=== PATIENT | male | born 1970 | race Caucasian/White ===

== ENCOUNTER → 2022-11-27 | Outpatient (CLI) | payer OTHER, SELFPAY ==
[2022-11-27 15:24] LABS: Absolute Lymphocyte Count 1.58 X10^3/uL (0.83-4.51); Basophil# 0.06 X10^3/uL; Basophil% 0.9 % (0-1); Eosinophil# 0.15 X10^3/uL; Eosinophils% 2.3 % (0-5); Hematocrit 43.3 % (40-54); Hemoglobin 14.4 g/dL (13.0-16.5); Lymphocyte # 1.58 X10^3/ul (0.83-4.51); Lymphocyte % 24.7 % (19-41); Mean Corp Hgb Conc 33.3 g/dL (32-36); Mean Corpuscular Hgb 29.6 pg (27.0-32.0); Mean Corpuscular Volume 89.1 fL (80-94); Mean Platelet Vol. 11.3 fl (6.2-12.0); Monocyte# 0.56 X10^3/uL; Monocyte% 8.8 % (0-10); NRBC Flagged by Analyzer 0 % (0-5); Neutrophil % 62.5 % (47-70); Platelet Count 204 K/mm3 (150-450); RBC Distribution Width CV 13.4 % (11.6-14.6); RBC Distribution Width SD 43.8 fl (35.1-43.9); Red Blood Count 4.86 M/mm3 (4.6-6.2); White Blood Count 6.4 K/mm3 (4.4-11.0)
[2022-11-27 15:54] LABS: ALB/GLOB Ratio 0.9 RATIO (0.9-2.4); AST(SGOT) 28 U/L (15-37); Alanine Aminotransfer ALT/SGPT 53 U/L (16-61); Albumin, Serum 3.5 g/dL (3.2-5.0); Alkaline Phosphatase 53 U/L (45-117); Anion Gap 6 (5-15); BUN 20 mg/dL (7-18); BUN/Creat Ratio 22.8 RATIO (10-20); Calcium,Total 9.2 mg/dL (8.5-10.1); Chloride 104 mmol/L (98-107); Cholesterol 157 mg/dL (200); Creatinine, Serum 0.88 mg/dL (0.70-1.30); EST Glomerular Filtration Rate 97 mL/min (>60); Est Glom Filt Rate - Afr Amer 117 mL/min (>60); Globulin 3.8 g/dL (2.2-4.2); Glucose 185 mg/dL (74-106); High Density Lipoprotein 34 mg/dL; Potassium 4.2 mmol/L (3.5-5.1); Protein, Total 7.3 g/dL (6.4-8.2); Sodium Level 136 mmol/L (136-145); Triglycerides 219 mg/dL; Very Low Density Lipoprotein 44 mg/dL (5-40)
== END | disposition home or self-care (01) ==
LOC: BIMLAB 11:58
PROVIDERS: PCP Internal Medicine; Referring Provider Internal Medicine; Visit Provider Internal Medicine
DX: I10 Essential (primary) hypertension (principal); R73.03 Prediabetes; G47.33 Obstructive sleep apnea (adult) (pediatric)
CPT/HCPCS: 36415; 80053; 80061; 85025

== ENCOUNTER → 2022-12-01 | Outpatient (CLI) | payer OTHER, SELFPAY ==
--- NOTE | 2022-12-01 12:56 | ECHOCS_ITS ---
Reason For Study: CHF Procedure This was a 2D Doppler, Color Flow transthoracic echocardiogram. Technically difficult study due to patient body habitus. Contrast injection was performed. Exam performed in department. Left Ventricle Normal LV size. Mild concentric left ventricular hypertrophy. The left ventricular ejection fraction is 65 %. Stage 2 diastolic dysfunction. Right Ventricle The right ventricle is not well visualized. Atria The left atrium is severely enlarged. The right atrium is not well visualized. Mitral Valve Mitral valve not well visualized. Mild (1+) mitral valve insufficiency. Tricuspid Valve The tricuspid valve is not well visualized. Aortic Valve The aortic valve is not well visualized in the short axis view. Mean aortic valve gradient 8 mmHg. Pulmonic Valve The pulmonic valve is not well visualized. Great Vessels The aortic root is not well visualized. Pericardium/Pleural No pericardial effusion. Medication 20 gauge I.V. with prn adaptor inserted into right arm. Diluted definity 3ml given slow IV push to enhance endocardial definition. MMode/2D Measurements & Calculations LVIDd: 5.8 cm IVSd: 1.2 cm Ao root diam: 3.4 cm LVIDs: 3.5 cm LVPWd: 1.2 cm LA dimension: 4.6 cm FS: 39.4 % LAV(MOD-bp): 102.4 ml LVAd ap4: 43.2 cm2 SV(MOD-sp4): 91.9 ml LAV(MOD-bp) Indexed: 41.3 ml/m2 LVLd ap4: 9.0 cm LAV(MOD-sp2): 81.0 ml EDV(MOD-sp4): 166.1 ml LAV(MOD-sp4): 108.4 ml EDV(sp4-el): 175.3 ml LVAs ap4: 26.6 cm2 LVLs ap4: 7.7 cm ESV(MOD-sp4): 74.2 ml ESV(sp4-el): 78.3 ml EF(MOD-sp4): 55.3 % EF(sp4-el): 55.3 % SV(sp4-el): 97.0 ml LA A4 area: 31.0 cm2 TAPSE: 2.0 cm Time Measurements MV dec time: 0.16 sec Doppler Measurements & Calculations MV E max zac: 135.1 cm/sec Lat Peak E' Zac: 7.9 cm/sec Med Peak E' Zac: 7.9 cm/sec MV A max zac: 87.3 cm/sec E/E' lat: 17.2 E/E' med: 17.2 MV E/A: 1.5 MV V2 max: 146.9 cm/sec MV P1/2t max zac: 146.9 cm/sec Ao V2 max: 185.9 cm/sec MV max P.6 mmHg MV P1/2t: 53.7 msec Ao max P.8 mmHg MV V2 mean: 66.5 cm/sec Ao V2 mean: 135.2 cm/sec MV mean P.3 mmHg MV dec slope: 801.3 cm/sec2 Ao mean P.3 mmHg MV V2 VTI: 34.5 cm MVA(P1/2t): 4.1 cm2 Ao V2 VTI: 45.5 cm AV (velocity ratio): 0.61 AI max zac: 423.9 cm/sec LV V1 max: 115.0 cm/sec PA V2 max: 94.1 cm/sec AI max P.9 mmHg LV V1 max P.3 mmHg PA V2 mean: 66.3 cm/sec LV V1 mean P.3 mmHg AI dec slope: 373.3 cm/sec2 LV V1 mean: 84.8 cm/sec AI P1/2t: 332.6 msec LV V1 VTI: 27.9 cm ECHO/Echo Complete W/ Contrast Interpretation Summary Technically difficult study due to patient body habitus. Contrast injection was performed. Mild concentric left ventricular hypertrophy. The left ventricular ejection fraction is 65 %. Stage 2 diastolic dysfunction. Mild (1+) mitral valve insufficiency. Mean aortic valve gradient 8 mmHg. Ordering Physician: Ana Gonzalez Referring Physician: Ana Gonzalez Performed By: Claudy Vasquez and Student
== END | disposition home or self-care (01) ==
LOC: CVS 12:54
PROVIDERS: PCP Internal Medicine; Referring Provider Internal Medicine; Visit Provider Internal Medicine
DX: I50.9 Heart failure, unspecified (principal); I51.7 Cardiomegaly
CPT/HCPCS: 93306; Q9957; A4216; C8929

== ENCOUNTER 2023-05-15 13:45 | Emergency (ER) | payer OTHER, SELFPAY ==
[2023-05-15 13:45] VITALS: BP 155/89; PULSE 106; RESP 18; TEMP 36.1; O2SAT 95; BMI 51.7
--- NOTE | 2023-05-15 14:18 | CT_ITS ---
INDICATION: Kidney Stone EXAMINATION: CT ABDOMEN AND PELVIS WITHOUT CONTRAST - CT Abdomen And Pelvis W/O Contrast Injection TECHNIQUE: Helically acquired images were obtained of the abdomen and pelvis without oral or IV contrast. A radiation dose optimization technique was used for this scan. IV Contrast dosage and agent: None. Oral contrast: None. RADIATION DOSAGE (If Supplied By Facility): CTDIvol = ( 22.71 ) mGy, DLP = ( 1113.08 ) mGycm COMPARISON: No relevant prior comparison study available FINDINGS: LOWER CHEST: Lung bases are clear. No cardiomegaly or pericardial effusion. Calcifications of the aortic root or bladder. LIVER: Homogeneous. No focal mass. GALLBLADDER AND BILIARY TREE: No calcified gallstones. No gallbladder distension or wall edema. No intra- or extrahepatic biliary ductal dilation. PANCREAS: No focal cystic or solid mass. SPLEEN: Normal size without focal cystic or solid mass. ADRENAL GLANDS: No nodules. KIDNEYS AND URETERS: Tiny 1 to 2 mm nonobstructing stone in the lower pole of the right kidney. No hydronephrosis. PERITONEUM: No ascites or free air. No other fluid collection. BOWEL: No evidence of acute appendicitis. Sigmoid diverticulosis without evidence of acute diverticulitis. No focal inflammatory change. LYMPH NODES: No enlarged mesenteric or retroperitoneal lymph nodes. VESSELS: Aorta is non-dilated. URINARY BLADDER: Unremarkable. REPRODUCTIVE ORGANS: No pelvic masses. ABDOMINAL WALL: No discrete abdominal or pelvic wall hernia. BONES: No lytic or blastic abnormality. Degenerative changes of the spine. CT/Abdomen/Pelvis without Cont IMPRESSION: 1. Small nonobstructing stone in the right kidney without evidence of hydronephrosis. 2. No focal acute inflammatory process. Electronically Signed: Juanito Watson MD at 15:06 EST ,
--- NOTE | 2023-05-15 14:20 | EX.ED.DYSGE1 ---
HPI History of Present Illness Chief Complaint: Flank Pain Informant: patient Narrative Narrative: 53-year-old male presenting to the emergency room with a chief complaint of hematuria. Patient states that he developed a right flank pain/ache. He states that this kept him up periodically during the night. Today began to have hematuria. He notes that when he does urinate it small amounts and does not feel like he empties his bladder. He has seen his few small clots. He is not on a blood thinner. No known direct trauma. Non-smoker. No known renal cyst or renal issues. No known kidney stones. [facility] Medical History Acute maxillary sinusitis, unspecified Bone fracture Cardiac murmur Heart failure High cholesterol History of back problems Hypertension Ocular migraine JOANNE (obstructive sleep apnea) Pre-diabetes Home Medications aspirin 81 mg tablet,delayed release (Adult Aspirin Regimen) 81 mg PO DAILY 11/04/22 [History Last Taken Unknown] carvedilol 25 mg tablet 25 mg PO BID 11/04/22 [History Last Taken Unknown] melatonin 3 mg capsule 3 mg PO HS PRN sleep #30 caps 11/04/22 [Rx Last Taken Unknown] catmlwis-hzk-algyf 150 mcg-vit K1 30 mcg-lycop 300 mcg-lutein tablet (Centrum Minis Men 50 Plus) tab PO 11/04/22 [History Last Taken Unknown] lisinopril 20 mg tablet 20 mg PO DAILY #90 tabs 01/30/23 [Rx Last Taken Unknown] triamterene 37.5 mg-hydrochlorothiazide 25 mg capsule 1 cap PO DAILY #90 caps 01/30/23 [Rx Last Taken Unknown] atorvastatin 20 mg tablet 20 mg PO DAILY #30 tabs 03/31/23 [Rx Last Taken Unknown] Allergy/AdvReac Type Severity Reaction Status Date / Time No Known Allergies Allergy Verified 05/15/23 13:48 Family History Mother Alcoholism Arthritis Myocardial infarction CVA (cerebral vascular accident) COPD (chronic obstructive pulmonary disease) Father Alcoholism COPD (chronic obstructive pulmonary disease) Prostate cancer Grandmother Arthritis Breast cancer Colon cancer Skin cancer Surgical History History of foot surgery History of hernia repair History of tonsillectomy Social History household members: spouse current occupational status: unemployed Smoking Status: Never smoker Electronic Cigarette Use: not used alcohol intake: current alcohol intake frequency: holidays/special occasions only Alcohol type: beer and wine substance use type: does not use what type of physical activity do you participate in: none do you feel safe at home: Yes ROS ROS ED Constitutional Constitutional ED: Denies chills or weight loss Eyes Eyes: Denies change in vision or diplopia ENT ENT ED: Denies ear pain, rhinorrhea or sore throat Cardiovascular Cardiovascular: Denies chest pain, orthopnea, palpitations or racing heartbeat Respiratory/Chest Respiratory/Chest: Denies cough, dyspnea or orthopnea Gastrointestinal Gastrointestinal: Denies abdominal pain, diarrhea, nausea or vomiting Genitourinary Genitourinary ED: Reports hematuria and urinary frequency; Denies dysuria Musculoskeletal Musculoskeletal: Reports back pain; Denies arthralgias or myalgias Integumentary Denies abscess or rash Neurologic Neurologic: Denies headache(s) or weakness Psychiatric Psychiatric: Denies anxiety, depression, suicidal ideation or suicidal thoughts Endocrine Endocrinology: Denies polydipsia, polyphagia or polyuria Allergic/Immunologic Allergic/Immunologic ED: Denies mouth swelling, tongue swelling or urticaria EXAM Physical Exam Const Vital Signs: 05/15/23 13:45 Temperature 97.0 F L Temperature Source Temporal Pulse Rate 106 H Respiratory Rate 18 Blood Pressure 155/89 H Blood Pressure Mean 111 Pulse Ox 95 Oxygen Delivery Method Room Air Positive well nourished, well developed and obese General Appearance ED: well developed Nutritional Appearance: obese HEENT Reports normocephalic, head/scalp atraumatic and moist mucous membranes Eyes PERRL and EOMs intact bilaterally Neck no lymphadenopathy, supple and no JVD Resp normal respiratory effort and clear to auscultation bilaterally Cardio regular rate, regular rhythm and no murmurs GI normal to inspection, nondistended, normoactive bowel sounds and non-tender Palpation: soft Back/Spine no CVA tenderness and normal ROM Extremity normal to inspection General Extremety ED: Negative for edema General Extremity: Negative for edema Neuro oriented x3 and CN's II-XII intact bilaterally Sensorium / Orientation: alert Motor Exam: strength 5/5 throughout Psych mental status grossly normal Mood & Affect: Negative for depressed or tearful Skin no rashes or lesions noted and no wounds MDM MDM MDM Narrative Medical decision making narrative: Urinalysis demonstrated 50-100 red blood cells. No obvious infection. White count 10.4 hemoglobin 14.4. Creatinine 0.94 glucose 211. Patient received IV fluids and Toradol. He states that he is urinated several times and now feels like he is emptying his bladder. Before that he states he was able to pass a large amount of clots. CT demonstrates a 2 mm right renal stone. I question whether or not there is a 1 or 2 mm stone in the bladder on the left side. I do not see any obvious hydronephrosis or hydroureter. Patient does not require any catheter at this time. He was encouraged to continue drinking fluids and should he not be able to urinate he would need to come back for at minimum Gonzales catheter if not for CBI. This could be all due to a passed stone given the pain in the flank. He is not on a blood thinner. I am not seeing hypotension or acute blood loss anemia. I am not seeing any obvious source for the bleeding. He understands that should it persist he will need to follow-up with urology. History & Record Review Discussion w/independent historian: Patient and Family Lab Data Attestation: I reviewed the patient's lab results. Labs: Laboratory Results - last 24 hr 05/15/23 05/15/23 14:23 14:25 WBC 10.4 RBC 4.79 Hgb 14.4 Hct 41.3 MCV 86.2 MCH 30.1 MCHC 34.9 RDW Std Deviation 41.2 RDW Coeff of Adry 13.2 Plt Count 213 MPV 10.4 Immature Gran % (Auto) 0.400 Neut % (Auto) 76.8 H Lymph % (Auto) 13.7 L Harney % (Auto) 7.9 Eos % (Auto) 0.7 Baso % (Auto) 0.5 Absolute Neuts (auto) 8.0 H Absolute Lymphs (auto) 1.42 Nucleated RBC % 0 Sodium 132 L Potassium 3.8 Chloride 101 Carbon Dioxide 24.0 Anion Gap 7 BUN 16 Creatinine 0.94 Estim Creat Clear Calc 84.97 Est GFR (MDRD) Af Amer 108 Est GFR (MDRD) Non-Af 89 BUN/Creatinine Ratio 17.0 Glucose 211 H Calcium 9.8 Urine Color Red Urine Clarity Turbid Urine pH 6.5 Ur Specific [place] 1.015 Urine Protein 500 H Urine Glucose (UA) Normal Urine Ketones 5 H Urine Occult Blood 250 H Urine Nitrite Negative Urine Bilirubin Negative Urine Urobilinogen Normal Ur Leukocyte Esterase Negative Urine RBC 50-100 SEEN Urine WBC 0 SEEN Ur Squamous Epith Cells 0 SEEN Urine Bacteria 0 SEEN Urine Mucus 0 SEEN Radiography Diagnostic Testing: Clinical Impression(s) from Imaging Studies Abdomen/Pelvis CT 05/15/23 14:18 IMPRESSION: 1. Small nonobstructing stone in the right kidney without evidence of hydronephrosis. 2. No focal acute inflammatory process. Electronically Signed: Juanito Watson MD at 15:06 EST , Discharge Plan Triage Chief Complaint: Flank Pain ED Provider: Joseph Roper Dx/Rx/DC Orders Clinical Impression: Acute flank pain, Hematuria, Kidney stone on right side Instructions: ED Hematuria, ED Kidney Stone with Pain Prescriptions: No Action carvedilol 25 mg tablet 25 mg PO BID Rx Instructions: must administer with a meal/food Centrum Minis Men 50 Plus [phone] mcg tablet PO aspirin [Adult Aspirin Regimen] 81 mg tablet,delayed release (DR/EC) 81 mg PO DAILY melatonin 3 mg capsule 3 mg PO HS PRN (Reason: sleep) Qty: 30 1RF lisinopril 20 mg tablet 20 mg PO DAILY Qty: 90 0RF triamterene-hydrochlorothiazid 37.5-25 mg capsule 1 cap PO DAILY Qty: 90 0RF atorvastatin 20 mg tablet 20 mg PO DAILY Qty: 30 1RF Primary Care Provider: Ana Gonzalez Referrals: Ana Gonzalez MD [Primary Care Provider] - Bishop Goode MD [Med Staff - Active Staff] - As soon as possible Disposition Disposition: Home, Self Care Discharge Date/Time: 05/15/23 16:27
[2023-05-15 14:31] LABS: Bacteria 0 SEEN /hpf (None Seen); Mucous, Urine 0 SEEN /hpf (<or=2+); Squamous Epithelial Cells - UA 0 SEEN /hpf (0-5); White Blood Cells 0 SEEN /hpf (0-5)
[2023-05-15 14:35] LABS: Absolute Lymphocyte Count 1.42 X10^3/uL (0.83-4.51); Basophil# 0.05 X10^3/uL; Basophil% 0.5 % (0-1); Eosinophil# 0.07 X10^3/uL; Eosinophils% 0.7 % (0-5); Hematocrit 41.3 % (40-54); Hemoglobin 14.4 g/dL (13.0-16.5); Lymphocyte # 1.42 X10^3/ul (0.83-4.51); Lymphocyte % 13.7 % (19-41); Mean Corp Hgb Conc 34.9 g/dL (32-36); Mean Corpuscular Hgb 30.1 pg (27.0-32.0); Mean Corpuscular Volume 86.2 fL (80-94); Mean Platelet Vol. 10.4 fl (6.2-12.0); Monocyte# 0.82 X10^3/uL; Monocyte% 7.9 % (0-10); NRBC Flagged by Analyzer 0 % (0-5); Neutrophil # 7.96 X10^3/uL (2.7-7.7); Neutrophil % 76.8 % (47-70); Platelet Count 213 K/mm3 (150-450); RBC Distribution Width CV 13.2 % (11.6-14.6); RBC Distribution Width SD 41.2 fl (35.1-43.9); Red Blood Count 4.79 M/mm3 (4.6-6.2); White Blood Count 10.4 K/mm3 (4.4-11.0)
[2023-05-15] MEDS: 0.9% Normal Saline (1000mL) 1,000 ML 999 ML IV (14:38)
[2023-05-15 14:41] LABS: Color, Urine Red (Yellow); Glucose, Dipstick Normal (Normal); Ketone-Dipstick 5 mg/dl (Negative); Leukocyte Esterase-Dipstick Negative /ul (Negative); Nitrite-Dipstick Negative (Negative); Occult Blood-Urine 250 /ul (Negative); Protein-Dipstick 500 mg/dl (Negative); Specific Gravity, Urine 1.015 (1.002-1.030); Urine Bilirubin Dipstick Negative (Negative); Urine Clarity Turbid (Clear); Urine Urobilinogen Normal (Normal); Urine pH 6.5 (5.0 - 8.0)
[2023-05-15 14:50] LABS: Anion Gap 7 (5-15); BUN 16 mg/dL (7-18); Calcium,Total 9.8 mg/dL (8.5-10.1); Chloride 101 mmol/L (98-107); Creatinine, Serum 0.94 mg/dL (0.70-1.30); EST Glomerular Filtration Rate 89 mL/min (>60); Est Glom Filt Rate - Afr Amer 108 mL/min (>60); Estimated Creatinine Clearance 84.97 ml/min; Glucose 211 mg/dL (74-106); Potassium 3.8 mmol/L (3.5-5.1); Sodium Level 132 mmol/L (136-145)
[2023-05-15 14:52] LABS: Red Blood Cells-Urine 50-100 SEEN /hpf (0-5)
[2023-05-15] MEDS: Ketorolac 30 MG/ML Syringe IV (15:15)
== END 2023-05-15 16:27 | disposition home or self-care (01) ==
PROVIDERS: Emergency Provider Emergency Medicine; PCP Internal Medicine; Referring Provider Emergency Medicine; Visit Provider Emergency Medicine
DX: N20.0 Calculus of kidney (principal); I11.0 Hypertensive heart disease with heart failure; I50.9 Heart failure, unspecified; R31.9 Hematuria, unspecified; R10.9 Unspecified abdominal pain; E78.00 Pure hypercholesterolemia, unspecified; Z79.899 Other long term (current) drug therapy; Z79.82 Long term (current) use of aspirin
CPT/HCPCS: 74176; 80048; 81001; 85025; 96361; 96374; 99283; J7030; A4216

== ENCOUNTER → 2024-05-30 | Outpatient (CLI) | payer OTHER, SELFPAY ==
[2024-05-30 12:30] LABS: ALB/GLOB Ratio 0.9 RATIO (0.9-2.4); AST(SGOT) 35 U/L (15-37); Alanine Aminotransfer ALT/SGPT 48 U/L (16-61); Albumin, Serum 3.7 g/dL (3.2-5.0); Alkaline Phosphatase 51 U/L (45-117); Anion Gap 7 (5-15); BUN 19 mg/dL (7-18); BUN/Creat Ratio 18.4 RATIO (10-20); Calcium,Total 9.4 mg/dL (8.5-10.1); Chloride 104 mmol/L (98-107); Cholesterol 143 mg/dL (200); Creatinine, Serum 1.03 mg/dL (0.70-1.30); EST Glomerular Filtration Rate 80 mL/min (>60); Est Glom Filt Rate - Afr Amer 97 mL/min (>60); Globulin 3.9 g/dL (2.2-4.2); Glucose 162 mg/dL (74-106); High Density Lipoprotein 46 mg/dL; Potassium 4.3 mmol/L (3.5-5.1); Protein, Total 7.6 g/dL (6.4-8.2); Sodium Level 138 mmol/L (136-145); Triglycerides 149 mg/dL; Very Low Density Lipoprotein 30 mg/dL (5-40)
[2024-05-30 12:37] LABS: Absolute Lymphocyte Count 1.52 X10^3/uL (0.83-4.51); Absolute Neutrophil Count 3.9 X10^3/uL (2.0-7.7); Basophil# 0.07 X10^3/uL; Basophil% 1.1 % (0-1); Eosinophil# 0.17 X10^3/uL; Eosinophils% 2.8 % (0-5); Hematocrit 39.2 % (40-54); Hemoglobin 13.2 g/dL (13.0-16.5); Lymphocyte # 1.52 X10^3/ul (0.83-4.51); Lymphocyte % 24.8 % (19-41); Mean Corp Hgb Conc 33.7 g/dL (32-36); Mean Corpuscular Hgb 29.8 pg (27.0-32.0); Mean Corpuscular Volume 88.5 fL (80-94); Mean Platelet Vol. 10.6 fl (6.2-12.0); Monocyte# 0.47 X10^3/uL; Monocyte% 7.7 % (0-10); NRBC Flagged by Analyzer 0 % (0-5); Neutrophil # 3.87 X10^3/uL (2.7-7.7); Neutrophil % 62.9 % (47-70); Platelet Count 213 K/mm3 (150-450); RBC Distribution Width CV 14.8 % (11.6-14.6); RBC Distribution Width SD 47.7 fl (35.1-43.9); Red Blood Count 4.43 M/mm3 (4.6-6.2); White Blood Count 6.1 K/mm3 (4.4-11.0)
== END | disposition home or self-care (01) ==
LOC: BIMLAB 08:23
PROVIDERS: PCP Internal Medicine; Referring Provider Internal Medicine; Visit Provider Internal Medicine
DX: I10 Essential (primary) hypertension (principal)

== ENCOUNTER → 2024-06-02 | Outpatient (CLI) | payer OTHER, SELFPAY ==
--- NOTE | 2024-06-02 14:34 | RAD_ITS ---
INDICATION: persistent cough EXAMINATION/TECHNIQUE: X-RAY - XR Chest 2 Views COMPARISON: No relevant prior comparison study available FINDINGS: LINES/DEVICES: None. LUNGS: The lungs are well expanded. No consolidation, edema or effusion. No pneumothorax. MEDIASTINUM AND CARDIOVASCULAR STRUCTURES: Cardiac silhouette not enlarged. Central airways and mediastinal contour are unremarkable. BONES AND SOFT TISSUES: No acute abnormality. Mild degenerative changes throughout the spine. RAD/Chest PA and Lateral IMPRESSION: No acute pulmonary finding. Electronically Signed: Jean-Pierre Meraz MD at 12:44 EST ,
== END | disposition home or self-care (01) ==
LOC: MTRAD 14:34
PROVIDERS: PCP Internal Medicine; Referring Provider Internal Medicine; Visit Provider Internal Medicine
DX: R05.8 Other specified cough (principal)
CPT/HCPCS: 71046

== ENCOUNTER 2024-08-17 06:31 | Inpatient (IN) | payer OTHER, SELFPAY ==
[2024-08-17] VITALS (18 sets, daily range): BP systolic 98–136; BP diastolic 56–85; PULSE 64–123; RESP 12–33; TEMP 36.2–37.7; O2SAT 79–98; BMI 48.0; BMI 46.8
--- NOTE | 2024-08-17 06:33 | EKG12_ITS ---
Test Reason : SOB Blood Pressure : */* mmHG Vent. Rate : 117 BPM Atrial Rate : 117 BPM P-R Int : 178 ms QRS Dur : 90 ms QT Int : 338 ms P-R-T Axes : 2 6 165 degrees QTcB Int : 471 ms Sinus tachycardia with Premature atrial complexes Left ventricular hypertrophy with repolarization abnormality ( R in aVL ) Abnormal ECG Confirmed by Tanvir Meeks ([id number]), publishing editor GENTRY RESENDIZ ([id number]) on 08/18/2024 7:54:18 AM Referred By: JANET Confirmed By: Tanvir Meeks
--- NOTE | 2024-08-17 06:33 | RAD_ITS ---
PROCEDURE: CHEST 1 VIEW (PORTABLE) 08/17/2024 REASON FOR EXAM: CHEST PAIN TECHNIQUE: Frontal view of the chest. COMPARISON: 06/02/2024 FINDINGS: AP upright portable view. Large appearing body habitus. Moderate bilateral perihilar lower zone predominant ill-defined patchy airspace opacities may represent pulmonary edema, clinically correlate. No definite pleural effusion identified. The cardiac silhouette is at the upper limits for size. The upper mediastinum again appears prominent. RAD/Chest 1 View (Portable) IMPRESSION: AP upright portable view. Large appearing body habitus. Moderate bilateral perihilar lower zone predominant ill-defined patchy airspace opacities may represent pulmonary edema, clinically correlate. No definite pleural effusion identified. The cardiac silhouette is at the upper limits for size. The upper mediastinum again appears prominent. Reading Location: [id number]
--- NOTE | 2024-08-17 06:41 | ED.VIS.DYS ---
HPI History of Present Illness Chief Complaint: Chest Pain Detail of Chief Complaint: Shortness of breath for a week. Informant: patient and spouse/S.O. Onset/Context/Timing Onset: Days (Approximately 1 week last Thursday.) Context: gradual Timing: Continuous Quality: Positive for Orthopnea and Wheezing Current Severity: Moderate Maximum Severity: Moderate Worsened by: Lying flat and Coughing Relieved by: Oxygen Associated Symptoms cough Chest Pain: Positive for None Narrative Narrative: 54-year-old male history of hypertension, CHF and diabetes. No prior LA. States he been short of breath with a productive cough of rust colored sputum for about a week. Denies fever. Denies vomiting. Really no significant chest pain. He does have CHF he does get swelling in his legs and his legs are more swollen than normal. recently had URI symptoms. PE Risk Factors: Negative for Cancer, OCP + Smoking + > 35, Prior DVT or PE, Recent immobilization, Recent surgery or Recent travel Prior similar symptoms: Yes Recent Illness/Hospitalization: No PFSH PFS Medical History Acute bronchitis, unspecified Acute maxillary sinusitis, unspecified Ocular migraine JOANNE (obstructive sleep apnea) Pre-diabetes Cardiac murmur High cholesterol Hypertension Heart failure Bone fracture History of back problems Home Medications ?Medication ?Instructions ?Recorded ?Last Taken ?Type aspirin 81 mg tablet,delayed 81 mg PO DAILY 11/04/22 Unknown History release (Adult Aspirin Regimen) [id number] 150 mcg-vit K1 1 tab PO DAILY 11/04/22 Unknown History 30 mcg-lycop 300 mcg-lutein tablet (Centrum Minis Men 50 Plus) flash glucose scanning reader #1 ea 05/20/23 Unknown Rx (FreeStyle Vance 2 [place]) flash glucose sensor (FreeStyle #1 ea 05/20/23 Unknown Rx Vance 2 Sensor kit) atorvastatin 20 mg tablet 20 mg PO DAILY #90 tabs 05/04/24 Unknown Rx lisinopril 20 mg tablet 20 mg PO DAILY #90 tabs 05/04/24 Unknown Rx metformin 1,000 mg tablet 1,000 mg PO BID #180 tabs 05/04/24 Unknown Rx triamterene 37.5 1 cap PO DAILY #90 caps 05/04/24 Unknown Rx mg-hydrochlorothiazide 25 mg capsule albuterol sulfate 90 mcg/actuation 2 puff inhalation Q6H PRN 06/02/24 Unknown Rx aerosol inhaler shortness of breath or wheezing #8.5 grams escitalopram oxalate 10 mg tablet 10 mg PO QDAY #30 tabs 08/09/24 Unknown Rx (Lexapro) trazodone 50 mg tablet 50 - 100 mg (1 - 2 x 50 mg) PO QHS 08/09/24 Unknown Rx #90 tabs Allergy/AdvReac Type Severity Reaction Status Date / Time No Known Allergies Allergy Verified 08/09/24 13:05 Family History Mother Alcoholism Arthritis Myocardial infarction CVA (cerebral vascular accident) COPD (chronic obstructive pulmonary disease) Father Alcoholism COPD (chronic obstructive pulmonary disease) Prostate cancer Grandmother Arthritis Breast cancer Colon cancer Skin cancer Surgical History History of tonsillectomy History of foot surgery History of hernia repair Social History household members: spouse current occupational status: unemployed Smoking Status: Never smoker Electronic Cigarette Use: not used alcohol intake: current alcohol intake frequency: holidays/special occasions only Alcohol type: beer and wine substance use type: does not use what type of physical activity do you participate in: none do you feel safe at home: Yes ROS ROS ED ROS Narrative Cough. Shortness of breath. Wheezing. Constitutional Constitutional ED: Denies chills or fever(s) Eyes Eyes: Denies blurry vision ENT ENT ED: Denies ear pain Cardiovascular Cardiovascular: Reports orthopnea; Denies chest pain or palpitations Respiratory/Chest Respiratory/Chest: Reports cough, dyspnea, dyspnea on exertion, orthopnea and sputum Gastrointestinal Gastrointestinal: Denies abdominal pain, diarrhea, nausea or vomiting Genitourinary Genitourinary ED: Denies dysuria or hematuria Musculoskeletal Musculoskeletal: Denies arthralgias or back pain Integumentary Denies abscess Neurologic Neurologic: Denies headache(s) Psychiatric Psychiatric: Denies anxiety Endocrine Endocrinology: Denies cold intolerance Hematologic/Lymphatic Hematologic/Lymphatic: Denies easy bleeding, easy bruising or lymphadenopathy Allergic/Immunologic Allergic/Immunologic ED: Denies mouth swelling, tongue swelling or urticaria EXAM Physical Exam Narrative Exam Narrative: 54-year-old male vital signs stable except his pulse ox was 79% on room air when he came in. On 2 L he went up to 84% of 4 L 87%. at bedside. H EENT exam pupils round react light. Moist with members. Neck nontender. No JVD. Lungs coarse breath sounds. Scattered wheezes. Heart tachycardic 120 no murmur. Chest wall ribs nontender. Abdomen soft nontender. Moving all 4 extremities. 2+ pitting edema both lower extremities. Calves are nontender without cords. Normal motor strength. Back nontender. Neurologically is awake alert. Answering questions following commands. He is in mild respiratory distress. Const Vital Signs: 08/17/24 06:32 08/17/24 06:34 08/17/24 06:35 Temperature 99.8 F H Temperature Source Oral Pulse Rate 123 H 121 H Respiratory Rate 30 H 24 H Respiratory Effort Respiratory Pattern Blood Pressure 128/67 H Blood Pressure Mean 87 Pulse Ox 79 84 87 Oxygen Delivery Method Room Air Nasal Cannula Nasal Cannula Oxygen Flow Rate (L/min) 2 4 08/17/24 06:36 08/17/24 06:52 Temperature Temperature Source Pulse Rate 113 H Respiratory Rate 30 H Respiratory Effort Short of Breath Labored Accessory Muscle Use Respiratory Pattern Tachypnea Blood Pressure Blood Pressure Mean Pulse Ox Oxygen Delivery Method Oxygen Flow Rate (L/min) Positive well nourished and well developed; Negative for cachectic or contractures General Appearance ED: well developed; Negative for cachectic, contractures, NAD or pallor Nutritional Appearance: Negative for cachectic HEENT Reports moist mucous membranes Negative for atraumatic, trauma or tenderness Eyes PERRL and EOMs intact bilaterally General Eye ED: Negative for pale conjunctiva or scleral icterus Neck no lymphadenopathy, supple, no meningeal signs and no JVD Lymph Lymphatic: Negative for other Chest Wall Chest: Negative for other Resp No normal respiratory effort and No clear to auscultation bilaterally Auscultation: wheezes Cardio regular rhythm, S1 normal heart sound and no murmurs; Negative for regular rate Rate: tachycardic GI non-tender, non-distended and no masses Auscultation: normoactive bowel sounds Palpation: soft; Negative for tender, guarding or rebound tenderness present Back/Spine no CVA tenderness and normal to inspection Extremity Negative for normal to inspection Extremity Narrative: 2+ pitting edema both lower extremities. General Extremety ED: Yes edema; Negative for tenderness General Extremity: edema Neuro oriented x3 and CN's II-XII intact bilaterally Sensorium / Orientation: alert, oriented to person, oriented to place and oriented to time; Negative for orientation impaired or confused Motor Exam: strength 5/5 throughout Psych mental status grossly normal Attitude: No agitated Mood & Affect: Negative for depressed or anxious Thought Process: normal thought process Skin no wounds and skin turgor normal General Skin Exam: Negative for jaundice or pallor Lesions: No no lesions Rashes: no rashes MDM MDM MDM Narrative Medical decision making narrative: 54-year-old male short of breath for a week differential would include CHF versus other cardiac etiology versus pneumonia versus viral URI versus other etiologies. Undergo cardiac workup. COVID and flu. DuoNeb aerosol for his wheezing. Screening labs and EKG. Patient will need to be admitted to the hospital due to his hypoxia pulse ox 79%. Repeat exam patient had some improvement with a DuoNeb aerosol. Chest x-ray however looks more like CHF than pneumonia. Looks like pulmonary edema. I have written for the patient to receive IV Lasix. History & Record Review Discussion w/independent historian: Patient and Family Lab Data Attestation: I reviewed the patient's lab results. Lab results narrative: CBC shows white 11.4. H&H 12.6 and 35.5. Platelets 262. Chemistry shows sodium 124. Gap of 17. BUN 31 creatinine of 1. Glucose 249. Troponin elevated 167. Not a surprise due to his CHF and hypoxia. BNP elevated at 2,180. Labs: Laboratory Results - last 24 hr 08/17/24 06:45 WBC 11.4 H RBC 4.32 L Hgb 12.6 L Hct 35.5 L MCV 82.2 MCH 29.2 MCHC 35.5 RDW Std Deviation 41.1 RDW Coeff of Adry 13.8 Plt Count 262 MPV 10.2 Immature Gran % (Auto) 0.600 Neut % (Auto) 87.1 H Lymph % (Auto) 6.2 L [place] % (Auto) 5.8 Eos % (Auto) 0.0 Baso % (Auto) 0.3 Absolute Neuts (auto) 9.9 H Absolute Lymphs (auto) 0.71 L Nucleated RBC % 0 Sodium 124 L Potassium 4.5 Chloride 90 L Carbon Dioxide 18.0 L Anion Gap 17 H BUN 31 H Creatinine 1.05 Estim Creat Clear Calc 111.89 Est GFR (MDRD) Non-Af 84 BUN/Creatinine Ratio 29.8 H Glucose 249 H Calcium 9.2 Troponin T High Sens 167 H* NT pro BNP II 2180 H Radiography Chest X-Ray - ED: 1 View, Read by ED Physician, Cardiomegaly and CHF Diagnostic Testing: Clinical Impression(s) from Imaging Studies Chest X-Ray 08/17/24 06:33 IMPRESSION: AP upright portable view. Large appearing body habitus. Moderate bilateral perihilar lower zone predominant ill-defined patchy airspace opacities may represent pulmonary edema, clinically correlate. No definite pleural effusion identified. The cardiac silhouette is at the upper limits for size. The upper mediastinum again appears prominent. Reading Location: [facility] Chest x-ray, portable, single view, interpreted by myself shows cardiomegaly. Bilateral fluffy density consistent with CHF. Cannot rule out pneumonia. Rhythm Strip Rhythm Strip: Sinus Tach Rate: 117 Ectopy: PAC(s) EKG Initial EKG: Attestation: I personally reviewed and interpreted this EKG as follows: Interpretation: No Acute Injury Pattern and Sinus Tachycardia Comments: Sinus tachycardia rate 117. PACs. LVH. He does have some inverted T waves and ST depression in V3 through V6. Also in lead I. No ST elevation. Critical Care Time Critical Care Time: Yes Critical care time (excluding procedures): 30-74 minutes, Including time spent:, Discussing w/Patient &/or Family/Software Developer Manager, Discussing w/Consultants, Arranging Admission or Transfer, Performing Direct Patient Care at Bedside and - (37 minutes.) Discharge Plan Dx/Rx/DC Orders Clinical Impression: Hypoxia, Congestive heart failure, History of diabetes mellitus, Acute hyponatremia, Elevated troponin Disposition Disposition: Acute Care [facility]
[2024-08-17] MEDS: Ipratropium/Albuterol Sulfate 3 ML AMPUL.NEB INHALATION ×2 (06:48→19:27)
[2024-08-17 06:53] LABS: Absolute Lymphocyte Count 0.71 X10^3/uL (0.83-4.51); Absolute Neutrophil Count 9.9 X10^3/uL (2.0-7.7); Basophil# 0.03 X10^3/uL; Basophil% 0.3 % (0-1); Hematocrit 35.5 % (40-54); Hemoglobin 12.6 g/dL (13.0-16.5); Lymphocyte # 0.71 X10^3/ul (0.83-4.51); Lymphocyte % 6.2 % (19-41); Mean Corp Hgb Conc 35.5 g/dL (32-36); Mean Corpuscular Hgb 29.2 pg (27.0-32.0); Mean Corpuscular Volume 82.2 fL (80-94); Mean Platelet Vol. 10.2 fl (6.2-12.0); Monocyte# 0.66 X10^3/uL; Monocyte% 5.8 % (0-10); NRBC Flagged by Analyzer 0 % (0-5); Neutrophil # 9.91 X10^3/uL (2.7-7.7); Neutrophil % 87.1 % (47-70); Platelet Count 262 K/mm3 (150-450); RBC Distribution Width CV 13.8 % (11.6-14.6); RBC Distribution Width SD 41.1 fl (35.1-43.9); Red Blood Count 4.32 M/mm3 (4.6-6.2); White Blood Count 11.4 K/mm3 (4.4-11.0)
[2024-08-17] MEDS: Furosemide 40 MG/4 ML Vial IV ×3 (07:10→21:56)
[2024-08-17 07:27] LABS: Anion Gap 17 (5-15); BUN 31 mg/dL (4-19); BUN/Creat Ratio 29.8 RATIO (10-20); Calcium,Total 9.2 mg/dL (7.6-11.0); Chloride 90 mmol/L (98-108); Creatinine, Serum 1.05 mg/dL (0.70-1.20); EST Glomerular Filtration Rate 84 (>60); Estimated Creatinine Clearance 111.89 ml/min (50-250); Glucose 249 mg/dL (70-99); Potassium 4.5 mmol/L (3.3-5.1); Sodium Level 124 mmol/L (133-145)
[2024-08-17 07:32] LABS: Pro- Brain NATRIURETIC PEPTIDE 2180 pg/mL (<=900); Troponin T High Sensitivity 167 ng/L (<=22)
--- NOTE | 2024-08-17 07:35 | PCM.HP.STD ---
HPI - General General Date of Admission: 08/17/24 Date of Service: 08/17/24 Chief Complaint: Worsening shortness of breath HPI Narrative MARK ANTHONY YE, is a 54 M who presented to [facility] ED on 08/17/2024 with worsening shortness of breath. Patient does not wear oxygen at home. He developed URI symptoms about 1 week ago and has had progressive shortness of breath since then. Notes that his works at [employer] and had an upper respiratory illness prior to that. He has noticed worsening lower extremity swelling and has not been able to lay flat in bed. Does have history of HFpEF noted. In the ED he was found to be hypoxic to the mid 70s on room air. Required 4 L nasal cannula to maintain oxygen saturations in the low 90s. Chest x-ray showed moderate bilateral patchy airspace opacities most consistent with pulmonary edema but no pleural effusions identified. Was found to be positive for human metapneumovirus. BNP was 2180 but notably patient has BMI of 46 so BMP will be underestimated. Labs otherwise notable for sodium 124, chloride 90, bicarb 18. Initial troponin 167, repeat pending. No EKG changes noted. Given all of these findings, hospitalist was contacted for admission. I saw the patient at bedside in the ED, was present. Patient was sitting up fairly comfortably in bed and breathing comfortably on 4 L nasal cannula at rest. He did have mild conversational dyspnea noted at times. Did have a few dry cough spells noted during our encounter. He was given a dose of IV Lasix as well as a breathing treatment prior to my encounter with him and stated these were moderately helpful for him. He denied any current fevers or chills. No other acute concerns at this time. [facility] Medical History (Updated 08/17/24 @ 15:[address] Elias Ramires, DO) Depression Diabetes Dialysis patient CPAP (continuous positive airway pressure) dependence Sleep apnea Acute bronchitis, unspecified Acute maxillary sinusitis, unspecified Ocular migraine JOANNE (obstructive sleep apnea) Pre-diabetes Cardiac murmur High cholesterol Hypertension Heart failure Bone fracture History of back problems Home Medications ?Medication ?Instructions ?Recorded ?Last Taken ?Type aspirin 81 mg tablet,delayed 81 mg PO DAILY 11/04/22 Unknown History release (Adult Aspirin Regimen) [id number] 150 mcg-vit K1 1 tab PO DAILY 11/04/22 Unknown History 30 mcg-lycop 300 mcg-lutein tablet (Centrum Minis Men 50 Plus) atorvastatin 20 mg tablet 20 mg PO DAILY #90 tabs 05/04/24 Unknown Rx lisinopril 20 mg tablet 20 mg PO DAILY #90 tabs 05/04/24 Unknown Rx metformin 1,000 mg tablet 1,000 mg PO BID #180 tabs 05/04/24 Unknown Rx triamterene 37.5 1 cap PO DAILY #90 caps 05/04/24 Unknown Rx mg-hydrochlorothiazide 25 mg capsule albuterol sulfate 90 mcg/actuation 2 puff inhalation Q6H PRN 06/02/24 Unknown Rx aerosol inhaler shortness of breath or wheezing #8.5 grams escitalopram oxalate 10 mg tablet 10 mg PO QDAY #30 tabs 08/09/24 Unknown Rx (Lexapro) trazodone 50 mg tablet 50 - 100 mg (1 - 2 x 50 mg) PO QHS 08/09/24 Unknown Rx #90 tabs Allergy/AdvReac Type Severity Reaction Status Date / Time No Known Allergies Allergy Verified 08/09/24 13:05 Family History Mother Alcoholism Arthritis Myocardial infarction CVA (cerebral vascular accident) COPD (chronic obstructive pulmonary disease) Father Alcoholism COPD (chronic obstructive pulmonary disease) Prostate cancer Grandmother Arthritis Breast cancer Colon cancer Skin cancer Surgical History History of tonsillectomy History of foot surgery History of hernia repair Social History household members: spouse current occupational status: unemployed Smoking Status: Never smoker Electronic Cigarette Use: not used alcohol intake: current alcohol intake frequency: holidays/special occasions only Alcohol type: beer and wine substance use type: does not use what type of physical activity do you participate in: none do you feel safe at home: Yes ROS Constitutional Constitutional: Reports fatigue and malaise; Denies chills or fever(s) Eyes Eyes: Denies change in vision Cardiovascular Cardiovascular: Reports dyspnea on exertion, edema and orthopnea; Denies chest pain, lightheadedness or palpitations Respiratory/Chest Respiratory/Chest: Reports cough, shortness of breath at rest and shortness of breath with exertion; Denies productive cough or wheezing Gastrointestinal Gastrointestinal: Denies abdominal pain Genitourinary Genitourinary: Denies dysuria Musculoskeletal Musculoskeletal: Denies arthralgias or myalgias Neurologic Neurologic: Denies dizziness or headache(s) Vital Signs Vital Signs Vital Signs: 08/17/24 06:32 08/17/24 06:34 08/17/24 06:35 Temperature 99.8 F H Temperature Source Oral Pulse Rate 123 H 121 H Respiratory Rate 30 H 24 H Respiratory Effort Respiratory Pattern Blood Pressure 128/67 H Blood Pressure Mean 87 Pulse Ox 79 84 87 Oxygen Delivery Method Room Air Nasal Cannula Nasal Cannula Oxygen Flow Rate (L/min) 2 4 08/17/24 06:36 08/17/24 06:52 Temperature Temperature Source Pulse Rate 113 H Respiratory Rate 30 H Respiratory Effort Short of Breath Labored Accessory Muscle Use Respiratory Pattern Tachypnea Blood Pressure Blood Pressure Mean Pulse Ox Oxygen Delivery Method Oxygen Flow Rate (L/min) Weight Weight: 143.3 kg Body Mass Index (BMI) 48.0 Physical Exam Const alert, oriented x3 and no apparent distress Constitutional Narrative: Pleasant middle-age male, class III obesity, breathing comfortably on 4 L nasal cannula at rest but with mild conversational dyspnea noted, otherwise sitting up comfortably in bed and conversing normally. General Appearance: cooperative and comfortable HEENT normocephalic, head/scalp atraumatic, hearing grossly normal bilaterally, nasal mucous membranes and turbinates normal and moist oral mucous membranes Eyes PERRL, EOMs intact bilaterally and conjunctivae normal Neck full ROM Chest inspection of chest normal Resp normal respiratory effort and no use of accessory muscles Resp Narrative: Breathing comfortably on 4 L nasal cannula at rest. Significant crackles noted bilaterally throughout with mild upper airway wheezing noted. Cardio no murmurs and peripheral pulses 2+ throughout Cardio Narrative: Tachycardic, regular rhythm. GI normal to inspection, nondistended, normoactive bowel sounds, soft to palpation, non-tender and non-distended Back/Spine normal ROM Extremity Extremity Narrative: +2-3 lower extremity pitting edema noted up to the knees. Skin no rashes or lesions noted Psych mental status grossly normal Results Lab / Micro Data 08/17/24 06:45 08/17/24 06:45 Labs: Laboratory Results - last 24 hr 08/17/24 06:45: WBC 11.4 H, RBC 4.32 L, Hgb 12.6 L, Hct 35.5 L, MCV 82.2, MCH 29.2, MCHC 35.5, RDW Std Deviation 41.1, RDW Coeff of Adry 13.8, Plt Count 262, MPV 10.2, Immature Gran % (Auto) 0.600, Neut % (Auto) 87.1 H, Lymph % (Auto) 6.2 L, [place] % (Auto) 5.8, Eos % (Auto) 0.0, Baso % (Auto) 0.3, Absolute Neuts (auto) 9.9 H, Absolute Lymphs (auto) 0.71 L, Nucleated RBC % 0, Sodium 124 L, Potassium 4.5, Chloride 90 L, Carbon Dioxide 18.0 L, Anion Gap 17 H, BUN 31 H, Creatinine 1.05, Estim Creat Clear Calc 111.89, Est GFR (MDRD) Non-Af 84, BUN/Creatinine Ratio 29.8 H, Glucose 249 H, Calcium 9.2, Troponin T High Sens 167 H*, NT pro BNP II 2180 H Rhythm Strip Rhythm Strip: Sinus Tach Rate: 117 Ectopy: PAC(s) Imaging Radiology Impression Chest X-Ray 08/17/24 06:33 IMPRESSION: AP upright portable view. Large appearing body habitus. Moderate bilateral perihilar lower zone predominant ill-defined patchy airspace opacities may represent pulmonary edema, clinically correlate. No definite pleural effusion identified. The cardiac silhouette is at the upper limits for size. The upper mediastinum again appears prominent. Reading Location: [facility] Assessment & Plan Assessment/Plan (1) Acute heart failure with preserved ejection fraction (HFpEF): (2) Human metapneumovirus (hMPV) pneumonia: PLAN: Plan Patient is a 54-year-old male who presented to [facility] ED on 08/17/2024 with worsening shortness of breath. 1. Acute hypoxic respiratory failure secondary to suspected HFpEF exacerbation and pneumonia secondary to human metapneumovirus ? Admit under inpatient status to PCU. Hypoxic to the mid 70s on room air, improved to low 90s on 4 L nasal cannula but then placed on BiPAP for some increased work of breathing. Chest x-ray with significant bilateral interstitial infiltrates noted. Positive for human metapneumovirus. BNP 2180 but underestimated in setting of obesity. Last echo in 2022 showed EF 60%, stage II diastolic dysfunction. Repeat echo ordered. Will treat with IV Lasix 40 mg every 8 hours for now, monitor BMP and urine output. Will also treat with IV steroids and scheduled DuoNebs for now. Wean supplemental oxygen as able. 2. Hyponatremia ? Sodium 124 on admit. Chloride 90. Suspect secondary to hypervolemia in setting of HFpEF exacerbation, treating as above. No mental status change noted. Monitor daily sodium level. 3. Elevated troponin ? Initial troponin 167, repeat pending. No EKG changes noted. Suspect demand ischemia in setting of HFpEF exacerbation and respiratory failure. Echo ordered as above. Chronic medical conditions: ? Class III obesity: BMI 46 on admit. Complicates hospital course, care and prognosis. Encouraged weight loss. ? Type 2 diabetes mellitus: Home regimen of metformin 1000 mg twice daily. A1c 8.3%. Will treat with sliding scale insulin with meals while inpatient, adjust as needed. ? Hypertension: Normotensive to mildly hypotensive on admit. Treating with IV Lasix as above. Will hold home lisinopril and triamterene?hydrochlorothiazide for now. ? Hyperlipidemia: Continue home statin. ? Depression: Continue home escitalopram. DVT prophylaxis: Lovenox twice daily CODE STATUS: Full code, verified Expected disposition: Home, TBD Total clinical time spent by myself addressing the patient's medical issues, reviewing all the data, and collaborating with patient's care team: 75 minutes. Charges/Coding Visit Charges Inpatient E&M: 24283 Init Hosp L3
[2024-08-17 10:04] LABS: Hemoglobin A1c 8.3 % (<=5.6)
[2024-08-17 10:10] LABS: Ferritin 541 ng/mL (37-417); Procalcitonin 0.15 ng/mL (<=0.10)
[2024-08-17 10:52] LABS: Vitamin B12 375 pg/mL (180-914)
[2024-08-17] MEDS: Enoxaparin 40 MG/0.4 ML Syringe SC ×2 (11:07→22:03)
[2024-08-17] MEDS: 0.9% Saline Lock 10 ML Syringe IV ×4 (11:08→22:04)
--- NOTE | 2024-08-17 11:17 | ECHOCS_ITS ---
Reason For Study Reason For Study: CHF Procedure This was a 2D Doppler, Color Flow transthoracic echocardiogram. The study was technically limited. The study was technically difficult. Exam performed portable in ICU/CCU. Left Ventricle Normal LV size. Moderate concentric left ventricular hypertrophy. The left ventricular ejection fraction is 35 %. Stage 2 diastolic dysfunction. There is moderate global hypokinesis of the left ventricle. Right Ventricle Normal RV size. Normal systolic function. Atria Normal left atrium. Normal right atrium. Mitral Valve Normal mitral valve. Tricuspid Valve Normal tricuspid valve. Aortic Valve The aortic valve is not well visualized. Great Vessels Normal aortic root. The pulmonary is not well visualized. Pericardium/Pleural No pericardial effusion. Medication Diluted definity 3ml given slow IV push to enhance endocardial definition. MMode/2D Measurements & Calculations LVIDd: 4.8 cm IVSd: 1.4 cm LVOT diam: 2.0 cm LVIDs: 3.7 cm LVPWd: 1.4 cm LVOT area: 3.1 cm2 RVDd: 3.7 cm FS: 23.0 % Ao root diam: 3.2 cm LAV(MOD-bp): 59.3 ml LVAd ap4: 45.4 cm2 LAV(MOD-bp) Indexed: 24.1 ml/m2 LVLd ap4: 9.7 cm LAV(MOD-sp2): 57.3 ml EDV(MOD-sp4): 170.7 ml LAV(MOD-sp4): 58.8 ml EDV(sp4-el): 180.4 ml LVAs ap4: 33.0 cm2 LVLs ap4: 8.9 cm ESV(MOD-sp4): 97.9 ml ESV(sp4-el): 104.1 ml EF(MOD-sp4): 42.7 % EF(sp4-el): 42.3 % SV(MOD-sp4): 72.8 ml SV(sp4-el): 76.3 ml LA A4 area: 21.0 cm2 SI(MOD-sp4): 29.6 ml/m2 LA dimension(2D): 4.3 cm RA A4 area: 16.8 cm2 TAPSE: 2.1 cm Time Measurements MV dec time: 0.15 sec Doppler Measurements & Calculations MV E max zac: 114.3 cm/sec Lat Peak E' Zac: 7.8 cm/sec Med Peak E' Zac: 7.5 cm/sec MV A max zac: 58.4 cm/sec E/E' lat: 14.6 E/E' med: 15.3 MV E/A: 2.0 Ao V2 max: 222.3 cm/sec LV V1 max: 70.0 cm/sec SV(LVOT): 42.6 ml Ao max P.8 mmHg LV V1 max P.0 mmHg Ao V2 mean: 160.7 cm/sec LV V1 mean P.1 mmHg Ao mean P.4 mmHg LV V1 mean: 48.3 cm/sec Ao V2 VTI: 45.2 cm LV V1 VTI: 13.7 cm AV (velocity ratio): 0.30 YONY(I,D): 0.94 cm2 YONY(V,D): 0.98 cm2 PA V2 max: 87.7 cm/sec ECHO/Echo Complete W/ Contrast Interpretation Summary The left ventricular ejection fraction is 35 %. Normal LV size. Moderate concentric left ventricular hypertrophy. Stage 2 diastolic dysfunction. Ordering Physician: Elias Ramires Referring Physician: RAYNE MARTINEZ Performed By: Sharon Leigh RDCS
[2024-08-17] MEDS: Insulin Lispro 100 UNIT/ML INSULN.PEN SC ×3 (11:23→22:02)
[2024-08-17 11:26] LABS: Bedside Glucose 209 mg/dL (74-106)
[2024-08-17 13:18] LABS: Iron 20 ug/dL (65-175); Iron Binding Capacity,Unsat 184 ug/dL (228-428)
[2024-08-17 14:02] LABS: Iron Binding Capacity,Total 204 ug/dL (250-450); PERCENT IRON SATURATION 9.8 % (9-55)
[2024-08-17] MEDS: Methylprednisolone Sod Succ 40 MG/ML VIAL IV ×2 (14:10→22:04)
[2024-08-17 16:06] LABS: Bedside Glucose 190 mg/dL (74-106)
[2024-08-17] MEDS: Aspirin E.C. 81 MG Tablet PO (16:45)
[2024-08-17] MEDS: Escitalopram Oxalate 10 MG Tablet PO (16:45)
[2024-08-17 18:13] LABS: Troponin T High Sens 4 HR 244 ng/L (<=22)
[2024-08-17] MEDS: traZODone 50 MG Tablet PO (22:03)
[2024-08-17] MEDS: Atorvastatin Calcium 20 MG Tablet PO (22:03)
[2024-08-17 22:29] LABS: Bedside Glucose 242 mg/dL (74-106)
[2024-08-18] VITALS (14 sets, daily range): BP systolic 98–119; BP diastolic 55–91; PULSE 69–148; RESP 12–30; TEMP 36.1–37.1; O2SAT 93–97; BMI 46.4
[2024-08-18 02:02] LABS: Troponin T High Sens 2 HR 273 ng/L (<=22)
[2024-08-18] MEDS: Furosemide 40 MG/4 ML Vial IV ×3 (05:19→21:32)
[2024-08-18] MEDS: Methylprednisolone Sod Succ 40 MG/ML VIAL IV (05:19)
[2024-08-18 05:38] LABS: Hematocrit 34.8 % (40-54); Hemoglobin 12.2 g/dL (13.0-16.5); Mean Corp Hgb Conc 35.1 g/dL (32-36); Mean Corpuscular Hgb 28.8 pg (27.0-32.0); Mean Corpuscular Volume 82.1 fL (80-94); Mean Platelet Vol. 10.1 fl (6.2-12.0); Platelet Count 240 K/mm3 (150-450); RBC Distribution Width CV 13.7 % (11.6-14.6); RBC Distribution Width SD 40.8 fl (35.1-43.9); Red Blood Count 4.24 M/mm3 (4.6-6.2); White Blood Count 6.4 K/mm3 (4.4-11.0)
[2024-08-18 06:05] LABS: Anion Gap 15 (5-15); BUN 37 mg/dL (4-19); BUN/Creat Ratio 35.2 RATIO (10-20); Carbon Dioxide 23.5 mmol/L (21.0-32.0); Chloride 91 mmol/L (98-108); Creatinine, Serum 1.06 mg/dL (0.70-1.20); EST Glomerular Filtration Rate 83 (>60); Estimated Creatinine Clearance 108.72 ml/min (50-250); Glucose 286 mg/dL (70-99); Potassium 4.1 mmol/L (3.3-5.1); Sodium Level 129 mmol/L (133-145)
[2024-08-18] MEDS: Ipratropium/Albuterol Sulfate 3 ML AMPUL.NEB INHALATION ×3 (07:10→20:31)
[2024-08-18] MEDS: Insulin Lispro 100 UNIT/ML INSULN.PEN SC ×6 (08:18→21:31)
[2024-08-18] MEDS: Aspirin E.C. 81 MG Tablet PO (08:27)
[2024-08-18] MEDS: Enoxaparin 40 MG/0.4 ML Syringe SC ×2 (08:27→21:32)
[2024-08-18] MEDS: Escitalopram Oxalate 10 MG Tablet PO (08:27)
[2024-08-18] MEDS: Carvedilol 3.125 MG TABLET PO ×2 (08:28→16:57)
[2024-08-18] MEDS: Lisinopril 5 MG Tablet PO (08:28)
--- NOTE | 2024-08-18 09:16 | PCM.PN.HOSP ---
Reason for Visit Reason for Visit: Diagnoses Acute diastolic (congestive) heart failure (08/17/24) Human metapneumovirus pneumonia (08/17/24) Subjective Subjective Saw patient at bedside this morning. Patient was sitting back in bed and breathing comfortably on nasal cannula at 5 L, in no acute distress. He was eating his breakfast when I saw him. Noted that he had essentially been on the BiPAP all day yesterday and through the night, and nursing had just taken him off prior to his breakfast. He did try going off the BiPAP a few times yesterday but had significant shortness of breath so was placed back on BiPAP. He feels much better this morning than yesterday. Continues to have very mild dyspnea with conversation. Has not gotten out of bed yet but is looking forward to trying that today. No other new concerns today. Objective Data Objective Data Vital Signs: Vital Signs Temp Pulse Resp BP Pulse Ox O2 Del Method O2 Flow Rate 97.9 F 99 19 H 101/55 L 93 Nasal Cannula 5 08/18/24 08:09 08/18/24 08:09 08/18/24 08:09 08/18/24 08:09 08/18/24 08:09 08/18/24 08:09 08/18/24 08:09 FiO2 40 08/18/24 07:11 Oxygen Flow Rate (L/min) 5 Oxygen Delivery Method Nasal Cannula Weight: 138.6 kg Body Mass Index (BMI) 46.4 Intake & Output: Intake and Output for Last 24 Hours 08/16/24 08/17/24 08/18/24 23:59 23:59 23:59 Intake Total 480 / 720 360 / 360 Output Total 600 / 1000 1000 / 1000 Balance -120 / -280 -640 / -640 Lab / Micro Data 08/18/24 05:20 08/18/24 05:20 Labs: Laboratory Results - last 24 hr 08/17/24 06:45: Hemoglobin A1c 8.3, Iron 20 L, TIBC 204 L, Iron Saturation 9.8, Unsaturated IBC 184 L, Ferritin 541 H, Vitamin B12 375, Procalcitonin 0.15 H 08/17/24 11:06: POC Glucose 209 H 08/17/24 15:14: Troponin T Hi Sens 2 Hr 273 H* 08/17/24 15:48: POC Glucose 190 H 08/17/24 17:35: Troponin T Hi Sens 4Hr 244 H* 08/17/24 22:01: POC Glucose 242 H 08/18/24 05:20: WBC 6.4, RBC 4.24 L, Hgb 12.2 L, Hct 34.8 L, MCV 82.1, MCH 28.8, MCHC 35.1, RDW Std Deviation 40.8, RDW Coeff of Adry 13.7, Plt Count 240, MPV 10.1, Sodium 129 L, Potassium 4.1, Chloride 91 L, Carbon Dioxide 23.5, Anion Gap 15, BUN 37 H, Creatinine 1.06, Estim Creat Clear Calc 108.72, Est GFR (MDRD) Non-Af 83, BUN/Creatinine Ratio 35.2 H, Glucose 286 H, Calcium 9.0 Micro: Microbiology 08/17/24 08:50 Mucosa - Nose Respiratory Panel (PCR) - Final Human [place] 08/17/24 12:05 Urine, Random Legionella Antigen - Final 08/17/24 12:05 Urine, Random Streptococcus pneumoniae Antigen (M - Final 08/17/24 06:40 Mucosa - Nose SARS-CoV-2, Influenza & RSV (PCR) - Final Radiography Diagnostic Testing: Radiology Impression Echocardiogram 08/17/24 11:17 Interpretation Summary The left ventricular ejection fraction is 35 %. Normal LV size. Moderate concentric left ventricular hypertrophy. Stage 2 diastolic dysfunction. Ordering Physician: Elias Ramires Referring Physician: RAYNE MARTINEZ Performed By: Sharon Leigh RDCS Rhythm Strip Rhythm Strip: Sinus Tach Rate: 117 Ectopy: PAC(s) Physical Exam Const alert, oriented x3 and no apparent distress Constitutional Narrative: Pleasant middle-age male, class III obesity, breathing comfortably on 5 L nasal cannula at rest but with mild conversational dyspnea noted, otherwise sitting up comfortably in bed and conversing normally. General Appearance: cooperative and comfortable HEENT normocephalic, head/scalp atraumatic, hearing grossly normal bilaterally, nasal mucous membranes and turbinates normal and moist oral mucous membranes Eyes PERRL, EOMs intact bilaterally and conjunctivae normal Neck full ROM Chest inspection of chest normal Resp normal respiratory effort and no use of accessory muscles Resp Narrative: Breathing comfortably on 5 L nasal cannula at rest. Moderate crackles noted bilaterally throughout, slightly improved from yesterday. No wheezing noted. Cardio no murmurs and peripheral pulses 2+ throughout Cardio Narrative: Tachycardic, regular rhythm. GI normal to inspection, nondistended, normoactive bowel sounds, soft to palpation, non-tender and non-distended Back/Spine normal ROM Extremity Extremity Narrative: +1-2 lower extremity pitting edema noted, improving. Skin no rashes or lesions noted Psych mental status grossly normal Assessment & Plan Assessment/Plan (1) Acute heart failure with preserved ejection fraction (HFpEF): (2) Human metapneumovirus (hMPV) pneumonia: PLAN: Plan Patient is a 54-year-old male who presented to [facility] ED on 08/17/2024 with worsening shortness of breath. 1. Acute hypoxic respiratory failure secondary to acute HFrEF exacerbation and pneumonia secondary to human metapneumovirus, improving ? Hypoxic to the mid 70s on room air, improved to low 90s on 4 L nasal cannula but then placed on BiPAP for increased work of breathing. Chest x-ray with significant bilateral interstitial infiltrates noted. Positive for human metapneumovirus. BNP 2180 but underestimated in setting of obesity. Last echo in 2022 showed EF 60%, stage II diastolic dysfunction. Repeat echo showed newly reduced EF 35%, moderate global LV systolic dysfunction, stage II diastolic dysfunction, no significant valve abnormalities. Suspect reduced EF may be secondary to viral illness. Will continue to treat with IV Lasix 40 mg every 8 hours for now, monitor BMP and urine output. Will start low-dose Coreg and lisinopril on 08/18. De-escalated to p.o. steroids on 08/18, will continue scheduled DuoNebs for now. Wean supplemental oxygen as able. No need for cardiology consult at this time but will need outpatient follow-up with cardiology after discharge. 2. Hyponatremia, improving ? Sodium 124 on admit. Chloride 90. Presume secondary to hypervolemia in setting of heart failure exacerbation. Most recent sodium 129 on 08/18. Continue treatment as above. Monitor daily sodium level. 3. Elevated troponins ? Troponin trend 167 > 273 > 244. No EKG changes noted. Presume secondary to demand ischemia in setting of heart failure/sedation and respiratory failure. No further workup needed at this time. Chronic medical conditions: ? Class III obesity: BMI 46 on admit. Complicates hospital course, care and prognosis. Encouraged weight loss. ? Type 2 diabetes mellitus: Home regimen of metformin 1000 mg twice daily. A1c 8.3%. Treating with sliding scale insulin with meals while inpatient, adjust as needed. ? Hypertension: Normotensive to mildly hypotensive on admit. Treating with IV Lasix as above. Started low-dose Coreg and lisinopril as noted above, continue to hold triamterene?hydrochlorothiazide. ? Hyperlipidemia: Continue home statin. ? Depression: Continue home escitalopram. DVT prophylaxis: Lovenox twice daily CODE STATUS: Full code, verified Expected disposition: Home, TBD Total clinical time spent by myself addressing the patient's medical issues, reviewing all the data, and collaborating with patient's care team: 35 minutes. Charges/Coding Visit Charges Inpatient E&M: 40595 Subs Hosp L2
[2024-08-18] MEDS: Insulin Glargine-YFGN 100 UNIT/ML Pen 15 UNIT SC (12:37)
[2024-08-18 12:59] LABS: Bedside Glucose 341 mg/dL (74-106)
--- NOTE | 2024-08-18 14:00 | CASEMGMT ---
RN CM Face to Face with patient for initial transition planning/care coordination assessment. RN CM introduced self and role at [facility]. Patient lying in bed, alert and oriented. Patient willing to participate in assessment and is able to answer all questions appropriately. Care providers, pharmacy, and demographics verified. Strata: 2 PCP: Carlos Specialists: none Preferred Pharmacy: [facility] Insurance: [employer] Prescription Benefit: yes Living Will/HPOA: none LNOK: Living Arrangements: Patient lives with in a single story home with 1-2 steps to enter. Patient states he is independent at home. Transportation: self, DME/HHC: Patient has shower chair, cane, walker, grab bars, cpap, pulse ox, and glucometer at home. Will monitor for home oxygen, prefers [employer] Patient wishes to discharge home, denies need for home health at this time. Patient states he has no further needs or concerns at this time. CM to follow for discharge planning needs that may arise. Disposition Plan: Patient to discharge home with family support and follow-up plans in place. Rachell MATHEWS, RN, CM
[2024-08-18 15:08] LABS: Folate, RBC (Hct) Test 36.1 % (37.5-51.0); Folates, RBC Test 1482 ng/mL (>498)
[2024-08-18 15:57] LABS: Bedside Glucose 278 mg/dL (74-106)
[2024-08-18 17:37] LABS: Bedside Glucose 237 mg/dL (74-106)
[2024-08-18] MEDS: traZODone 50 MG Tablet PO (21:32)
[2024-08-18] MEDS: Atorvastatin Calcium 20 MG Tablet PO (21:32)
[2024-08-18 22:40] LABS: Bedside Glucose 246 mg/dL (74-106)
[2024-08-19] VITALS (17 sets, daily range): BP systolic 86–110; BP diastolic 62–79; PULSE 82–106; RESP 12–28; TEMP 36.1–36.8; O2SAT 87–98; BMI 46.1
[2024-08-19] MEDS: 0.9% Saline Lock 10 ML Syringe IV ×2 (05:32→20:08)
[2024-08-19] MEDS: Furosemide 40 MG/4 ML Vial IV (05:32)
[2024-08-19 06:52] LABS: Anion Gap 13 (5-15); BUN 50 mg/dL (4-19); BUN/Creat Ratio 47.4 RATIO (10-20); Calcium,Total 8.7 mg/dL (7.6-11.0); Carbon Dioxide 24.6 mmol/L (21.0-32.0); Chloride 94 mmol/L (98-108); Creatinine, Serum 1.05 mg/dL (0.70-1.20); EST Glomerular Filtration Rate 84 (>60); Glucose 240 mg/dL (70-99); Potassium 3.6 mmol/L (3.3-5.1); Sodium Level 132 mmol/L (133-145)
[2024-08-19] MEDS: Ipratropium/Albuterol Sulfate 3 ML AMPUL.NEB INHALATION ×3 (07:13→20:46)
[2024-08-19] MEDS: Insulin Lispro 100 UNIT/ML INSULN.PEN SC ×7 (08:31→20:17)
[2024-08-19] MEDS: Carvedilol 3.125 MG TABLET PO ×2 (08:32→16:43)
[2024-08-19] MEDS: predniSONE 20 MG Tablet 40 MG PO (08:32)
[2024-08-19] MEDS: Aspirin E.C. 81 MG Tablet PO (08:32)
[2024-08-19] MEDS: Escitalopram Oxalate 10 MG Tablet PO (08:33)
[2024-08-19] MEDS: Insulin Glargine-YFGN 100 UNIT/ML Pen 15 UNIT SC (08:33)
[2024-08-19] MEDS: Enoxaparin 40 MG/0.4 ML Syringe SC ×2 (08:33→20:16)
--- NOTE | 2024-08-19 08:45 | RAD_ITS ---
EXAM: XR Chest, 1 View CLINICAL INDICATION: PERSISTENT HYPOXIA TECHNIQUE: Frontal view of the chest. COMPARISON: No relevant prior studies available. FINDINGS: LUNGS AND PLEURAL SPACES: See below. HEART: Cardiomegaly with pulmonary congestion and edema. Superimposed pneumonia cannot be excluded. MEDIASTINUM: Unremarkable. Normal mediastinal contour. BONES/JOINTS: Unremarkable. No acute fracture. RAD/Chest 1 View (Portable) IMPRESSION: Cardiomegaly with pulmonary congestion and edema. Superimposed pneumonia cannot be excluded. [facility]
[2024-08-19 08:54] LABS: Bedside Glucose 213 mg/dL (74-106)
--- NOTE | 2024-08-19 10:36 | PN.HOSP_ITS ---
Reason for Visit Reason for Visit: Diagnoses Acute diastolic (congestive) heart failure (08/17/24) Human metapneumovirus pneumonia (08/17/24) Subjective Subjective Saw patient at bedside this morning. Patient was sitting back comfortably in bedside chair, conversing normally and in no acute distress. Appears similar to yesterday at rest. Notes that he has been up and walking around the room this morning with no significant shortness of breath with exertion. Per nursing, patient did have some shortness of breath with exertion overnight when getting up to go to the bathroom. Patient notes that he has had good urine output but that it seems to be slowing down. He continues to have a mild nonproductive cough. No other new concerns today. Objective Data Objective Data Vital Signs: Vital Signs Temp Pulse Resp BP Pulse Ox O2 Del Method O2 Flow Rate 97.6 F L 83 18 90/62 95 Nasal Cannula 2 08/19/24 08:00 08/19/24 08:00 08/19/24 08:00 08/19/24 08:00 08/19/24 08:00 08/19/24 08:00 08/19/24 08:00 FiO2 28 08/19/24 04:00 Oxygen Flow Rate (L/min) 2 Oxygen Delivery Method Nasal Cannula Weight: 137.6 kg Body Mass Index (BMI) 46.1 Intake & Output: Intake and Output for Last 24 Hours 08/17/24 08/18/24 08/19/24 23:59 23:59 23:59 Intake Total 480 / 720 1360 / 1960 720 / 720 Output Total 600 / 1000 2100 / 2400 900 / 900 Balance -120 / -280 -740 / -440 -180 / -180 Lab / Micro Data 08/18/24 05:20 08/19/24 05:29 Labs: Laboratory Results - last 24 hr 08/17/24 11:05: RBC Folate Hemolysate 535.0, RBC Folate 1482, Hematocrit 36.1 L 08/18/24 08:07: POC Glucose 278 H 08/18/24 12:01: POC Glucose 341 H 08/18/24 17:00: POC Glucose 237 H 08/18/24 21:21: POC Glucose 246 H 08/19/24 05:29: Sodium 132 L, Potassium 3.6, Chloride 94 L, Carbon Dioxide 24.6, Anion Gap 13, BUN 50 H, Creatinine 1.05, Estim Creat Clear Calc 109.30, Est GFR (MDRD) Non-Af 84, BUN/Creatinine Ratio 47.4 H, Glucose 240 H, Calcium 8.7 08/19/24 08:07: POC Glucose 213 H Micro: Microbiology 08/17/24 10:40 Sputum, Expectorated/Coughed Gram Stain - Final 08/17/24 08:50 Mucosa - Nose Respiratory Panel (PCR) - Final Human [place] 08/17/24 12:05 Urine, Random Legionella Antigen - Final 08/17/24 12:05 Urine, Random Streptococcus pneumoniae Antigen (M - Final 08/17/24 06:40 Mucosa - Nose SARS-CoV-2, Influenza & RSV (PCR) - Final Radiography Diagnostic Testing: Radiology Impression Chest X-Ray 08/19/24 08:45 IMPRESSION: Cardiomegaly with pulmonary congestion and edema. Superimposed pneumonia cannot be excluded. Reading Location: [facility] Rhythm Strip Rhythm Strip: Sinus Tach Rate: 117 Ectopy: PAC(s) Physical Exam Const alert, oriented x3 and no apparent distress Constitutional Narrative: Pleasant middle-age male, class III obesity, breathing comfortably on 2 L nasal cannula at rest, no conversational dyspnea noted today, sitting up comfortably in bedside chair and conversing normally, in no acute distress. Improving. General Appearance: cooperative and comfortable HEENT normocephalic, head/scalp atraumatic, hearing grossly normal bilaterally, nasal mucous membranes and turbinates normal and moist oral mucous membranes Eyes PERRL, EOMs intact bilaterally and conjunctivae normal Neck full ROM Chest inspection of chest normal Resp normal respiratory effort and no use of accessory muscles Resp Narrative: Breathing comfortably on 2 L nasal cannula at rest. Mild to moderate crackles noted bilaterally, moderately improved from admission. No wheezing noted. Cardio regular rate, regular rhythm, no murmurs and peripheral pulses 2+ throughout GI normal to inspection, nondistended, normoactive bowel sounds, soft to palpation, non-tender and non-distended Back/Spine normal ROM Extremity Extremity Narrative: Trace lower extremity edema noted, much improved from admission. Skin no rashes or lesions noted Psych mental status grossly normal Assessment & Plan Assessment/Plan (1) Acute heart failure with preserved ejection fraction (HFpEF): (2) Human metapneumovirus (hMPV) pneumonia: PLAN: Plan Patient is a 54-year-old male who presented to [facility] ED on 08/17/2024 with worsening shortness of breath. 1. Acute hypoxic respiratory failure secondary to acute HFrEF exacerbation and pneumonia secondary to human metapneumovirus, improving ? Hypoxic to the mid 70s on room air, improved to low 90s on 4 L nasal cannula but then placed on BiPAP for increased work of breathing. Chest x-ray with significant bilateral interstitial infiltrates noted. Positive for human metapneumovirus. BNP 2180 but underestimated in setting of obesity. Last echo in 2022 showed EF 60%, stage II diastolic dysfunction. Repeat echo showed newly reduced EF 35%, moderate global LV systolic dysfunction, stage II diastolic dysfunction, no significant valve abnormalities. Suspect reduced EF may be secondary to viral illness. Had very good urine output and improvement in oxygenation status on IV Lasix 40 mg every 8 hours. Initiated on low-dose Coreg and lisinopril on 08/18. Repeat chest x-ray on 08/19 with cardiomegaly and pulmonary congestion with edema with possible superimposed pneumonia noted but is moderately improved from admission. Has not had any renal contraction yet but blood pressures running low so IV Lasix discontinued on 08/19. De-escalated to p.o. steroids on 08/18, will continue scheduled DuoNebs for now. Continue to wean supplemental oxygen as able. Tentatively planning for home oxygen testing tomorrow morning in preparation for discharge home tomorrow. No need for inpatient cardiology consult but will need close outpatient follow-up with cardiology after discharge. 2. Hyponatremia, improving ? Sodium 124 on admit. Chloride 90. Presume secondary to hypervolemia in setting of heart failure exacerbation. Most recent sodium 132 on 08/19. Continue treatment as above. Monitor daily sodium level. 3. Elevated troponins ? Troponin trend 167 > 273 > 244. No EKG changes noted. Presume secondary to demand ischemia in setting of heart failure/sedation and respiratory failure. No further workup needed at this time. Chronic medical conditions: ? Class III obesity: BMI 46 on admit. Complicates hospital course, care and prognosis. Encouraged weight loss. ? Type 2 diabetes mellitus: Home regimen of metformin 1000 mg twice daily. A1c 8.3%. Treating with Lantus 15 units daily and Humalog 5 units with meals plus sliding scale insulin while inpatient, adjust as needed. Notably has increased insulin needs while on steroids. Should be okay to resume home regimen on discharge. ? Hypertension: Normotensive to mildly hypotensive on admit. Has now become hypotensive to the 80s to 90 systolic with heavy IV Lasix and low-dose Coreg and lisinopril that was started as noted above. IV Lasix discontinued and holding Coreg and lisinopril for now, will restart as able. Holding home triamterene?hydrochlorothiazide and will likely discontinue this on discharge. ? Hyperlipidemia: Continue home statin. ? Depression: Continue home escitalopram. DVT prophylaxis: Lovenox twice daily CODE STATUS: Full code, verified Expected disposition: Home, 1 to 2 days Total clinical time spent by myself addressing the patient's medical issues, reviewing all the data, and collaborating with patient's care team: 35 minutes. Charges/Coding Visit Charges Inpatient E&M: 01675 Subs Hosp L2
[2024-08-19 12:45] LABS: Bedside Glucose 259 mg/dL (74-106)
--- NOTE | 2024-08-19 15:49 | CASEMGMT ---
Addendum entered by Virgil Colmenares 08/19/24 16:26: Per Rachell @ [facility] [place] they are in-network. OLIVIA SALINAS asked pt if his would be @ home this evening for Chris to deliver home o2 at his home and then bring in portable O2 tank to him @ the hospital tomorrow to go home on and verifies she can do this. Rachell @ [facility] [place] made aware. Original Note: OLIVIA SALINAS NOTE: OLIVIA SALINAS informed that [facility] is not in-network w/pt's insurance, per . They would like to use [facility] [place] for home O2 if pt qualifies, as states she found that they are in-network. [facility] [place] does not do new pt home o2 set-up on the weekends. Home O2 testing has been completed and pt qualifies for O2 @ 2 L/M w/exertion. Dr Cross updated and script obtained for 2 L/M O2 w/exertion. Script w/home O2 testing results sent to [facility] [place] via [employer]. Call placed to [facility] [place]. They would like to verify that they are in-network w/pt's insurance and will call this OLIVIA SALINAS back. Geeta MATHEWS RN, CM
--- NOTE | 2024-08-19 16:56 | PCM.HOSP.N ---
Hospitalist Note I have reviewed the oxygen testing, and this patient qualifies for the home equipment and portability. The patient is mobile in the home and the community.
[2024-08-19 17:23] LABS: Bedside Glucose 281 mg/dL (74-106)
[2024-08-19] MEDS: Acetaminophen 325 MG Tablet 650 MG PO (20:15)
[2024-08-19] MEDS: Atorvastatin Calcium 20 MG Tablet PO (20:16)
[2024-08-19] MEDS: traZODone 50 MG Tablet PO (20:16)
[2024-08-19 20:45] LABS: Bedside Glucose 209 mg/dL (74-106)
[2024-08-20 00:15] VITALS: PULSE 74; RESP 12; RESP 26; O2SAT 96
[2024-08-20 03:00] VITALS: PULSE 87
[2024-08-20 03:45] VITALS: BMI 45.9
[2024-08-20 03:51] VITALS: BP 108/71; PULSE 80; RESP 16; TEMP 36.2; O2SAT 95
[2024-08-20 07:17] VITALS: PULSE 90; RESP 18; O2SAT 93
[2024-08-20] MEDS: Ipratropium/Albuterol Sulfate 3 ML AMPUL.NEB INHALATION (07:17)
[2024-08-20 07:30] LABS: Hematocrit 40.8 % (40-54); Mean Corp Hgb Conc 34.3 g/dL (32-36); Mean Corpuscular Hgb 28.7 pg (27.0-32.0); Mean Corpuscular Volume 83.8 fL (80-94); Mean Platelet Vol. 10.1 fl (6.2-12.0); Platelet Count 243 K/mm3 (150-450); RBC Distribution Width CV 13.4 % (11.6-14.6); RBC Distribution Width SD 40.9 fl (35.1-43.9); Red Blood Count 4.87 M/mm3 (4.6-6.2); White Blood Count 10.1 K/mm3 (4.4-11.0)
[2024-08-20 07:44] LABS: Anion Gap 13 (5-15); BUN 45 mg/dL (4-19); BUN/Creat Ratio 45.9 RATIO (10-20); Calcium,Total 8.8 mg/dL (7.6-11.0); Carbon Dioxide 25.3 mmol/L (21.0-32.0); Chloride 94 mmol/L (98-108); Creatinine, Serum 0.99 mg/dL (0.70-1.20); EST Glomerular Filtration Rate 91 (>60); Estimated Creatinine Clearance 115.68 ml/min (50-250); Glucose 186 mg/dL (70-99); Potassium 3.2 mmol/L (3.3-5.1); Sodium Level 132 mmol/L (133-145)
[2024-08-20] MEDS: Insulin Glargine-YFGN 100 UNIT/ML Pen 15 UNIT SC (08:31)
[2024-08-20] MEDS: Insulin Lispro 100 UNIT/ML INSULN.PEN SC ×2 (08:32)
[2024-08-20 08:36] VITALS: BP 94/65; PULSE 60; RESP 18; TEMP 36.7; O2SAT 93
[2024-08-20] MEDS: Enoxaparin 40 MG/0.4 ML Syringe SC (08:42)
[2024-08-20] MEDS: Aspirin E.C. 81 MG Tablet PO (08:42)
[2024-08-20] MEDS: predniSONE 20 MG Tablet 40 MG PO (08:42)
[2024-08-20] MEDS: Potassium Chloride Oral Tablet 20 MEQ 40 MEQ PO (08:42)
[2024-08-20] MEDS: Escitalopram Oxalate 10 MG Tablet PO (08:43)
[2024-08-20 08:55] LABS: Bedside Glucose 211 mg/dL (74-106)
[2024-08-20 08:57] LABS: Magnesium 2.2 mg/dL (1.5-2.2); Phosphorus 3.8 mg/dL (2.7-4.5)
--- NOTE | 2024-08-20 09:34 | DS.PCM_ITS ---
Providers Date of Admission: 08/17/24 Date of Discharge: 08/20/24 Primary Care Physician: Dr. Ana Gonzalez MD Reason For Visit: CHF EXACERBATION W/ HYPOXIA Diagnosis Discharge Diagnosis (1) Acute heart failure with preserved ejection fraction (HFpEF): Status: Acute Code(s): I50.31 - Acute diastolic (congestive) heart failure (2) Human metapneumovirus (hMPV) pneumonia: Status: Acute Code(s): J12.3 - Human metapneumovirus pneumonia Medications at Discharge Home Medications aspirin 81 mg tablet,delayed release (Adult Aspirin Regimen) 81 mg PO DAILY 11/04/22 [id number] 150 mcg-vit K1 30 mcg-lycop 300 mcg-lutein tablet (Centrum Minis Men 50 Plus) 1 tab PO DAILY 11/04/22 atorvastatin 20 mg tablet 20 mg PO DAILY #90 tabs 05/04/24 metformin 1,000 mg tablet 1,000 mg PO BID #180 tabs 05/04/24 escitalopram oxalate 10 mg tablet (Lexapro) 10 mg PO QDAY #30 tabs 08/09/24 trazodone 50 mg tablet 50 - 100 mg (1 - 2 x 50 mg) PO QHS #90 tabs 08/09/24 albuterol sulfate 90 mcg/actuation aerosol inhaler 2 puff inhalation Q6H PRN shortness of breath or wheezing #8.5 grams 08/20/24 furosemide 40 mg tablet (Lasix) 40 mg PO DAILY 30 days #30 tabs 08/20/24 lisinopril 5 mg tablet 5 mg PO DAILY 30 days #30 tabs 08/20/24 metoprolol succinate 25 mg tablet,extended release 24 hr (Toprol XL) 25 mg PO DAILY 30 days #30 tabs 08/20/24 prednisone 20 mg tablet 40 mg (2 x 20 mg) PO BREAKFAST 2 days #4 tabs 08/20/24 Hospital Course Operations None Procedures EKG, Transthoracic echo and - (Chest x-ray x 2) Summary of Care Provided Minutes Spent on Discharge: 35 Hospital Course: Patient is a 54-year-old male who presented to [facility] ED on 08/17/2024 with worsening shortness of breath. Hospital course as noted below. Patient discharged home in stable condition on 08/20. 1. Acute hypoxic respiratory failure secondary to acute HFrEF exacerbation and pneumonia secondary to human metapneumovirus, improving ? Hypoxic to the mid 70s on room air, improved to low 90s on 4 L nasal cannula but then placed on BiPAP for increased work of breathing. Chest x-ray with significant bilateral interstitial infiltrates noted. Positive for human metapneumovirus. BNP 2180 but underestimated in setting of obesity. ? Last echo in 2022 showed EF 60%, stage II diastolic dysfunction. Repeat echo showed newly reduced EF 35%, moderate global LV systolic dysfunction, stage II diastolic dysfunction, no significant valve abnormalities. Suspect reduced EF may be secondary to viral illness. ? Had very good urine output and improvement in oxygenation status on IV Lasix 40 mg every 8 hours. Initiated on low-dose Coreg and lisinopril on 08/18. Repeat chest x-ray on 08/19 with cardiomegaly and pulmonary congestion with edema with possible superimposed pneumonia noted but moderately improved from admission. No renal contraction but pressures were running low so IV Lasix discontinued on 08/19. De-escalated to p.o. steroids on 08/18. ? Completed O2 testing on day of discharge and required 2 L nasal cannula with exertion, oxygen prescription sent. Discharged on p.o. Lasix 40 mg daily, lisinopril 5 mg daily and Toprol 25 mg daily. Provided number for cardiology office and recommended that patient call to schedule appointment with them in the next few weeks. Also sent on p.o. prednisone to complete 5-day course of steroids total and recommended that patient use albuterol inhaler as needed at home for any shortness of breath with wheezing in the next several days. 2. Hyponatremia, improving ? Sodium 124 on admit. Chloride 90. Presume secondary to hypervolemia in setting of heart failure exacerbation. Sodium 132 on day of discharge, stable. 3. Elevated troponins ? Troponin trend 167 > 273 > 244. No EKG changes noted. Presume secondary to demand ischemia in setting of heart failure/sedation and respiratory failure. No further workup needed at this time. 4. Hypertension ? Normotensive to mildly hypotensive on admit. Became hypotensive to the 80s to 90 systolic with heavy IV Lasix and low-dose Coreg and lisinopril that was started as noted above. IV Lasix discontinued on 08/19 and held Coreg and lisinopril. Blood pressures remained low?normal on discharge. Started patient on Lasix, lisinopril and Toprol on discharge as noted above and recommended to start these medications on Tuesday 08/22. Patient has BP cuff at home and I recommended that he check his blood pressure daily for the next week or so to monitor it closely. Cardiology or his PCP can make further changes to his regimen in the outpatient setting as needed. Chronic medical conditions: ? Class III obesity: BMI 46 on admit. Complicated hospital course, care and prognosis. Encouraged weight loss. ? Type 2 diabetes mellitus: Home regimen of metformin 1000 mg twice daily. A1c 8.3%. Treating with Lantus 15 units daily and Humalog 5 units with meals plus sliding scale insulin while inpatient, adjust as needed. Notably has increased insulin needs while on steroids. Okay to resume home regimen on discharge. ? Hyperlipidemia: Continue home statin. ? Depression: Continue home escitalopram. Total clinical time spent by myself addressing the patient's medical issues, reviewing all the data, and collaborating with patient's care team: 35 minutes. Physical Exam Const alert, oriented x3 and no apparent distress Constitutional Narrative: Pleasant middle-age male, class III obesity, breathing comfortably on 2 L nasal cannula at rest, no conversational dyspnea noted today, sitting up comfortably in bedside chair and conversing normally, in no acute distress. Much improved from admission. General Appearance: cooperative and comfortable HEENT normocephalic, head/scalp atraumatic, hearing grossly normal bilaterally, nasal mucous membranes and turbinates normal and moist oral mucous membranes Eyes PERRL, EOMs intact bilaterally and conjunctivae normal Neck full ROM Chest inspection of chest normal Resp normal respiratory effort and no use of accessory muscles Resp Narrative: Breathing comfortably on 2 L nasal cannula at rest. Very mild crackles noted bilaterally, much improved from admission. No wheezing noted. Cardio regular rate, regular rhythm, no murmurs and peripheral pulses 2+ throughout GI normal to inspection, nondistended, normoactive bowel sounds, soft to palpation, non-tender and non-distended Back/Spine normal ROM Extremity Extremity Narrative: Trace lower extremity edema noted, much improved from admission. Skin no rashes or lesions noted Psych mental status grossly normal Weight / BMI Weight Weight: 137.1 kg Body Mass Index (BMI) 45.9 ABG / Lab / Microbiology Data 08/20/24 06:35 08/20/24 06:35 Laboratory: Laboratory Results - last 24 hr 08/19/24 12:05: POC Glucose 259 H 08/19/24 16:40: POC Glucose 281 H 08/19/24 20:15: POC Glucose 209 H 08/20/24 06:35: WBC 10.1, RBC 4.87, Hgb 14.0, Hct 40.8, MCV 83.8, MCH 28.7, MCHC 34.3, RDW Std Deviation 40.9, RDW Coeff of Adry 13.4, Plt Count 243, MPV 10.1, S odium 132 L, Potassium 3.2 L, Chloride 94 L, Carbon Dioxide 25.3, Anion Gap 13, BUN 45 H, Creatinine 0.99, Estim Creat Clear Calc 115.68, Est GFR (MDRD) Non-Af 91, BUN/Creatinine Ratio 45.9 H, Glucose 186 H, Calcium 8.8 08/20/24 07:44: Phosphorus 3.8, Magnesium 2.2 08/20/24 08:29: POC Glucose 211 H Microbiology: Microbiology 08/17/24 10:40 Sputum, Expectorated/Coughed Gram Stain - Final 08/17/24 10:40 Sputum, Expectorated/Coughed Respiratory Culture - Final Mixed normal respiratory brandon. No Streptococcus pneumoniae, beta-hemolytic Streptococcus or Staphylococcus aureus isolated. 08/17/24 08:50 Mucosa - Nose Respiratory Panel (PCR) - Final Human [place] 08/17/24 12:05 Urine, Random Legionella Antigen - Final 08/17/24 12:05 Urine, Random Streptococcus pneumoniae Antigen (M - Final 08/17/24 06:40 Mucosa - Nose SARS-CoV-2, Influenza & RSV (PCR) - Final D/C Instructions DC O2, CPAP, BIPAP Needs Home O2 Discharge instructions: Yes Type of respiratory needs?: Oxygen Oxygen frequency: With Ambulation Oxygen liters per minute during Ambulation: 2 DC home with Oxygen: Yes Home O2 MD Review: I have reviewed the oxygen testing, and the patient qualifies for home oxygen equipment and portability. The patient is mobile in the home and the community. Meaningful Use Info Meaningful Use Meaningful Use Diagnoses (Choose all that apply): CHF CHF BRANDON/ARB ordered at discharge?: Yes Documented LVEF (%): 35 Ischemic Stroke Statin Dosing Therapy Reference: STATIN DOSE THERAPY REFERENCE: * Patients > 75 years receive moderate or high dose statin therapy. * Patients 75 years or YOUNGER should receive HIGH intensity statin dose unless contraindicated. You will be required to document reason for non-treatment if statin daily dose does not meet guidelines. HIGH DOSE STATIN THERAPY DAILY Atorvastatin > than or = to 40 mg Rosuvastatin > than or = to 20 mg Amlodipine + Atorvastatin > than or = to 2.5/40 mg Ezetimibe + Simvastatin 10/80 mg Simvastatin 80mg Discharge Plan Admission Admit Date/Time: 08/17/24 07:45 Primary Reason for Your Visit: shortness of breath Attending Provider: Elias Ramires Primary Care Provider: Ana Gonzalez Instructions Additional Instructions / Restrictions: Please start taking the following medications on Thursday for heart failure and hypertension: - Lasix 40 mg daily - Lisinopril 5 mg daily - Metoprolol 25 mg daily Other instructions: - Take 2 more days of prednisone to complete a 5-day course total for viral pneumonia - Use the albuterol inhaler every 6 hours as needed for shortness of breath - Check your blood pressure once daily for the next week to ensure your blood pressure is not dropping too low or starting to go too high - Call the Cardiology office on Thursday to schedule a follow up appointment in the next 2-4 weeks Discharge Orders/Prescriptions Prescriptions: New prednisone 20 mg Tablet 40 mg PO BREAKFAST 2 Days Qty: 4 0RF lisinopril 5 mg Tablet 5 mg PO DAILY 30 Days Qty: 30 0RF metoprolol succinate [Toprol XL] 25 mg tablet extended release 24 hr 25 mg PO DAILY 30 Days Qty: 30 0RF furosemide [Lasix] 40 mg tablet 40 mg PO DAILY 30 Days Qty: 30 0RF Continued Centrum Minis Men 50 Plus [id number] mcg tablet 1 tab PO DAILY aspirin [Adult Aspirin Regimen] 81 mg tablet,delayed release (DR/EC) 81 mg PO DAILY atorvastatin 20 mg tablet 20 mg PO DAILY Qty: 90 1RF metformin 1,000 mg tablet 1,000 mg PO BID Qty: 180 1RF trazodone 50 mg tablet 50 - 100 mg PO QHS Qty: 90 0RF escitalopram oxalate [Lexapro] 10 mg tablet 10 mg PO QDAY Qty: 30 1RF albuterol sulfate 90 mcg/actuation HFA aerosol inhaler 2 puff inhalation Q6H PRN (Reason: shortness of breath or wheezing) Qty: 8.5 1RF Discontinued lisinopril 20 mg tablet 20 mg PO DAILY Qty: 90 1RF triamterene-hydrochlorothiazid 37.5-25 mg capsule 1 cap PO DAILY Qty: 90 1RF Referrals / Follow Up: Ana Gonzalez MD [Primary Care Provider] - Abel Greenfield MD [Med Staff - Active Staff] - Disposition Disposition (needs filled in before D/C Order can be placed): Home, Self Care Charges/Coding Visit Charges Inpatient E&M: 04211 Disch Hosp >30min
== END 2024-08-20 12:00 | disposition home or self-care (01) | DRG 189 ==
LOC: ED 07:11 → ICU 08:08 → PCU 08-18 14:41
PROVIDERS: Admitting Provider Hospitalist; Emergency Provider Emergency Medicine; PCP Internal Medicine; Visit Provider Hospitalist
DX: J96.01 Acute respiratory failure with hypoxia (principal); I50.31 Acute diastolic (congestive) heart failure; J12.3 Human metapneumovirus pneumonia; I24.89 Other forms of acute ischemic heart disease; Z68.42 Body mass index [BMI] 45.0-49.9, adult; E87.1 Hypo-osmolality and hyponatremia; E11.9 Type 2 diabetes mellitus without complications; I11.0 Hypertensive heart disease with heart failure; F32.A Depression, unspecified; E78.5 Hyperlipidemia, unspecified; E66.813 Obesity, class 3; Z79.82 Long term (current) use of aspirin; Z79.84 Long term (current) use of oral hypoglycemic drugs
CPT/HCPCS: 36415; 71045; 80048; 82607; 82728; 82747; 82962; 83036; 83540; 83550; 83735; 83880; 84100; 84145; 84484; 85014; 85025; 85027; 87070; 87205; 87449; 87631; 87633; 93005; 93306; 94002; 94003; 94640; 94668; 94762; 97162; 97166; 97530; 97535; 99285; Q9957; A4216; C8929; J1940

== ENCOUNTER → 2024-09-09 | Outpatient (CLI) | payer OTHER, SELFPAY | END | disposition home or self-care (01) | LOC: PSN 10:14 | PROVIDERS: PCP Internal Medicine; Referring Provider Internal Medicine; Visit Provider Internal Medicine | DX: R05.8 Other specified cough (principal) | CPT/HCPCS: 94060; 94726; 94729 ==

== ENCOUNTER 2024-11-07 09:35 | Day surgery (SDC) | payer OTHER, SELFPAY ==
--- NOTE | 2024-10-31 14:06 | PCM.HP.BLA ---
History and Physical Date of Admission: 11/07/24 This is a 54-year-old man who presents for a cardiac catheterization to assess his aortic valve. He has a history of hypertension hyperlipidemia who initially presented to a hospital in [place] in 2021 with what appears to be flash pulmonary edema. It is not quite clear what the entire workup was at that time but he was noted to have a hyperdynamic LV with an estimated ejection fraction of 65% pharmacologic myocardial perfusion stress test was performed which demonstrated no evidence of ischemia. He was also noted to be negative for a pulmonary embolism. He was discharged on beta-verenice BRANDON inhibitor aspirin and metformin for his diabetes. He presented to the hospital here in [place] with shortness of breath he was diagnosed as having acute heart failure and his ejection fraction demonstrated an ejection fraction of 35%. He was noted to have mildly elevated troponin and he had his medications changed and was discharged on a beta-verenice BRANDON inhibitor on diuretic. He was asked to see the graphic manager for an appointment. He says that his breathing has improved he denies any dizziness he denies any chest pain he has had some palpitations but he has shortness of breath with activity and no pedal edema. His physical exam does demonstrate a systolic ejection murmur noted left sternal border his electrocardiogram demonstrates sinus rhythm with a rate of 97 bpm and lateral T wave inversions. Intake Vital Signs See EMR Allergies See EMR Medications See EMR [facility] Medical History Type 2 diabetes mellitus without complication Depression Diabetes Dialysis patient CPAP (continuous positive airway pressure) dependence Sleep apnea Acute bronchitis, unspecified Acute maxillary sinusitis, unspecified Ocular migraine JOANNE (obstructive sleep apnea) Pre-diabetes Cardiac murmur High cholesterol Hypertension Heart failure Bone fracture History of back problems Surgical History History of tonsillectomy History of foot surgery History of hernia repair Family History Mother Alcoholism Arthritis Myocardial infarction CVA (cerebral vascular accident) COPD (chronic obstructive pulmonary disease)Father Alcoholism COPD (chronic obstructive pulmonary disease) Prostate cancerGrandmother Arthritis Breast cancer Colon cancer Skin cancer Social History household members: spouse current occupational status: unemployed Smoking Status: Never smoker Electronic Cigarette Use: not used alcohol intake: current alcohol intake frequency: holidays/special occasions only Alcohol type: beer and wine substance use type: does not use what type of physical activity do you participate in: none do you feel safe at home: Yes ROS Const Const: Positive for fatigue; Negative for weakness, headache(s), daytime sleepiness or difficulty sleeping ENT ENT: Negative for headache(s), dizziness or Nosebleed/epistaxis Cardio Chest Pain: No Palpitations: Yes feels like its: fast Edema: None Resp Respiratory: Positive for SOB with activity; Negative for SOB at rest, SOB orthopnea\SOB lying down or Cough GI GI: Negative nausea, vomiting or heartburn Neuro Neuro: Positive for lightheadedness; Negative for dizziness, near syncope, headache(s) or weakness Endo Endo: Positive for fatigue Cardiology Exam Const Appearance: cooperative, healthy appearing, no acute distress, well developed and well groomed Nutritional Appearance: average body habitus and well nourished Orientation: alert, awake and oriented x3 Head Head: normal to inspection, normocephalic and atraumatic Ears: hearing grossly normal bilaterally and external ears normal Nose: external nose normal, nares normal, nasal mucous membranes and turbinates normal, septum normal and no nasal discharge Face and Sinus: face symmetric Mouth: oral mucosae normal, tongue normal, oropharynx normal and moist mucous membranes Teeth and gingiva: dentition normal Throat: posterior oropharynx normal, tonsils normal and uvula midline Eyes General: appearance normal, both eyes and all related structures Eyelids: eyelids normal Conjunctivae: conjunctivae normal Pupils: PERRL, normal by confrontation and accommodation normal EOM: EOM intact bilaterally Neck Neck: normal visual inspection, trachea midline and no JVD JVD: +5 Carotids: normal carotid upstroke and bounding pulses Chest Chest inspection: normal inspection of the chest, symmetric chest movement and normal respiratory effort Auscultation: Bilateral: Clear to Auscultation Cardio Palpation: normal PMI Rate: regular rate Rhythm: regular rhythm Heart sounds: S1 normal, S2 normal and normal, physiologic split S2; Negative rub, gallop or murmur Murmur: Grade 2/6, early systolic and apex GI GI: normal to inspection, soft, no hepatosplenomegaly and bowel sounds present Neuro General: patient alert, patient awake, patient oriented x3, gait normal, moves all extremities and no focal sensory deficit Skin Skin: no rashes or lesions noted Extremities Pulses: Normal: Right Femoral Pulse, Left Femoral Pulse, Right Dorsalis Pedis Pulse, Left Dorsalis Pedis Pulse, Right Posterior Tibial Pulse, Left Posterior Tibial Pulse, Right Radial Pulse and Left Radial Pulse Lower Extremity Edema: None: Bilateral Musculoskel Musculoskeletal: No joint tenderness Psych Psychological: normal affect Supplemental Info Supplemental Information Echocardiogram 08/17/2024 Interpretation Summary The left ventricular ejection fraction is 35 %. Normal LV size. Moderate concentric left ventricular hypertrophy. Stage 2 diastolic dysfunction. Echocardiogram 12/01/2022 Interpretation Summary Technically difficult study due to patient body habitus. Contrast injection was performed. Mild concentric left ventricular hypertrophy. The left ventricular ejection fraction is 65 %. Stage 2 diastolic dysfunction. Mild (1+) mitral valve insufficiency. Mean aortic valve gradient 8 mmHg. Stress Test 06/10/2021 1. AB no myocardial perfusion study without evidence of ischemia or infarct. However there is reduced sensitivity for detection of ischemia in the base to mid inferior wall due to adjacent bowel uptake. There is heterogeneity and photon uptake in this wall but is more suggestive of attenuation as opposed to true ischemia or infarct. 2. Gated SPECT study with normal wall motion and thickening with an estimated EF of 51%. 3. No ischemic or dysrhythmic EKG response to Lexiscan administration. The study would overall be considered low risk. Assessment and Plan Assessment and Plan (1) Aortic valve disease: Status: Acute Plan: He appears to have aortic valve disease. This will be evaluated again with a cardiac catheterization. He may need a NATHALIE at some later date. Depending on the findings of the cardiac catheterization further recommendations will be made.
[2024-11-04 08:25] VITALS: BMI 45.1
[2024-11-04 12:35] LABS: Absolute Lymphocyte Count 1.15 X10^3/uL (0.83-4.51); Absolute Neutrophil Count 5.5 X10^3/uL (2.0-7.7); Basophil# 0.05 X10^3/uL; Basophil% 0.7 % (0-1); Eosinophil# 0.16 X10^3/uL; Eosinophils% 2.2 % (0-5); Hematocrit 34.4 % (40-54); Hemoglobin 11.4 g/dL (13.0-16.5); Lymphocyte # 1.15 X10^3/ul (0.83-4.51); Lymphocyte % 15.6 % (19-41); Mean Corp Hgb Conc 33.1 g/dL (32-36); Mean Corpuscular Hgb 28.6 pg (27.0-32.0); Mean Corpuscular Volume 86.2 fL (80-94); Monocyte% 6.8 % (0-10); NRBC Flagged by Analyzer 0 % (0-5); Neutrophil # 5.47 X10^3/uL (2.7-7.7); Neutrophil % 74.2 % (47-70); Platelet Count 216 K/mm3 (150-450); RBC Distribution Width SD 46.8 fl (35.1-43.9); Red Blood Count 3.99 M/mm3 (4.6-6.2); White Blood Count 7.4 K/mm3 (4.4-11.0)
[2024-11-04 15:03] LABS: Anion Gap 12 (5-15); BUN 24 mg/dL (4-19); BUN/Creat Ratio 27.2 RATIO (10-20); Calcium,Total 9.8 mg/dL (7.6-11.0); Carbon Dioxide 24.2 mmol/L (21.0-32.0); Chloride 104 mmol/L (98-108); Creatinine, Serum 0.88 mg/dL (0.70-1.20); EST Glomerular Filtration Rate 102 (>60); Estimated Creatinine Clearance 129.09 ml/min (50-250); Glucose 171 mg/dL (70-99); Potassium 4.5 mmol/L (3.3-5.1); Sodium Level 140 mmol/L (133-145)
--- OUTSIDE RECORDS SUMMARY | 2024-11-07 21:36 | XMS RPT_ITS | CCD ---
Author Organization [facility] Care Team Providers Care Taxicab Dispatcher Name Role Phone Dr. Rayne Gonzalez Attending Provider [phone] Dr. Rayne Gonzalez Primary Care Provider Dr. Silvana Ramires Attending Provider [phone] Dr. Rayne Gonzalez Primary Care Provider Dr. Rayne Gonzalez Attending Provider [phone] Dr. Rayne Gonzalez Referring Provider [phone] Erick HURST, ARIS Gaitan Attending Provider ARIS Ríos Attending Provider Dr. Rayne Gonzalez MD Primary Care Provider [phone] Dr. Rayne Gonzalez MD Attending Provider Dr. Rayne Gonzalez MD Referring Provider Ryan Meléndez Attending Provider Dr. Joesph Auguste MD Emergency Provider [phone] Dr. Elias Ramires DO Admit Provider Dr. Elias Ramires DO Attending Provider Jean Pierre DAVALOS, Dr. Roman Attending Provider Dr. Elias Ramires DO Other Provider Dr. Rayne Gonzalez MD Primary Care Provider [phone] Dr. Rayne Gonzalez MD Attending Provider Dr. Rayne Gonzalez MD Referring Provider [place], Rayne Primary Care Unavailable [place], Rayne Referring Unavailable Carlos, Rayne Attending Unavailable [place], Rayne Primary Care Unavailable [place], Rayne Referring Unavailable Carlos, Rayne Attending Unavailable [place], Rayne Primary Care Unavailable Carlos, Rayne Referring Unavailable Ryan Meléndez Attending Unavailable Elias Ramires Attending Unavailable [place], Rayne Primary Care Unavailable Elias Ramires Consulting Unavailable Elias Ramires Admitting Unavailable Carlos, Rayne Referring Unavailable Carlos, Rayne Primary Care Unavailable [place], Rayne Attending Unavailable Antonio Russell Attending Unavailable [place], Rayne Primary Care Unavailable Carlos, Rayne Referring Unavailable Jean Pierre, Abel Attending Unavailable Jean Pierre, [place] Consulting Unavailable Jean Pierre, Abel Referring Unavailable [place], Rayne Primary Care Unavailable Carlos, Rayne Primary Care Unavailable Carlos, Rayne Referring Unavailable Jean Pierre, [place] Attending Unavailable Carlos, Rayne Primary Care Unavailable Jean Pierre, Abel Attending Unavailable [place], Rayne Primary Care Unavailable Carlos, Rayne Referring Unavailable [place], Rayne Attending Unavailable Carlos, Rayne Referring Unavailable Jean Pierre, Abel Attending Unavailable Carlos, Rayne Primary Care Unavailable Jean Pierre, [place] Referring Unavailable Jean Pierre, Abel Attending Unavailable [place], Rayne Primary Care Unavailable [place], Rayne Referring Unavailable Carlos, Rayne Primary Care Unavailable Carlos, Rayne Attending Unavailable Carlos, Rayne Primary Care Unavailable [place], Rayne Referring Unavailable Carlos, Rayne Attending Unavailable Carlos, Rayne Attending Unavailable Carlos, Rayne Primary Care Unavailable Elias Ramires Admitting Unavailable Elias Ramires Attending Unavailable Medications Current Medications Medication Drug Class(es) Dates Sig (Normalized) Sig (Original) [id number] 200 actuat albuterol 0.09 mg/actuat metered dose inhaler (5 sources) beta2-Adrenergic Agonist Start: 06-02-2024 End: 08-20-2024 Albuterol Sulfate 90 mcg/actuation HFA aerosol inhaler Active 2 NMA INHALATION EVERY 6 HOURS as needed for shortness of breath or wheezing 8.5 August 20, 2024 9:38am aspirin 81 mg delayed release oral tablet (5 sources) Platelet Aggregation Inhibitor, Nonsteroidal Anti-inflammatory Drug Start: 11-04-2022 take 1 tablet by mouth once daily Aspirin (Adult Aspirin Regimen) 81 mg tablet,delayed release (DR/EC) Active 81 mg PO DAILY November 04, 2022 12:00am carvedilol 6.25 mg oral tablet (6 sources) alpha-Adrenergic Verenice, beta-Adrenergic Verenice Start: 10-05-2024 take 1 tablet by mouth twice daily at mealtime Carvedilol 6.25 mg tablet Active 6.25 mg PO TWICE A DAY October 05, 2024 12:00am must administer with a meal/food Start: 11-04-2022 End: 10-15-2023 take 1 tablet by mouth twice daily at mealtime Carvedilol 25 mg tablet Discontinued 25 mg PO TWICE A DAY November 04, 2022 12:00am October 15, 2023 9:55am must administer with a meal/food dapagliflozin 10 mg oral tablet (1 source) Sodium-Glucose Cotransporter 2 Inhibitor Start: 10-05-2024 take 1 tablet by mouth once daily in the morning Dapagliflozin Propanediol (Farxiga) 10 mg tablet Active 10 mg PO EVERY MORNING October 05, 2024 12:00am escitalopram 10 mg oral tablet (3 sources) Serotonin Reuptake Inhibitor Start: 08-09-2024 take 1 tablet by mouth once daily Escitalopram Oxalate (Lexapro) 10 mg tablet Active 10 mg PO daily August 09, 2024 12:00am furosemide 40 mg oral tablet (3 sources) Loop Diuretic Start: 08-20-2024 End: 09-20-2024 take 1 tablet by mouth once daily Furosemide (Lasix) 40 mg tablet Active 40 mg PO DAILY 90 September 20, 2024 9:34am Hh-Utj-Xpnns-K1-Lyc open-Lutein (Centrum Men 50 Plus Minis) 480-08-815-150 mcg tablet (2 sources) Start: 11-04-2022 take 1 tablet by mouth once Cm-Hkb-Gkxxb-K1-Ly copen-Lutein (Centrum Men 50 Plus Minis) [phone] mcg tablet Active TABLET PO November 03, 2022 11:00pm Start: 11-04-2022 take 1 tablet by judy th once Et-Iyg-Fvmgp-F0-Iofizmg-Wxguof (Centrum Men 50 Plus Minis) 807-48-126-150 mcg tablet Active TABLET PO November 04, 2022 12:00am Uk-Nxh-Wvjps-B7-Faapbjm-Famn in (Centrum Minis Men 50 Plus) 445-18-810-150 mcg tablet (3 sources) Start: 11-04-2022 take 50-150 tablets by mouth once daily Yr-Wwu-Ojjul-B7-Ajodwyl-Ihurzy (Centrum Minis Men 50 Plus) 459-79-833-150 mcg tablet Active 1 {tbl} PO DAILY November 04, 2022 12:00am sacubitril 24 mg / valsartan 26 mg oral tablet (1 source) Mansi oten sin 2 Rece ptor Bloc ker Start: 10-05-2024 Sacubitril-Valsartan (Entres to) 24-26 mg tablet Active 1 {tbl} PO TWICE A DAY October 05, 2024 12:00am traZODone hydrochloride 50 m g oral tablet (9 sources) Sero sana n Reup take Inhi bito r Start: 06-02-2024 End: 08-09-2024 take 50-100 mg by mouth at bedtime Trazodone 50 mg tablet Active 50 - 100 mg PO AT BEDTIME August 09, 2024 4:02pm Start: 05-04-2024 End: 06-02-2024 Trazodone 50 mg tablet Disco ntinued 25 mg PO AT BEDTIME May 04, 2024 1:00am June 02, 2024 2:55pm Completed/Discontinued Medications Medication Drug Class(es) Dates Sig (Normalized) Sig (Original) amoxicillin 875 mg / clavulanate 125 mg oral tablet (7 sources) Penicillin-class Antibacterial Start: 05-23-2024 End: 06-02-2024 Amoxicillin-Pot Clavulanate 875-125 mg tablet Discontinued 1 {tbl} PO TWICE A DAY May 23, 2024 1:00am June 02, 2024 1:58pm Start: 04-07-2023 End: 05-15-2023 Amoxicillin-Pot Clavulanate 875-125 mg tablet Discontinued 1 {tbl} PO TWICE A DAY April 07, 2023 1:00am May 15, 2023 2:32pm Start: 04-07-2023 End: 05-15-2023 take 1 tablet by mouth twice daily Amoxicillin-Pot Clavulanate Discontinued 1 TABLET PO TWICE A DAY April 07, 2023 12:00am May 15, 2023 1:32pm atorvastatin 20 mg oral tablet (20 sources) HMG-CoA Reductase Inhibitor Start: 11-04-2022 End: 05-04-2024 take 1 tablet by mouth once daily Atorvastatin 20 mg tablet Discontinued 20 mg PO DAILY September 28, 2023 8:03am October 15, 2023 10:08am codeine phosphate 2 mg/ml / guaiFENesin 20 mg/ml oral solution (3 sources) Opioid Agonist Start: 05-04-2024 End: 06-02-2024 take 1 mL by mouth every four to six hours as needed for cough Codeine-Guaifenesin 10-100 mg/5 mL liquid Discontinued 10 mL PO EVERY 4-6 HOURS as needed for cough May 04, 2024 1:00am June 02, 2024 1:55pm doxycycline hyclate 100 mg oral tablet (3 sources) Tetracycline-cla ss Drug Start: 05-04-2024 End: 06-02-2024 take 1 tablet by mouth twice daily Doxycycline Hyclate 100 mg tablet Discontinued 100 mg PO TWICE A DAY May 04, 2024 1:00am June 02, 2024 1:55pm Flash Glucose Scanning [place] (Freestyle Vance 2 [place]) misc (3 sources) Start: 05-20-2023 End: 08-17-2024 Flash Glucose Scanning [place] (Freestyle Vance 2 [place]) misc Discontinued 0 .Route 1 May 20, 2023 1:00am August 17, 2024 10:43am As directed Start: 05-20-2023 Flash Glucose Scanning [place] (Freestyle Vance 2 [place]) misc Active 0 .Route May 20, 2023 1:00am As directed Flash Glucose Sensor (Freest yle Vance 2 Sensor) kit (3 sources) Start: 05-20-2023 End: 08-17-2024 Flash Glucose Sensor (Freest yle Vance 2 Sensor) kit Discontinued 0 .Route May 20, 2023 1:00am August 17, 2024 10:43am As directed Start: 05-20-2023 Flash Glucose Sensor (Freestyle Vance 2 Sensor) kit Active 0 .Route May 20, 2023 1:00am As directed hydroCHLOROthiazide 25 mg / triamterene 37.5 mg oral capsule (20 sources) Potassium-sparing Diuretic, Thiazide Diuretic Start: 11-04-2022 End: 08-20-2024 Triamterene-Hydrochlorothiaz id 37.5-25 mg capsule Discontinued 1 NMA PO DAILY July 21, 2023 5:28pm October 15, 2023 10:08am Start: 11-04-2022 End: 01-30-2023 take 1 capsule by mouth once daily Triamterene-Hydrochlorothiazid Active 1 CAP PO DAILY January 30, 2023 10:44am ketoconazole 20 mg/ml medicated shampoo (3 sources) Azole Antifungal Start: 05-20-2023 End: 10-15-2023 Ketoconazole 2 % shampoo Discontinued 1 NMA TOPICAL TWICE A WEEK May 20, 2023 1:00am October 15, 2023 10:02am lisinopril 5 mg oral tablet (20 sources) Angiotensin Converting Enzyme Inhibitor Start: 08-20-2024 End: 10-05-2024 take 1 tablet by mouth once daily Lisinopril 5 mg tablet Discontinued 5 mg PO DAILY September 20, 2024 9:34am October 05, 2024 2:17pm Start: 11-04-2022 End: 08-20-2024 take 1 tablet by mouth once daily Lisinopril 20 mg tablet Discontinued 20 mg PO DAILY July 21, 2023 5:27pm October 15, 2023 10:08am melatonin 3 mg oral capsule (5 sources) Start: 11-04-2022 End: 05-20-2023 take 1 capsule by mouth at bedtime as needed for sleep Melatonin 3 mg capsule Discontinued 3 mg PO BEDTIME as needed for sleep November 04, 2022 12:00am May 20, 2023 3:56pm metFORMIN hydrochloride 1000 mg oral tablet (12 sources) Biguanide Start: 09-28-2023 End: 05-04-2024 take 1 tablet by mouth twice daily Metformin 1,000 mg tablet Discontinued 1000 mg PO TWICE A DAY October 15, 2023 10:02am May 04, 2024 2:53pm Start: 05-25-2023 End: 09-28-2023 take 0.5 tablet by mouth twice daily, then take 1 tablet by mouth twice daily Metformin 1,000 mg tablet Discontinued 1000 mg PO TWICE A DAY 60 May 25, 2023 1:00am September 28, 2023 8:04am take 1/2 tablet twice daily for 3 days, then increase to 1 tablet twice daily. 24 hr metoprolol succinate 25 mg extended release oral tablet (3 sources) beta-Adrenergic Verenice Start: 08-20-2024 End: 10-05-2024 take 1 tablet by mouth once daily Metoprolol Succinate (Toprol Xl) 25 mg tablet extended release 24 hr Discontinued 25 mg PO DAILY September 20, 2024 9:34am October 05, 2024 2:18pm predniSONE 20 mg oral tablet (9 sources) Start: 08-20-2024 End: 09-20-2024 take 2 tablets by mouth at breakfast Prednisone 20 mg Tablet Discontinued 40 mg PO WITH BREAKFAST 4 August 20, 2024 12:00am September 20, 2024 9:08am Start: 06-02-2024 End: 08-09-2024 take 2 tablets by mouth once daily Prednisone 20 mg tablet Discontinued 40 mg PO daily June 02, 2024 1:00am August 09, 2024 1:16pm Start: 04-07-2023 End: 05-15-2023 take 1 tablet by mouth twice daily Prednisone 20 mg tablet Discontinued 20 mg PO TWICE A DAY April 07, 2023 1:00am May 15, 2023 2:32pm Semaglutide 0.25 mg or 0.5 m g (2 mg/3 mL) pen injector (3 sources) Start: 08-09-2024 End: 08-17-2024 Semaglutide 0.25 mg or 0.5 m g (2 mg/3 mL) pen injector Discontinued 0.25 mg SC EVERY WEEK August 09, 2024 12:00am August 17, 2024 6:52am for 4 weeks Tirzepatide (Mounjaro) 2.5 mg/0.5 mL pen injector (3 sources) Start: 05-20-2023 End: 05-25-2023 Tirzepatide (Mounjaro) 2.5 mg/0.5 mL pen injector Discontinued 2.5 mg SC EVERY WEEK 07 15May 20, 2023 1:00am June 16, 2023 1:00am May 25, 2023 8:20pm Problems Problem Classification Problem Date Documented Date Episodic/Chronic Abdominal pain (9 sources) Right flank pain; Translations: [Unspecified abdominal pain] 05-15-2023 Episodic Acute bronchitis (5 sources) Acute bronchitis; Translations: [Acute bronchitis, unspecified] 08-09-2024 Episodic Adjustment disorders (8 sources) Grief finding; Translations: [Adjustment disorder with depressed mood] 05-04-2024 Chronic Administrative/social admission (2 sources) Persons encountering health services in other specified circumstances; Translations: [Lack of adequate sleep] 11-04-2022 Episodic Calculus of urinary tract (4 sources) Kidney stone; Translations: [Calculus of kidney] 05-15-2023 Episodic Congestive heart failure; nonhypertensive (13 sources) Heart failure, unspecified; Translations: [Congestive heart failure, unspecified] Onset: 08-20-2024 11-04-2022 Chronic Diabetes mellitus without complication (1 source) Type 2 diabetes mellitus; Translations: [Type 2 diabetes mellitus without complications] 09-06-2024 Chronic Diabetes mellitus without complication (7 sources) Prediabetes; Translations: [Prediabetes] Onset: 08-09-2024 11-04-2022 Episodic Essential hypertension (16 sources) Essential hypertension; Translations: [Essential (primary) hypertension] Onset: 10-05-2024 11-04-2022 Chronic Fluid and electrolyte disorders (6 sources) Acute hyponatremia; Translations: [Hypo-osmolality and hyponatremia] 08-17-2024 Episodic Genitourinary symptoms and ill-defined conditions (4 sources) Blood in urine; Translations: [Hematuria, unspecified] 05-15-2023 Episodic Heart valve disorders (3 sources) Aortic valve disorder; Translations: [Nonrheumatic aortic valve disorder, unspecified] Onset: 10-05-2024 10-05-2024 Chronic Immunizations and screening for infectious disease (2 sources) Encounter for immunization; Translations: [Need for prophylactic vaccination and inoculation against unspecified single disease] 11-04-2022 Episodic Other aftercare (1 source) Post-discharge follow-up; Translations: [Encounter for follow-up examination after completed treatment for conditions other than malignant neoplasm] 09-20-2024 Episodic Other lower respiratory disease (3 sources) Hypoxia; Translations: [Hypoxemia] 08-17-2024 Episodic Other lower respiratory disease (5 sources) Persistent cough; Translations: [Cough present for greater than 3 weeks] 06-02-2024 Episodic Other lower respiratory disease (1 source) Shortness of breath; Translations: [Shortness of breath] Onset: 08-25-2024 Episodic Other nutritional; endocrine; and metabolic disorders (1 source) Morbid (severe) obesity due to excess calories; Translations: [Morbid obesity] 11-04-2022 Chronic Other nutritional; endocrine; and metabolic disorders (2 sources) H/O: diabetes mellitus; Translations: [Personal history of other endocrine, nutritional and metabolic disease] 08-17-2024 Episodic Other screening for suspected conditions (not mental disorders or infectious disease) (4 sources) Raised cardiac enzyme or marker; Translations: [Other specified abnormal findings of blood chemistry] Onset: 10-05-2024 08-17-2024 Episodic Other upper respiratory infections (2 sources) Acute upper respiratory infection; Translations: [Acute upper respiratory infection, unspecified] 05-04-2024 Episodic Pneumonia (except that caused by tuberculosis or sexually transmitted disease) (6 sources) Pneumonia due to Human metapneumovirus; Translations: [Human metapneumovirus pneumonia] Onset: 08-20-2024 08-17-2024 Episodic Residual codes; unclassified (13 sources) Obstructive sleep apnea syndrome; Translations: [Obstructive sleep apnea (adult) (pediatric)] 11-04-2022 Chronic Residual codes; unclassified (1 source) Obstructive sleep apnea (adult) (pediatric); Translations: [Obstructive sleep apnea (adult)(pediatric)] 11-04-2022 Chronic Respiratory failure; insufficiency; arrest (adult) (1 source) Acute respiratory failure; Translations: [Acute respiratory failure with hypoxia] 09-20-2024 Episodic Unclassified (1 source) Other specified cough; Translations: [Other specified cough] Onset: 10-03-2024 Results Test Name Value Interpretation Reference Range Facility Basic Metabolic Profile (BMP )on 11-04-2024 BUN/CRE 27.2 RATIO High 03-06 [facility] Comment on above: Performed By: #### L [id number] #### [facility] [address] [place], [address] Calcium [Mass/Vol] 9.8 mg/dL Normal 7.6-11.0 [facility] Comment on above: Performed By: #### L [id number] #### [facility] [address] [place], [address] Chloride [Moles/Vol] 104 mmol/L Normal 98-108 [facility] Comment on above: Performed By: #### L [id number] #### [facility] [address] [place], [address] CO2 [Moles/Vol] 24.2 mmol/L Normal 21.0-32.0 [facility] Comment on above: Performed By: #### L [id number] #### [facility] [address] [place], [address] Creatinine [Mass/Vol] 0.88 mg/dL Normal 0.70-1.20 [facility] Comment on above: Performed By: #### L [id number] #### [facility] [address] [place], [address] ECRCL 129.09 ml/min Normal 50-250 [facility] Comment on above: Performed By: #### L [id number] #### [facility] [address] [place], [address] GAP 12 Normal 5-15 [facility] Comment on above: Performed By: #### L [id number] #### [facility] [address] [place], [address] GFR/1.73 sq M.predicted among non-blacks MDRD (S/P/Bld) [Vol rate/Area] 102 mL/min/{1.73_m2} Normal >60 [facility] Comment on above: Result Comment: mL/m in/1.73m2 CKD-EPI Creatinine Equation (2020) Performed By: #### L [id number] #### [facility] [address] [place], [address] Glucose [Mass/Vol] 171 mg/dL High 70-99 [facility] Comment on above: Performed By: #### L [id number] #### [facility] [address] [place], [address] Potassium [Moles/Vol] 4.5 mmol/L Normal 3.3-5.1 [facility] Comment on above: Performed By: #### L [id number] #### [facility] [address] [place], [address] Sodium [Moles/Vol] 140 mmol/L Normal 133-145 [facility] Comment on above: Performed By: #### L [id number] #### [facility] [address] [place], [address] Urea nitrogen [Mass/Vol] 24 mg/dL High 4-19 [facility] Comment on above: Performed By: #### L [id number] #### [facility] [address] [place], [address] CBC W/Diff, Automatedon 06-2 0-2024 Absolute Lymph 1.15 X10 3/uL Normal 0.83-4.51 [facility] Comment on above: Performed By: #### L [id number] #### [facility] [address] [place], [address] Absolute Neut 5.5 X10 3/uL Normal 2.0-7.7 [facility] Comment on above: Performed By: #### L [id number] #### [facility] [address] [place], [address] Basophils/100 WBC (Bld) 0.7 % Normal 0-1 [facility] Comment on above: Performed By: #### L [id number] #### [facility] [address] [place], [address] Eosinophils/100 WBC (Bld) 2.2 % Normal 0-5 [facility] Comment on above: Performed By: #### L [id number] #### [facility] [address] [place], [address] Erythrocyte distribution width (RBC) [Ratio] 15.0 % High 11.6-14.6 [facility] Comment on above: Performed By: #### L [id number] #### [facility] [address] [place], [address] Hematocrit (Bld) [Volume fraction] 34.4 % Low 40-54 [facility] Comment on above: Performed By: #### L [id number] #### [facility] [address] [place], [address] Hemoglobin (Bld) [Mass/Vol] 11.4 g/dL Low 13.0-16.5 [facility] Comment on above: Performed By: #### L [id number] #### [facility] [address] [place], [address] IG% 0.500 Normal 0.0-0.9 [facility] Comment on above: Result Comment: IG% - Immature Granulocytes (promyelocytes, myelocytes and metamyelocytes) > 1% indicates that a LEFT SHIFT is Present. Performed By: #### L [id number] #### [facility] [address] [place], [address] Lymphocytes/100 WBC (Bld) 15.6 % Low 19-41 [facility] Comment on above: Performed By: #### L [id number] #### [facility] [address] [place], [address] MCH (RBC) [Entitic mass] 28.6 pg Normal 27.0-32.0 [facility] Comment on above: Performed By: #### L [id number] #### [facility] [address] [place], [address] MCHC (RBC) [Mass/Vol] 33.1 g/dL Normal 32-36 [facility] Comment on above: Performed By: #### L [id number] #### [facility] [address] [place], [address] MCV (RBC) [Entitic vol] 86.2 fL Normal 80-94 [facility] Comment on above: Performed By: #### L [id number] #### [facility] [address] [place], [address] Monocytes/100 WBC (Bld) 6.8 % Normal 0-10 [facility] Comment on above: Performed By: #### L [id number] #### [facility] [address] [place], [address] Neutrophils/100 WBC (Bld) 74.2 % High 47-70 [facility] Comment on above: Performed By: #### L [id number] #### [facility] [address] [place], [address] Nucleated RBC (Bld) [#/Vol] 0 10*3/uL Normal 0-5 [facility] Comment on above: Performed By: #### L [id number] #### [facility] [address] [place], [address] Platelet mean volume (Bld) [Entitic vol] 11.0 fL Normal 6.2-12.0 [facility] Comment on above: Performed By: #### L [id number] #### [facility] [address] [place], [address] Platelets (Bld) [#/Vol] 216 10*3/uL Normal 150-450 [facility] Comment on above: Performed By: #### L [id number] #### [facility] [address] [place], [address] RBC (Bld) [#/Vol] 3.99 10*6/uL Low 4.6-6.2 [facility] Comment on above: Performed By: #### L [id number] #### [facility] [address] [place], [address] RDW SD 46.8 fl High 35.1-43.9 [facility] Comment on above: Performed By: #### L [id number] #### [facility] [address] [place], [address] WBC (Bld) [#/Vol] 7.4 10*3/uL Normal 4.4-11.0 [facility] Comment on above: Performed By: #### L [id number] #### [facility] [address] [place], [address] 12 Lead EKG performed by [facility] on 10-05-2024 12 Lead EKG performed by [facility] [address] [place] [address] 12 Lead EKG performed by [facility] 10/05/24 1331 MR#: [id number] Acct: [id number] Name: MARK ANTHONY YE Rep #: [id number] : 1970 54 From: Abel Greenfield MD Attending Dr: Dr. Abel Greenfield MD Status: DEP A MB Ordering Dr: Abel Greenfield MD Date: 10/05/24 Location: [facility] Sex: M C Admitted: BMS/12 Lead EKG performed by [facility] Sinus Rhythm -Left atrial enlargement. Possible left ventricular hypertrophy n non-voltage basis. -ST depression + T-abnormality -Seen with left entricular hypertrophy (strain) or digitalis effect -consider ischemia onsider Anterolateral ischemia. ABNORMAL 10/05/24 1613 Date Abel Greenfield MD CC: Dr. Rayne Gonzalez MD Date Dictated: 10/05/24 1331 Date Transcribed: 10/05/241330 Jacket Changer: [place] Signed Normal [facility] Cardiology Visit Reporton Cardiology Visit Report [facility] [address] [place] [address] OFFICE VISIT Date of Service: 10/05/24 MR#: [id number] Acct: [id number] Name: MARK ANTHONY YE JrMiguel Rep #: [id number] : 1970 Provider: Dr. Abel Greenfield MD Age/Sex: 54/M Location: [facility] Status: Signed HPI HPI History of Present Illness Details: 54-year-old man who presents for an evaluation after discharge from the hospital. He has a history of hypertension hyperlipidemia who initially presented to a hospital in [place] in 2021 with what appears to be flash pulmonary edema. It is not quite clear what the entire workup was at that time but he was noted to have a hyperdynamic LV with an estimated ejection fraction of 65% pharmacologic myocardial perfusion stress test was performed which demonstrated no evidence of ischemia. He was also noted to be negative for a pulmonary embolism. He was discharged on beta-verenice BRANDON inhibitor aspirin and metformin for his diabetes. He presented to the hospital here in [place] with shortness of breath he was diagnosed as having acute heart failure and his ejection fraction demonstrated an ejection fraction of 35%. He was noted to have mildly elevated troponin and he had his medications changed and was discharged on a beta-verenice BRANDON inhibitor on diuretic. He was asked to see the associate director finance for an appointment. He says that his breathing has improved he denies any dizziness he denies any chest pain he has had some palpitations but he has shortness of breath with activity and no pedal edema. His physical exam does demonstrate a systolic ejection murmur noted left sternal border his electrocardiogram demonstrates sinus rhythm with a rate of 97 bpm and lateral T wave inversions. Intake Vital Signs 09/20/24 09:11 10/05/24 13:31 Height 5 ft 8 in 5 ft 8 in Weight: 297 lb 298 lb BMI 45.1 45.3 BP 116/80 101/68 Blood Pressure Location Lt brachial Lt brachial Position Sitting Sitting Respiration 18 16 Pulse 76 95 Pulse Source Monitor Monitor Temp 97.3 F L Pulse Oximetry (%) 96 Oxygen Delivery Method room air Intake Visit Reasons: S/P 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 Accompanied by: Self Is patient in pain?: No Allergies No Known Allergies Allergy (Verified 10/05/24 13:39) Medications ???Medication ???Instructions ???Recorded ???Confirmed ???Type aspirin 81 mg tablet,delayed 81 mg PO DAILY 11/04/22 10/05/24 H istory release (Adult Aspirin Regimen) [id number] 150 mcg-vit K1 1 tab PO DAILY 11/04/22 10/05/24 History 30 mcg-lycop 300 mcg-lutein tablet (Centrum Minis Men 50 Plus) atorvastatin 20 mg tablet 20 mg PO DAILY #90 tabs 05/04/24 0 10/05/24 Rx metformin 1,000 mg tablet 1,000 mg PO BID #180 tabs 05/04/24 10/05/24 Rx escitalopram oxalate 10 mg tablet 10 mg PO QDAY #30 tabs 08/09/24 0 10/05/24 Rx (Lexapro) trazodone 50 mg tablet 50 - 100 mg (1 - 2 x 50 mg) PO QHS 08/09/24 10/05/24 Rx #90 tabs albuterol sulfate 90 mcg/actuation 2 puff inhalation Q6H PRN 10/05/24 Rx aerosol inhaler shortness of breath or wheezing #8.5 grams furosemide 40 mg tablet (Lasix) 40 mg PO DAILY 30 days #90 tabs 10/05/24 Rx carvedilol 6.25 mg tablet 6.25 mg PO BID #60 tabs 10/05/24 0 10/05/24 Rx dapagliflozin propanediol 10 mg 10 mg PO QAM #60 tabs 10/05/24 Rx tablet (Farxiga) sacubitril 24 mg-valsartan 26 mg 1 tab PO BID #60 tabs 10/05/24 Rx tablet (Entresto) [facility] Medical History Type 2 diabetes mellitus without complication Depression Diabetes Dialysis patient CPAP (continuous positive airway pressure) dependence Sleep apnea Acute bronchitis, unspecified Acute maxillary sinusitis, unspecified Ocular migraine JOANNE (obstructive sleep apnea) Pre-diabetes Cardiac murmur High cholesterol Hypertension Heart failure Bone fracture History of back problems Surgical History History of tonsillectomy History of foot surgery History of hernia repair Family History Mother Alcoholism Arthritis Myocardial infarction CVA (cerebral vascular accident) COPD (chronic obstructive pulmonary disease) Father Alcoholism COPD (chronic obstructive pulmonary disease) Prostate cancer Grandmother Arthritis Breast cancer Colon cancer Skin cancer Social History household members: spouse current occupational status: unemployed Smoking Status: Never smoker Electronic Cigarette Use: not used alcohol intake: current alcohol intake frequency: holidays/special occasions only Alcohol type: bee (more content not included)... Normal [facility] Internal Medicine Office Vis neena 09-19-2024 Internal Medicine Office Visit [facility] [address] [place] [id number] OFFICE VISIT Date of Service: 09/20/24 MR#: [id number] Acct: [id number] Name: MARK ANTHONY YE Jr. Rep #: [id number] : 1970 Provider: Dr. 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 Is patient in pain?: No Allergies No Known Allergies Allergy (Verified 09/20/24 09:01) Medications ???Medication ???Instructions ???Recorded ???Confirmed ???Type aspirin 81 mg tablet,delayed 81 mg PO DAILY 11/04/22 09/20/24 H istory release (Adult Aspirin Regimen) [id number] 150 mcg-vit K1 1 tab PO DAILY 11/04/22 09/20/24 History 30 mcg-lycop 300 mcg-lutein tablet (Centrum Minis Men 50 Plus) atorvastatin 20 mg tablet 20 mg PO DAILY #90 tabs 05/04/24 0 09/20/24 Rx metformin 1,000 mg tablet 1,000 mg PO BID #180 tabs 05/04/24 09/20/24 Rx escitalopram oxalate 10 mg tablet 10 mg PO QDAY #30 tabs 08/09/24 0 09/20/24 Rx (Lexapro) trazodone 50 mg tablet 50 - 100 mg (1 - 2 x 50 mg) PO QHS 08/09/24 09/20/24 Rx #90 tabs albuterol sulfate 90 mcg/actuation 2 puff inhalation Q6H PRN 09/20/24 Rx aerosol inhaler shortness of breath or wheezing #8.5 grams furosemide 40 mg tablet (Lasix) 40 mg PO DAILY 30 days #90 tabs 09/20/24 Rx lisinopril 5 mg tablet 5 mg PO DAILY 30 days #90 tabs 11/0909/20/24 Rx metoprolol succinate 25 mg 25 mg PO DAILY 30 days #90 tabs 09/20/24 Rx tablet,extended release 24 hr (Toprol XL) Nurse's Note: Here for 6 week f/u, states that he was in hospital for a few days. Pt was dx'd w/ CHF and hypoxia and has f/u w/ Dr. Greenfield on 10/05/24. Pt states he has been feeling pretty good, has been off of o2 and has been sleeping better. States his stamina is still not as it was but they did advise him it could take up to 6 months. Is doing re hab excercises. Needs toporol, lisinopril, and lasix refilled. [facility] Medical History Type 2 diabetes mellitus without complication Depression Diabetes Dialysis patient CPAP (continuous positive airway pressure) dependence Sleep apnea Acute bronchitis, unspecified Acute maxillary sinusitis, unspecified Ocular migraine JOANNE (obstructive sleep apnea) Pre-diabetes Cardiac murmur High cholesterol Hypertension Heart failure Bone fracture History of back problems Surgical History History of tonsillectomy History of foot surgery History of hernia repair Family History Mother Alcoholism Arthritis Myocardial infarction CVA (cerebral vascular accident) COPD (chronic obstructive pulmonary disease) Father Alcoholism COPD (chronic obstructive pulmonary disease) Prostate cancer Grandmother Arthritis Breast cancer Colon cancer Skin cancer Social History household members: spouse current occupational status: unemployed Smoking Status: Never smoker Electronic Cigarette Use: not used alcohol intake: current alcohol intake frequency: holidays/special occasions only Alcohol type: beer and wine substance use type: does not use what type of physical activity do you participate in: none do you feel safe at home: Yes HPI HPI Chief Complaint: fu Details: MARK ANTHONY YE, is a 54 M who presents to the office today for a follow up. He is up to date on his routine blood work. He is due for colon cancer screening. He is up to date on his immunizations. He doesn't smoke and does need refills. He reports he has been doing better in terms of diet and has lost 22 pounds since he was last seen. He has been more active. He is checking his blood pressure at home. He reports he has been taking his medication as prescribed. He states in the mornings, it is well controlled. He states in the afternoon, it will drop a little where he will get lightheaded. He has monitoring his salt intake. He has been checking his sugars and reports it has been in the 120 range. nor has he been monitoring his carbohydrate and sugar intake. He is taking his medication as prescribed without pro blems. He states he has done better in the last few weeks with his evening doses. He is up (more content not included)... Normal [facility] Basic Metabolic Profile (BMP )on 08-23-2024 BUN Normal 4-19 [facility] Comment on above: Result Comment: Canc elled via OM: Order cancelled - Patient discharged Performed By: #### L 500.2500 #### [facility] [address] [place], [address] BUN/CRE Normal 10-20 [facility] Comment on above: Result Comment: Canc elled via OM: Order cancelled - Patient discharged Performed By: #### L 500.2500 #### [facility] [address] [place], [address] Calcium Normal 7.6-11.0 [facility] Comment on above: Result Comment: Canc elled via OM: Order cancelled - Patient discharged Performed By: #### L 500.2500 #### [facility] [address] [place], [address] CL Normal 98-108 [facility] Comment on above: Result Comment: Canc elled via OM: Order cancelled - Patient discharged Performed By: #### L 500.2500 #### [facility] [address] [place], [address] CO2 Normal 21.0-32.0 [facility] Comment on above: Result Comment: Canc elled via OM: Order cancelled - Patient discharged Performed By: #### L 500.2500 #### [facility] [address] [place], [address] CREAT,SERUM Normal 0.70-1.20 [facility] Comment on above: Result Comment: Canc elled via OM: Order cancelled - Patient discharged Performed By: #### L 500.2500 #### [facility] [address] [place], [address] eGFR Normal >60 [facility] Comment on above: Result Comment: Canc elled via OM: Order cancelled - Patient discharged Performed By: #### L 500.2500 #### [facility] [address] [place], [address] GAP Normal 5-15 [facility] Comment on above: Result Comment: Canc elled via OM: Order cancelled - Patient discharged Performed By: #### L 500.2500 #### [facility] [address] [place], [address] GLU Normal 70-99 [facility] Comment on above: Result Comment: Canc elled via OM: Order cancelled - Patient discharged Performed By: #### L 500.2500 #### [facility] [address] [place], [address] Potassium Normal 3.3-5.1 [facility] Comment on above: Result Comment: Canc elled via OM: Order cancelled - Patient discharged Performed By: #### L 500.2500 #### [facility] [address] [place], [address] Basic Metabolic Profile (BMP) Normal 133-145 [facility] Comment on above: Result Comment: Canc elled via OM: Order cancelled - Patient discharged Performed By: #### L 500.2500 #### [facility] [address] [place], [address] Basic Metabolic Profile (BMP )on 08-22-2024 BUN Normal 4-19 [facility] Comment on above: Result Comment: Canc elled via OM: Order cancelled - Patient discharged Performed By: #### L 500.2500 #### [facility] [address] [place], [address] BUN/CRE Normal 10-20 [facility] Comment on above: Result Comment: Canc elled via OM: Order cancelled - Patient discharged Performed By: #### L 500.2500 #### [facility] [address] [place], [address] Calcium Normal 7.6-11.0 [facility] Comment on above: Result Comment: Canc elled via OM: Order cancelled - Patient discharged Performed By: #### L 500.2500 #### [facility] [address] [place], [address] CL Normal 98-108 [facility] Comment on above: Result Comment: Canc elled via OM: Order cancelled - Patient discharged Performed By: #### L 500.2500 #### [facility] [address] [place], [address] CO2 Normal 21.0-32.0 [facility] Comment on above: Result Comment: Canc elled via OM: Order cancelled - Patient discharged Performed By: #### L 500.2500 #### [facility] [address] [place], [address] CREAT,SERUM Normal 0.70-1.20 [facility] Comment on above: Result Comment: Canc elled via OM: Order cancelled - Patient discharged Performed By: #### L 500.2500 #### [facility] [address] [place], [address] eGFR Normal >60 [facility] Comment on above: Result Comment: Canc elled via OM: Order cancelled - Patient discharged Performed By: #### L 500.2500 #### [facility] [address] [place], [address] GAP Normal 5-15 [facility] Comment on above: Result Comment: Canc elled via OM: Order cancelled - Patient discharged Performed By: #### L 500.2500 #### [facility] [address] [place], [address] GLU Normal 70-99 [facility] Comment on above: Result Comment: Canc elled via OM: Order cancelled - Patient discharged Performed By: #### L 500.2500 #### [facility] [address] [place], [address] Potassium Normal 3.3-5.1 [facility] Comment on above: Result Comment: Canc elled via OM: Order cancelled - Patient discharged Performed By: #### L 500.2500 #### [facility] [address] [place], [address] Basic Metabolic Profile (BMP) Normal 133-145 [facility] Comment on above: Result Comment: Canc elled via OM: Order cancelled - Patient discharged Performed By: #### L 500.2500 #### [facility] [address] [place], [address] CBC-Complete Blood Cnt No Di ffon 08-22-2024 HCT Normal 40-54 [facility] Comment on above: Result Comment: Canc elled via OM: Order cancelled - Patient discharged Performed By: #### L 100.0500 #### [facility] [address] [place], [address] HGB Normal 13.0-16.5 [facility] Comment on above: Result Comment: Canc elled via OM: Order cancelled - Patient discharged Performed By: #### L 100.0500 #### [facility] [address] [place], [address] MCH Normal 27.0-32.0 [facility] Comment on above: Result Comment: Canc elled via OM: Order cancelled - Patient discharged Performed By: #### L 100.0500 #### [facility] [address] [place], [address] MCHC Normal 32-36 [facility] Comment on above: Result Comment: Canc elled via OM: Order cancelled - Patient discharged Performed By: #### L 100.0500 #### [facility] [address] [place], [address] MCV Normal 80-94 [facility] Comment on above: Result Comment: Canc elled via OM: Order cancelled - Patient discharged Performed By: #### L 100.0500 #### [facility] [address] [place], [address] PLT Normal 150-450 [facility] Comment on above: Result Comment: Canc elled via OM: Order cancelled - Patient discharged Performed By: #### L 100.0500 #### [facility] [address] [place], [address] RBC Normal 4.6-6.2 [facility] Comment on above: Result Comment: Canc elled via OM: Order cancelled - Patient discharged Performed By: #### L 100.0500 #### [facility] [address] [place], [address] RDW CV Normal 11.6-14.6 [facility] Comment on above: Result Comment: Canc elled via OM: Order cancelled - Patient discharged Performed By: #### L 100.0500 #### [facility] [address] [place], [address] RDW SD Normal 35.1-43.9 [facility] Comment on above: Result Comment: Canc elled via OM: Order cancelled - Patient discharged Performed By: #### L 100.0500 #### [facility] [address] [place], [address] WBC Normal 4.4-11.0 [facility] Comment on above: Result Comment: Canc elled via OM: Order cancelled - Patient discharged Performed By: #### L 100.0500 #### [facility] [address] [place], [address] Basic Metabolic Profile (BMP )on 08-21-2024 BUN Normal 4-19 [facility] Comment on above: Result Comment: Canc elled via OM: Order cancelled - Patient discharged Performed By: #### L 499.0042 #### [facility] [address] [place], [address] BUN/CRE Normal 10-20 [facility] Comment on above: Result Comment: Canc elled via OM: Order cancelled - Patient discharged Performed By: #### L 499.0042 #### [facility] [address] [place], [address] Calcium Normal 7.6-11.0 [facility] Comment on above: Result Comment: Canc elled via OM: Order cancelled - Patient discharged Performed By: #### L 499.0042 #### [facility] [address] [place], [address] CL Normal 98-108 [facility] Comment on above: Result Comment: Canc elled via OM: Order cancelled - Patient discharged Performed By: #### L 499.0042 #### [facility] [address] [place], [address] CO2 Normal 21.0-32.0 [facility] Comment on above: Result Comment: Canc elled via OM: Order cancelled - Patient discharged Performed By: #### L 499.0042 #### [facility] [address] [place], [address] CREAT,SERUM Normal 0.70-1.20 [facility] Comment on above: Result Comment: Canc elled via OM: Order cancelled - Patient discharged Performed By: #### L 499.0042 #### [facility] [address] [place], [address] eGFR Normal >60 [facility] Comment on above: Result Comment: Canc elled via OM: Order cancelled - Patient discharged Performed By: #### L 499.0042 #### [facility] [address] [place], [address] GAP Normal 5-15 [facility] Comment on above: Result Comment: Canc elled via OM: Order cancelled - Patient discharged Performed By: #### L 499.0042 #### [facility] [address] [place], [address] GLU Normal 70-99 [facility] Comment on above: Result Comment: Canc elled via OM: Order cancelled - Patient discharged Performed By: #### L 499.0042 #### [facility] [address] [place], [address] Potassium Normal 3.3-5.1 [facility] Comment on above: Result Comment: Canc elled via OM: Order cancelled - Patient discharged Performed By: #### L 499.0042 #### [facility] [address] [place], [address] Basic Metabolic Profile (BMP) Normal 133-145 [facility] Comment on above: Result Comment: Canc elled via OM: Order cancelled - Patient discharged Performed By: #### L 499.0042 #### [facility] [address] [place], [address] Anion gap in Serum or Plasma Ordered By: Elias Ramires on 08-20-2024 Anion gap [Moles/Vol] 13 mmol/L 5-15 [facility] BUN/creatinine ratioOrdered By: Elias Ramires on 08-20-2024 Urea nitrogen/Creatinine [Mass ratio] 45.9 mg/mg High 10-20 [facility] Basic Metabolic Profile (BMP )on 08-20-2024 BUN/CRE 45.9 RATIO High 10-20 [facility] Comment on above: Performed By: #### L 500.2500 ####[facility] [address] [place], [address] Calcium [Mass/Vol] 8.8 mg/dL Normal 7.6-11.0 [facility] Comment on above: Performed By: #### L 500.2500 ####[facility] [address] [place], [address] Chloride [Moles/Vol] 94 mmol/L Low 98-108 [facility] Comment on above: Performed By: #### L 500.2500 ####[facility] [address] [place], [address] CO2 [Moles/Vol] 25.3 mmol/L Normal 21.0-32.0 [facility] Comment on above: Performed By: #### L 500.2500 ####[facility] [address] [place], [address] Creatinine [Mass/Vol] 0.99 mg/dL Normal 0.70-1.20 [facility] Comment on above: Performed By: #### L 500.2500 ####[facility] [address] [place], [address] ECRCL 115.68 ml/min Normal 50-250 [facility] Comment on above: Performed By: #### L 500.2500 ####[facility] [address] [place], [address] GAP 13 Normal 5-15 [facility] Comment on above: Performed By: #### L 500.2500 ####[facility] [address] [place], [address] GFR/1.73 sq M.predicted among non-blacks MDRD (S/P/Bld) [Vol rate/Area] 91 mL/min/{1.73_m2} Normal >60 [facility] Comment on above: Result Comment: mL/m in/1.73m2 CKD-EPI Creatinine Equation (2020) Performed By: #### L 500.2500 ####[facility] [address] [place], [address] Glucose [Mass/Vol] 186 mg/dL High 70-99 [facility] Comment on above: Performed By: #### L 500.2500 ####[facility] [address] [place], [address] Potassium [Moles/Vol] 3.2 mmol/L Low 3.3-5.1 [facility] Comment on above: Performed By: #### L 500.2500 ####[facility] [address] [place], [address] Sodium [Moles/Vol] 132 mmol/L Low 133-145 [facility] Comment on above: Performed By: #### L 500.2500 ####[facility] [address] [place], [address] Urea nitrogen [Mass/Vol] 45 mg/dL High 4-19 [facility] Comment on above: Performed By: #### L 500.2500 ####[facility] [address] [place], [address] Bedside Glucoseon 08-20-2024 F[facility] GLU 211 mg/dL High 74-106 [facility] Comment on above: Result Comment: LOLIS HANCOCK OF PATIENT CARE PER NURSING PROTOCOL Performed By: #### L 501.080 ####[facility] [address] [place], [address] CBC-Complete Blood Cnt No Di ffon 08-20-2024 Erythrocyte distribution width (RBC) [Ratio] 13.4 % Normal 11.6-14.6 [facility] Comment on above: Performed By: #### L 500.2500 #### [facility] [address] [place], [address] Hematocrit (Bld) [Volume fraction] 40.8 % Normal 40-54 [facility] Comment on above: Performed By: #### L 500.2500 #### [facility] [address] [place], [address] Hemoglobin (Bld) [Mass/Vol] 14.0 g/dL Normal 13.0-16.5 [facility] Comment on above: Performed By: #### L 500.2500 #### [facility] [address] [place], [address] MCH (RBC) [Entitic mass] 28.7 pg Normal 27.0-32.0 [facility] Comment on above: Performed By: #### L 500.2500 #### [facility] [address] [place], [address] MCHC (RBC) [Mass/Vol] 34.3 g/dL Normal 32-36 [facility] Comment on above: Performed By: #### L 500.2500 #### [facility] [address] [place], [address] MCV (RBC) [Entitic vol] 83.8 fL Normal 80-94 [facility] Comment on above: Performed By: #### L 500.2500 #### [facility] [address] [place], [address] Platelet mean volume (Bld) [Entitic vol] 10.1 fL Normal 6.2-12.0 [facility] Comment on above: Performed By: #### L 500.2500 #### [facility] [address] [place], [address] Platelets (Bld) [#/Vol] 243 10*3/uL Normal 150-450 [facility] Comment on above: Performed By: #### L 500.2500 #### [facility] [address] [place], [address] RBC (Bld) [#/Vol] 4.87 10*6/uL Normal 4.6-6.2 [facility] Comment on above: Performed By: #### L 500.2500 #### [facility] [address] [place], [address] RDW SD 40.9 fl Normal 35.1-43.9 [facility] Comment on above: Performed By: #### L 500.2500 #### [facility] [address] [place], [address] WBC (Bld) [#/Vol] 10.1 10*3/uL Normal 4.4-11.0 [facility] Comment on above: Performed By: #### L 500.2500 #### [facility] [address] [place] [place], [address] Carbon dioxide, total [Moles /volume] in Central venous bloodOrdered By: Elias Ramires on 08-20-2024 CO2 [Moles/Vol] 25.3 mmol/L 21.0-32.0 [facility] Chloride assayOrdered By: Jp Ramires on 08-20-2024 Chloride [Moles/Vol] 94 mmol/L Low 98-108 [facility] Discharge Instructionon Discharge Instruction [facility] Medical Records Department [address] [place] [address] Instructions for Home/Discharge Instructions 08/20/24 0934 MR#: [id number] Acct: [id number] Name: OTISJUNMARK ANTHONY EDITA Desouza Rep #: [id number] : 1970 54 From: Elias Ramires DO PCP: Dr. Rayne Gonzalez MD Status:ADM IN Discharge Instructions Diet Discharge Diet: 8 Cup Fluid Restriction and 4000 mg Sodium Diet DC O2, CPAP, BIPAP needs Home O2 Discharge instructions: Yes Type of respiratory needs?: Oxygen Oxygen frequency: With Ambulation Oxygen liters per minute during Ambulation: 2 Dressing / Incision Discharge Activity: No Restrictions Follow Up Care Test Results: Test results from this visit will be discussed in further detail at your follow-up appointment, if applicable. Discharge Plan Admission Admit Date/Time: 08/17/24 07:45 Primary Reason for Your Visit: shortness of breath Attending Provider: Elias Ramires Primary Care Provider: Rayne Gonzalez Instructions Additional Instructions / Restrictions: Please start taking the following medications on Thursday for heart failure and hypertension: - Lasix 40 mg daily - Lisinopril 5 mg daily - Metoprolol 25 mg daily Other instructions: - Take 2 more days of prednisone to complete a 5-day course total for viral pneumonia - Use the albuterol inhaler every 6 hours as needed for shortness of breath - Check your blood pressure once daily for the next week to ensure your blood pressure is not dropping too low or starting to go too high - Call the Cardiology office on Thursday to schedule a follow up appointment in the next 2-4 weeks Discharge Orders/Prescriptions Prescriptions: New prednisone 20 mg Tablet 40 mg PO BREAKFAST 2 Days Qty: 4 0RF lisinopril 5 mg Tablet 5 mg PO DAILY 30 Days Qty: 30 0RF metoprolol succinate [Toprol XL] 25 mg tablet extended release 24 hr 25 mg PO DAILY 30 Days Qty: 30 0RF furosemide [Lasix] 40 mg tablet 40 mg PO DAILY 30 Days Qty: 30 0RF Continued Centrum Minis Men 50 Plus [id number] mcg tablet 1 tab PO DAILY aspirin [Adult Aspirin Regimen] 81 mg tablet,delayed release (DR/EC) 81 mg PO DAILY atorvastatin 20 mg tablet 20 mg PO DAILY Qty: 90 1RF metformin 1,000 mg tablet 1,000 mg PO BID Qty: 180 1RF trazodone 50 mg tablet 50 - 100 mg PO QHS Qty: 90 0RF escitalopram oxalate [Lexapro] 10 mg tablet 10 mg PO QDAY Qty: 30 1RF albuterol sulfate 90 mcg/actuation HFA aerosol inhaler 2 puff inhalation Q6H PRN (Reason: shortness of breath or wheezing) Qty: 8.5 1RF Discontinued lisinopril 20 mg tablet 20 mg PO DAILY Qty: 90 1RF triamterene-hydrochl orothiazid 37.5-25 mg capsule 1 cap PO DAILY Qty: 90 1RF Referrals / Follow Up: Rayne Gonzalez MD [Primary Care Provider] - Abel Greenfield MD [Med Staff - Active Staff] - Disposition Disposition (needs filled in before D/C Order can be placed): Home, Self Care 08/20/24 0941 Elias Ramires DO CC: Dr. Rayne Gonzalez MD Signed Normal [facility] Erythrocyte distribution wid th (RBC) [Ratio]Ordered By: Elias Ramires on 08-20-2024 Erythrocyte distribution width (RBC) [Entitic vol] 40.9 fL 35.1-43.9 [facility] Erythrocyte distribution wid th ratioOrdered By: Elias Ramires on 08-20-2024 Erythrocyte distribution width (RBC) [Ratio] 13.4 % 11.6-14.6 [facility] Erythrocyte distribution wid th standard deviationOrdered By: Elias Ramires on 08-20-2024 Erythrocyte distribution width (RBC) [Ratio] 40.9 fl 35.1-43.9 [facility] Estimation of creatinine lyubov aranceOrdered By: Elias Ramires on 08-20-2024 Estimated Creatinine Clearance Calc 115.68 ml/min 50-250 [facility] GFR/1.73 sq M.predicted josé miguel g non-blacks MDRD (S/P/Bld) [Vol rate/Area]Ordered By: Elias Ramires on 08-20-2024 Estimated GFR (MDRD) Non-Af Amer 91 >60 [facility] Comment on above: mL/min/1.73m2 CKD-EP I Creatinine Equation (2020) Glomerular filtration rate ( GFR) estimation/1.73 sq m using serum, plasma, or whole bOrdered By: Elias Ramires on 08-20-2024 GFR/1.73 sq M.predicted among non-blacks MDRD (S/P/Bld) [Vol rate/Area] 91 mL/min/{1.73_m2} >60 [facility] Comment on above: mL/min/1.73m2 CKD-EP I Creatinine Equation (2020) [facility] annistoni deOrdered By: Elias Ramires on 08-20-2024 Bedside Glucose (Misc Panel) 211 mg/dL [address] [facility] Comment on above: MANAGEMENT OF PATIEN T CARE PER NURSING PROTOCOL Glucose [Mass/Vol] 211 mg/dL [address] [facility] Comment on above: MANAGEMENT OF PATIEN T CARE PER NURSING PROTOCOL Hematocrit Auto (Bld) [Volum e fraction]Ordered By: Elias Ramires on 08-20-2024 Hematocrit (Bld) [Volume fraction] 40.8 % 40-54 [facility] Hemoglobin measurementOrdere d By: Elias Ramires on 08-20-2024 Hemoglobin (Bld) [Mass/Vol] 14.0 g/dL 13.0-16.5 [facility] MCV (mean corpuscular volume ) determinationOrdered By: Elias Ramires on 08-20-2024 MCV (RBC) [Entitic vol] 83.8 fL 80-94 [facility] Magnesiumon 08-20-2024 Magnesium [Mass/Vol] 2.2 mg/dL Normal 1.5-2.2 [facility] Comment on above: Performed By: #### L 501.2300, L501.5200 ####[facility] [address] [place], [place], [address] Magnesium (Unsp spec) [Mass/ Vol]Ordered By: Elias Ramires on 08-20-2024 Magnesium [Mass/Vol] 2.2 mg/dL 1.5-2.2 [facility] Magnesium measurement (mass/ volume)Ordered By: Elias Ramires on 08-20-2024 Magnesium (Unsp spec) [Mass/Vol] 2.2 mg/dL 1.5-2.2 [facility] Mean corpuscular hemoglobin (MCH) determinationOrdered By: Elias Ramires on 08-20-2024 MCH (RBC) [Entitic mass] 28.7 pg 27.0-32.0 [facility] Mean corpuscular hemoglobin concentration (MCHC) determinationOrdered By: Elias Ramires on 08-20-2024 MCHC (RBC) [Mass/Vol] 34.3 g/dL 32-36 [facility] Mean platelet volume determi nationOrdered By: Elias Ramires on 08-20-2024 Platelet mean volume (Bld) [Entitic vol] 10.1 fL 6.2-12.0 [facility] Phosphoruson 08-20-2024 Phosphate [Mass/Vol] 3.8 mg/dL Normal 2.7-4.5 [facility] Comment on above: Performed By: #### L 501.2300, L501.5200 ####[facility] [address] [place], [place], [address] Platelet countOrdered By: Jp Ramires on 08-20-2024 Platelets (Bld) [#/Vol] 243 10*3/uL 150-450 [facility] Potassium (Unsp spec) [Mass/ Vol]Ordered By: Elias Ramires on 08-20-2024 Potassium [Moles/Vol] 3.2 mmol/L Low 3.3-5.1 [facility] Potassium measurement (mass/ volume)Ordered By: Elias Ramires on 08-20-2024 Potassium (Unsp spec) [Mass/Vol] 3.2 mmol/L Low 3.3-5.1 [facility] RBC Auto (Bld) [#/Vol]Ordere d By: Elias Ramires on 08-20-2024 RBC (Bld) [#/Vol] 4.87 10*6/uL 4.6-6.2 [facility] Serum creatinine measurement (mass/volume)Ordered By: Elias Ramires on 08-20-2024 Creatinine [Mass/Vol] 0.99 mg/dL 0.70-1.20 [facility] Serum glucose measurement (m ass/volume)Ordered By: Elias Ramires on 08-20-2024 Glucose [Mass/Vol] 186 mg/dL High 70-99 [facility] Serum or plasma calcium shasta urement (mass/volume)Ordered By: Elias Ramires on 08-20-2024 Calcium [Mass/Vol] 8.8 mg/dL 7.6-11.0 [facility] Serum or plasma urea nitroge n measurement (mass/volume)Ordered By: Elias Ramires on 08-20-2024 Urea nitrogen [Mass/Vol] 45 mg/dL High 4-19 [facility] Serum phosphorus measurement Ordered By: Elias Ramires on 08-20-2024 Phosphorus Level 3.8 mg/dL 2.7-4.5 [facility] Sodium levelOrdered By: Ernesto Ramires on 08-20-2024 Sodium [Moles/Vol] 132 mmol/L Low 133-145 [facility] White blood cell (WBC) count Ordered By: Elias Ramires on 08-20-2024 WBC (Bld) [#/Vol] 10.1 10*3/uL 4.4-11.0 [facility] Basic Metabolic Profile (BMP )on 08-19-2024 BUN/CRE 47.4 RATIO High 10-20 [facility] Comment on above: Performed By: #### L 500.2500 #### [facility] [place], [address] Calcium [Mass/Vol] 8.7 mg/dL Normal 7.6-11.0 [facility] Comment on above: Performed By: #### L 500.2500 #### [facility] [address] [place], [address] Chloride [Moles/Vol] 94 mmol/L Low 98-108 [facility] Comment on above: Performed By: #### L 500.2500 #### [facility] [address] [place], [address] CO2 [Moles/Vol] 24.6 mmol/L Normal 21.0-32.0 [facility] Comment on above: Performed By: #### L 500.2500 #### [facility] [address] [place], [address] Creatinine [Mass/Vol] 1.05 mg/dL Normal 0.70-1.20 [facility] Comment on above: Performed By: #### L 500.2500 #### [facility] [address] [place], [address] ECRCL 109.30 ml/min Normal 50-250 [facility] Comment on above: Performed By: #### L 500.2500 #### [facility] [address] [place], [address] GAP 13 Normal 5-15 [facility] Comment on above: Performed By: #### L 500.2500 #### [facility] [address] [place], [address] GFR/1.73 sq M.predicted among non-blacks MDRD (S/P/Bld) [Vol rate/Area] 84 mL/min/{1.73_m2} Normal >60 [facility] Comment on above: Result Comment: mL/m in/1.73m2 CKD-EPI Creatinine Equation (2020) Performed By: #### L 500.2500 #### [facility] [address] [place], [address] Glucose [Mass/Vol] 240 mg/dL High 70-99 [facility] Comment on above: Performed By: #### L 500.2500 #### [facility] [address] [place], [address] Potassium [Moles/Vol] 3.6 mmol/L Normal 3.3-5.1 [facility] Comment on above: Performed By: #### L 500.2500 #### [facility] [address] [place], [address] Sodium [Moles/Vol] 132 mmol/L Low 133-145 [facility] Comment on above: Performed By: #### L 500.2500 #### [facility] [address] [place], [address] Urea nitrogen [Mass/Vol] 50 mg/dL High 4-19 [facility] Comment on above: Performed By: #### L 500.2500 #### [facility] [address] [place], [address] Bedside Glucoseon 08-19-2024 FINGERSTICK GLU 209 mg/dL High 74-106 [facility] Comment on above: Result Comment: LOLIS GEMENT OF PATIENT CARE PER NURSING PROTOCOL Performed By: #### L 500.2500 #### [facility] [address] [place], [address] FINGERSTICK GLU 281 mg/dL High 74-106 [facility] Comment on above: Result Comment: LOLIS GEMENT OF PATIENT CARE PER NURSING PROTOCOL Performed By: #### L 500.2500 #### [facility] [address] [place], [address] FINGERSTICK GLU 259 mg/dL High 74-106 [facility] Comment on above: Result Comment: LOLIS GEMENT OF PATIENT CARE PER NURSING PROTOCOL Performed By: #### L 501.080 ####[facility] [address] [place], [address] FINGERSTICK GLU 213 mg/dL High 74-106 [facility] Comment on above: Result Comment: LOLIS SANTI OF PATIENT CARE PER NURSING PROTOCOL Performed By: #### L 100.0500 #### [facility] [address] [place], [address] Chest 1 View (Portable)on Chest 1 View (Portable) [facility] Imaging Services [address] [place], [place] [address] Chest 1 View (Portable) MR#: [id number] Acct: [id number] Name: MARK ANTHONY YE Jr. Rep #: [id number] : 1970 M 54 From: Marco Steward MD PCP: Dr. Rayne Gonzalez MD Status: ADM IN Study: Chest 1 View (Portable) Date of Exam: 08/19/24 Exam# [id number] Ordering Dr: Elias Ramires DO EXAM: XR Chest, 1 View CLINICAL INDICATION: PERSISTENT HYPOXIA TECHNIQUE: Frontal view of the chest. COMPARISON: No relevant prior studies available. FINDINGS: LUNGS AND PLEURAL SPACES: See below. HEART: Cardiomegaly with pulmonary congestion and edema. Superimposed pneumonia cannot be excluded. MEDIASTINUM: Unremarkable. Normal mediastinal contour. BONES/JOINTS: Unremarkable. No acute fracture. RAD/Chest 1 View (Portable) IMPRESSION: Cardiomegaly with pulmonary congestion and edema. Superimposed pneumonia cannot be excluded. Reading Location: [facility] CC: Dr. Elias Ramires DO; Dr. Rayne Gonzalez MD Jacket Changer: Signed Normal [facility] Gram Stainon 08-19-2024 GS Acceptable Specimen? Yes (<25 Epithelial cells per/lpf) Gram Stain 4+ Gram negative rods 1+ White Blood Cells 1+ Epithelial cells 1+ Gram negative diplococci Normal [facility] Comment on above: Performed By: #### M 100.2400, M100.1999 ####[facility] [address] [place], [address] Respiratory Cultureon 2024 RESPC Mixed normal respiratory brandon. No Streptococcus pneumoniae, beta-hemolytic Streptococcus or Staphylococcus aureus isolated. Normal [facility] Comment on above: Performed By: #### M 100.2400, M100.2000 ####[facility] [address] [place], [address] Basic Metabolic Profile (BMP )on 08-18-2024 BUN/CRE 35.2 RATIO High 10-20 [facility] Comment on above: Performed By: #### L 100.0500 #### [facility] [address] [place], [address] Calcium [Mass/Vol] 9.0 mg/dL Normal 7.6-11.0 [facility] Comment on above: Performed By: #### L 100.0500 #### [facility] [address] [place], [address] Chloride [Moles/Vol] 91 mmol/L Low 98-108 [facility] Comment on above: Performed By: #### L 100.0500 #### [facility] [address] [place], [address] CO2 [Moles/Vol] 23.5 mmol/L Normal 21.0-32.0 [facility] Comment on above: Performed By: #### L 100.0500 #### [facility] [address] [place], [address] Creatinine [Mass/Vol] 1.06 mg/dL Normal 0.70-1.20 [facility] Comment on above: Performed By: #### L 100.0500 #### [facility] [address] [place], [address] ECRCL 108.72 ml/min Normal 50-250 [facility] Comment on above: Performed By: #### L 100.0500 #### [facility] [address] [place], [address] GAP 15 Normal 5-15 [facility] Comment on above: Performed By: #### L 100.0500 #### [facility] [address] [place], [address] GFR/1.73 sq M.predicted among non-blacks MDRD (S/P/Bld) [Vol rate/Area] 83 mL/min/{1.73_m2} Normal >60 [facility] Comment on above: Result Comment: mL/m in/1.73m2 CKD-EPI Creatinine Equation (2020) Performed By: #### L 100.0500 #### [facility] [address] [place], [address] Glucose [Mass/Vol] 286 mg/dL High 70-99 [facility] Comment on above: Performed By: #### L 100.0500 #### [facility] [address] [place], [address] Potassium [Moles/Vol] 4.1 mmol/L Normal 3.3-5.1 [facility] Comment on above: Performed By: #### L 100.0500 #### [facility] [address] [place], [address] Sodium [Moles/Vol] 129 mmol/L Low 133-145 [facility] Comment on above: Performed By: #### L 100.0500 #### [facility] [address] [place], [address] Urea nitrogen [Mass/Vol] 37 mg/dL High 4-19 [facility] Comment on above: Performed By: #### L 100.0500 #### [facility] [address] [place], [address] Bedside Glucoseon 08-18-2024 FINGERSTICK GLU 246 mg/dL High 74-106 [facility] Comment on above: Result Comment: LOLIS HANCOCK OF PATIENT CARE PER NURSING PROTOCOL Performed By: #### L 500.2500 #### [facility] [address] [place], [address] FINGERSTICK GLU 237 mg/dL High 74-106 [facility] Comment on above: Result Comment: LOLIS GEMENT OF PATIENT CARE PER NURSING PROTOCOL Performed By: #### L 501.080 ####[facility] [address] [place], [address] FINGERSTICK GLU 278 mg/dL High 74-106 [facility] Comment on above: Result Comment: LOLIS GEMENT OF PATIENT CARE PER NURSING PROTOCOL Performed By: #### L 500.2500 #### [facility] [address] [place], [address] FINGERSTICK GLU 341 mg/dL High 74-106 [facility] Comment on above: Result Comment: LOLIS GEMENT OF PATIENT CARE PER NURSING PROTOCOL Performed By: #### L 501.080 ####[facility] [address] [place], [address] CBC-Complete Blood Cnt No Di ffon 08-18-2024 Erythrocyte distribution width (RBC) [Ratio] 13.7 % Normal 11.6-14.6 [facility] Comment on above: Performed By: #### L 500.2500 #### [facility] [address] [place], [address] Hematocrit (Bld) [Volume fraction] 34.8 % Low 40-54 [facility] Comment on above: Performed By: #### L 500.2500 #### [facility] [address] [place], [address] Hemoglobin (Bld) [Mass/Vol] 12.2 g/dL Low 13.0-16.5 [facility] Comment on above: Performed By: #### L 500.2500 #### [facility] [address] [place], [address] MCH (RBC) [Entitic mass] 28.8 pg Normal 27.0-32.0 [facility] Comment on above: Performed By: #### L 500.2500 #### [facility] [address] [place], [address] MCHC (RBC) [Mass/Vol] 35.1 g/dL Normal 32-36 [facility] Comment on above: Performed By: #### L 500.2500 #### [facility] [address] [place], [address] MCV (RBC) [Entitic vol] 82.1 fL Normal 80-94 [facility] Comment on above: Performed By: #### L 500.2500 #### [facility] [address] [place], [address] Platelet mean volume (Bld) [Entitic vol] 10.1 fL Normal 6.2-12.0 [facility] Comment on above: Performed By: #### L 500.2500 #### [facility] [address] [place], [address] Platelets (Bld) [#/Vol] 240 10*3/uL Normal 150-450 [facility] Comment on above: Performed By: #### L 500.2500 #### [facility] [address] [place], [address] RBC (Bld) [#/Vol] 4.24 10*6/uL Low 4.6-6.2 [facility] Comment on above: Performed By: #### L 500.2500 #### [facility] [address] [place], [address] RDW SD 40.8 fl Normal 35.1-43.9 [facility] Comment on above: Performed By: #### L 500.2500 #### [facility] [address] [place], [address] WBC (Bld) [#/Vol] 6.4 10*3/uL Normal 4.4-11.0 [facility] Comment on above: Performed By: #### L 500.5237 #### [facility] [address] [place], [address] Electrocardiogram reportOrde red By: Tanvir Meeks on 08-18-2024 EKG study [facility] Cardiovascular Services [address] [place] [address] 12 Lead EKG 08/17/24 0638 MR#: [id number] Acct: [id number] Name: MARK ANTHONY YE Jr. Rep #:[id number] : 1970 54 From: Tanvir wesley MD Attending Dr: Dr. Elias Ramires DO Status: ADM IN Ordering Dr: Joesph Auguste MD Date: 07/12 Location: ICU Sex: M C Admitted: 08/17/24 Test Reason : SOB Blood Pressure : */* mmHG Vent. Rate : 117 BPM Atrial Rate : 117 BPM P-R Int : 178 ms QRS Dur : 90 ms QT Int : 338 ms P-R-T Axes : 2 6 165 degrees QTcB Int : 471 ms Sinus tachycardia with Premature atrial complexes Left ventricular hypertrophy with repolarization abnormality ( R in aVL ) Abnormal ECG Confirmed by Tanvir Meeks ([id number]), food expeditor GENTRY RESENDIZ ([id number]) on 08/18/2024 7:54:18 AM Referred By: JANET Confirmed By: Tanvir Meeks 08/18/24 0754 Date _ Tanvir Meeks MD CC: Dr. Elias Ramires DO; Dr. Rayne Gonzalez MD; Dr. Joesph Auguste MD ~ Signed [facility] Other Phone: Folates, RBCon 08-18-2024 Fol.,Hemolysate 535.0 ng/mL Normal Not Estab. [facility] Comment on above: Performed By: #### L 100.0500 #### [facility] [address] [place], [place], [address] Folate, RBC 1482 ng/mL Normal >498 [facility] Comment on above: Result Comment: Perf ormed at: CB - [facility] [address] [place], [place] [id number] Freelance Web Designer: Dedrick Rodriguez PhD, Phone: [phone] Performed By: #### L 100.0500 #### [facility] [address] [place], [place], [id number] Hematocrit (Bld) [Volume fraction] 36.1 % Low 37.5-51.0 [facility] Comment on above: Performed By: #### L 100.0500 #### [facility] [address] [place], [place], [id number] L499.0042on 08-18-2024 Trop T High Sen 273 ng/L Invalid Interpretation Code <=22 [facility] Comment on above: Order Comment: OK TO CHANGE TIME PER MIGUEL ANGEL GOETZ RN Result Comment: Crit ical Result(s) Called HGILL at: 1627 by: BWORKMAN??Results read back by same. Critical Result(s) Called at: by:??Results read back by same. Critical Result(s) Called HGILL at: 1627 by: BWORKMAN??Results read back by same. AMENDED REPORT 08/18/24 0202 Trop T HS 2HR previously reported as: 273 *H ng/L Critical Result(s) Called HGILL at: 1627 by: BWORKMAN??Results read back by same. Critical Result(s) Called at: by:??Results read back by same. Performed By: #### L 100.0500 #### [facility] [address] [place], [place], [id number] 12 Lead EKGon 08-17-2024 12 Lead EKG [facility] Cardiovascular Services [address] [place] [address] 12 Lead EKG 08/17/24 0638 MR#: [id number] Acct: [id number] Name: MARK ANTHONY YE EDITA Desouza Rep #: [id number] : 1970 54 From: Tanvir Meeks MD Attending Dr: Dr. Elias Ramires DO Status : ADM IN Ordering Dr: Joesph Auguste MD Date: 08/17/24 Location: ICU Sex: M C Admitted: 08/17/24 Test Reason : SOB Blood Pressure : */* mmHG Vent. Rate : 117 BPM Atrial Rate : 117 BPM P-R Int : 178 ms QRS Dur : 90 ms QT Int : 338 ms P-R-T Axes : 2 6 165 degrees QTcB Int : 471 ms Sinus tachycardia with Premature atrial complexes Left ventricular hypertrophy with repolarization abnormality ( R in aVL ) Abnormal ECG Confirmed by Tanvir Meeks ([id number]), food expeditor GENTRY RESENDIZ ([id number]) on 08/18/2024 7:54:18 AM Referred By: JANET Confirmed By: Tanvir Meeks 08/18/24 0754 Date Tanvir Meeks MD CC: Dr. Elias Ramires DO; Dr. Rayne Gonzalez MD; Dr. Joesph Auguste MD Signed Normal [facility] Absolute lymphocyte countOrd ered By: Joesph Auguste on 08-17-2024 Lymphocytes Auto (Unsp spec) [#/Vol] 0.71 10*3/uL Low 0.83-4.51 [facility] Absolute neutrophil countOrd ered By: Joesph Auguste on 08-17-2024 Neutrophils (Bld) [#/Vol] 9.9 10*3/uL High 2.0-7.7 [facility] Anion gap in Serum or Plasma Ordered By: Joesph Auguste on 08-17-2024 Anion gap [Moles/Vol] 17 mmol/L High 5-15 [facility] Automated lymphocyte count a s percentage of total leukocytesOrdered By: Joesph Auguste on 08-17-2024 Lymphocytes/100 WBC Auto (Unsp spec) 6.2 % Low 19-41 [facility] BUN/creatinine ratioOrdered By: Joesph Auugste on 08-17-2024 Urea nitrogen/Creatinine [Mass ratio] 29.8 mg/mg High 10-20 [facility] Basic Metabolic Profile (BMP )on 08-17-2024 BUN/CRE 29.8 RATIO High 10- [facility] Comment on above: Performed By: #### L 501.4021, L100.0100, L503.7505, L500.2500 #### [facility] [address] [place], [address] Calcium [Mass/Vol] 9.2 mg/dL Normal 7.6-11.0 [facility] Comment on above: Performed By: #### L 501.4021, L100.0100, L503.7505, L500.2500 #### [facility] [address] [place], [address] Chloride [Moles/Vol] 90 mmol/L Low 98-108 [facility] Comment on above: Performed By: #### L 501.4021, L100.0100, L503.7505, L500.2500 #### [facility] [address] [place], [address] CO2 [Moles/Vol] 18.0 mmol/L Low 21.0-32.0 [facility] Comment on above: Performed By: #### L 501.4021, L100.0100, L503.7505, L500.2500 #### [facility] [address] [place], [address] Creatinine [Mass/Vol] 1.05 mg/dL Normal 0.70-1.20 [facility] Comment on above: Performed By: #### L 501.4021, L100.0100, L503.7505, L500.2500 #### [facility] [address] [place], [address] ECRCL 111.89 ml/min Normal 50-250 [facility] Comment on above: Performed By: #### L 501.4021, L100.0100, L503.7505, L500.2500 #### [facility] [address] [place], [address] GAP 17 High 5-15 [facility] Comment on above: Performed By: #### L 501.4021, L100.0100, L503.7505, L500.2500 #### [facility] [address] [place], [address] GFR/1.73 sq M.predicted among non-blacks MDRD (S/P/Bld) [Vol rate/Area] 84 mL/min/{1.73_m2} Normal >60 [facility] Comment on above: Result Comment: mL/m in/1.73m2 CKD-EPI Creatinine Equation (2020) Performed By: #### L 501.4021, L100.0100, L503.7505, L500.2500 #### [facility] [address] [place], [address] Glucose [Mass/Vol] 249 mg/dL High 70-99 [facility] Comment on above: Performed By: #### L 501.4021, L100.0100, L503.7505, L500.2500 #### [facility] [address] [place], [address] Potassium [Moles/Vol] 4.5 mmol/L Normal 3.3-5.1 [facility] Comment on above: Performed By: #### L 501.4021, L100.0100, L503.7505, L500.2500 #### [facility] [address] [place], [address] Sodium [Moles/Vol] 124 mmol/L Low 133-145 [facility] Comment on above: Performed By: #### L 501.4021, L100.0100, L503.7505, L500.2500 #### [facility] [address] [place], [address] Urea nitrogen [Mass/Vol] 31 mg/dL High 4-19 [facility] Comment on above: Performed By: #### L 501.4021, L100.0100, L503.7505, L500.2500 #### [facility] [address] [place], [address] Basophil percentageOrdered B y: Joesph Auguste on 08-17-2024 Basophils/100 WBC (Bld) 0.3 % 0-1 [facility] Bedside Glucoseon 08-17-2024 FINGERSTICK GLU 242 mg/dL High 74-106 [facility] Comment on above: Result Comment: LOLIS GEMENT OF PATIENT CARE PER NURSING PROTOCOL Performed By: #### L 501.080 ####[facility] [address] [place], [address] FINGERSTICK GLU 190 mg/dL High 74-106 [facility] Comment on above: Result Comment: LOLIS GEMENT OF PATIENT CARE PER NURSING PROTOCOL Performed By: #### L 500.2500 #### [facility] [address] [place], [address] FINGERSTICK GLU 209 mg/dL High 74-106 [facility] Comment on above: Result Comment: LOLIS GEMENT OF PATIENT CARE PER NURSING PROTOCOL Performed By: #### L 100.0500 #### [facility] [address] [place], [address] CBC W/Diff, Automatedon 04-0 Absolute Lymph 0.71 X10 3/uL Low 0.83-4.51 [facility] Comment on above: Performed By: #### L 501.4021, L100.0100, L503.7505, L500.2500 #### [facility] [address] [place], [address] Absolute Neut 9.9 X10 3/uL High 2.0-7.7 [facility] Comment on above: Performed By: #### L 501.4021, L100.0100, L503.7505, L500.2500 #### [facility] [address] [place], [address] Basophils/100 WBC (Bld) 0.3 % Normal 0-1 [facility] Comment on above: Performed By: #### L 501.4021, L100.0100, L503.7505, L500.2500 #### [facility] [address], [address] Eosinophils/100 WBC (Bld) 0.0 % Normal 0-5 [facility] Comment on above: Performed By: #### L 501.4021, L100.0100, L503.7505, L500.2500 #### [facility] [address] [place], [address] Erythrocyte distribution width (RBC) [Ratio] 13.8 % Normal 11.6-14.6 [facility] Comment on above: Performed By: #### L 501.4021, L100.0100, L503.7505, L500.2500 #### [facility] [address] [place], [address] Hematocrit (Bld) [Volume fraction] 35.5 % Low 40-54 [facility] Comment on above: Performed By: #### L 501.4021, L100.0100, L503.7505, L500.2500 #### [facility] [address] [place], [address] Hemoglobin (Bld) [Mass/Vol] 12.6 g/dL Low 13.0-16.5 [facility] Comment on above: Performed By: #### L 501.4021, L100.0100, L503.7505, L500.2500 #### [facility] [address] [place], [address] IG% 0.600 Normal 0.0-0.9 [facility] Comment on above: Result Comment: IG% - Immature Granulocytes (promyelocytes, myelocytes and metamyelocytes) > 1% indicates that a LEFT SHIFT is Present. Performed By: #### L 501.4021, L100.0100, L503.7505, L500.2500 #### [facility] [address] [place], [address] Lymphocytes/100 WBC (Bld) 6.2 % Low 19-41 [facility] Comment on above: Performed By: #### L 501.4021, L100.0100, L503.7505, L500.2500 #### [facility] [address] [place], [address] MCH (RBC) [Entitic mass] 29.2 pg Normal 27.0-32.0 [facility] Comment on above: Performed By: #### L 501.4021, L100.0100, L503.7505, L500.2500 #### [facility] [address] [place], [address] MCHC (RBC) [Mass/Vol] 35.5 g/dL Normal 32-36 [facility] Comment on above: Performed By: #### L 501.4021, L100.0100, L503.7505, L500.2500 #### [facility] [address] [place], [address] MCV (RBC) [Entitic vol] 82.2 fL Normal 80-94 [facility] Comment on above: Performed By: #### L 501.4021, L100.0100, L503.7505, L500.2500 #### [facility] [address] [place], [address] Monocytes/100 WBC (Bld) 5.8 % Normal 0-10 [facility] Comment on above: Performed By: #### L 501.4021, L100.0100, L503.7505, L500.2500 #### [facility] [address] [place], [address] Neutrophils/100 WBC (Bld) 87.1 % High 47-70 [facility] Comment on above: Performed By: #### L 501.4021, L100.0100, L503.7505, L500.2500 #### [facility] [address] [place], [address] Nucleated RBC (Bld) [#/Vol] 0 10*3/uL Normal 0-5 [facility] Comment on above: Performed By: #### L 501.4021, L100.0100, L503.7505, L500.2500 #### [facility] [address] [place], [address] Platelet mean volume (Bld) [Entitic vol] 10.2 fL Normal 6.2-12.0 [facility] Comment on above: Performed By: #### L 501.4021, L100.0100, L503.7505, L500.2500 #### [facility] [address] [place], [address] Platelets (Bld) [#/Vol] 262 10*3/uL Normal 150-450 [facility] Comment on above: Performed By: #### L 501.4021, L100.0100, L503.7505, L500.2500 #### [facility] [address] [place], [address] RBC (Bld) [#/Vol] 4.32 10*6/uL Low 4.6-6.2 [facility] Comment on above: Performed By: #### L 501.4021, L100.0100, L503.7505, L500.2500 #### [facility] [address] [place], [address] RDW SD 41.1 fl Normal 35.1-43.9 [facility] Comment on above: Performed By: #### L 501.4021, L100.0100, L503.7505, L500.2500 #### [facility] [address] [place], [address] WBC (Bld) [#/Vol] 11.4 10*3/uL High 4.4-11.0 [facility] Comment on above: Performed By: #### L 501.4021, L100.0100, L503.7505, L500.2500 #### [facility] [address] [place], [address] Calculated total iron bindin g capacityOrdered By: Elias Ramires on 08-17-2024 Total Iron Binding Capacity 204 ug/dL Low 250-450 [facility] Carbon dioxide, total [Moles /volume] in Central venous bloodOrdered By: Joesph Auguste on 08-17-2024 CO2 [Moles/Vol] 18.0 mmol/L Low 21.0-32.0 [facility] Chest 1 View (Portable)on Chest 1 View (Portable) [facility] Imaging Services [address] [place] [address] Chest 1 View (Portable) MR#: [id number] Acct: [id number] Name: MARK ANTHONY YE Jr. Rep #: [id number] : 1970 M 54 From: Woody Harkins MD PCP: Dr. Rayne Gonzalez MD Status: [facility] Study: Chest 1 View (Portable) Date of Exam: 08/17/24 Exam# [id number] Ordering Dr: Joesph Auguste MD PROCEDURE: CHEST 1 VIEW (PORTABLE) 08/17/2024 REASON FOR EXAM: CHEST PAIN TECHNIQUE: Frontal view of the chest. COMPARISON: 06/02/2024 FINDINGS: AP upright portable view. Large appearing body habitus. Moderate bilateral perihilar lower zone predominant ill-defined patchy airspace opacities may represent pulmonary edema, clinically correlate. No definite pleural effusion identified. The cardiac silhouette is at the upper limits for size. The upper mediastinum again appears prominent. RAD/Chest 1 View (Portable) IMPRESSION: AP upright portable view. Large appearing body habitus. Moderate bilateral perihilar lower zone predominant ill-defined patchy airspace opacities may represent pulmonary edema, clinically correlate. No definite pleural effusion identified. The cardiac silhouette is at the upper limits for size. The upper mediastinum again appears prominent. Reading Location: [id number] CC: Dr. Rayne Gonzalez MD; Dr. Joesph Auguste MD Jacket Changer: Signed Normal [facility] Chloride assayOrdered By: Jose Auguste on 08-17-2024 Chloride [Moles/Vol] 90 mmol/L Low 98-108 [facility] Echo Complete W/ Contraston 08-17-2024 Echo Complete W/ Contrast [facility] Services [address] [place] [address] Echo Complete W/ Contrast 08/17/24 1505 MR#: [id number] Acct: [id number] Name: MARK ANTHONY YE Jr. Rep #: [id number] : 1970 54 From: Abel Greenfield MD Attending Dr: Dr. Elias Ramires, Status : ADM IN Ordering Dr: Elias Ramires DO Date: 08/17/24 Location: ICU Sex: M C Admitted: 08/17/24 Reason For Study Reason For Study: CHF Procedure This was a 2D Doppler, Color Flow transthoracic echocardiogram. The study was technically limited. The study was technically difficult. Exam performed portable in ICU/CCU. Left Ventricle Normal LV size. Moderate concentric left ventricular hypertrophy. The left ventricular ejection fraction is 35 %. Stage 2 diastolic dysfunction. There is moderate global hypokinesis of the left ventricle. Right Ventricle Normal RV size. Normal systolic function. Atria Normal left atrium. Normal right atrium. Mitral Valve Normal mitral valve. Tricuspid Valve Normal tricuspid valve. Aortic Valve The aortic valve is not well visualized. Great Vessels Normal aortic root. The pulmonary is not well visualized. Pericardium/Pleural No pericardial effusion. Medication Diluted definity 3ml given slow IV push to enhance endocardial definition. MMode/2D Measurements Calculations LVIDd: 4.8 cm IVSd: 1.4 cm LVOT diam: 2.0 cm LVIDs: 3.7 cm LVPWd: 1.4 cm LVOT area: 3.1 cm2 RVDd: 3.7 cm FS: 23.0 % Ao root diam: 3.2 cm LAV(MOD-bp): 59.3 ml LVAd ap4: 45.4 cm2 LAV(MOD-bp) Indexed: 24.1 ml/m2 LVLd ap4: 9.7 cm LAV(MOD-sp2): 57.3 ml EDV(MOD-sp4): 170.7 ml LAV(MOD-sp4): 58.8 ml EDV(sp4-el): 180.4 ml LVAs ap4: 33.0 cm2 LVLs ap4: 8.9 cm ESV(MOD-sp4): 97.9 ml ESV(sp4-el): 104.1 ml EF(MOD-sp4): 42.7 % EF(sp4-el): 42.3 % SV(MOD-sp4): 72.8 ml SV(sp4-el): 76.3 ml LA A4 area: 21.0 cm2 SI(MOD-sp4): 29.6 ml/m2 LA dimension(2D): 4.3 cm RA A4 area: 16.8 cm2 TAPSE: 2.1 cm Time Measurements MV dec time: 0.15 sec Doppler Measurements Calculations MV E max brook: 114.3 cm/sec Lat Peak E' Brook: 7.8 cm/sec Med Peak E' Brook: 7.5 cm/sec MV A max brook: 58.4 cm/sec E/E' lat: 14.6 E/E' med: 15.3 MV E/A: 2.0 Ao V2 max: 222.3 cm/sec LV V1 max: 70.0 cm/sec SV(LVOT): 42.6 ml Ao max P.8 mmHg LV V1 max P.0 mmHg Ao V2 mean: 160.7 cm/sec LV V1 mean P.1 mmHg Ao mean P.4 mmHg LV V1 mean: 48.3 cm/sec Ao V2 VTI: 45.2 cm LV V1 VTI: 13.7 cm AV (velocity ratio): 0.30 YONY(I,D): 0.94 cm2 YONY(V,D): 0.98 cm2 PA V2 max: 87.7 cm/sec ECHO/Echo Complete W/ Contrast Interpretation Summary The left ventricular ejection fraction is 35 %. Normal LV size. Moderate concentric left ventricular hypertrophy. Stage 2 diastolic dysfunction. Ordering Physician: Elias Ramires Referring Physician: RAYNE GONZALEZ Performed By: Sharon Leigh RDCS 08/17/24 1640 Date Abel Greenfield MD CC: Dr. Elias Ramires DO; Dr. Rayne Gonzalez MD Date Dictated: 08/17/24 1505 Date Transcribed: 08/17/24 1640 Jacket Changer: Signed Normal [facility] Echocardiogram study reportO rdered By: Abel Greenfield on 08-17-2024 Study report [facility] Cardiovascular Services [address] [place] [address] Echo Complete W/ Contrast 08/17/24 1505 MR#: [id number] Acct: [id number] Name: CASSIMARK ANTHONY EDITA Desouza Rep #:[id number] : 1970 54 From: Abel Akers Attending Dr: Dr. Elias Ramires DO Status: ADM IN Ordering Dr: Elias Ramires DO Da te: 08/17/24 Location: ICU Sex: M C Admitted: 08/17/24 Reason For Study Reason For Study: CHF Procedure This was a 2D Doppler, Color Flow transthoracic echocardiogram. The study was technically limited. The study was technically difficult. Exam performed portable in ICU/CCU. Left Ventricle Normal LV size. Moderate concentric left ventricular hypertrophy. The left ventricular ejection fraction is 35 %. Stage 2 diastolic dysfunction. There is moderate global hypokinesis of the left ventricle. Right Ventricle Normal RV size. Normal systolic function. Atria Normal left atrium. Normal right atrium. Mitral Valve Normal mitral valve. Tricuspid Valve Normal tricuspid valve. Aortic Valve The aortic valve is not well visualized. Great Vessels Normal aortic root. The pulmonary is not well visualized. Pericardium/Pleural No pericardial effusion. Medication Diluted definity 3ml given slow IV push to enhance endocardial definition. MMode/2D Measurements & Calculations LVIDd: 4.8 cm IVSd: 1.4 cm LVOT diam: 2.0 cm LVIDs: 3.7 cm LVPWd: 1.4 cm LVOT area: 3.1 cm2 RVDd: 3.7 cm FS: 23.0 % Ao root diam: 3.2 cm LAV(MOD-bp): 59.3 ml LVAd ap4: 45.4 cm2 LAV(MOD-bp) Indexed: 24.1 ml/m2 LVLd ap4: 9.7 cm LAV(MOD-sp2): 57.3 ml EDV(MOD-sp4): 170.7 ml LAV(MOD-sp4): 58.8 ml EDV(sp4-el): 180.4 ml LVAs ap4: 33.0 cm2 LVLs ap4: 8.9 cm ESV(MOD-sp4): 97.9 ml ESV(sp4-el): 104.1 ml EF(MOD-sp4): 42.7 % EF(sp4-el): 42.3 % SV(MOD-sp4): 72.8 ml SV(sp4-el): 76.3 ml LA A4 area: 21.0 cm2 SI(MOD-sp4): 29.6 ml/m2 LA dimension(2D): 4.3 cm RA A4 area: 16.8 cm2 TAPSE: 2.1 cm Time Measurements MV dec time: 0.15 sec Doppler Measurements & Calculations MV E max brook: 114.3 cm/sec Lat Peak E' Brook: 7.8 cm/sec Med Peak E' Brook: 7.5 cm/sec MV A max brook: 58.4 cm/sec E/E' lat: 14.6 E/E' med: 15.3 MV E/A: 2.0 Ao V2 max: 222.3 cm/sec LV V1 max: 70.0 cm/sec SV(LVOT): 42.6 ml Ao max P.8 mmHg LV V1 max P.0 mmHg Ao V2 mean: 160.7 cm/sec LV V1 mean P.1 mmHg Ao mean P.4 mmHg LV V1 mean: 48.3 cm/sec Ao V2 VTI: 45.2 cm LV V1 VTI: 13.7 cm AV (velocity ratio): 0.30 YONY(I,D): 0.94 cm2 YONY(V,D): 0.98 cm2 PA V2 max: 87.7 cm/sec ECHO/Echo Complete W/ Contrast Interpretation Summary The left ventricular ejection fraction is 35 %. Normal LV size. Moderate concentric left ventricular hypertrophy. Stage 2 diastolic dysfunction. Ordering Physician: Elias Ramires Referring Physician: RAYNE GONZALEZ Performed By: Sharon Leigh RDCS 08/17/24 1640 Date _ Abel Greenfield MD CC: Dr. Elias Ramires DO; Dr. Rayne Gonzalez MD ~ Date Dictated: 08/17/24 1505 Date Transcribed: 08/17/24 1640 Jacket Changer: Signed [facility] Work Phone: Emergency Department Summary on 08-17-2024 Emergency Department Summary [facility] Medical Records Department [address] [place] [address] Emergency Department Summary 08/17/24 MR#: [id number] Acct: [id number] Name: MARK ANTHONY YE Rep #: [id number] : 1970 54 From: Joesph Auguste MD PCP: Dr. Rayne Gonzalez MD Status:REG ER Location: ED HPI History of Present Illness Chief Complaint: Chest Pain Detail of Chief Complaint: Shortness of breath for a week. Informant: patient and spouse/S.O. Onset/Context/Timing Onset: Days (Approximately 1 week last Thursday.) Context: gradual Timing: Continuous Quality: Positive for Orthopnea and Wheezing Current Severity: Moderate Maximum Severity: Moderate Worsened by: Lying flat and Coughing Relieved by: Oxygen Associated Symptoms cough Chest Pain: Positive for None Narrative Narrative: 54-year-old male history of hypertension, CHF and diabetes. No prior [place]. States he been short of breath with a productive cough of rust colored sputum for about a week. Denies fever. Denies vomiting. Really no significant chest pain. He does have CHF he does get swelling in his legs and his legs are more swollen than normal. recently had URI symptoms. PE Risk Factors: Negative for Cancer, OCP + Smoking + > 35, Prior DVT or PE, Recent immobilization, Recent surgery or Recent travel Prior similar symptoms: Yes Recent Illness/Hospitalizat ion: No PFSH PFSH Medical History Acute bronchitis, unspecified Acute maxillary sinusitis, unspecified Ocular migraine JOANNE (obstructive sleep apnea) Pre-diabetes Cardiac murmur High cholesterol Hypertension Heart failure Bone fracture History of back problems Home Medications ???Medication ???Instructions ???Recorded ???Last Taken ???Type aspirin 81 mg tablet,delayed 81 mg PO DAILY 11/04/22 Unknown Hi story release (Adult Aspirin Regimen) arxcdrge-cod-kmele 150 mcg-vit K1 1 tab PO DAILY 11/04/22 Unknown H istory 30 mcg-lycop 300 mcg-lutein tablet (Centrum Minis Men 50 Plus) flash glucose scanning reader #1 ea 05/20/23 Unknown Rx (FreeStyle Vance 2 [place]) flash glucose sensor (FreeStyle #1 ea 05/20/23 Unknown Rx Vance 2 Sensor kit) atorvastatin 20 mg tablet 20 mg PO DAILY #90 tabs 05/04/24 U nknown Rx lisinopril 20 mg tablet 20 mg PO DAILY #90 tabs 05/04/24 U nknown Rx metformin 1,000 mg tablet 1,000 mg PO BID #180 tabs 05/04/24 Unknown Rx triamterene 37.5 1 cap PO DAILY #90 caps 05/04/24 U nknown Rx mg-hydrochlorothiazi de 25 mg capsule albuterol sulfate 90 mcg/actuation 2 puff inhalation Q6H PRN Unknown Rx aerosol inhaler shortness of breath or wheezing #8.5 grams escitalopram oxalate 10 mg tablet 10 mg PO QDAY #30 tabs 08/09/24 U nknown Rx (Lexapro) trazodone 50 mg tablet 50 - 100 mg (1 - 2 x 50 mg) PO QHS 08/09/24 Unknown Rx #90 tabs Allergy/AdvReac Type Severity Reaction Status Date / Time No Known Allergies Allergy Verified 08/09/24 13:05 Family History Mother Alcoholism Arthritis Myocardial infarction CVA (cerebral vascular accident) COPD (chronic obstructive pulmonary disease) Father Alcoholism COPD (chronic obstructive pulmonary disease) Prostate cancer Grandmother Arthritis Breast cancer Colon cancer Skin cancer Surgical History History of tonsillectomy History of foot surgery History of hernia repair Social History household members: spouse current occupational status: unemployed Smoking Status: Never smoker Electronic Cigarette Use: not used alcohol intake: current alcohol intake frequency: holidays/special occasions only Alcohol type: beer and wine substance use type: does not use what type of physical activity do you participate in: none do you feel safe at home: Yes ROS ROS ED ROS Narrative Cough. Shortness of breath. Wheezing. Constitutional Constitutional ED: Denies chills or fever(s) Eyes Eyes: Denies blurry vision ENT ENT ED: Denies ear pain Cardiovascular Cardiovascular: Reports orthopnea; Denies chest pain or palpitations Respiratory/Chest Respiratory/Chest: Reports cough, dyspnea, dyspnea on exertion, orthopnea and sputum Gastrointestinal Gastrointestinal: Denies abdominal pain, diarrhea, nausea or vomiting Genitourinary Genitourinary ED: Denies dysuria or hematuria Musculoskeletal Musculoskeletal: Denies arthralgias or back pain Integumentary Denies abscess Neurologic Neurologic: Denies headache(s) Psychiatric Psychiatric: Denies anxiety Endocrine Endocrinology: Denies cold intolerance Hematologic/Lymphati c Hematologic/Lymphati c: Denies easy bleeding, easy bruisin (more content not included)... Normal [facility] Eosinophil percentageOrdered By: Joesph Auguste on 08-17-2024 Eosinophils/100 WBC (Bld) 0.0 % 0-5 [facility] Erythrocyte distribution wid th (RBC) [Ratio]Ordered By: Joesph Auguste on 08-17-2024 Erythrocyte distribution width (RBC) [Entitic vol] 41.1 fL 35.1-43.9 [facility] Erythrocyte distribution wid th ratioOrdered By: Joesph Auguste on 08-17-2024 Erythrocyte distribution width (RBC) [Ratio] 13.8 % 11.6-14.6 [facility] Erythrocyte folate measureme ntOrdered By: Elias Ramires on 08-17-2024 RBC Folate Hemolysate 535.0 ng/mL Not Estab. [facility] Red Blood Cell Folate 1482 ng/mL >498 [facility] Comment on above: Performed at: [address] [id number] Director: Dedirck Rodriguez PhD, Phone: [phone] Erythrocyte folate measureme nt with hematocritOrdered By: Elias Ramires on 08-17-2024 Hematocrit (Bld) [Volume fraction] 36.1 % Low 37.5-51.0 [facility] Estimation of creatinine lyubov aranceOrdered By: Joesph Auguste on 08-17-2024 Estimated Creatinine Clearance Calc 111.89 ml/min 50-250 [facility] Ferritinon 08-17-2024 Ferritin [Mass/Vol] 541 ng/mL High 37-417 [facility] Comment on above: Performed By: #### L 100.0500 #### [facility] [address] [place], [place], [id number] GFR/1.73 sq M.predicted josé miguel g non-blacks MDRD (S/P/Bld) [Vol rate/Area]Ordered By: Joesph Auguste on 08-17-2024 Estimated GFR (MDRD) Non-Af Amer 84 >60 [facility] Comment on above: mL/min/1.73m2 CKD-EP I Creatinine Equation (2020) Gram stainOrdered By: Sriram Pickett on 08-17-2024 Microscopic observation Gram stain Nom (Unsp spec) [facility] H AND P Exam - Hospitaliston 08-17-2024 H&P Exam - Hospitalist [facility] Medical Records Department [address] [place] [address] H P Exam - Hospitalist 08/17/24 0735 MR#: [id number] Acct: [id number] Name: MARK ANTHONY YE Jr. Rep #: [id number] : 1970 54 From: Elias Ramires DO PCP: Dr. Rayne Gonzalez MD Status:ADM IN Location: ICU ICU01-1 HPI - General General Date of Admission: 08/17/24 Date of Service: 08/17/24 Chief Complaint: Worsening shortness of breath HPI Narrative MARK ANTHONY YE, is a 54 M who presented to [facility] ED on 08/17/2024 with worsening shortness of breath. Patient does not wear oxygen at home. He developed URI symptoms about 1 week ago and has had progressive shortness of breath since then. Notes that his works at [employer] and had an upper respiratory illness prior to that. He has noticed worsening lower extremity swelling and has not been able to lay flat in bed. Does have history of HFpEF noted. In the ED he was found to be hypoxic to the mid 70s on room air. Required 4 L nasal cannula to maintain oxygen saturations in the low 90s. Chest x-ray showed moderate bilateral patchy airspace opacities most consistent with pulmonary edema but no pleural effusions identified. Was found to be positive for human metapneumovirus. BNP was 2180 but notably patient has BMI of 46 so BMP will be underestimated. Labs otherwise notable for sodium 124, chloride 90, bicarb 18. Initial troponin 167, repeat pending. No EKG changes noted. Given all of these findings, hospitalist was contacted for admission. I saw the patient at bedside in the ED, was present. Patient was sitting up fairly comfortably in bed and breathing comfortably on 4 L nasal cannula at rest. He did have mild conversational dyspnea noted at times. Did have a few dry cough spells noted during our encounter. He was given a dose of IV Lasix as well as a breathing treatment prior to my encounter with him and stated these were moderately helpful for him. He denied any current fevers or chills. No other acute concerns at this time. [facility] Medical History (Updated 08/17/24 @ 15:[address] Elias Ramires, ) Depression Diabetes Dialysis patient CPAP (continuous positive airway pressure) dependence Sleep apnea Acute bronchitis, unspecified Acute maxillary sinusitis, unspecified Ocular migraine JOANNE (obstructive sleep apnea) Pre-diabetes Cardiac murmur High cholesterol Hypertension Heart failure Bone fracture History of back problems Home Medications ???Medication ???Instructions ???Recorded ???Last Taken ???Type aspirin 81 mg tablet,delayed 81 mg PO DAILY 11/04/22 Unknown Hi story release (Adult Aspirin Regimen) [id number] 150 mcg-vit K1 1 tab PO DAILY 11/04/22 Unknown H istory 30 mcg-lycop 300 mcg-lutein tablet (Centrum Minis Men 50 Plus) atorvastatin 20 mg tablet 20 mg PO DAILY #90 tabs 05/04/24 U nknown Rx lisinopril 20 mg tablet 20 mg PO DAILY #90 tabs 05/04/24 U nknown Rx metformin 1,000 mg tablet 1,000 mg PO BID #180 tabs 05/04/24 Unknown Rx triamterene 37.5 1 cap PO DAILY #90 caps 05/04/24 U nknown Rx mg-hydrochlorothiazi de 25 mg capsule albuterol sulfate 90 mcg/actuation 2 puff inhalation Q6H PRN Unknown Rx aerosol inhaler shortness of breath or wheezing #8.5 grams escitalopram oxalate 10 mg tablet 10 mg PO QDAY #30 tabs 08/09/24 U nknown Rx (Lexapro) trazodone 50 mg tablet 50 - 100 mg (1 - 2 x 50 mg) PO QHS 08/09/24 Unknown Rx #90 tabs Allergy/AdvReac Type Severity Reaction Status Date / Time No Known Allergies Allergy Verified 08/09/24 13:05 Family History Mother Alcoholism Arthritis Myocardial infarction CVA (cerebral vascular accident) COPD (chronic obstructive pulmonary disease) Father Alcoholism COPD (chronic obstructive pulmonary disease) Prostate cancer Grandmother Arthritis Breast cancer Colon cancer Skin cancer Surgical History History of tonsillectomy History of foot surgery History of hernia repair Social History household members: spouse current occupational status: unemployed Smoking Status: Never smoker Electronic Cigarette Use: not used alcohol intake: current alcohol intake frequency: holidays/special occasions only Alcohol type: beer and wine substance use type: does not use what type of physical activity do you participate in: none do you feel safe at home: Yes ROS Constitutional Constitutional: Reports fatigue and malaise; Denies chills or fever(s) Eyes Eyes: Denies change in vision Cardiovascular Cardiovascular: Reports dyspnea on exertion, edema and orthopnea; Denies chest pain, lightheadedness (more content not included)... Normal [facility] Hematocrit Auto (Bld) [Volum e fraction]Ordered By: Joesph Auguste on 08-17-2024 Hematocrit (Bld) [Volume fraction] 35.5 % Low 40-54 [facility] Hemoglobin A1con 08-17-2024 HbA1c (Bld) [Mass fraction] 8.3 % Normal <=5.6 [facility] Comment on above: Performed By: #### L 100.0500 #### [facility] [address] [place] [address]. [place], [place], [id number] Hemoglobin A1c percentageOrd ered By: Elias Ramires on 08-17-2024 HbA1c (Bld) [Mass fraction] 8.3 % >5.7 [facility] Hemoglobin measurementOrdere d By: Joesph Auguste on 08-17-2024 Hemoglobin (Bld) [Mass/Vol] 12.6 g/dL Low 13.0-16.5 [facility] Immature granulocytes/100 WB C Auto (Bld)Ordered By: Joesph Auguste on 08-17-2024 Immature granulocytes/100 WBC (Bld) 0.600 % 0.0-0.9 [facility] Comment on above: IG% - Immature Granu locytes (promyelocytes, myelocytes and metamyelocytes) > 1% indicates that a LEFT SHIFT is Present. Influenza virus A and B and SARS-CoV-2 (COVID-19) and Respiratory syncytial virus RNAOrdered By: Joesph Auguste on 08-17-2024 SARS-CoV-2 (COVID-19) RNA JERRELL+probe Ql (Unsp spec) [facility] Iron (Unsp spec) [Mass/Mass] Ordered By: Elias Ramires on 08-17-2024 Iron [Mass/Vol] 20 ug/dL Low 65-175 [facility] Iron measurement (mass/mass) Ordered By: Elias Ramires on 08-17-2024 Iron (Unsp spec) [Mass/Mass] 20 ug/dL Low 65-175 [facility] Iron saturation [Mass fracti on]Ordered By: Elias Ramires on 08-17-2024 Iron Saturation 9.8 % 9-55 [facility] Comment on above: Previous reported re sult: 10.0 %Edited by: JEANETTE on 08/17/24:1402 AMENDED REPORT 08/17/24 1402 IRON SATURATION previously reported as: 10.0 % Iron+Iron Binding Capacityon 08-17-2024 TIBC 204 ug/dL Low 250-450 [facility] Comment on above: Performed By: #### L 100.0500 #### [facility] [address] [place], [address] L. pneumophila Ag Ql (U)Orde red By: Elias Ramires on 08-17-2024 Legionella Antigen [facility] L499.0042on 08-17-2024 Trop T High Sen Normal <=22 [facility] Comment on above: Result Comment: Aguila gomez via OM: Ordered Performed By: #### L 499.0042 #### [facility] [address] [facility], [address] L499.0043on 08-17-2024 Trop T High Sen 244 ng/L Invalid Interpretation Code <=22 [facility] Comment on above: Result Comment: Crit ical Result(s) Called HSTOLL at: 1813 by: TUAN??Results read back by same. Performed By: #### L 500.2500 #### [facility] [address] [place], [address] L501.4021on 08-17-2024 Trop T High Sen 167 ng/L Invalid Interpretation Code <=22 [facility] Comment on above: Result Comment: Crit ical Result(s) Called at 0731: by: VALENTINA FLORENCE??Results read back by same. Performed By: #### L 501.4021, L100.0100, L503.7505, L500.2500 #### [facility] [address] [place], [address] L503.0106on 08-17-2024 Cobalamin (Vitamin B12) [Mass/Vol] 375 pg/mL Normal 180-914 [facility] Comment on above: Performed By: #### L 100.0500 #### [facility] [address] [place], [address] L503.7505on 08-17-2024 Natriuretic peptide B (Bld) [Mass/Vol] 2180 pg/mL High <=900 [facility] Comment on above: Result Comment: Hear t Failure Unlikely: < 300 pg/mL Heart Failure Likely < 50 Years: > 450 pg/mL 50-75 Years: > 900 pg/mL >75 Years: > 1800 pg/mL Performed By: #### L 501.4021, L100.0100, L503.7505, L500.2500 #### [facility] [address] [place], [address] L509.7001on 08-17-2024 Procalcitonin 0.15 ng/mL High <=0.10 [facility] Comment on above: Result Comment: Inte rpretation: <0.10-0.25 ng/mL: Antibiotic therapy discouraged. Bacterial infection unlikely. 0.25-0.50 ng/mL: Antibiotic therapy encouraged. Bacterial infection possible. >0.50 ng/mL: Antibiotic therapy strongly encouraged. Suggestive of presence of bacterial infection. PCT should always be interpreted in the clinical context of the patient. Therefore, clinicians should use the PCT results in conjunction with other laboratory findings and clinical signs of the patient. Performed By: #### L 100.0500 #### [facility] [address] [place], [address] Laboratory - Chemistry and C hemistry - challengeOrdered By: Joesph Auguste on 08-17-2024 Natriuretic peptide B (Bld) [Mass/Vol] 2180 pg/mL High <900 [facility] Comment on above: Heart Failure Unlike ly: < 300 pg/mLHeart Failure Likely< 50 Years: > 450 pg/mL50-75 Years: > 900 pg/mL>75 Years: > 1800 pg/mL Legionella Antigen Urineon 0 08-17-2024 LEGU Legionella Antigen result interpretation: L pneumo Ag Ur Ql Negative Presumptive negative for Legionella pneumophila serogroup 1 antigen in urine, suggesting no recent or current infection. Legionella Ag, Urine Negative (See interpretation below) Normal [facility] Comment on above: Performed By: #### M 300.4600, M300.4500 ####[facility] [address] [facility] [place], [place], [address] Lymphocytes Auto (Unsp spec) [#/Vol]Ordered By: Joesph Auguste on 08-17-2024 Lymphocytes (Bld) [#/Vol] 0.71 10*3/uL Low 0.83-4.51 [facility] Lymphocytes/100 WBC Auto (Un sp spec)Ordered By: Joesph Auguste on 08-17-2024 Lymphocytes/100 WBC (Bld) 6.2 % Low 19-41 [facility] M100.678on 08-17-2024 M100.678 Pending SARS-CoV-2 (COVID 19) Negative INFLUENZA A Negative INFLUENZA B Negative RSV PCR Negative Normal [facility] Comment on above: Performed By: #### M 100.678 ####[facility] [address] [facility]. [place], [place], [id number] MCV (mean corpuscular volume ) determinationOrdered By: Joesph Auguste on 08-17-2024 MCV (RBC) [Entitic vol] 82.2 fL 80-94 [facility] Mean corpuscular hemoglobin (MCH) determinationOrdered By: Joesph Auguste on 08-17-2024 MCH (RBC) [Entitic mass] 29.2 pg 27.0-32.0 [facility] Mean corpuscular hemoglobin concentration (MCHC) determinationOrdered By: Joesph Auguste on 08-17-2024 MCHC (RBC) [Mass/Vol] 35.5 g/dL 32-36 [facility] Mean platelet volume determi nationOrdered By: Joesph Auguste on 08-17-2024 Platelet mean volume (Bld) [Entitic vol] 10.2 fL 6.2-12.0 [facility] Microbial respiratory cultur eOrdered By: Elias Ramires on 08-17-2024 Microorganism identified Cx Nom (Unsp spec) or Staphylococcus aureus isolated. [facility] Microorganism identified Cx Nom (Unsp spec)Ordered By: Elias Ramires on 08-17-2024 Respiratory Culture or Staphylococcus aureus isolated. [facility] Monocyte percentageOrdered B y: Joesph Auguste on 08-17-2024 Monocytes/100 WBC (Bld) 5.8 % 0-10 [facility] Neutrophil percentageOrdered By: Joesph Auguste on 08-17-2024 Neutrophils/100 WBC (Bld) 87.1 % High 47-70 [facility] No Panel InformationOrdered By: Elias Ramires on 08-17-2024 Procalcitonin 0.15 ng/mL High <0.11 [facility] Comment on above: Interpretation:<0.10 -0.25 ng/mL: Antibiotic therapy discouraged. Bacterial infection unlikely.0.25-0.50 ng/mL: Antibiotic therapy encouraged. Bacterial infection possible.>0.50 ng/mL: Antibiotic therapy strongly encouraged. Suggestive of presence of bacterial infection.PCT should always be interpreted in the clinical context of the patient. Therefore, clinicians should use the PCT results in conjunction with other laboratory findings and clinical signs of the patient. Unsaturated Iron Binding Capacity 184 ug/dL Low 228-428 [facility] No Panel InformationOrdered By: Joesph Auguste on 08-17-2024 Troponin T High Sensitivity 167 ng/L High <22 [facility] Comment on above: Critical Result(s) C alled at 0731: by: VALENTINA SANTOYO. Results read back by same. Nucleated red blood cell per centageOrdered By: Joesph Auguste on 08-17-2024 Nucleated RBC/100 WBC (Bld) [Ratio] 0 % 0-5 [facility] Platelet countOrdered By: Jose Auguste on 08-17-2024 Platelets (Bld) [#/Vol] 262 10*3/uL 150-450 [facility] Potassium (Unsp spec) [Mass/ Vol]Ordered By: Joesph Auguste on 04-02-2025 Potassium [Moles/Vol] 4.5 mmol/L 3.3-5.1 [facility] RBC Auto (Bld) [#/Vol]Ordere d By: Joesph Auguste on 08-17-2024 RBC (Bld) [#/Vol] 4.32 10*6/uL Low 4.6-6.2 [facility] RESPIRATORY PANEL MOLECULARo n 08-17-2024 RP PANEL Normal Reference Range = Not Detected Resp path DNA+RNA Pnl Resp JERRELL+probe Nucleic acid amplification test method Resp path DNA+RNA Pnl Resp JERRELL+probe Copy of report sent to Infection Control Printer [id number] 08/17/24 1303 BLUCAS. ADENOVIRUS Not Detected INFLUENZA A Not Detected INFLUENZA A (SUBTYPE H1) Not Detected INFLUENZA A (SUBTYPE H3) Not Detected INFLUENZA B Not Detected HUMAN METAPHNEUMO A Positive for HUMAN METAPHNEUMO VIRUS by NAAT technologyA PARAINFLUENZA 1 Not Detected PARAINFLUENZA 2 Not Detected PARAINFLUENZA 3 Not Detected PARAINFLUENZA 4 Not Detected RHINOVIRUS Not Detected RSV A Not Detected RSV B Not Detected HUMAN META Normal [facility] Comment on above: Performed By: #### M 100.638 ####[facility] [address] [place], [address] Respiratory pathogens DNA an d RNA panel JERRELL+probe (Resp)Ordered By: Elias Ramires on 08-17-2024 Respiratory Panel (PCR) Human [place] Abnormal [facility] Respiratory pathogens detect ion panel by molecular detection methodOrdered By: Elias Ramires on 08-17-2024 Respiratory pathogens DNA and RNA panel JERRELL+probe (Resp) Human [place] Abnormal [facility] Serum creatinine measurement (mass/volume)Ordered By: Joesph Auguste on 08-17-2024 Creatinine [Mass/Vol] 1.05 mg/dL 0.70-1.20 [facility] Serum glucose measurement (m ass/volume)Ordered By: Joesph Auguste on 08-17-2024 Glucose [Mass/Vol] 249 mg/dL High 70-99 [facility] Serum or plasma calcium shasta urement (mass/volume)Ordered By: Joesph Auguste on 08-17-2024 Calcium [Mass/Vol] 9.2 mg/dL 7.6-11.0 [facility] Serum or plasma ferritin ted surement (mass/volume)Ordered By: Elias Ramires on 08-17-2024 Ferritin [Mass/Vol] 541 ng/mL High 37-417 [facility] Serum or plasma iron saturat ion measurement (mass fraction)Ordered By: Elias Ramires on 08-17-2024 Iron saturation [Mass fraction] 9.8 % 9-55 [facility] Comment on above: Previous reported re sult: 10.0 %Edited by: JEANETTE on 08/17/24:1402 AMENDED REPORT 08/17/24 1402 IRON SATURATION previously reported as: 10.0 % Serum or plasma urea nitroge n measurement (mass/volume)Ordered By: Joesph Auguste on 08-17-2024 Urea nitrogen [Mass/Vol] 31 mg/dL High 4-19 [facility] Sodium levelOrdered By: Joesph Auguste on 08-17-2024 Sodium [Moles/Vol] 124 mmol/L Low 133-145 [facility] Strep pneumoniae Antig(UR,CS F)on 08-17-2024 STPAG URINE INTERPRETATION Strep pneumoniae Antig(UR,CSF) Strep pneumoniae Antig(UR,CSF) Negative Urine Presumptive negative for pneumococcal pneumonia, suggesting no current or recent pneumococcal infection. Infection due to S pneumoniae cannot be ruled out since the antigen present in the sample may be below the detection limit of the test. Strep pneumo Test Negative URINE (See interpretation below) Normal [facility] Comment on above: Performed By: #### M 300.2563, M300.3773 ####[facility] [address], [place], [id number] Streptococcus pneumoniae ant igen assayOrdered By: Elias Ramires on 08-17-2024 Streptococcus pneumoniae Antigen (M [facility] Troponin T.cardiac High sens itivity method [Mass/Vol]Ordered By: Elias Ramires on 08-17-2024 Troponin T High Sensitivity 4 Hour 244 ng/L High <22 [facility] Comment on above: Critical Result(s) C ariana GARCIALL at: 1813 by: TUAN Results read back by same. Troponin T High Sensitivity 2 Hour 273 ng/L High <22 [facility] Comment on above: Critical Result(s) C alled HGILL at: 1627 by: BWORKMAN Results read back by same. Critical Result(s) Called at: by: Results read back by same. Critical Result(s) Called HGILL at: 1627 by: BWORKMAN Results read back by same.Previous reported result: 273 ng/LEdited by: AUTOINS on 08/17/24:1634 AMENDED REPORT 08/17/24 1634 Trop T HS 2HR previously reported as: 273 *H ng/L Critical Result(s) Called HGILL at: 1627 by: BWORKMAN Results read back by same.Previous reported result: 273 ng/LEdited by: AUTOINS on 08/18/24:0202 AMENDED REPORT 08/18/24 0202 Trop T HS 2HR previously reported as: 273 *H ng/L Critical Result(s) Called HGILL at: 1627 by: BWORKMAN Results read back by same. Critical Result(s) Called at: by: Results read back by same. Troponin T.cardiac [Mass/vol ume] in Serum or Plasma by High sensitivity methodOrdered By: Elias Ramires on 08-17-2024 Troponin T.cardiac High sensitivity method [Mass/Vol] 244 ng/L High <22 [facility] Comment on above: Critical Result(s) Kandi [address] HSTOLL at: 1813 by: BWORKMAN Results read back by same. Troponin T.cardiac High sensitivity method [Mass/Vol] 273 ng/L High <22 [facility] Comment on above: Critical Result(s) [address] HGILL at: 1627 by: BWORKMAN Results read back by same. Critical Result(s) Called at: by: Results read back by same. Critical Result(s) Called HGILL at: 1627 by: BWORKMAN Results read back by same.Previous reported result: 273 ng/LEdited by: AUTOINS on 08/17/24:1634 AMENDED REPORT 08/17/24 1634 Trop T HS 2HR previously reported as: 273 *H ng/L Critical Result(s) Called HGILL at: 1627 by: BWORKMAN Results read back by same.Previous reported result: 273 ng/LEdited by: AUTOINS on 08/18/24:0202 AMENDED REPORT 08/18/24 0202 Trop T HS 2HR previously reported as: 273 *H ng/L Critical Result(s) Called HGILL at: 1627 by: TUAN Results read back by same. Critical Result(s) Called at: by: Results read back by same. Urine Legionella pneumophila antigen detectionOrdered By: Elias Ramires on 08-17-2024 L. pneumophila Ag Ql (U) [facility] Vitamin B12 ser/plasOrdered By: Elias Ramires on 08-17-2024 Cobalamin (Vitamin B12) [Mass/Vol] 375 pg/mL 180-914 [facility] White blood cell (WBC) count Ordered By: Joesph Auguste on 08-17-2024 WBC (Bld) [#/Vol] 11.4 10*3/uL High 4.4-11.0 [facility] Laboratory - Hematology and Cell countsOrdered By: Rayne Gonzalez on 08-09-2024 HbA1c (Bld) [Mass fraction] 8.3 % High 4.2-6.3 [facility] Internal Medicine Office Vis iton 08-08-2024 Internal Medicine Office Visit [facility] [address] [place] [address] [place] [address] OFFICE VISIT Date of Service: 08/09/24 MR#: [id number] Acct: [id number] Name: MARK ANTHONY YE JrMiguel Rep #: [id number] : 1970 Provider: Dr. Rayne mendez MD Age/Sex: 54/M Location: [facility] Status: Signed Intake Vital Signs 06/02/24 12:59 08/09/24 13:06 Height 5 ft 7 in 5 ft 7 in Weight: 319 lb BMI 49.9 BP 132/76 H Blood Pressure Location Rt brachial Position Sitting Respiration 16 Pulse 105 H Pulse Source Monitor Temp 97.2 F L Temp Source Temporal Pulse Oximetry (%) 94 Oxygen Delivery Method room air Intake Visit Reasons: 2 m fu Chief Complaint: fu Typing Teacher Required: No Accompanied by: Self Is patient in pain?: No Allergies No Known Allergies Allergy (Verified 08/09/24 13:05) Medications ???Medication ???Instructions ???Recorded ???Confirmed ???Type aspirin 81 mg tablet,delayed 81 mg PO DAILY 11/04/22 08/09/24 H istory release (Adult Aspirin Regimen) yoxsmkui-nws-etmoa 150 mcg-vit K1 tab PO 11/04/22 08/09/24 History 30 mcg-lycop 300 mcg-lutein tablet (Centrum Minis Men 50 Plus) flash glucose scanning reader #1 ea 05/20/23 08/09/24 Rx (FreeStyle Vance 2 [place]) flash glucose sensor (FreeStyle #1 ea 05/20/23 08/09/24 Rx Vance 2 Sensor kit) atorvastatin 20 mg tablet 20 mg PO DAILY #90 tabs 05/04/24 0 08/09/24 Rx lisinopril 20 mg tablet 20 mg PO DAILY #90 tabs 05/04/24 0 08/09/24 Rx metformin 1,000 mg tablet 1,000 mg PO BID #180 tabs 05/04/24 08/09/24 Rx triamterene 37.5 1 cap PO DAILY #90 caps 05/04/24 0 08/09/24 Rx mg-hydrochlorothiazi de 25 mg capsule albuterol sulfate 90 mcg/actuation 2 puff inhalation Q6H PRN 08/09/24 Rx aerosol inhaler shortness of breath or wheezing #8.5 grams escitalopram oxalate 10 mg tablet 10 mg PO QDAY #30 tabs 08/09/24 0 08/09/24 Rx (Lexapro) semaglutide 0.25 mg or 0.5 mg (2 0.25 mg (0.368 mL) subcut QWEEK #3 08/09/24 08/09/24 Rx mg/3 mL) subcutaneous pen injector mL trazodone 50 mg tablet 50 - 100 mg (1 - 2 x 50 mg) PO QHS 08/09/24 08/09/24 Rx #90 tabs Have you fallen in the past year?: No PFSH Medical History (Updated 08/09/24 @ 13:[address] Rayne Gonzalez MD) Acute bronchitis, unspecified Acute maxillary sinusitis, unspecified Ocular migraine JOANNE (obstructive sleep apnea) Pre-diabetes Cardiac murmur High cholesterol Hypertension Heart failure Bone fracture History of back problems Surgical History History of tonsillectomy History of foot surgery History of hernia repair Family History Mother Alcoholism Arthritis Myocardial infarction CVA (cerebral vascular accident) COPD (chronic obstructive pulmonary disease) Father Alcoholism COPD (chronic obstructive pulmonary disease) Prostate cancer Grandmother Arthritis Breast cancer Colon cancer Skin cancer Social History household members: spouse current occupational status: unemployed Smoking Status: Never smoker Electronic Cigarette Use: not used alcohol intake: current alcohol intake frequency: holidays/special occasions only Alcohol type: beer and wine substance use type: does not use what type of physical activity do you participate in: none do you feel safe at home: Yes HPI HPI Chief Complaint: fu Details: MARK ANTHONY YE, is a 54 M who presents to the office today for follow up. He is up to date on his routine blood work. He still isn't ready to do his colon cancer screening. He is up to date on his immunizations. He doesn't smoke and does need refills. He reports he still hasn't been monitoring his diet very much nor has he been very active. He is not checking his blood pressure at home. He reports he has been taking his medication as prescribed. He hasn't really been monitoring his salt intake. He has not been checking his sugars at all nor has he been monitoring his carbohydrate and sugar intake. He is taking his medication as prescribed without problems. He states he has done better in the last few weeks with his evening doses. He is up to date on his diabetic eye exam and doesn't follow with podiatry. The patient has obstructive sleep apnea. He wears his CPAP every time he lays down and benefits from it. He reports his cough has mostly resolved. He states he does still have some occasional symptoms, however. He reports he does use the rescue inhaler fairly often. He reports he has cut back on his caffeine intake to help with his sleep. He has been out of the trazodone. He states it did help him fall asleep, though he did still wake up during the night. He states when he does wak (more content not included)... Normal [facility] Chest PA and Lateralon 06-02 Chest PA and Lateral [facility] [address] [place] [address] Chest PA and Lateral MR#: [id number] Acct: [id number] Name: MARK ANTHONY YE JrMiguel Rep #: [id number] : 1970 M 54 From: Jean-Pierre akers MD PCP: Dr. Rayne Gonzalez MD Status: REG CLI Study: Chest PA and Lateral Date of Exam: 06/02/24 Exam# [id number] Ordering Dr: Rayne Gonzalez MD [id number] INDICATION: persistent cough EXAMINATION/TECHNIQU E: X-RAY - XR Chest 2 Views COMPARISON: No relevant prior comparison study available ____ FINDINGS: LINES/DEVICES: None. LUNGS: The lungs are well expanded. No consolidation, edema or effusion. No pneumothorax. MEDIASTINUM AND CARDIOVASCULAR STRUCTURES: Cardiac silhouette not enlarged. Central airways and mediastinal contour are unremarkable. BONES AND SOFT TISSUES: No acute abnormality. Mild degenerative changes throughout the spine. RAD/Chest PA and Lateral IMPRESSION: No acute pulmonary finding. Electronically Signed: Jean-Pierre Meraz MD at 12:44 EST Reading Location ID and State: [facility] / [place] Tel , Service support , CC: Dr. Rayne Gonzalez MD Jacket Changer: Signed Normal [facility] Internal Medicine Office Vis iton 06-01-2024 Internal Medicine Office Visit [facility] [address] [place] [address] [place] [address] OFFICE VISIT Date of Service: 06/02/24 MR#: [id number] Acct: [id number] Name: MARK ANTHONY YE JrMiguel Rep #: [id number] : 1970 Provider: Dr. Rayne mendez MD Age/Sex: 54/M Location: [facility] Status: Signed Intake Vital Signs 05/04/24 10:22 06/02/24 12:59 Height 5 ft 7 in 5 ft 7 in Weight: 312 lb BMI 48.9 BP 122/84 H Blood Pressure Location Lt brachial Position Sitting Respiration 16 Pulse 93 Pulse Source Monitor Temp 97.8 F Temp Source Temporal Pulse Oximetry (%) 98 Oxygen Delivery Method room air Intake Visit Reasons: 1 M FU Chief Complaint: 1M FU Typing Teacher Required: No Accompanied by: Self Is patient in pain?: No Allergies No Known Allergies Allergy (Verified 06/02/24 12:55) Medications ???Medication ???Instructions ???Recorded ???Confirmed ???Type aspirin 81 mg tablet,delayed 81 mg PO DAILY 11/04/22 06/02/24 History release (Adult Aspirin Regimen) lhoxzqyk-pbv-rduzv 150 mcg-vit K1 tab PO 11/04/22 06/02/24 History 30 mcg-lycop 300 mcg-lutein tablet (Centrum Minis Men 50 Plus) flash glucose scanning reader #1 ea 05/20/23 06/02/24 Rx (FreeStyle Vance 2 [place]) flash glucose sensor (FreeStyle #1 ea 05/20/23 06/02/24 Rx Vance 2 Sensor kit) atorvastatin 20 mg tablet 20 mg PO DAILY #90 tabs 05/04/24 06/02/24 Rx lisinopril 20 mg tablet 20 mg PO DAILY #90 tabs 05/04/24 06/02/24 Rx metformin 1,000 mg tablet 1,000 mg PO BID #180 tabs 05/04/24 06/02/24 Rx triamterene 37.5 1 cap PO DAILY #90 caps 05/04/24 06/02/24 Rx mg-hydrochlorothiazi de 25 mg capsule albuterol sulfate 90 mcg/actuation 2 puff inhalation Q6H PRN 06/02/24 06/02/24 Rx aerosol inhaler shortness of breath or wheezing #8.5 grams prednisone 20 mg tablet 40 mg (2 x 20 mg) PO QDAY #10 tabs 06/02/24 06/02/24 Rx trazodone 50 mg tablet 50 - 100 mg (1 - 2 x 50 mg) PO QHS 06/02/24 06/02/24 Rx #90 tabs PFSH Medical History Acute bronchitis, unspecified Acute maxillary sinusitis, unspecified Ocular migraine JOANNE (obstructive sleep apnea) Pre-diabetes Cardiac murmur High cholesterol Hypertension Heart failure Bone fracture History of back problems Surgical History History of tonsillectomy History of foot surgery History of hernia repair Family History Mother Alcoholism Arthritis Myocardial infarction CVA (cerebral vascular accident) COPD (chronic obstructive pulmonary disease) Father Alcoholism COPD (chronic obstructive pulmonary disease) Prostate cancer Grandmother Arthritis Breast cancer Colon cancer Skin cancer Social History household members: spouse current occupational status: unemployed Smoking Status: Never smoker Electronic Cigarette Use: not used alcohol intake: current alcohol intake frequency: holidays/special occasions only Alcohol type: beer and wine substance use type: does not use what type of physical activity do you participate in: none do you feel safe at home: Yes HPI HPI Chief Complaint: 1M FU Details: MARK ANTHONY YE, is a 54 M who presents to the office today for a 1 month follow up. He is up to date on his routine blood work. He previously reported he wanted to hold off on his colon cancer screening for now. He is up to date on his immunizations. He doesn't smoke and does need refills. He reports he hasn't been monitoring his diet recently due to his grief nor has he been very active. He is not checking his blood pressure at home. He reports he has been taking his medication as prescribed. He hasn't really been monitoring his salt intake. He has not been checking his sugars at all nor has he been monitoring his carbohydrate and sugar intake. He is taking his medication as prescribed without problems. He is up to date on his diabetic eye exam and doesn't follow with podiatry. The patient has obstructive sleep apnea. He wears his CPAP every time he lays down and benefits from it. At his last office visit, he complained of cough and congestion. He was given a prescription for doxycycline which he completed, but symptoms persisted. He was seen in the urgent last week and prescribed augmentin. He reports that it did help some, but he feels that his cough is still persistent. He wasn't able to try the cough syrup as the pharmacy didn't have it. He wonders if he may benefit from a course of steroids. At his last office visit, he was struggling with his mental health after the loss of his son. He was started on trazodone. He reports that he never started at 25mg and started taking 50mg. He st (more content not included)... Normal [facility] Absolute neutrophil countOrd ered By: Rayne Gonzalez on 05-30-2024 Neutrophils (Bld) [#/Vol] 3.9 10*3/uL 2.0-7.7 [facility] Albumin to globulin ratioOrd ered By: Rayne Gonzalez on 05-30-2024 Albumin/Globulin [Mass ratio] 0.9 {ratio} 0.9-2.4 [facility] Basophil percentageOrdered B y: Rayne Gonzalez on 05-30-2024 Basophils/100 WBC (Bld) 1.1 % High 0-1 [facility] Bilirubin, totalOrdered By: Rayne Gonzalez on 05-30-2024 Bilirubin [Mass/Vol] 0.70 mg/dL 0.20-1.00 [facility] Comment on above: For patients on eltr ombopag therapy, use of Dimension Morgan TBIL is not recommended. Blood urea nitrogen (BUN)/cr eatinine ratioOrdered By: Rayne Gonzalez on 05-30-2024 Urea nitrogen/Creatinine [Mass ratio] 18.4 mg/mg 10-20 [facility] CBC W/Diff, Automatedon 05-18 Absolute Lymph 1.52 X10 3/uL Normal 0.83-4.51 [facility] Comment on above: Performed By: #### L 500.4050, L100.0100, L500.4100 ####[facility] [address] [place], [place], [id number] Absolute Neut 3.9 X10 3/uL Normal 2.0-7.7 [facility] Comment on above: Performed By: #### L 500.4050, L100.0100, L500.4100 ####[facility] [address] [place], [address] Basophils/100 WBC (Bld) 1.1 % High 0-1 [facility] Comment on above: Performed By: #### L 500.4050, L100.0100, L500.4100 ####[facility] [address] [place], [address] Eosinophils/100 WBC (Bld) 2.8 % Normal 0-5 [facility] Comment on above: Performed By: #### L 500.4050, L100.0100, L500.4100 ####[facility] [address] [place], [address] Erythrocyte distribution width (RBC) [Ratio] 14.8 % High 11.6-14.6 [facility] Comment on above: Performed By: #### L 500.4050, L100.0100, L500.4100 ####[facility] [address] [place], [address] Hematocrit (Bld) [Volume fraction] 39.2 % Low 40-54 [facility] Comment on above: Performed By: #### L 500.4050, L100.0100, L500.4100 ####[facility] [address] [place], [address] Hemoglobin (Bld) [Mass/Vol] 13.2 g/dL Normal 13.0-16.5 [facility] Comment on above: Performed By: #### L 500.4050, L100.0100, L500.4100 ####[facility] [address] [place], [address] IG% 0.700 Normal 0.0-0.9 [facility] Comment on above: Result Comment: IG% - Immature Granulocytes (promyelocytes, myelocytes and metamyelocytes) > 1% indicates that a LEFT SHIFT is Present. Performed By: #### L 500.4050, L100.0100, L500.4100 ####[facility] [address] [place], [address] Lymphocytes/100 WBC (Bld) 24.8 % Normal 19-41 [facility] Comment on above: Performed By: #### L 500.4050, L100.0100, L500.4100 ####[facility] [address] [place], [address] MCH (RBC) [Entitic mass] 29.8 pg Normal 27.0-32.0 [facility] Comment on above: Performed By: #### L 500.4050, L100.0100, L500.4100 ####[facility] [address] [place], [address] MCHC (RBC) [Mass/Vol] 33.7 g/dL Normal 32-36 [facility] Comment on above: Performed By: #### L 500.4050, L100.0100, L500.4100 ####[facility] [address] [place], [address] MCV (RBC) [Entitic vol] 88.5 fL Normal 80-94 [facility] Comment on above: Performed By: #### L 500.4050, L100.0100, L500.4100 ####[facility] [address] [place], [address] Monocytes/100 WBC (Bld) 7.7 % Normal 0-10 [facility] Comment on above: Performed By: #### L 500.4050, L100.0100, L500.4100 ####[facility] [address] [place], [address] Neutrophils/100 WBC (Bld) 62.9 % Normal 47-70 [facility] Comment on above: Performed By: #### L 500.4050, L100.0100, L500.4100 ####[facility] [address] [place], [address] Nucleated RBC (Bld) [#/Vol] 0 10*3/uL Normal 0-5 [facility] Comment on above: Performed By: #### L 500.4050, L100.0100, L500.4100 ####[facility] [address] [place], [address] Platelet mean volume (Bld) [Entitic vol] 10.6 fL Normal 6.2-12.0 [facility] Comment on above: Performed By: #### L 500.4050, L100.0100, L500.4100 ####[facility] [address] [place], [address] Platelets (Bld) [#/Vol] 213 10*3/uL Normal 150-450 [facility] Comment on above: Performed By: #### L 500.4050, L100.0100, L500.4100 ####[facility] [address] [place], [address] RBC (Bld) [#/Vol] 4.43 10*6/uL Low 4.6-6.2 [facility] Comment on above: Performed By: #### L 500.4050, L100.0100, L500.4100 ####[facility] [address] [place], [address] RDW SD 47.7 fl High 35.1-43.9 [facility] Comment on above: Performed By: #### L 500.4050, L100.0100, L500.4100 ####[facility] [address] [place], [address] WBC (Bld) [#/Vol] 6.1 10*3/uL Normal 4.4-11.0 [facility] Comment on above: Performed By: #### L 500.4050, L100.0100, L500.4100 ####[facility] [address] [place], [address] Carbon dioxide measurementOr dered By: Rayne Gonzalez on 05-30-2024 CO2 [Moles/Vol] 26.0 mmol/L 21.0-32.0 [facility] Chloride measurementOrdered By: Rayne Gonzalez on 05-30-2024 Chloride [Moles/Vol] 104 mmol/L 98-107 [facility] Comprehensive Metabolic Prof ilon 05-30-2024 Albumin [Mass/Vol] 3.7 g/dL Normal 3.2-5.0 [facility] Comment on above: Performed By: #### L 500.4050, L100.0100, L500.4100 ####[facility] [address] [place], [address] Albumin/Globulin [Mass ratio] 0.9 {ratio} Normal 0.9-2.4 [facility] Comment on above: Performed By: #### L 500.4050, L100.0100, L500.4100 ####[facility] [address] [place], [address] ALK P 51 U/L Normal 45-117 [facility] Comment on above: Performed By: #### L 500.4050, L100.0100, L500.4100 ####[facility] [address] [place], [address] ALT [Catalytic activity/Vol] 48 U/L Normal 16-61 [facility] Comment on above: Performed By: #### L 500.4050, L100.0100, L500.4100 ####[facility] [address] [place], [address] AST [Catalytic activity/Vol] 35 U/L Normal 15-37 [facility] Comment on above: Performed By: #### L 500.4050, L100.0100, L500.4100 ####[facility] [address] [place], [address] Bilirubin [Mass/Vol] 0.70 mg/dL Normal 0.20-1.00 [facility] Comment on above: Result Comment: For patients on eltrombopag therapy, use of Dimension Morgan TBIL is not recommended. Performed By: #### L 500.4050, L100.0100, L500.4100 ####[facility] [address] [place], [address] BUN/CRE 18.4 RATIO Normal 10-20 [facility] Comment on above: Performed By: #### L 500.4050, L100.0100, L500.4100 ####[facility] [address] [place], [address] CA,Total 9.4 mg/dL Normal 8.5-10.1 [facility] Comment on above: Performed By: #### L 500.4050, L100.0100, L500.4100 ####[facility] [address] [place], [address] Chloride [Moles/Vol] 104 mmol/L Normal 98-107 [facility] Comment on above: Performed By: #### L 500.4050, L100.0100, L500.4100 ####[facility] [address] [place], [address] CO2 [Moles/Vol] 26.0 mmol/L Normal 21.0-32.0 [facility] Comment on above: Performed By: #### L 500.4050, L100.0100, L500.4100 ####[facility] [address] [place], [address] Creatinine [Mass/Vol] 1.03 mg/dL Normal 0.70-1.30 [facility] Comment on above: Result Comment: The validity of the calculated GFR GFRAA in patients over 70 years has not been determined. Clinical correlation is essential. Performed By: #### L 500.4050, L100.0100, L500.4100 ####[facility] [address] [place], [address] EST GFR - AA 97 mL/min Normal >60 [facility] Comment on above: Result Comment: Afri can Eritrean GFR Calc Performed By: #### L 500.4050, L100.0100, L500.4100 ####[facility] [address] [place], [address] GAP 7 Normal 5-15 [facility] Comment on above: Performed By: #### L 500.4050, L100.0100, L500.4100 ####[facility] [address] [place], [address] GFR/1.73 sq M.predicted among non-blacks MDRD (S/P/Bld) [Vol rate/Area] 80 mL/min/{1.73_m2} Normal >60 [facility] Comment on above: Result Comment: Non- GFR Calc Performed By: #### L 500.4050, L100.0100, L500.4100 ####[facility] [address] [place], [address] Globulin (S) [Mass/Vol] 3.9 g/dL Normal 2.2-4.2 [facility] Comment on above: Performed By: #### L 500.4050, L100.0100, L500.4100 ####[facility] [address] [place], [address] Glucose [Mass/Vol] 162 mg/dL High 74-106 [facility] Comment on above: Result Comment: Fast ing Glucose result greater than or equal to 126 mg/dL suggests DIABETES MELLITUS per A.D.A. criteria. Performed By: #### L 500.4050, L100.0100, L500.4100 ####[facility] [address] [place], [address] Potassium [Moles/Vol] 4.3 mmol/L Normal 3.5-5.1 [facility] Comment on above: Performed By: #### L 500.4050, L100.0100, L500.4100 ####[facility] [address] [place], [address] Sodium [Moles/Vol] 138 mmol/L Normal 136-145 [facility] Comment on above: Performed By: #### L 500.4050, L100.0100, L500.4100 ####[facility] [address] [place], [address] T PROT 7.6 g/dL Normal 6.4-8.2 [facility] Comment on above: Performed By: #### L 500.4050, L100.0100, L500.4100 ####[facility] [address] [place], [address] Urea nitrogen [Mass/Vol] 19 mg/dL High 7-18 [facility] Comment on above: Performed By: #### L 500.4050, L100.0100, L500.4100 ####[facility] [address] [place], [address] Eosinophil percentageOrdered By: Rayne Gonzalez on 05-30-2024 Eosinophils/100 WBC (Bld) 2.8 % 0-5 [facility] Erythrocyte distribution wid th (RBC) [Ratio]Ordered By: Rayne Gonzalez on 05-30-2024 Erythrocyte distribution width (RBC) [Entitic vol] 47.7 fL High 35.1-43.9 [facility] Erythrocyte distribution wid th ratioOrdered By: Rayne Gonzalez on 05-30-2024 Erythrocyte distribution width (RBC) [Ratio] 14.8 % High 11.6-14.6 [facility] Estimated glomerular filtrat ion rate (GFR) AmericanOrdered By: Rayne Gonzalez on 05-30-2024 Estimated GFR (MDRD) Amer 97 mL/min >60 [facility] Comment on above: GFR Calc Glomerular filtration rate ( GFR) estimationOrdered By: Rayne Gonzalez on 05-30-2024 Estimated GFR (MDRD) Non-Af Amer 80 mL/min >60 [facility] Comment on above: Non- GFR Calc Glucose measurementOrdered B y: Rayne Gonzalez on 05-30-2024 Glucose [Mass/Vol] 162 mg/dL High 74-106 [facility] Comment on above: Fasting Glucose resu lt greater than or equal to 126 mg/dL suggests DIABETES MELLITUS per A.D.A. criteria. Hematocrit Auto (Bld) [Volum e fraction]Ordered By: Rayne Gonzalez on 05-30-2024 Hematocrit (Bld) [Volume fraction] 39.2 % Low 40-54 [facility] Hemoglobin measurementOrdere d By: Rayne Gonzalez on 05-30-2024 Hemoglobin (Bld) [Mass/Vol] 13.2 g/dL 13.0-16.5 [facility] High density lipoprotein (HD L) measurementOrdered By: Rayne Gonzalez on 05-30-2024 Cholesterol in HDL [Mass/Vol] 46 mg/dL >40 [facility] Comment on above: The drugs N-Acetylcy steine and Metamizole may falsely depress this assay. Reference Range HDL <40 mg/dL Low HDL Cholesterol HDL >or= 60 mg/dL High HDL Cholesterol Immature granulocytes/100 WB C Auto (Bld)Ordered By: Rayne Gonzalez on 05-30-2024 Immature granulocytes/100 WBC (Bld) 0.700 % 0.0-0.9 [facility] Comment on above: IG% - Immature Granu locytes (promyelocytes, myelocytes and metamyelocytes) > 1% indicates that a LEFT SHIFT is Present. Laboratory - Chemistry and C hemistry - challengeOrdered By: Rayne Gonzalez on 05-30-2024 AST [Catalytic activity/Vol] 35 U/L 15-37 [facility] Lipid Profileon 05-30-2024 Cholesterol [Mass/Vol] 143 mg/dL Normal 200 [facility] Comment on above: Result Comment: <200 mg/dL Desirable 200-240 mg/dL Borderline >240 mg/dL High Risk Performed By: #### L 500.4050, L100.0100, L500.4100 ####[facility] [address] [place], [address] Cholesterol in HDL [Mass/Vol] 46 mg/dL Normal [facility] Comment on above: Result Comment: The drugs N-Acetylcysteine and Metamizole may falsely depress this assay. Reference Range HDL <40 mg/dL Low HDL Cholesterol HDL >or= 60 mg/dL High HDL Cholesterol Performed By: #### L 500.4050, L100.0100, L500.4100 ####[facility] [address] [place], [address] Cholesterol in LDL [Mass/Vol] 67 mg/dL Normal 0-130 [facility] Comment on above: Performed By: #### L 500.4050, L100.0100, L500.4100 ####[facility] [address] [place], [address] Cholesterol in VLDL [Mass/Vol] 30 mg/dL Normal 5-40 [facility] Comment on above: Performed By: #### L 500.4050, L100.0100, L500.4100 ####[facility] [address] [place], [address] Triglyceride [Mass/Vol] 149 mg/dL Normal [facility] Comment on above: Result Comment: The drugs N-Acetylcysteine and Metamizole may falsely depress this assay. Serum Triglycerides Reference Interval Normal <150 mg/dL Borderline high 150 - 199 mg/dL High 200 - 499 mg/dL Very High > or = 500 mg/dL Performed By: #### L 500.4050, L100.0100, L500.4100 ####[facility] [address] [place], [address] Low density lipoprotein (LDL ) cholesterol measurementOrdered By: Rayne Gonzalez on 05-30-2024 Cholesterol in LDL [Mass/Vol] 67 mg/dL 0-130 [facility] Lymphocytes Auto (Unsp spec) [#/Vol]Ordered By: Rayne Gonzalez on 05-30-2024 Lymphocytes (Bld) [#/Vol] 1.52 10*3/uL 0.83-4.51 [facility] Lymphocytes/100 WBC Auto (Un sp spec)Ordered By: Rayne Gonzalez on 05-30-2024 Lymphocytes/100 WBC (Bld) 24.8 % 19-41 [facility] MCV (mean corpuscular volume ) determinationOrdered By: Ranye Gonzalez on 05-30-2024 MCV (RBC) [Entitic vol] 88.5 fL 80-94 [facility] Mean corpuscular hemoglobin (MCH) determinationOrdered By: Rayne Gonzalez on 05-30-2024 MCH (RBC) [Entitic mass] 29.8 pg 27.0-32.0 [facility] Mean corpuscular hemoglobin concentration (MCHC) determinationOrdered By: Rayne Gonzalez on 05-30-2024 MCHC (RBC) [Mass/Vol] 33.7 g/dL 32-36 [facility] Mean platelet volume determi nationOrdered By: Rayne Gonzalez on 05-30-2024 Platelet mean volume (Bld) [Entitic vol] 10.6 fL 6.2-12.0 [facility] Monocyte percentageOrdered B y: Rayne Gonzalez on 05-30-2024 Monocytes/100 WBC (Bld) 7.7 % 0-10 [facility] Neutrophil percentageOrdered By: Rayne Gonzalez on 05-30-2024 Neutrophils/100 WBC (Bld) 62.9 % 47-70 [facility] Nucleated red blood cell per centageOrdered By: Rayne Gonzalez on 05-30-2024 Nucleated RBC/100 WBC (Bld) [Ratio] 0 % 0-5 [facility] Platelet countOrdered By: Jp Gonzalez on 05-30-2024 Platelets (Bld) [#/Vol] 213 10*3/uL 150-450 [facility] Potassium measurementOrdered By: Rayne Gonzalez on 05-30-2024 Potassium [Moles/Vol] 4.3 mmol/L 3.5-5.1 [facility] RBC Auto (Bld) [#/Vol]Ordere d By: Rayne Gonzalez on 05-30-2024 RBC (Bld) [#/Vol] 4.43 10*6/uL Low 4.6-6.2 [facility] Serum anion gap measurementO rdered By: Rayne Gonzalez on 05-30-2024 Anion gap [Moles/Vol] 7 mmol/L 5-15 [facility] Serum globulin measurementOr dered By: Rayne Gonzalez on 05-30-2024 Globulin (S) [Mass/Vol] 3.9 g/dL 2.2-4.2 [facility] Serum or plasma alanine burgos otransferase (ALT) measurementOrdered By: Rayne Gonzalez on 05-30-2024 ALT [Catalytic activity/Vol] 48 U/L 16-61 [facility] Serum or plasma albumin shasta urement (mass/volume)Ordered By: Rayne Gonzalez on 05-30-2024 Albumin [Mass/Vol] 3.7 g/dL 3.2-5.0 [facility] Serum or plasma alkaline ericka sphatase measurementOrdered By: Rayne Gonzalez on 05-30-2024 ALP [Catalytic activity/Vol] 51 U/L 45-117 [facility] Serum or plasma calcium shasta urement (mass/volume)Ordered By: Rayne Gonzalez on 05-30-2024 Calcium [Mass/Vol] 9.4 mg/dL 8.5-10.1 [facility] Serum or plasma cholesterol measurement (mass/volume)Ordered By: Rayne Gonzalez on 05-30-2024 Cholesterol [Mass/Vol] 143 mg/dL <200 [facility] Comment on above: <200 mg/dL Desirable 200-240 mg/dL Borderline >240 mg/dL High Risk Serum or plasma creatinine m easurement (mass/volume)Ordered By: Rayne Gonzalez on 05-30-2024 Creatinine [Mass/Vol] 1.03 mg/dL 0.70-1.30 [facility] Comment on above: The validity of the calculated GFR & GFRAA in patients over 70 years has not been determined. Clinical correlation is essential. Serum or plasma urea nitroge n measurement (mass/volume)Ordered By: Rayne Gonzalez on 05-30-2024 Urea nitrogen [Mass/Vol] 19 mg/dL High 7-18 [facility] Sodium levelOrdered By: Ester Gonzalez on 05-30-2024 Sodium [Moles/Vol] 138 mmol/L 136-145 [facility] Total proteinOrdered By: Tristan Gonzalez on 05-30-2024 Protein [Mass/Vol] 7.6 g/dL 6.4-8.2 [facility] Triglycerides measurementOrd ered By: Rayne Gonzalez on 05-30-2024 Triglyceride [Mass/Vol] 149 mg/dL <199 [facility] Comment on above: The drugs N-Acetylcy steine and Metamizole may falsely depress this assay.Serum Triglycerides Reference Interval Normal <150 mg/dL Borderline high 150 - 199 mg/dL High 200 - 499 mg/dL Very High > or = 500 mg/dL Very low density lipoprotein (VLDL) cholesterol measurementOrdered By: Rayne Gonzalez on 05-30-2024 VLDL Cholesterol 30 mg/dL 5-40 [facility] White blood cell (WBC) count Ordered By: Rayne Gonzalez on 05-30-2024 WBC (Bld) [#/Vol] 6.1 10*3/uL 4.4-11.0 [facility] Urgent Care Visit Reporton 0 05-23-2024 Urgent Care Visit Report [facility] [address], [address] [place] [address] OFFICE VISIT Date of Service: 05/23/24 MR#: [id number] Acct: [id number] Name: MARK ANTHONY YE Rep #: [id number] : 1970 Provider: ARIS Ortiz Age/Sex: 54/M Location: [facility] Status: Signed Intake Vital Signs 05/04/24 10:22 05/23/24 12:18 Height 5 ft 7 in Weight: 314 lb BMI 49.1 BP 134/82 H 118/70 Blood Pressure Location Lt brachial Lt brachial Position Sitting Sitting Respiration 16 12 Pulse 105 H 108 H Pulse Source Monitor NIBP Temp 98.7 F 98.1 F Temp Source Temporal Oral Pulse Oximetry (%) 97 Oxygen Delivery Method room air Intake Visit Reasons: Cough Chief Complaint: cough Typing Teacher Required: No Is patient in pain?: No Allergies No Known Allergies Allergy (Verified 05/23/24 12:18) Nurse's Note: patient was here for cough x3 weeks. [facility] Medical History (Updated 05/23/24 @ 12:43 by Ryan HURST, PA) Acute bronchitis, unspecified Acute maxillary sinusitis, unspecified Ocular migraine JOANNE (obstructive sleep apnea) Pre-diabetes Cardiac murmur High cholesterol Hypertension Heart failure Bone fracture History of back problems Surgical History History of tonsillectomy History of foot surgery History of hernia repair Family History Mother Alcoholism Arthritis Myocardial infarction CVA (cerebral vascular accident) COPD (chronic obstructive pulmonary disease) Father Alcoholism COPD (chronic obstructive pulmonary disease) Prostate cancer Grandmother Arthritis Breast cancer Colon cancer Skin cancer Social History household members: spouse current occupational status: unemployed Smoking Status: Never smoker Electronic Cigarette Use: not used alcohol intake: current alcohol intake frequency: holidays/special occasions only Alcohol type: beer and wine substance use type: does not use what type of physical activity do you participate in: none do you feel safe at home: Yes HPI HPI Chief Complaint: cough Details: MARK ANTHONY YE, is a 54 M who presents to the office today for initial evaluation proximately 3 wk history of persistent cough/ wheeze w/ occas sob; no cp/ schneider. Previously prescribed doxycycline approximately 2 weeks ago by his PCP for the same symptoms noting nearly resolved improvement, though after completing antibiotic and symptoms not fully resolved he notes her progressively worsening symptoms once again over the course the last week. Non-smoker. Long close contacts with similar complaints. Declining all POC screening. No other associated symptoms and no other alleviating/aggravat ing factors. ROS Const Constitutional: No other (As above) Exam Const General: cooperative, healthy appearing and no acute distress Orientation: alert and awake HENMT Head: normal to inspection Ears: hearing grossly normal bilaterally, external ears normal, TM's normal bilaterally and EAC's normal Nose: external nose normal, nares normal, septum normal and no nasal discharge Face and sinus: normal facial exam, sinuses nontender and face symmetric Mouth: oral mucosae normal, lip normal, tongue normal, oropharynx normal and moist mucous membranes Throat: posterior oropharynx normal, tonsils normal and uvula midline Eyes General: appearance normal, both eyes and all related structures Neck Neck: normal visual inspection, full ROM, no lymphadenopathy, no meningeal signs and supple Neck mass: No Thyroid: thyroid normal Lymphatic: no lymphadenopathy noted Chest Chest palpation inspection: normal inspection of the chest Resp Effort Inspection: normal respiratory effort, able to speak in complete sentences and cough Quality of cough: wet (Nonproductive in office today) Auscultation: Bilateral: Clear to Auscultation Cardio Palpation: normal PMI Rate: regular rate Rhythm: regular rhythm Heart Sounds: S1 normal, S2 normal, no gallops, no murmurs and no rubs Pulses: radial pulses present GI Inspection: normal to inspection Skin General: no rashes or lesions noted Neuro General: patient alert, patient awake and patient oriented x3 Cognition: normal cognition Speech: speech normal Psych Appearance: grossly normal Mental Status: mental status grossly normal Mood: congruent mood Affect: normal affect Speech and Movement: speech and movement normal Attitude: cooperative Coding Level of Care Code Off vis,est,level 3 Diagnoses Acute bronchitis, unspecified J20.9 Assessment and Plan Assessment and Plan (1) Acute bronchitis, unspecified: Status: Acute Plan: (more content not included)... Normal [facility] Laboratory - Hematology and Cell countson 05-04-2024 HbA1c (Bld) [Mass fraction] 7.9 % High 4.2-6.3 [facility] Internal Medicine Office Vis iton 05-03-2024 Internal Medicine Office Visit [facility] [place], [place] [id number] OFFICE VISIT Date of Service: 05/04/24 MR#: [id number] Acct: [id number] Name: MARK ANTHONY YE Jr. Rep #: [id number] : 1970 Provider: Dr. Rayne mendez MD Age/Sex: 54/M Location: [facility] Status: Signed Intake Vital Signs 10/15/23 09:39 05/04/24 10:22 Height 5 ft 7 in 5 ft 7 in Weight: 314 lb BMI 49.1 BP 134/82 H Blood Pressure Location Lt brachial Position Sitting Respiration 16 Pulse 105 H Pulse Source Monitor Temp 98.7 F Temp Source Temporal Pulse Oximetry (%) 97 Oxygen Delivery Method room air Intake Visit Reasons: FOLLOW UP Chief Complaint: meds check Typing Teacher Required: No Is patient in pain?: No Allergies No Known Allergies Allergy (Verified 05/04/24 10:11) Medications ???Medication ???Instructions ???Recorded ???Confirmed ???Type aspirin 81 mg tablet,delayed 81 mg PO DAILY 11/04/22 05/04/24 History release (Adult Aspirin Regimen) [id number] 150 mcg-vit K1 tab PO 11/04/22 05/04/24 History 30 mcg-lycop 300 mcg-lutein tablet (Centrum Minis Men 50 Plus) flash glucose scanning reader #1 ea 05/20/23 05/04/24 Rx (FreeStyle Vance 2 [place]) flash glucose sensor (FreeStyle #1 ea 05/20/23 05/04/24 Rx Vance 2 Sensor kit) atorvastatin 20 mg tablet 20 mg PO DAILY #90 tabs 05/04/24 05/04/24 Rx codeine 10 mg-guaifenesin 100 mg/5 10 ml PO Q4-6H PRN cough #118 mL 05/04/24 05/04/24 Rx mL oral liquid doxycycline hyclate 100 mg tablet 100 mg PO BID #10 tabs 05/04/24 05/04/24 Rx lisinopril 20 mg tablet 20 mg PO DAILY #90 tabs 05/04/24 05/04/24 Rx metformin 1,000 mg tablet 1,000 mg PO BID #180 tabs 05/04/24 05/04/24 Rx trazodone 50 mg tablet 25 mg (1/2 x 50 mg) PO QHS #90 tabs 12/18/24 12/18/24 Rx triamterene 37.5 1 cap PO DAILY #90 caps 05/04/24 05/04/24 Rx mg-hydrochlorothiazi de 25 mg capsule Nurse's Note: R crunching in ear like paper is wadded up in there, and an occasional dry rarely productive cough for about 4 days. Denies body aches, fevers, chills, SOB. Has been using nyquil, dayquil and cough drops. States a1c wont be good as he lost his son a few weeks ago and found him. Has been having difficulty sleeping gets about 3 hours a night, and has not been eating good. Saw a grief counselor closer to the event. States that he has not talked to anyone since has racing thoughts. Is wanting to see a counselor but will be leaving to visit family this weekend. [facility] Medical History Acute maxillary sinusitis, unspecified Ocular migraine JOANNE (obstructive sleep apnea) Pre-diabetes Cardiac murmur High cholesterol Hypertension Heart failure Bone fracture History of back problems Surgical History History of tonsillectomy History of foot surgery History of hernia repair Family History Mother Alcoholism Arthritis Myocardial infarction CVA (cerebral vascular accident) COPD (chronic obstructive pulmonary disease) Father Alcoholism COPD (chronic obstructive pulmonary disease) Prostate cancer Grandmother Arthritis Breast cancer Colon cancer Skin cancer Social History household members: spouse current occupational status: unemployed Smoking Status: Never smoker Electronic Cigarette Use: not used alcohol intake: current alcohol intake frequency: holidays/special occasions only Alcohol type: beer and wine substance use type: does not use what type of physical activity do you participate in: none do you feel safe at home: Yes HPI HPI Chief Complaint: meds check Details: MARK ANTHONY YE, is a 54 M who presents to the office today for a follow up. He never did his blood work as previously ordered. He wants to hold off on his colon cancer screening until the new year. He is up to date on his immunizations. He doesn't smoke and does need refills. He reports he hasn't been monitoring his diet recently due to his grief nor has he been very active. He is not checking his blood pressure at home. He reports he has been taking his medication as prescribed. He hasn't really been monitoring his salt intake. He has not been checking his sugars at all nor has he been monitoring his carbohydrate and sugar intake. He has been missing his evening dose of the metformin most days, but does make sure he takes his morning dose. He is up to date on his diabetic eye exam and doesn't follow with podiatry. The patient has obstructive sleep apnea. He wears his CPAP every time he lays down and benefits from it. The patient reports he has been having cough and c (more content not included)... Normal [facility] Absolute lymphocyte countOrd ered By: Joseph Roper on 05-15-2023 Lymphocytes Auto (Unsp spec) [#/Vol] 1.42 10*3/uL 0.83-4.51 [facility] Basophil percentageOrdered B y: Joseph Roper on 05-15-2023 Basophil percentage 0 SEEN /hpf 0-5 [facility] Basophils/100 WBC (Bld) 0.5 % 0-1 [facility] Chloride [Moles/Vol] 101 mmol/L 98-107 [facility] Eosinophils/100 WBC (Bld) 0.7 % 0-5 [facility] Glucose [Mass/Vol] 211 mg/dL 74-106 [facility] Comment on above: Glucose result great er than or equal to 200 mg/dLsuggests DIABETES MELLITUS per A.D.A. criteria. Neutrophils (Bld) [#/Vol] 8.0 10*3/uL 2.0-7.7 [facility] Neutrophils/100 WBC (Bld) 76.8 % 47-70 [facility] Potassium [Moles/Vol] 3.8 mmol/L 3.5-5.1 [facility] Sodium [Moles/Vol] 132 mmol/L 136-145 [facility] WBC (Bld) [#/Vol] 10.4 10*3/uL 4.4-11.0 [facility] Bilirubin Test strip Ql (U)O rdered By: Joseph Roper on 05-15-2023 Bilirubin Ql (U) Negative Negative [facility] Blood erythrocytes count (nu mber/volume)Ordered By: Joseph Roper on 05-15-2023 RBC (Bld) [#/Vol] 4.79 10*6/uL 4.6-6.2 [facility] Blood hemoglobin measurement (mass/volume)Ordered By: Joseph Roper on 05-15-2023 Hemoglobin (Bld) [Mass/Vol] 14.4 g/dL 13.0-16.5 [facility] Blood lymphocytes/100 leukoc ytesOrdered By: Joseph Roper on 05-15-2023 Lymphocytes/100 WBC (Bld) 13.7 % 19-41 [facility] Blood monocytes/100 leukocyt esOrdered By: Joseph Roper on 05-15-2023 Monocytes/100 WBC (Bld) 7.9 % 0-10 [facility] Blood platelet mean volumeOr dered By: Joseph Roper on 05-15-2023 Platelet mean volume (Bld) [Entitic vol] 10.4 fL 6.2-12.0 [facility] Determination of erythrocyte mean corpuscular volume (MCV)Ordered By: Joseph Roper on 05-15-2023 MCV (RBC) [Entitic vol] 86.2 fL 80-94 [facility] Hematocrit Auto (Bld) [Volum e fraction]Ordered By: Joseph Roper on 05-15-2023 Hematocrit (Bld) [Volume fraction] 41.3 % 40-54 [facility] Ketones Test strip Ql (U)Ord ered By: Joseph Roper on 05-15-2023 Ketones Ql (U) 5 mg/dl Negative [facility] Laboratory - Chemistry and C hemistry - challengeOrdered By: Joseph Roper on 05-15-2023 CO2 [Moles/Vol] 24.0 mmol/L 21.0-32.0 [facility] Urea nitrogen/Creatinine [Mass ratio] 17.0 mg/mg 10-20 [facility] - Hematology and Cell countsOrdered By: Joseph Roper on 05-15-2023 Erythrocyte distribution width (RBC) [Entitic vol] 41.2 fL 35.1-43.9 [facility] Erythrocyte distribution width (RBC) [Ratio] 13.2 % 11.6-14.6 [facility] Immature granulocytes/100 WBC (Bld) 0.400 % 0.0-0.9 [facility] Comment on above: IG% - Immature Granu locytes (promyelocytes, myelocytes and metamyelocytes) > 1% indicates that a LEFT SHIFT is Present. MCH (RBC) [Entitic mass] 30.1 pg 27.0-32.0 [facility] Nucleated RBC/100 WBC (Bld) [Ratio] 0 % 0-5 [facility] MCHC Auto (RBC) [Mass/Vol]Or dered By: Joseph Roper on 05-15-2023 MCHC (RBC) [Mass/Vol] 34.9 g/dL 32-36 [facility] Mucus LM Ql (Urine sed)Order ed By: Joseph Roper on 05-15-2023 Mucus Ql (Urine sed) 0 SEEN /hpf [facility] Nitrite Test strip Ql (U)Ord ered By: Joseph Roper on 05-15-2023 Nitrite Ql (U) Negative Negative [facility] No Panel InformationOrdered By: Joseph Roper on 05-15-2023 Estimated Creatinine Clearance Calc 84.97 ml/min [facility] Estimated GFR (MDRD) Amer 108 mL/min >60 [facility] Comment on above: GFR Calc Estimated GFR (MDRD) Non-Af Amer 89 mL/min >60 [facility] Comment on above: Non- GFR Calc Platelets bldOrdered By: Oren Roper on 05-15-2023 Platelets (Bld) [#/Vol] 213 10*3/uL 150-450 [facility] Protein Test strip Ql (U)Ord ered By: Joseph Roper on 05-15-2023 Protein Ql (U) 500 mg/dl Negative [facility] Serum or plasma calcium shasta urement (mass/volume)Ordered By: Joseph Roper on 05-15-2023 Calcium [Mass/Vol] 9.8 mg/dL 8.5-10.1 [facility] Serum or plasma creatinine m easurement (mass/volume)Ordered By: Joseph Roper on 05-15-2023 Creatinine [Mass/Vol] 0.94 mg/dL 0.70-1.30 [facility] Comment on above: The validity of the calculated GFR & GFRAA in patients over 70 years has not been determined. Clinical correlation is essential. Serum or plasma urea nitroge n measurement (mass/volume)Ordered By: Joseph Roper on 05-15-2023 Urea nitrogen [Mass/Vol] 16 mg/dL 7-18 [facility] Squamous epithelial cells de tection in urine sediment by light microscopyOrdered By: Joseph Roper on 05-15-2023 Epithelial cells.squamous LM Ql (Urine sed) 0 SEEN /hpf 0-5 [facility] Thin prep Papanicolaou smear with manual screeningOrdered By: Joseph Roper on 05-15-2023 Thin prep Papanicolaou smear with manual screening 7 5-15 [facility] Urine blood detectionOrdered By: Joseph Roper on 05-15-2023 RBC Ql (U) 250 /ul Negative [facility] RBC Ql (U) 50-100 SEEN /hpf 0-5 [facility] Urine clarityOrdered By: Oren Roper on 05-15-2023 Clarity (U) Turbid Clear [facility] Urine color determinationOrd ered By: Joseph Roper on 05-15-2023 Color (U) Red Yellow [facility] Urine glucose detectionOrder ed By: Joseph Roper on 05-15-2023 Glucose Ql (U) Normal mg/dl Normal [facility] Urine leukocyte esterase det ection by dipstickOrdered By: Joseph Roper on 05-15-2023 Leukocyte esterase Test strip Ql (U) Negative Negative [facility] Urine pHOrdered By: Joseph rubin on 05-15-2023 pH (U) 6.5 [pH] 5.0 - 8.0 [facility] Urine sediment bacteria coun t by microscopy (number/high power field)Ordered By: Joseph Roper on 05-15-2023 Bacteria LM.HPF (Urine sed) [#/Area] 0 /[HPF] None Seen [facility] Urine specific gravity measu rementOrdered By: Joseph Roper on 05-15-2023 Specific gravity (U) [Rel density] 1.015 1.002-1.030 [facility] Urobilinogen Auto test strip Ql (U)Ordered By: Joseph Roper on 05-15-2023 Urobilinogen Ql (U) Normal mg/dl Normal [facility] No Panel Informationon 04-07 POC SARS CoV-2 Antigen Negative [facility] Absolute lymphocyte countOrd ered By: Rayne Gonzalez on 11-27-2022 Lymphocytes Auto (Unsp spec) [#/Vol] 1.58 10*3/uL 0.83-4.51 [facility] Basophil percentageOrdered B y: Rayne Gonzalez on 11-27-2022 Basophils/100 WBC (Bld) 0.9 % 0-1 [facility] Bilirubin [Mass/Vol] 0.60 mg/dL 0.20-1.00 [facility] Comment on above: For patients on eltr ombopag therapy, use of Dimension [place] TBIL is not recommended. Chloride [Moles/Vol] 104 mmol/L 98-107 [facility] Cholesterol [Mass/Vol] 157 mg/dL <200 [facility] Comment on above: <200 mg/dL Desirable 200-240 mg/dL Borderline >240 mg/dL High Risk Eosinophils/100 WBC (Bld) 2.3 % 0-5 [facility] Glucose [Mass/Vol] 185 mg/dL 74-106 [facility] Comment on above: Fasting Glucose resu lt greater than or equal to 126 mg/dL suggests DIABETES MELLITUS per A.D.A. criteria. Neutrophils (Bld) [#/Vol] 4.0 10*3/uL 2.0-7.7 [facility] Neutrophils/100 WBC (Bld) 62.5 % 47-70 [facility] Potassium [Moles/Vol] 4.2 mmol/L 3.5-5.1 [facility] Protein [Mass/Vol] 7.3 g/dL 6.4-8.2 [facility] Sodium [Moles/Vol] 136 mmol/L 136-145 [facility] Triglyceride [Mass/Vol] 219 mg/dL <199 [facility] Comment on above: The drugs N-Acetylcy steine and Metamizole may falsely depress this assay.Serum Triglycerides Reference Interval Normal <150 mg/dL Borderline high 150 - 199 mg/dL High 200 - 499 mg/dL Very High > or = 500 mg/dL WBC (Bld) [#/Vol] 6.4 10*3/uL 4.4-11.0 [facility] Blood erythrocytes count (nu mber/volume)Ordered By: Rayne Gonzalez on 11-27-2022 RBC (Bld) [#/Vol] 4.86 10*6/uL 4.6-6.2 [facility] Blood hemoglobin measurement (mass/volume)Ordered By: Rayne Gonzalez on 11-27-2022 Hemoglobin (Bld) [Mass/Vol] 14.4 g/dL 13.0-16.5 [facility] Blood lymphocytes/100 leukoc ytesOrdered By: Rayne Gonzalez on 11-27-2022 Lymphocytes/100 WBC (Bld) 24.7 % 19-41 [facility] Blood monocytes/100 leukocyt esOrdered By: Rayne Gonzalez on 11-27-2022 Monocytes/100 WBC (Bld) 8.8 % 0-10 [facility] Blood platelet mean volumeOr dered By: Rayne Gonzalez on 11-27-2022 Platelet mean volume (Bld) [Entitic vol] 11.3 fL 6.2-12.0 [facility] Determination of erythrocyte mean corpuscular volume (MCV)Ordered By: Rayne Gonzalez on 11-27-2022 MCV (RBC) [Entitic vol] 89.1 fL 80-94 [facility] Hematocrit Auto (Bld) [Volum e fraction]Ordered By: Rayne Gonzalez on 11-27-2022 Hematocrit (Bld) [Volume fraction] 43.3 % 40-54 [facility] - Chemistry and C hemistry - challengeOrdered By: Rayne Gonzalez on 11-27-2022 ALP [Catalytic activity/Vol] 53 U/L 45-117 [facility] ALT [Catalytic activity/Vol] 53 U/L 16-61 [facility] CO2 [Moles/Vol] 26.0 mmol/L 21.0-32.0 [facility] Globulin (S) [Mass/Vol] 3.8 g/dL 2.2-4.2 [facility] Urea nitrogen/Creatinine [Mass ratio] 22.8 mg/mg 10-20 [facility] - Hematology and Cell countsOrdered By: Rayne Gonzalez on 11-27-2022 Erythrocyte distribution width (RBC) [Entitic vol] 43.8 fL 35.1-43.9 [facility] Erythrocyte distribution width (RBC) [Ratio] 13.4 % 11.6-14.6 [facility] Immature granulocytes/100 WBC (Bld) 0.800 % 0.0-0.9 [facility] Comment on above: IG% - Immature Granu locytes (promyelocytes, myelocytes and metamyelocytes) > 1% indicates that a LEFT SHIFT is Present. MCH (RBC) [Entitic mass] 29.6 pg 27.0-32.0 [facility] Nucleated RBC/100 WBC (Bld) [Ratio] 0 % 0-5 [facility] MCHC Auto (RBC) [Mass/Vol]Or dered By: Rayne Gonzalez on 11-27-2022 MCHC (RBC) [Mass/Vol] 33.3 g/dL 32-36 [facility] No Panel InformationOrdered By: Rayne Gonzalez on 11-27-2022 Estimated GFR (MDRD) Amer 117 mL/min >60 [facility] Comment on above: GFR Calc Estimated GFR (MDRD) Non-Af Amer 97 mL/min >60 [facility] Comment on above: Non- GFR Calc Platelets bldOrdered By: Tristan Gonzalez on 11-27-2022 Platelets (Bld) [#/Vol] 204 10*3/uL 150-450 [facility] Serum or plasma albumin shasta urement (mass/volume)Ordered By: Rayne Gonzalez on 11-27-2022 Albumin [Mass/Vol] 3.5 g/dL 3.2-5.0 [facility] Serum or plasma albumin/glob ulin mass ratioOrdered By: Rayne Gonzalez on 11-27-2022 Albumin/Globulin [Mass ratio] 0.9 {ratio} 0.9-2.4 [facility] Serum or plasma calcium shasta urement (mass/volume)Ordered By: Rayne Gonzalez on 11-27-2022 Calcium [Mass/Vol] 9.2 mg/dL 8.5-10.1 [facility] Serum or plasma cholesterol in HDL measurement (mass/volume)Ordered By: Rayne Gonzalez on 11-27-2022 Cholesterol in HDL [Mass/Vol] 34 mg/dL >40 [facility] Comment on above: The drugs N-Acetylcy steine and Metamizole may falsely depress this assay. Reference Range HDL <40 mg/dL Low HDL Cholesterol HDL >or= 60 mg/dL High HDL Cholesterol Serum or plasma cholesterol in VLDL measurement (mass/volume)Ordered By: Rayne Gonzalez on 11-27-2022 Cholesterol in VLDL [Mass/Vol] 44 mg/dL 5-40 [facility] Serum or plasma creatinine m easurement (mass/volume)Ordered By: Rayne Gonzalez on 11-27-2022 Creatinine [Mass/Vol] 0.88 mg/dL 0.70-1.30 [facility] Comment on above: The validity of the calculated GFR & GFRAA in patients over 70 years has not been determined. Clinical correlation is essential. Serum or plasma low density lipoprotein (LDL) cholesterol measurement (mass/volume)Ordered By: Rayne Gonzalez on 11-27-2022 Cholesterol in LDL [Mass/Vol] 79 mg/dL 0-130 [facility] Serum or plasma urea nitroge n measurement (mass/volume)Ordered By: Rayne Gonzalez on 11-27-2022 Urea nitrogen [Mass/Vol] 20 mg/dL 7-18 [facility] Thin prep Papanicolaou smear with manual screeningOrdered By: Rayne Gonzalez on 11-27-2022 Thin prep Papanicolaou smear with manual screening 28 U/L 15-37 [facility] Thin prep Papanicolaou smear with manual screening 6 5-15 [facility] - Hematology and Cell countson 11-04-2022 HbA1c (Bld) [Mass fraction] 6.2 % 4.2-6.3 [facility] Vital Signs Date Time Vital Sign Value Performing Clinician Facility 10-05-2024 13:31-0400 Body height 172.[address] Rayne Gonzalez MD Work Phone: [facility] 10-05-2024 13:31-0400 Body mass index (BMI) [Ratio] 45.3 kg/m2 Dr. Rayne Gonzalez MD Work Phone: [facility] 10-05-2024 13:31-0400 Body weight 135.[address] Rayne Gonzalez MD Work Phone: [facility] 10-05-2024 13:31-0400 Diastolic blood pressure 68 mm[Hg] Dr. Rayne Gonzalez MD Work Phone: [facility] 10-05-2024 13:31-0400 Heart rate 95 /min Dr. Rayne Gonzalez MD Work Phone: [facility] 10-05-2024 13:31-0400 Respiratory rate 16 /min Dr. Rayne Gonzalez MD Work Phone: [facility] 10-05-2024 13:31-0400 Systolic blood pressure 101 mm[Hg] Dr. Rayne Gonzalez MD Work Phone: [facility] 09-20-2024 09:11-0400 Body mass index (BMI) [Ratio] 45.1 kg/m2 Dr. Rayne Gonzalez MD Work Phone: [facility] 09-20-2024 09:11-0400 Body temperature 97.3 [degF] Dr. Rayne Gonzalez MD Work Phone: [facility] 09-20-2024 09:11-0400 Body weight 134.[address] Rayne Gonzalez MD Work Phone: [facility] 09-20-2024 09:11-0400 Diastolic blood pressure 80 mm[Hg] Dr. Rayne Gonzalez MD Work Phone: [facility] 09-20-2024 09:11-0400 Heart rate 76 /min Dr. Rayne Gonzalez MD Work Phone: [facility] 09-20-2024 09:11-0400 Respiratory rate 18 /min Dr. Rayne Gonzalez MD Work Phone: [facility] 09-20-2024 09:11-0400 SaO2% (BldA) [Mass fraction] 96 % Dr. Rayne Gonzalez MD Work Phone: [facility] 09-20-2024 09:11-0400 Systolic blood pressure 116 mm[Hg] Dr. Rayne Gonzalez MD Work Phone: [facility] 08-20-2024 08:36-0400 Body temperature 98 [degF] Dr. Rayne Gonzalez MD Work Phone: [facility] 08-20-2024 08:36-0400 Diastolic blood pressure 65 mm[Hg] Dr. Rayne Gonzalez MD Work Phone: [facility] 08-20-2024 08:36-0400 Heart rate 60 /min Dr. Rayne Gonzalez MD Work Phone: [facility] 08-20-2024 08:36-0400 Inhaled oxygen flow rate 2 L/min Dr. Rayne Gonzalez MD Work Phone: [facility] 08-20-2024 08:36-0400 Respiratory rate 18 /min Dr. Rayne Gonzalez MD Work Phone: [facility] 08-20-2024 08:36-0400 SaO2% (BldA) [Mass fraction] 93 % Dr. Rayne Gonzalez MD Work Phone: [facility] 08-20-2024 08:36-0400 Systolic blood pressure 94 mm[Hg] Dr. Rayne Gonzalez MD Work Phone: [facility] 08-20-2024 03:45-0400 Body mass index (BMI) [Ratio] 45.9 kg/m2 Dr. Rayne Gonzalez MD Work Phone: [facility] 08-20-2024 03:45-0400 Body weight 137.[address] Rayne Gnozalez MD Work Phone: [facility] 08-20-2024 00:15-0400 Inhaled oxygen concentration 28 % Dr. Rayne Gonzalez MD Work Phone: [facility] 08-17-2024 14:58-0400 Body height 172.[address] Rayne Gonzalez MD Work Phone: [facility] 08-17-2024 09:27-0400 Diastolic blood pressure 76 mm[Hg] Dr. Rayne Gonzalez MD Work Phone: [facility] 08-17-2024 09:27-0400 Heart rate 105 /min Dr. Rayne Gonzalez MD Work Phone: [facility] 08-17-2024 09:27-0400 Inhaled oxygen concentration 40 % Dr. Rayne Gonzalez MD Work Phone: [facility] 08-17-2024 09:27-0400 Respiratory rate 24 /min Dr. Rayne Gonzalez MD Work Phone: [facility] 08-17-2024 09:27-0400 SaO2% (BldA) [Mass fraction] 95 % Dr. Rayne Gonzalez MD Work Phone: [facility] 08-17-2024 09:27-0400 Systolic blood pressure 98 mm[Hg] Dr. Rayne Gonzalez MD Work Phone: [facility] 08-17-2024 07:31-0400 Inhaled oxygen flow rate 5 L/min Dr. Rayne Gonzalez MD Work Phone: [facility] 08-17-2024 06:32-0400 Body height 172.[address] Rayne Gonzalez MD Work Phone: [facility] 08-17-2024 06:32-0400 Body mass index (BMI) [Ratio] 48 kg/m2 Dr. Rayne Gonzalez MD Work Phone: [facility] 08-17-2024 06:32-0400 Body temperature 99.8 [degF] Dr. Rayne Gonzalez MD Work Phone: [facility] 08-17-2024 06:32-0400 Body weight 143.[address] Rayne Gonzalez MD Work Phone: [facility] 08-09-2024 13:06-0400 Body mass index (BMI) [Ratio] 49.9 kg/m2 Dr. Rayne Gonzalez MD Work Phone: [facility] 08-09-2024 13:06-0400 Body temperature 97.2 [degF] Dr. Rayne Gonzalez MD Work Phone: [facility] 08-09-2024 13:06-0400 Body weight 144.[address] Rayne Gonzalez MD Work Phone: [facility] 08-09-2024 13:06-0400 Diastolic blood pressure 76 mm[Hg] Dr. Rayne Gonzalez MD Work Phone: [facility] 08-09-2024 13:06-0400 Heart rate 105 /min Dr. Rayne Gonzalez MD Work Phone: [facility] 08-09-2024 13:06-0400 Respiratory rate 16 /min Dr. Rayne Gonzalez MD Work Phone: [facility] 08-09-2024 13:06-0400 SaO2% (BldA) [Mass fraction] 94 % Dr. Rayne Gonzalez MD Work Phone: [facility] 08-09-2024 13:06-0400 Systolic blood pressure 132 mm[Hg] Dr. Rayne Gonzalez MD Work Phone: [facility] 06-02-2024 12:59-0500 Body mass index (BMI) [Ratio] 48.9 kg/m2 Dr. Rayne Gonzalez MD Work Phone: [facility] 06-02-2024 12:59-0500 Body temperature 97.8 [degF] Dr. Rayne Gonzalez MD Work Phone: [facility] 06-02-2024 12:59-0500 Body weight 141.[address] Rayne Gonzalez MD Work Phone: [facility] 06-02-2024 12:59-0500 Diastolic blood pressure 84 mm[Hg] Dr. Rayne Gonzalez MD Work Phone: [facility] 06-02-2024 12:59-0500 Heart rate 93 /min Dr. Rayne Gonzalez MD Work Phone: [facility] 06-02-2024 12:59-0500 Respiratory rate 16 /min Dr. Rayne Gonzalez MD Work Phone: [facility] 06-02-2024 12:59-0500 SaO2% (BldA) [Mass fraction] 98 % Dr. Rayne Gonzalez MD Work Phone: [facility] 06-02-2024 12:59-0500 Systolic blood pressure 122 mm[Hg] Dr. Rayne Gonzalez MD Work Phone: [facility] 05-23-2024 12:18-0500 Body temperature 98.1 [degF] Dr. Rayne Gonzalez MD Work Phone: [facility] 05-23-2024 12:18-0500 Diastolic blood pressure 70 mm[Hg] Dr. Rayne Gonzalez MD Work Phone: [facility] 05-23-2024 12:18-0500 Heart rate 108 /min Dr. Rayne Gonzalez MD Work Phone: [facility] 05-23-2024 12:18-0500 Respiratory rate 12 /min Dr. Rayne Gonzalez MD Work Phone: [facility] 05-23-2024 12:18-0500 Systolic blood pressure 118 mm[Hg] Dr. Rayne Gonzalez MD Work Phone: [facility] 05-04-2024 10:22-0500 Body mass index (BMI) [Ratio] 49.1 kg/m2 Dr. Rayne Gonzalez MD Work Phone: [facility] 05-04-2024 10:22-0500 Body temperature 98.7 [degF] Dr. Rayne Gonzalez MD Work Phone: [facility] 05-04-2024 10:22-0500 Body weight 142.[address] Rayne Gonzalez MD Work Phone: [facility] 05-04-2024 10:22-0500 Diastolic blood pressure 82 mm[Hg] Dr. Rayne Gonzalez MD Work Phone: [facility] 05-04-2024 10:22-0500 Heart rate 105 /min Dr. Rayne Gonzalez MD Work Phone: [facility] 05-04-2024 10:22-0500 Respiratory rate 16 /min Dr. Rayne Gonzalez MD Work Phone: [facility] 05-04-2024 10:22-0500 SaO2% (BldA) [Mass fraction] 97 % Dr. Rayne Gonzalez MD Work Phone: [facility] 05-04-2024 10:22-0500 Systolic blood pressure 134 mm[Hg] Dr. Rayne Gonzalez MD Work Phone: [facility] 05-15-2023 13:45-0500 Body height 170.[address] Rayne Gonzalez Work Phone: [facility] 05-15-2023 13:45-0500 Body mass index (BMI) [Ratio] 51.7 kg/m2 Dr. Rayne Gonzalez Work Phone: [facility] 05-15-2023 13:45-0500 Body temperature 97 [degF] Dr. Rayne Gonzalez Work Phone: [facility] 05-15-2023 13:45-0500 Body weight 149.[address] Rayne Gonzalez Work Phone: [facility] 05-15-2023 13:45-0500 Diastolic blood pressure 89 mm[Hg] Dr. Rayne Gonzalez Work Phone: [facility] 05-15-2023 13:45-0500 Heart rate 106 /min Dr. Rayne Gonzalez Work Phone: [facility] 05-15-2023 13:45-0500 Respiratory rate 18 /min Dr. Rayne Gonzalez Work Phone: [facility] 05-15-2023 13:45-0500 SaO2% (BldA) [Mass fraction] 95 % Dr. Rayne Gonzalez Work Phone: [facility] 05-15-2023 13:45-0500 Systolic blood pressure 155 mm[Hg] Dr. Rayne Gonzalez Work Phone: [facility] 05-15-2023 13:20-0500 Body mass index (BMI) [Ratio] 51.7 kg/m2 Dr. Rayne Gonzalez Work Phone: [facility] 05-15-2023 13:20-0500 Body temperature 98.3 [degF] Dr. Rayne Gonzalez Work Phone: [facility] 05-15-2023 13:20-0500 Body weight 149.[address] Rayne Gonzalez Work Phone: [facility] 05-15-2023 13:20-0500 Diastolic blood pressure 88 mm[Hg] Dr. Rayne Gonzalez Work Phone: [facility] 05-15-2023 13:20-0500 Heart rate 114 /min Dr. Rayne Gonzalez Work Phone: [facility] 05-15-2023 13:20-0500 Respiratory rate 20 /min Dr. Rayne Gonzalez Work Phone: [facility] 05-15-2023 13:20-0500 SaO2% (BldA) [Mass fraction] 98 % Dr. Rayne Gonzalez Work Phone: [facility] 05-15-2023 13:20-0500 Systolic blood pressure 146 mm[Hg] Dr. Rayne Gonzalez Work Phone: [facility] 04-07-2023 14:17-0500 Body mass index (BMI) [Ratio] 50.1 kg/m2 Dr. Rayne Gonzalez Work Phone: [facility] 04-07-2023 14:17-0500 Body temperature 97.5 [degF] Dr. Rayne Gonzalez Work Phone: [facility] 04-07-2023 14:17-0500 Body weight 145.[address] Rayne Gonzalez Work Phone: [facility] 04-07-2023 14:17-0500 Diastolic blood pressure 76 mm[Hg] Dr. Rayne Gonzalez Work Phone: [facility] 04-07-2023 14:17-0500 Heart rate 89 /min Dr. Rayne Gonzalez Work Phone: [facility] 04-07-2023 14:17-0500 Respiratory rate 18 /min Dr. Rayne Gonzalez Work Phone: [facility] 04-07-2023 14:17-0500 SaO2% (BldA) [Mass fraction] 88 % Dr. Rayne Gonzalez Work Phone: [facility] 04-07-2023 14:17-0500 Systolic blood pressure 116 mm[Hg] Dr. Rayne Gonzalez Work Phone: [facility] 11-04-2022 09:06-0400 Body height 167.[address] Rayne Gonzalez Work Phone: [facility] 11-04-2022 09:06-0400 Body mass index (BMI) [Ratio] 52 kg/m2 Dr. Rayne Gonzalez Work Phone: [facility] 11-04-2022 09:06-0400 Body temperature 97 [degF] Dr. Rayne Gonzalez Work Phone: [facility] 11-04-2022 09:06-0400 Body weight 146.[address] Rayne Gonzalez Work Phone: [facility] 11-04-2022 09:06-0400 Diastolic blood pressure 86 mm[Hg] Dr. Rayne Gonzalez Work Phone: [facility] 11-04-2022 09:06-0400 Heart rate 71 /min Dr. Rayne Gonzalez Work Phone: [facility] 11-04-2022 09:06-0400 Respiratory rate 14 /min Dr. Rayne Gonzalez Work Phone: [facility] 11-04-2022 09:06-0400 SaO2% (BldA) [Mass fraction] 98 % Dr. Rayne Gonzalez Work Phone: [facility] 11-04-2022 09:06-0400 Systolic blood pressure 138 mm[Hg] Dr. Rayne Gonzalez Work Phone: [facility] Encounters Encounter Date Encounter Type Care Provider Facility Start: 11-07-2024 ambulatory Abel Greenfield Facility:[facility] Start: 10-31-2024 ambulatory Abel Greenfield Facility:[facility] Start: 10-05-2024 End: 10-05-[address] Abel Greenfield MD -[facility] Work Phone: Start: 10-05-2024 End: 10-05-[address] Rayne Gonzalez MD Work Phone: [facility] Work Phone: Start: 09-20-2024 End: 09-20-[address] Rayne Gonzalez MD -[facility] Work Phone: Start: 09-20-2024 End: 09-20-2024 ambulatory Rayne Gonzalez Facility:[facility] Start: 09-09-2024 End: 09-09-[address] Rayne Gonzalez MD -Pulmonary Services/Neurology Work Phone: Start: 09-09-2024 End: 09-09-2024 ambulatory Antonioluana Russell Facility:[facility] Start: 08-20-2024 Non-patient / Non-visit Dr. Cynthia LEWIS [facility] Work Phone: Start: 08-19-2024 Non-patient / Non-visit Dr. Cynthia Velazco [facility] Work Phone: Start: 08-18-2024 Non-patient / [place] [place] [place] Work [facility]: Start: 08-17-2024 ambulatory Rayne Gonzalez Facility :[facility] Start: 08-17-2024 Non-patient / Non-visit Dr. Salina DAVALOS -[facility] Start: 08-17-2024 ambulatory Elias Diaz ility:[facility] Start: 08-17-2024 End: 08-20-2024 Evaluation and management of inpatient Dr. Elias Ramires DO -Intensive Care Unit Work Phone: Start: 08-09-2024 End: 08-09-[address] Rayne Gonzalez MD -[facility] Work Phone: Start: 08-09-2024 End: 08-09-2024 ambulatory Rayne Gonzalez Facility:[facility] Start: 06-02-2024 End: 06-02-[address] [facility] Start: 06-02-2024 End: 06-02-[address] Rayne Gonazlez MD -[facility] Work Phone: Start: 06-02-2024 End: 06-02-2024 ambulatory Rayne Gonzalez Facility:[facility] Start: 06-02-2024 End: 06-02-2024 ambulatory Rayne Bolanoslay Facility:[facility] Start: 05-30-2024 End: 05-30-[address] Rayne Gonzalez MD -Laboratory, [place] Start: 05-30-2024 End: 05-30-2024 ambulatory Rayne Bolanoslay Facility:[facility] Start: 05-23-2024 End: 05-23-2024 Patient encounter procedure Ryan Suarez [facility] -[facility] Work Phone: Start: 05-23-2024 End: 05-23-2024 ambulatory Rayne Gonzalez Facility:[facility] Start: 05-04-2024 End: 05-04-[address] Rayne Gonzalez MD -[facility] Work Phone: Start: 05-04-2024 End: 05-04-2024 ambulatory Rayne Gonzalez Facility:[facility] Start: 05-15-2023 End: 05-15-2023 Emergency department patient visit Dr. Rayne Gonzalez Work Phone: [facility]-Emergency Department Work Phone: Start: 05-15-2023 End: 05-15-[address] Rayne Gonzalez Work Phone: [facility] Work Phone: Start: 04-07-2023 End: 04-07-[address] Rayne Gonzalez Work Phone: [facility] Work Phone: Start: 03-31-2023 End: 03-31-[address] Rayne Gonzalez Work Phone: [facility] Work Phone: Start: 12-01-2022 Non-patient / Non-visit Dr. Valerio Work Phone: [facility] Start: 12-01-2022 End: 12-01-[address] Rayne Gonzalez Work Phone: [facility] Work Phone: Start: 12-01-2022 End: 12-01-[address] Rayne Gonzalez Work Phone: [facility]-Cardiovascular Services Work Phone: Start: 11-27-2022 End: 11-27-[address] Rayne Gonzalez Work Phone: [facility], [facility] Start: 11-04-2022 End: 11-04-[address] Rayne Gonzalez Work Phone: [facility] Work Phone: Procedures Date Procedure Procedure Detail Performing Clinician Start: 08-20-2024 Serum inorganic phos phate measurement Dr. Rayne Gonzalez MD Work Phone: Start: 08-20-[address] Rayne Gonzalez MD Work Phone: Start: 08-19-2024 Plain chest X-ray Dr. Rochelle Gonzalez MD Work Phone: Start: 08-17-2024 Gram stain microscopy Oswald Gonzalez MD Work Phone: Start: 08-17-2024 Legionella pneumophi la antigen assay Dr. Rayne Gonzalez MD Work Phone: Start: 08-17-[address] Rayne Gonzalez MD Work Phone: Start: 08-17-2024 Respiratory microbia l culture Dr. Rayne Gonzalez MD Work Phone: Start: 08-17-2024 SARS-CoV-2, Influenz a & RSV (PCR) Dr. Rayne Gonzalez MD Work Phone: Start: 08-17-2024 End: 08-17-2024 Streptococcus pneumoniae antigen assay Dr. Rayne Gonzalez MD Work Phone: Start: 08-17-2024 Folic acid measurement, RBC Dr. Rayne Gonzalez MD Work Phone: Comment on above: Performed at: [place] [id number] Director: Dedrick Rodriguez PhD, Phone: [phone] Start: 08-17-2024 Total iron binding c apacity measurement Dr. Rayne Gonzalez MD Work Phone: Start: 08-17-2024 Plain chest X-ray Dr. Rochelle Gonzalez MD Work Phone: Start: 06-02-2024 X-ray of chest, PA a nd lateral views Dr. Rayne Gonzalez MD Work Phone: Start: 05-15-2023 CT of abdomen and pe lvis without contrast Dr. Rayne Gonzalez Work Phone: Plan of Treatment Date Care Activity Detail Author Start: 10-05-2024 Evaluation of diagnostic study results 12 Lead EKG performed by [facility] Start: 09-09-2024 Measurement of respiratory function [facility] Start: 08-22-2024 Complete blood count [facility] Start: 08-20-2024 Patient discharge [facility] Start: 08-19-2024 Measurement of respiratory function [facility] Start: 08-18-2024 Referral to occupational therapist [facility] Start: 08-18-2024 Referral to service [facility] Start: 08-18-2024 [facility] Start: 08-18-2024 Complete blood count [facility] Start: 08-17-2024 [facility] Start: 08-17-2024 Respiratory Panel (PCR) Respiratory Panel (PCR) [facility] Start: 08-17-2024 Contact precautions [facility] Start: 08-17-2024 Respiratory secretion precautions [facility] Start: 08-17-2024 Following clinical pathway protocol [facility] Start: 08-17-2024 Ambulation without limitation [facility] Start: 08-17-2024 Assessment of risk of venous thromboembolism [facility] Start: 08-17-2024 Bacteria identified in Sputum by Culture [facility] Start: 08-17-2024 Care regimes management [facility] Start: 08-17-2024 Incentive spirometry [facility] Start: 08-17-2024 Inhalation therapy procedure [facility] Start: 08-17-2024 Insertion of catheter into peripheral vein [facility] Start: 08-17-2024 Legionella pneumophila Ag [Presence] in Urine [facility] Start: 08-17-2024 Measuring intake and output [facility] Start: 08-17-2024 Notification of physician [facility] Start: 08-17-2024 Oxygen therapy [facility] Start: 08-17-2024 Providing care according to standard [facility] Start: 08-17-2024 Referral to service [facility] Start: 08-17-2024 Streptococcus pneumoniae antigen assay [facility] Start: 08-17-2024 Taking nasal swab [facility] Start: 08-17-2024 End: 08-17-2024 [facility] [facility] Start: 08-17-2024 Continuous pulse oximetry [facility] Start: 08-17-2024 Folic acid measurement, RBC [facility] Start: 08-17-2024 Verification routine [facility] Start: 08-17-2024 Admission procedure [facility] Start: 08-17-2024 End: 08-17-2024 [facility] Start: 08-17-2024 Dual pressure spontaneous ventilation support [facility] Start: 05-15-2023 [facility] Start: 11-04-2022 Patient referral [facility] Work Phone: Anion gap in Serum o r Plasma [facility] Anion gap in Serum o r Plasma [facility] Anion gap in Serum o r Plasma [facility] Anion gap in Serum o r Plasma [facility] Anion gap in Serum o r Plasma [facility] Anion gap in Serum o r Plasma [facility] Basic metabolic 2008 panel with ionized calcium - Serum or Plasma [facility] BUN/Creatinine ratio [facility] BUN/Creatinine ratio [facility] BUN/Creatinine ratio [facility] BUN/Creatinine ratio [facility] BUN/Creatinine ratio [facility] BUN/Creatinine ratio [facility] Calcium [Mass/volume ] in Serum or Plasma [facility] Calcium [Mass/volume ] in Serum or Plasma [facility] Calcium [Mass/volume ] in Serum or Plasma [facility] Calcium [Mass/volume ] in Serum or Plasma [facility] Calcium [Mass/volume ] in Serum or Plasma [facility] Calcium [Mass/volume ] in Serum or Plasma [facility] Carbon dioxide, tota l [Moles/volume] in Central venous blood [facility] Carbon dioxide, tota l [Moles/volume] in Central venous blood [facility] Carbon dioxide, tota l [Moles/volume] in Central venous blood [facility] Carbon dioxide, tota l [Moles/volume] in Central venous blood [facility] Carbon dioxide, tota l [Moles/volume] in Central venous blood [facility] Carbon dioxide, tota l [Moles/volume] in Central venous blood [facility] Catheterization of l eft heart [facility] CBC W Auto Different ial panel - Blood [facility] Cobalamin (Vitamin B 12) [Mass/volume] in Serum or Plasma [facility] Creatinine [Mass/vol ume] in Serum or Plasma [facility] Creatinine [Mass/vol ume] in Serum or Plasma [facility] Creatinine [Mass/vol ume] in Serum or Plasma [facility] Creatinine [Mass/vol ume] in Serum or Plasma [facility] Creatinine [Mass/vol ume] in Serum or Plasma [facility] Creatinine [Mass/vol ume] in Serum or Plasma [facility] Erythrocyte mean corpuscular volume determination [facility] Glucose [Mass/volume ] in Serum or Plasma [facility] Glucose [Mass/volume ] in Serum or Plasma [facility] Glucose [Mass/volume ] in Serum or Plasma [facility] Glucose [Mass/volume ] in Serum or Plasma [facility] Glucose [Mass/volume ] in Serum or Plasma [facility] Glucose [Mass/volume ] in Serum or Plasma [facility] Hematocrit [Volume Fraction] of Blood [facility] Hematocrit [Volume Fraction] of Blood [facility] Hemoglobin [Mass/vol ume] in Blood [facility] Iron [Mass/mass] in Unspecified specimen [facility] Iron saturation [Mas s Fraction] in Serum or Plasma [facility] Leukocytes [#/volume ] in Blood [facility] Mean corpuscular hem oglobin concentration determination [facility] Mean corpuscular hem oglobin determination [facility] Measurement of renal function [facility] Measurement of renal function [facility] Measurement of renal function [facility] Measurement of renal function [facility] Measurement of renal function [facility] Measurement of renal function [facility] Patient Education ED Hematuria E D Kidney Stone with Pain [facility] Work Phone: Patient referral [facility] Work Phone: Platelets [#/volume] in Blood [facility] Potassium measurement [facility] Potassium measurement [facility] Potassium measurement [facility] Potassium measurement [facility] Potassium measurement [facility] Potassium measurement [facility] Red blood cell count [facility] Red cell distributio n width determination [facility] Respiratory pathogen s DNA and RNA panel - Respiratory specimen by JERRELL with probe detection [facility] Serum chloride measurement [facility] Serum chloride measurement [facility] Serum chloride measurement [facility] Serum chloride measurement [facility] Serum chloride measurement [facility] Serum chloride measurement [facility] Sodium measurement [facility] Sodium measurement [facility] Sodium measurement [facility] Sodium measurement [facility] Sodium measurement [facility] Sodium measurement [facility] Total iron binding c apacity measurement [facility] Urea nitrogen [Mass/ volume] in Serum or Plasma [facility] Urea nitrogen [Mass/ volume] in Serum or Plasma [facility] Urea nitrogen [Mass/ volume] in Serum or Plasma [facility] Urea nitrogen [Mass/ volume] in Serum or Plasma [facility] Urea nitrogen [Mass/ volume] in Serum or Plasma [facility] Urea nitrogen [Mass/ volume] in Serum or Plasma [facility] Immunizations Immunization Date Immunization Notes Care Provider Fa [facility] 2024 Influenza, injectabl e, Madin [place] Canine Kidney, preservative free, quadrivalent Dr. Rayne Gonzalez MD Work Phone: [facility] 03-19-2023 Covid (Spikevax) Dr. Rayne Gonzalez MD Work Phone: [facility] 03-19-2023 Influenza, injectabl e, Madin [place] Canine Kidney, preservative free, quadrivalent Dr. Rayne Gonzalez MD Work Phone: [facility] 04-15-2022 Covid Moderna Bivale nt Booster Dr. Rayne Gonzalez MD Work Phone: [facility] 04-15-2022 influenza, injectabl e, quadrivalent, preservative free Dr. Rayne Gonzalez Work Phone: [facility] 04-15-2022 influenza, seasonal, injectable Dr. Rayne Gonzalez Work Phone: [facility] 04-15-2022 Seasonal, quadrivale nt, recombinant, injectable influenza vaccine, preservative free Dr. Rayne Gonzalez MD Work Phone: [facility] Payers Date Payer Category Payer Self-pay 2024 Unknown [id number] Unknown [id number] 2.16.8 [id number] Unknown [id number] 2.16.8 [id number] Unknown [id number] 2.16.8 [id number] Unknown [id number] 2.16.8 [id number] Unknown [id number] 2.16.8 [id number] Unknown [id number] 2.16.8 [id number] Unknown [id number] 2.16.8 [id number] Unknown [id number] 2.16.8 40.1.296350.3.579.2.462 Unknown [id number] 2.16.8 40.1.983678.3.579.2.462 Unknown [id number] 2.16.8 40.1.047492.3.579.2.462 Unknown [id number] 2.16.8 40.1.276896.3.579.2.462 Unknown [id number] 2.16.8 40.1.603793.3.579.2.462 Unknown [id number] 2.16.8 40.1.076766.3.579.2.462 Unknown [id number] 2.16.8 40.1.803431.3.579.2.462 Unknown [id number] 2.16.8 40.1.460627.3.579.2.462 Unknown [id number] 2.16.8 40.1.684449.3.579.2.462 Unknown [id number] 2.16.8 40.1.129748.3.579.2.462 Unknown [id number] 2.16.8 [id number] Unknown [id number] 2.16.8 [id number] Social History Date Type Detail Facility Start: 11-04-2022 End: 05-15-2023 Tobacco smoking status NHIS Unknown if ever smoked [facility] Start: 1970 Sex Assigned At Male [facility] Start: 08-17-2024 Tobacco smoking stat us NHIS Never smoked tobacco (finding) [facility] Start: 08-17-2024 End: 08-20-2024 Sex Male (finding) [facility] Goals Date Patient Goal Desired Activity /State Functional Status Date Assessment Result Facility 08-20-2024 Functional status Patient Activi ty Ambulates;Up ad cody;Chair [facility] Work Phone: 08-20-2024 Functional status Activity Ability Indepe ndent [facility] Work Phone: 08-19-2024 Functional status Assistive Devices None [facility] Work Phone: 08-19-2024 Functional status Tolerates Activity Well [facility] Work Phone: Mental Status Date Assessment Result Facility 08-20-2024 Cognitive function Voice/Name [facility] Work Phone: 08-17-2024 Cognitive function Voice/Name [facility] Work Phone: Clinical Notes 05-04-2024 to 10-31-2024 Note Date & Type Note Facility 10-31-2024 Note [facility] Medical Records Department [address] [place] [address] History Physical Exam 10/31/24 1406 MR#: [id number] Acct: [id number] Name: MARK ANTHONY YE . Rep #: [id number] : 1970 54 From: Abel Greenfield MD PCP: Dr. Rayne Gonzalez MD Status:[facility] Location: [facility] History and Physical Date of Admission: 11/07/24 This is a 54-year-old man who presents for a cardiac catheterization to assess his aortic valve. He has a history of hypertension hyperlipidemia who initially presented to a hospital in [place] in 2021 with what appears to be flash pulmonary edema. It is not quite clear what the entire workup was at that time but he was noted to have a hyperdynamic LV with an estimated ejection fraction of 65% pharmacologic myocardial perfusion stress test was performed which demonstrated no evidence of ischemia. He was also noted to be negative for a pulmonary embolism. He was discharged on beta- verenice BRANDON inhibitor aspirin and metformin for his diabetes. He presented to the hospital here in [place] with shortness of breath he was diagnosed as having acute heart failure and his ejection fraction demonstrated an ejection fraction of 35%. He was noted to have mildly elevated troponin and he had his medications changed and was discharged on a beta-verenice BRANDON inhibitor on diuretic. He was asked to see the associate director finance for an appointment. He says that his breathing has improved he denies any dizziness he denies any chest pain he has had some palpitations but he has shortness of breath with activity and no pedal edema. His physical exam does demonstrate a systolic ejection murmur noted left sternal border his electrocardiogram demonstrates sinus rhythm with a rate of 97 bpm and lateral T wave inversions. Intake Vital Signs See EMR Allergies See EMR Medications See EMR [facility] Medical History Type 2 diabetes mellitus without complication Depression Diabetes Dialysis patient CPAP (continuous positive airway pressure) dependence Sleep apnea Acute bronchitis, unspecified Acute maxillary sinusitis, unspecified Ocular migraine JOANNE (obstructive sleep apnea) Pre-diabetes Cardiac murmur High cholesterol Hypertension Heart failure Bone fracture History of back problems Surgical History History of tonsillectomy History of foot surgery History of hernia repair Family History Mother Alcoholism Arthritis Myocardial infarction CVA (cerebral vascular accident) COPD (chronic obstructive pulmonary disease)Father Alcoholism COPD (chronic obstructive pulmonary disease) Prostate cancerGrandmother Arthritis Breast cancer Colon cancer Skin cancer Social History household members: spouse current occupational status: unemployed Smoking Status: Never smoker Electronic Cigarette Use: not used alcohol intake: current alcohol intake frequency: holidays/special occasions only Alcohol type: beer and wine substance use type: does not use what type of physical activity do you participate in: none do you feel safe at home: Yes ROS Const Const: Positive for fatigue; Negative for weakness, headache(s), daytime sleepiness or difficulty sleeping ENT ENT: Negative for headache(s), dizziness or Nosebleed/epistaxis Cardio Chest Pain: No Palpitations: Yes feels like its: fast Edema: None Resp Respiratory: Positive for SOB with activity; Negative for SOB at rest, SOB orthopnea SOB lying down or Cough GI GI: Negative nausea, vomiting or heartburn Neuro Neuro: Positive for lightheadedness; Negative for dizziness, near syncope, headache(s) or weakness Endo Endo: Positive for fatigue Cardiology Exam Const Appearance: cooperative, healthy appearing, no acute distress, well developed and well groomed Nutritional Appearance: average body habitus and well nourished Orientation: alert, awake and oriented x3 Head Head: normal to inspection, normocephalic and atraumatic Ears: hearing grossly normal bilaterally and external ears normal Nose: external nose normal, nares normal, nasal mucous membranes and turbinates normal, septum normal and no nasal discharge Face and Sinus: face symmetric Mouth: oral mucosae normal, tongue normal, oropharynx normal and moist mucous membranes Teeth and gingiva: dentition normal Throat: posterior oropharynx normal, tonsils normal and uvula midline Eyes General: appearance normal, both eyes and all related structures Eyelids: eyelids normal Conjunctivae: conjunctivae normal Pupils: PERRL, normal by confrontation and accommodation normal EOM: EOM intact bilaterally Neck Neck: normal visual inspection, trachea midline and no JVD JVD: +5 Carotids: normal carotid upstroke and bounding pulses Chest Chest inspection: normal inspection of the chest, symmetric chest movement and normal respiratory effort (more content not included)... [facility] 10-05-2024 Progress note [place] [facility] 10-05-2024 Progress note Note Date/Time October 05, 2024 2:32pm [facility] [place] [id number] [facility] [place] [address] OFFICE VISIT Date of Service: 10/05/24 MR#: [id number] Acct: [id number] Name: MARK ANTHONY YE . Rep #: [id number] : 1970 Provider: Dr. Alix Greenfield MD Age/Sex: 54/M Location: [facility] Status: Signed HPI HPI History of Present Illness Details: 54-year-old man who presents for an evaluation after discharge from the hospital. He has a history of hypertension hyperlipidemia who initially presented to a hospital in [place] in 2021 with what appears to be flash pulmonary edema. It is not quite clear what the entire workup was at that time but he was noted to have a hyperdynamic LV with an estimated ejection fraction of 65% pharmacologic myocardial perfusion stress test was performed which demonstrated no evidence of ischemia. He was also noted to be negative for a pulmonary embolism. He was discharged on beta-verenice BRANDON inhibitor aspirin andmetformin for his diabetes. He presented to the hospital [place] in [place] with[place] of breath he was diagnosed as having acute heart failure and his ejection fraction demonstrated an ejection fraction of 35%. He was noted to have mildly elevated troponin and he had his medications changed and was discharged on a beta-verenice BRANDON inhibitor on diuretic. He was asked to see thecardiologist for an appointment. He says that his breathing has improved he denies any dizziness he denies any chest pain he has had some palpitations but he has shortness of breath with activity and no pedal edema. His physical exam does demonstrate a systolic ejection murmur noted left sternal border his electrocardiogram demonstrates sinus rhythm with a rate of 97 bpm and lateral T wave inversions. Intake Vital Signs 09/20/24 09:11 10/05/24 13:31 Height 5 ft 8 in 5 ft 8 in Weight: 297 lb 298 lb BMI 45.1 45.3 BP 116/80 101/68 Blood Pressure Location Lt brachial Lt brachial Position Sitting Sitting Respiration 18 16 Pulse 76 95 Pulse Source Monitor Monitor Temp 97.3 F L Pulse Oximetry (%) 96 Oxygen Delivery Method room air Intake Visit Reasons: S/P 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 Accompanied by: Self Is patient in pain?: No Allergies No Known Allergies Allergy (Verified 10/05/24 13:39) Medications ?Medication ?Instructions ?Recorded ?Confirmed ?Type aspirin 81 mg tablet,delayed 81 mg PO DAILY 11/04/22 0 10/05/24 History release (Adult Aspirin Regimen) [id number] 150 mcg-vit K1 1 tab PO DAILY 11/0410/05/24 History 30 mcg-lycop 300 mcg-lutein tablet (Centrum Minis Men 50 Plus) atorvastatin 20 mg tablet 20 mg PO DAILY #90 tabs 04/1710/05/24 Rx metformin 1,000 mg tablet 1,000 mg PO BID #180 tabs 10/05/24 Rx escitalopram oxalate 10 mg tablet 10 mg PO QDAY #30 ta bs 08/09/24 10/05/24 Rx (Lexapro) trazodone 50 mg tablet 50 - 100 mg (1 - 2 x 50 mg) PO QHS 08/09/24 10/05/24 Rx #90 tabs albuterol sulfate 90 mcg/actuation 2 puff inhalation Q 6H PRN 08/20/24 10/05/24 Rx aerosol inhaler shortness of breath or wheez ing #8.5 grams furosemide 40 mg tablet (Lasix) 40 mg PO DAILY 30 days #90 tabs 09/20/24 10/05/24 Rx carvedilol 6.25 mg tablet 6.25 mg PO BID #60 tabs 09/1610/05/24 Rx dapagliflozin propanediol 10 mg 10 mg PO QAM #60 tabs 10/05/24 10/05/24 Rx tablet (Farxiga) sacubitril 24 mg-valsartan 26 mg 1 tab PO BID #60 tabs 10/05/24 10/05/24 Rx tablet (Entresto) [facility] Medical History Type 2 diabetes mellitus without complication Depression Diabetes Dialysis patient CPAP (continuous positive airway pressure) dependence Sleep apnea Acute bronchitis, unspecified Acute maxillary sinusitis, unspecified Ocular migraine JOANNE (obstructive sleep apnea) Pre-diabetes Cardiac murmur High cholesterol Hypertension Heart failure Bone fracture History of back problems Surgical History History of tonsillectomy History of foot surgery History of hernia repair Family History Mother Alcoholism Arthritis Myocardial infarction CVA (cerebral vascular accident) COPD (chronic obstructive pulmonary disease) Father Alcoholism COPD (chronic obstructive pulmonary disease) Prostate cancer Grandmother Arthritis Breast cancer Colon cancer Skin cancer Social History household members: spouse current occupational status: unemployed Smoking Status: Never smoker Electronic Cigarette Use: not used alcohol intake: current alcohol intake frequency: holidays/special occasions only Alcohol type: beer and wine substance use type: does not use what type of physical activity do you participate in: none do you feel safe at home: Yes ROS Const Const: Positive for fatigue; Negative for weakness, headache(s), daytime sleepiness or difficulty sleeping ENT ENT: Negative for headache(s), dizziness or Nosebleed/epistaxis Cardio Chest Pain: No Palpitations: Yes feels like its: fast Edema: None Resp Respiratory: Positive for SOB with activity; Negative for SOB at rest, SOB orthopneaundefinedSOB lying down or Cough GI GI: Negative nausea, vomiting or heartburn Neuro Neuro: Positive for lightheadedness; Negative for dizziness, near syncope, headache(s) or weakness Endo Endo: Positive for fatigue Cardiology Exam Const Appearance: cooperative, healthy appearing, no acute distress, well developed and well groomed Nutritional Appearance: average body habitus and well nourished Orientation: alert, awake and oriented x3 Head Head: normal to inspection, normocephalic and atraumatic Ears: hearing grossly normal bilaterally and external ears normal Nose: external nose normal, nares normal, nasal mucous membranes and turbinates normal, septum normal and no nasal discharge Face and Sinus: face symmetric Mouth: oral mucosae normal, tongue normal, oropharynx normal and moist mucous membranes Teeth and gingiva: dentition normal Throat: posterior oropharynx normal, tonsils normal and uvula midline Eyes General: appearance normal, both eyes and all related structures Eyelids: eyelids normal Conjunctivae: conjunctivae normal Pupils: PERRL, normal by confrontation and accommodation normal EOM: EOM intact bilaterally Neck Neck: normal visual inspection, trachea midline and no JVD JVD: +5 Carotids: normal carotid upstroke and bounding pulses Chest Chest inspection: normal inspection of the chest, symmetric chest movement and normal respiratory effort Auscultation: Bilateral: Clear to Auscultation Cardio Palpation: normal PMI Rate: regular rate Rhythm: regular rhythm Heart sounds: S1 normal, S2 normal and normal, physiologic split S2; Negative rub, gallop or murmur Murmur: Grade 2/6, early systolic and apex GI GI: normal to inspection, soft, no hepatosplenomegaly and bowel sounds present Neuro General: patient alert, patient awake, patient oriented x3, gait normal, moves all extremities and no focal sensory deficit Skin Skin: no rashes or lesions noted Extremities Pulses: Normal: Right Femoral Pulse, Left Femoral Pulse, Right Dorsalis Pedis Pulse, Left Dorsalis Pedis Pulse, Right Posterior Tibial Pulse, Left Posterior Tibial Pulse, Right Radial Pulse and Left Radial Pulse Lower Extremity Edema: None: Bilateral Musculoskel Musculoskeletal: No joint tenderness Psych Psychological: normal affect Supplemental Info Supplemental Information Echocardiogram 08/17/2024 Interpretation Summary The left ventricular ejection fraction is 35 %. Normal LV size. Moderate concentric left ventricular hypertrophy. Stage 2 diastolic dysfunction. Echocardiogram 12/01/2022 Interpretation Summary Technically difficult study due to patient body habitus. Contrast injection was performed. Mild concentric left ventricular hypertrophy. The left ventricular ejection fraction is 65 %. Stage 2 diastolic dysfunction. Mild (1+) mitral valve insufficiency. Mean aortic valve gradient 8 mmHg. Stress Test 06/10/2021 1. AB no myocardial perfusion study without evidence of ischemia or infarct. However there is reduced sensitivity for detection of ischemia in the base to mid inferior wall due to adjacent bowel uptake. There is heterogeneity and photon uptake in this wall but is more suggestive of attenuation as opposed to true ischemia or infarct. 2. Gated SPECT study with normal wall motion and thickening with an estimated EF of 51%. 3. No ischemic or dysrhythmic EKG response to Lexiscan administration. The study would overall be considered low risk. Labs: LDL Cholesterol 67 mg/dL (0-130) HDL Cholesterol 46 mg/dL (40-) Cholesterol 143 mg/dL (200) Triglycerides 149 mg/dL (-199) Diagnostics: Electrocardiogram Echocardiogram Chest X-Ray Pulmonary: No Data to Display Past Visits: Cardiology Visit 10/05/24 Assessment and Plan Assessment and Plan (1) Congestive heart failure: Status: Acute Qualifiers: Heart failure chronicity: chronic Heart failure type: combined systolicand diastolic Qualified Code(s): I50.42 - Chronic combined systolic (congestive) and diastolic (congestive) heart failure Plan: He does present with congestive heart failure [place] [employer] class II. His echocardiogram demonstrated moderate concentric left ventricular hypertrophy reduced ejection fraction of 35% and a difficult to see aortic valvebut it appeared to be mildly calcified. No significant regurgitation was noted. My recommendation will be as follows: Lasix 40 mg a day Discontinue metoprolol Start carvedilol 6.25 mg twice a day and titrate upwards. Add Farxiga 10 mg a day. Add Entresto 1 tablet twice a day. The etiology of his congestive heart failure is not well elucidated and I would recommend that we perform a left heart catheterization to exclude obstructive coronary disease. I have discussed this with him with his benefits alternativesand he agrees to proceed (2) Essential hypertension: Status: Acute Plan: He does have a history of hypertension and I would recommend that we make some changes to his blood pressure medications as noted above. (3) Aortic valve disease: Status: Acute Plan: He appears to have aortic valve disease. This will be evaluated again with a cardiac catheterization. He may need a NATHALIE at some later date. Depending on the findings of the cardiac catheterization further recommendations will be made. Thank you for allowing me to participate in the care of your patient. Please don't hesitate to call if any issues arise. Orders: Orders 12 Lead EKG performed by BMS Today I10 - Essential (primary) hypertension, I50.42 - Chronic combined systolic (congestive) and diastolic (congestive) heartfailure, R79.89 - Other specified abnormal findings of blood chemistry Left Heart Cath/COR/LV Percut Today I50.42 - Chronic combined systolic (congestive) and diastolic (congestive) heart failure Basic Metabolic Profile (BMP) 1 Week I50.42 - Chronic combined systolic (congestive) and diastolic (congestive) heart failure CBC W/Diff, Automated 1 Week I50.42 - Chronic combined systolic (congestive) and diastolic (congestive) heart failure Medications: New carvedilol must administer with a meal/food 6.25 mg PO BID 60 tabs 3RF sacubitril-valsartan 24-26 mg (Entresto) 1 TAB PO BID 60 tabs 3RF dapagliflozin propanediol (Farxiga) 10 mg PO QAM 60 tabs 3RF Discontinued lisinopril Discontinued Reason: Order Changed 5 mg PO DAILY 30 days 90 tabs 0RF metoprolol succinate ER (Toprol XL) Discontinued Reason: Order Changed 25 mg PO DAILY 30 days 90 tabs 0RF Plan Details Follow Up: 3 Months (sd) Coding Level of Care Code Off vis,new,level 5 Diagnoses Chronic combined systolic and diastolic congestive heart failure I50.42 Heart failure chronicity: chronic Heart failure type: combined systolic and diastolic Essential hypertension I10 Aortic valve disease I35.9 Coding Level of Care Code Off vis,new,level 5 Diagnoses Chronic combined systolic and diastolic congestive heart failure I50.42 Heart failure chronicity: chronic Heart failure type: combined systolic and diastolic Essential hypertension I10 Aortic valve disease I35.9 10/05/24 1432 <Electronically signed by Abel Akers> Date _ Abel Greenfield MD Cosigner Signature: Date (if applicable) CC: Dr. Rayne Gonzalez MD ~ [facility] Work Phone: 1(146) 368-543704-05-2025 Progress note [facility] Medical Records Department [address] [place] [address] Progress Note - Hospitalist 08/19/241655 MR#: [id number] Acct: [id number] Name: MAR KANTHONY YE Jr. Rep #:[id number] : 1970 54 From: Elias meadows DO PCP: Dr. Rayne Gonzalez MD Status:ADM IN Location: [place] [address] Hospitalist Note I have reviewed the oxygen testing, and this patient qualifies for the home equipment and portability. The patient is mobile in the home and the community. 08/19/241655 Cosigner Signature (if applicable): CC: ~ Signed [facility]04-05-2025 Discharge summary Author Elias [facility] Note Date/Time August 20, 2024 9:41 am [facility] Medical Records Department [address] [place] [address] Instructions for Home/Discharge Instructions 08/20/24 0934 MR#: [id number] Acct: [id number] Name: MARK ANTHONY YE Jr. Rep #:[id number] : 1970 54 From: Elias meadows DO PCP: Dr. Rayne Gonzalez MD Status:ADM IN Discharge Instructions Diet Discharge Diet: 8 Cup Fluid Restriction and 4000 mg Sodium Diet DC O2, CPAP, BIPAP needs Home O2 Discharge instructions: Yes Type of respiratory needs?: Oxygen Oxygen frequency: With Ambulation Oxygen liters per minute during Ambulation: 2 Dressing / Incision Discharge Activity: No Restrictions Follow Up Care Test Results: Test results from this visit will be discussed in further detail at your follow- up appointment, if applicable. Discharge Plan Admission Admit Date/Time: 08/17/24 07:45 Primary Reason for Your Visit: shortness of breath Attending Provider: Elias Ramires Primary Care Provider: Rayne Gonzalez Instructions Additional Instructions / Restrictions: Please start taking the following medications on Thursday for heart failure and hypertension: - Lasix 40 mg daily - Lisinopril 5 mg daily - Metoprolol 25 mg daily Other instructions: - Take 2 more days of prednisone to complete a 5-day course total for viral pneumonia - Use the albuterol inhaler every 6 hours as needed for shortness of breath - Check your blood pressure once daily for the next week to ensure your blood pressure is not dropping too low or starting to go too high - Call the Cardiology office on Thursday to schedule a follow up appointment in the next 2-4 weeks Discharge Orders/Prescriptions Prescriptions: New prednisone 20 mg Tablet 40 mg PO BREAKFAST 2 Days Qty: 4 0RF lisinopril 5 mg Tablet 5 mg PO DAILY 30 Days Qty: 30 0RF metoprolol succinate [Toprol XL] 25 mg tablet extended release 24 hr 25 mg PO DAILY 30 Days Qty: 30 0RF furosemide [Lasix] 40 mg tablet 40 mg PO DAILY 30 Days Qty: 30 0RF Continued Centrum Minis Men 50 Plus 282-54-425-150 mcg tablet 1 tab PO DAILY aspirin [Adult Aspirin Regimen] 81 mg tablet,delayed release (DR/EC) 81 mg PO DAILY atorvastatin 20 mg tablet 20 mg PO DAILY Qty: 90 1RF metformin 1,000 mg tablet 1,000 mg PO BID Qty: 180 1RF trazodone 50 mg tablet 50 - 100 mg PO QHS Qty: 90 0RF escitalopram oxalate [Lexapro] 10 mg tablet 10 mg PO QDAY Qty: 30 1RF albuterol sulfate 90 mcg/actuation HFA aerosol inhaler 2 puff inhalation Q6H PRN (Reason: shortness of breath or wheezing) Qty: 8.5 1RF Discontinued lisinopril 20 mg tablet 20 mg PO DAILY Qty: 90 1RF triamterene-hydrochlorothiazid 37.5-25 mg capsule 1 cap PO DAILY Qty: 90 1RF Referrals / Follow Up: Rayne Gonzalez MD [Primary Care Provider] - Abel Greenfield MD [Med Staff - Active Staff] - Disposition Disposition (needs filled in before D/C Order can be placed): Home, Self Care 08/20/24 0941<Electronically signed by Elias Ramires DO>Elias Ramires DO CC: Dr. Rayne Gonzalez MD ~ Signed [facility] Work Phone: 1(415) 334-759304-05-2025 Discharge summary [facility] Medical Records Department [address] [place] [address] Instructions for Home/Discharge Instructions 08/20/24 0934 MR#: [id number] Acct: [id number] Name: MARK ANTHONY YE Jr. Rep #:[id number] : 1970 54 From: Elias meadows DO PCP: Dr. Rayne Gonzalez MD Status:ADM IN Discharge Instructions Diet Discharge Diet: 8 Cup Fluid Restriction and 4000 mg Sodium Diet DC O2, CPAP, BIPAP needs Home O2 Discharge instructions: Yes Type of respiratory needs?: Oxygen Oxygen frequency: With Ambulation Oxygen liters per minute during Ambulation: 2 Dressing / Incision Discharge Activity: No Restrictions Follow Up Care Test Results: Test results from this visit will be discussed in further detail at your follow- up appointment, if applicable. Discharge Plan Admission Admit Date/Time: 08/17/24 07:45 Primary Reason for Your Visit: shortness of breath Attending Provider: Elias Ramires Primary Care Provider: Rayne Gonzalez Instructions Additional Instructions / Restrictions: Please start taking the following medications on Thursday for heart failure and hypertension: - Lasix 40 mg daily - Lisinopril 5 mg daily - Metoprolol 25 mg daily Other instructions: - Take 2 more days of prednisone to complete a 5-day course total for viral pneumonia - Use the albuterol inhaler every 6 hours as needed for shortness of breath - Check your blood pressure once daily for the next week to ensure your blood pressure is not dropping too low or starting to go too high - Call the Cardiology office on Thursday to schedule a follow up appointment in the next 2-4 weeks Discharge Orders/Prescriptions Prescriptions: New prednisone 20 mg Tablet 40 mg PO BREAKFAST 2 Days Qty: 4 0RF lisinopril 5 mg Tablet 5 mg PO DAILY 30 Days Qty: 30 0RF metoprolol succinate [Toprol XL] 25 mg tablet extended release 24 hr 25 mg PO DAILY 30 Days Qty: 30 0RF furosemide [Lasix] 40 mg tablet 40 mg PO DAILY 30 Days Qty: 30 0RF Continued Centrum Minis Men 50 Plus [id number] mcg tablet 1 tab PO DAILY aspirin [Adult Aspirin Regimen] 81 mg tablet,delayed release (DR/EC) 81 mg PO DAILY atorvastatin 20 mg tablet 20 mg PO DAILY Qty: 90 1RF metformin 1,000 mg tablet 1,000 mg PO BID Qty: 180 1RF trazodone 50 mg tablet 50 - 100 mg PO QHS Qty: 90 0RF escitalopram oxalate [Lexapro] 10 mg tablet 10 mg PO QDAY Qty: 30 1RF albuterol sulfate 90 mcg/actuation HFA aerosol inhaler 2 puff inhalation Q6H PRN (Reason: shortness of breath or wheezing) Qty: 8.5 1RF Discontinued lisinopril 20 mg tablet 20 mg PO DAILY Qty: 90 1RF triamterene-hydrochlorothiazid 37.5-25 mg capsule 1 cap PO DAILY Qty: 90 1RF Referrals / Follow Up: Rayne Gonzalez MD [Primary Care Provider] - Abel Greenfield MD [Med Staff - Active Staff] - Disposition Disposition (needs filled in before D/C Order can be placed): Home, Self Care 08/20/24 0941Elias Ramires DO CC: Dr. Rayne Gonzalez MD ~ [facility]04-05-2025 [facility] Medical Records Department [address] [place] [address] Discharge Summary 08/20/24 0934 MR#: [id number] Acct: [id number] Name: CASSIMARK ANTHONY KOHLER Rep #: [id number] : 1970 54 From: Elias Ramires DO PCP: Dr. Rayne Gonzalez MD Status:[facility] IN Location: [place] [address] Providers Date of Admission: 08/17/24 Date of Discharge: 08/20/24 Primary Care Physician: Dr. Rayne Gonzalez MD Reason For Visit: CHF EXACERBATION W/ HYPOXIA Diagnosis Discharge Diagnosis (1) Acute heart failure with preserved ejection fraction (HFpEF): Status: Acute Code(s): I50.31 - Acute diastolic (congestive) heart failure (2) Human metapneumovirus (hMPV) pneumonia: Status: Acute Code(s): J12.3 - Human metapneumovirus pneumonia Medications at Discharge Home Medications aspirin 81 mg tablet,delayed release (Adult Aspirin Regimen) 81 mg PO DAILY 11/04/22 [id number] 150 mcg-vit K1 30 mcg-lycop 300 mcg-lutein tablet (Centrum Minis Men 50 Plus) 1 tab PO DAILY 11/04/22 atorvastatin 20 mg tablet 20 mg PO DAILY #90 tabs 05/04/24 metformin 1,000 mg tablet 1,000 mg PO BID #180 tabs 05/04/24 escitalopram oxalate 10 mg tablet (Lexapro) 10 mg PO QDAY #30 tabs 08/09/24 trazodone 50 mg tablet 50 - 100 mg (1 - 2 x 50 mg) PO QHS #90 tabs 08/09/24 albuterol sulfate 90 mcg/actuation aerosol inhaler 2 puff inhalation Q6H PRN shortness of breath or wheezing #8.5 grams 08/20/24 furosemide 40 mg tablet (Lasix) 40 mg PO DAILY 30 days #30 tabs 08/20/24 lisinopril 5 mg tablet 5 mg PO DAILY 30 days #30 tabs 08/20/24 metoprolol succinate 25 mg tablet,extended release 24 hr (Toprol XL) 25 mg PO DAILY 30 days #30 tabs 08/20/24 prednisone 20 mg tablet 40 mg (2 x 20 mg) PO BREAKFAST 2 days #4 tabs 08/20/24 Hospital Course Operations None Procedures EKG, Transthoracic echo and - (Chest x-ray x 2) Summary of Care Provided Minutes Spent on Discharge: 35 Hospital Course: Patient is a 54-year-old male who presented to [facility] ED on 08/17/2024 with worsening shortness of breath. Hospital course as noted below. Patient discharged home in stable condition on 08/20. 1. Acute hypoxic respiratory failure secondary to acute HFrEF exacerbation and pneumonia secondary to human metapneumovirus, improving ??? Hypoxic to the mid 70s on room air, improved to low 90s on 4 L nasal cannula but then placed on BiPAP for increased work of breathing. Chest x-ray with significant bilateral interstitial infiltrates noted. Positive for human metapneumovirus. BNP 2180 but underestimated in setting of obesity. ??? Last echo in 2022 showed EF 60%, stage II diastolic dysfunction. Repeat echo showed newly reduced EF 35%, moderate global LV systolic dysfunction, stage II diastolic dysfunction, no significant valve abnormalities. Suspect reduced EF may be secondary to viral illness. ??? Had very good urine output and improvement in oxygenation status on IV Lasix 40 mg every 8 hours. Initiated on low-dose Coreg and lisinopril on 08/18. Repeat chest x-ray on 08/19 with cardiomegaly and pulmonary congestion with edema with possible superimposed pneumonia noted but moderately improved from admission. No renal contraction but pressures were running low so IV Lasix discontinued on 08/19. De-escalated to p.o. steroids on 08/18. ??? Completed O2 testing on day of discharge and required 2 L nasal cannula with exertion, oxygen prescription sent. Discharged on p.o. Lasix 40 mg daily, lisinopril 5 mg daily and Toprol 25 mg daily. Provided number for cardiology office and recommended that patient call to schedule appointment with them in the next few weeks. Also sent on p.o. prednisone to complete 5-day course of steroids total and recommended that patient use albuterol inhaler as needed at home for any shortness of breath with wheezing in the next several days. 2. Hyponatremia, improving ??? Sodium 124 on admit. Chloride 90. Presume secondary to hypervolemia in setting of heart failure exacerbation. Sodium 132 on day of discharge, stable. 3. Elevated troponins ??? Troponin trend 167 > 273 > 244. No EKG changes noted. Presume secondary to demand ischemia in setting of heart failure/sedation and respiratory failure. No further workup needed at this time. 4. Hypertension ??? Normotensive to mildly hypotensive on admit. Became hypotensive to the 80s to 90 systolic with heavy IV Lasix and low-dose Coreg and lisinopril that was started as noted above. IV Lasix discontinued on 08/19 and held Coreg and lisinopril. Blood pressures remained low???normal on discharge. Started patient on Lasix, lisinopril and Toprol on discharge as noted above and recommended to start these medications on Tuesday 08/22. Patient has BP cuff at home and I recommended that he check his blood pressure daily for the next week or so to monitor it closely. Cardiology or his PCP can (more content not included)...[facility]04-04-2025 Progress note Author Elias Ramires [facility] Note Date/Time August 20, 2024 12:0 0pm [facility] Medical Records Department [address] [place] [address] Progress Note - Hospitalist 08/19/24 1656 MR#: [id number] Acct: [id number] Name: MARK ANTHONY YE Jr. Rep #:[id number] : 1970 54 From: Elias meadows DO PCP: Dr. Rayne Gonzalez MD Status:ADM IN Location: [place] [address] Hospitalist Note I have reviewed the oxygen testing, and this patient qualifies for the home equipment and portability. The patient is mobile in the home and the community. 08/19/24 1656 <Electronically signed by Elias Ramires > Cosigner Signature (if applicable): CC: ~ Signed [facility] Work Phone: 1(426) 300-287004-04-2025 Progress note Author [facility] Note Date/Time August 19, 2024 12:5 9pm [facility] Medical Records Department [address] [place] [id number] Progress Note - Hospitalist 08/19/24 1036 MR#: [id number] Acct: [id number] Name: MARK ANTHONY YE Jr. Rep #:[id number] : 1970 54 From: Elias meadows DO PCP: Dr. Rayne Gonzalez MD Status:ADM IN Location: [place] [address] Reason for Visit Reason for Visit: Diagnoses Acute diastolic (congestive) heart failure (08/17/24) Human metapneumovirus pneumonia (08/17/24) Subjective Subjective Saw patient at bedside this morning. Patient was sitting back comfortably in bedside chair, conversing normally and in no acute distress. Appears similar at rest. Notes that he has been up and walking around the room this morning with no significant shortness of breath with exertion. Per nursing, patient did have some shortness of breath with exertion overnight when getting up to go to the bathroom. Patient notes that he has had good urine output but that it seems to be slowing down. He continues to have a mild nonproductive cough. No other new concerns today. Objective Data Objective Data Vital Signs: Vital Signs Temp Pulse Resp BP Pulse Ox O2 Del Method O2 Flow Rate 97.6 F L 83 18 90/62 95 Nasal Cannula 2 08/19/24 08:00 08/19/24 08:00 08/19/24 08:00 08/19/24 08:00 08/19/24 08:00 08/19/24 08:00 08/19/24 08:00 FiO2 28 08/19/24 04:00 Oxygen Flow Rate (L/min) 2 Oxygen Delivery Method Nasal Cannula Weight: 137.6 kg Body Mass Index (BMI) 46.1 Intake & Output: Intake and Output for Last 24 Hours 08/17/24 08/18/24 08/19/24 23:59 23:59 23:59 Intake Total 480 / 720 1360 / 1960 720 / 720 Output Total 600 / 1000 2100 / 2400 900 / 900 Balance -120 / -280 -740 / -440 -180 / -180 Lab / Micro Data 08/18/24 05:20 08/19/24 05:29 Labs: Laboratory Results - last 24 hr 08/17/24 11:05: RBC Folate Hemolysate 535.0, RBC Folate 1482, Hematocrit 36.1 L 08/18/24 08:07: POC Glucose 278 H 08/18/24 12:01: POC Glucose 341 H 08/18/24 17:00: POC Glucose 237 H 08/18/24 21:21: POC Glucose 246 H 08/19/24 05:29: Sodium 132 L, Potassium 3.6, Chloride 94 L, Carbon Dioxide 24.6,Anion Gap 13, BUN 50 H, Creatinine 1.05, Estim Creat Clear Calc 109.30, Est GFR (MDRD) Non-Af 84, BUN/Creatinine Ratio 47.4 H, Glucose 240 H, Calcium 8.7 08/19/24 08:07: POC Glucose 213 H Micro: Microbiology 08/17/24 10:40 Sputum, Expectorated/Coughed Gram Stain - Final 08/17/24 08:50 Mucosa - Nose Respiratory Panel (PCR) - Final Human [place] 08/17/24 12:05 Urine, Random Legionella Antigen - Final 08/17/24 12:05 Urine, Random Streptococcus pneumoniae Antigen (M - Final 08/17/24 06:40 Mucosa - Nose SARS-CoV-2, Influenza & RSV (PCR) - Final Radiography Diagnostic Testing: Radiology Impression Chest X-Ray 08/19/24 08:45 IMPRESSION: Cardiomegaly with pulmonary congestion and edema. Superimposed pneumonia cannot be excluded. Reading Location: [facility] Rhythm Strip Rhythm Strip: Sinus Tach Rate: 117 Ectopy: PAC(s) Physical Exam Const alert, oriented x3 and no apparent distress Constitutional Narrative: Pleasant middle-age male, class III obesity, breathing comfortably on 2 L nasal cannula at rest, no conversational dyspnea noted today, sitting up comfortably in bedside chair and conversing normally, in no acute distress. Improving. General Appearance: cooperative and comfortable HEENT normocephalic, head/scalp atraumatic, hearing grossly normal bilaterally, nasal mucous membranes and turbinates normal and moist oral mucous membranes Eyes PERRL, EOMs intact bilaterally and conjunctivae normal Neck full ROM Chest inspection of chest normal Resp normal respiratory effort and no use of accessory muscles Resp Narrative: Breathing comfortably on 2 L nasal cannula at rest. Mild to moderate crackles noted bilaterally, moderately improved from admission. No wheezing noted. Cardio regular rate, regular rhythm, no murmurs and peripheral pulses 2+ throughout GI normal to inspection, nondistended, normoactive bowel sounds, soft to palpation,non-tender and non-distended Back/Spine normal ROM Extremity Extremity Narrative: Trace lower extremity edema noted, much improved from admission. Skin no rashes or lesions noted Psych mental status grossly normal Assessment & Plan Assessment/Plan (1) Acute heart failure with preserved ejection fraction (HFpEF): (2) Human metapneumovirus (hMPV) pneumonia: PLAN: Plan Patient is a 54-year-old male who presented to [facility] ED on 08/17/2024 with worsening shortness of breath. 1. Acute hypoxic respiratory failure secondary to acute HFrEF exacerbation and pneumonia secondary to human metapneumovirus, improving ? Hypoxic to the mid 70s on room air, improved to low 90s on 4 L nasal cannula but then placed on BiPAP for increased work of breathing. Chest x-ray with significant bilateral interstitial infiltrates noted. Positive for human metapneumovirus. BNP 2180 but underestimated in setting of obesity. Last echo in 2022 showed EF 60%, stage II diastolic dysfunction. Repeat echo showed newlyreduced EF 35%, moderate global LV systolic dysfunction, stage II diastolic dysfunction, no significant valve abnormalities. Suspect reduced EF may be secondary to viral illness. Had very good urine output and improvement in oxygenation status on IV Lasix 40 mg every 8 hours. Initiated on low-dose Coregand lisinopril on 08/18. Repeat chest x-ray on 08/19 with cardiomegaly and pulmonary congestion with edema with possible superimposed pneumonia noted but is moderately improved from admission. Has not had any renal contraction yet but blood pressures running low so IV Lasix discontinued on 08/19. De- escalated to p.o. steroids on 08/18, will continue scheduled DuoNebs for now. Continue to wean supplemental oxygen as able. Tentatively planning for home oxygen testing tomorrow morning in preparation for discharge home tomorrow. No need for inpatient cardiology consult but will need close outpatient follow-up with cardiology after discharge. 2. Hyponatremia, improving ? Sodium 124 on admit. Chloride 90. Presume secondary to hypervolemia in setting of heart failure exacerbation. Most recent sodium 132 on 08/19. Continuetreatment as above. Monitor daily sodium level. 3. Elevated troponins ? Troponin trend 167 > 273 > 244. No EKG changes noted. Presume secondary to demand ischemia in setting of heart failure/sedation and respiratory failure. No further workup needed at this time. Chronic medical conditions: ? Class III obesity: BMI 46 on admit. Complicates hospital course, care and prognosis. Encouraged weight loss. ? Type 2 diabetes mellitus: Home regimen of metformin 1000 mg twice daily. A1c 8.3%. Treating with Lantus 15 units daily and Humalog 5 units with meals plus sliding scale insulin while inpatient, adjust as needed. Notably has increased insulin needs while on steroids. Should be okay to resume home regimen on discharge. ? Hypertension: Normotensive to mildly hypotensive on admit. Has now become hypotensive to the 80s to 90 systolic with heavy IV Lasix and low-dose Coreg andlisinopril that was started as noted above. IV Lasix discontinued and holding Coreg and lisinopril for now, will restart as able. Holding home triamterene?hydrochlorothiazide and will likely discontinue this on discharge. ? Hyperlipidemia: Continue home statin. ? Depression: Continue home escitalopram. DVT prophylaxis: Lovenox twice daily CODE STATUS: Full code, verified Expected disposition: Home, 1 to 2 days Total clinical time spent by myself addressing the patient's medical issues, reviewing all the data, and collaborating with patient's care team: 35 minutes. Charges/Coding Visit Charges Inpatient E&M: 95190 Subs Hosp L2 08/19/24 1464 <Electronically signed by Elias Ramires DO> Cosigner Signature (if applicable): CC: ~ Signed [facility] Work Phone: 1([phone]) 969-470904-04-2025 Progress note [facility] Medical Records Department [address] [place] [address] Progress Note - Hospitalist 08/19/24 1036 MR#: [id number] Acct: [id number] Name: MARK ANTHONY YE Jr. Rep #:[id number] : 1970 54 From: Elias meadows DO PCP: Dr. Rayne Gonzalez MD Status:ADM IN Location: [place] [address]- 1 Reason for Visit Reason for Visit: Diagnoses Acute diastolic (congestive) heart failure (08/17/24) Human metapneumovirus pneumonia (08/17/24) Subjective Subjective Saw patient at bedside this morning. Patient was sitting back comfortably in bedside chair, conversing normally and in no acute distress. Appears similar at rest. Notes that he has been up and walking around the room this morning with no significant shortness of breath with exertion. Per nursing, patient did have some shortness of breath with exertion overnight when getting up to go to the bathroom. Patient notes that he has had good urine output but that it seems to be slowing down. He continues to have a mild nonproductive cough. No other new concerns today. Objective Data Objective Data Vital Signs: Vital Signs Temp Pulse Resp BP Pulse Ox O2 Del Method O2 Flow Rate 97.6 F L 83 18 90/62 95 Nasal Cannula 2 08/19/24 08:00 08/19/24 08:00 08/19/24 08:00 08/19/24 08:00 08/19/24 08:00 08/19/24 08:00 08/19/24 08:00 FiO2 28 08/19/24 04:00 Oxygen Flow Rate (L/min) 2 Oxygen Delivery Method Nasal Cannula Weight: 137.6 kg Body Mass Index (BMI) 46.1 Intake & Output: Intake and Output for Last 24 Hours 08/17/24 08/18/24 08/19/24 23:59 23:59 23:59 Intake Total 480 / 720 1360 / 1960 720 / 720 Output Total 600 / 1000 2100 / 2400 900 / 900 Balance -120 / -280 -740 / -440 -180 / -180 Lab / Micro Data 08/18/24 05:20 08/19/24 05:29 Labs: Laboratory Results - last 24 hr 08/17/24 11:05: RBC Folate Hemolysate 535.0, RBC Folate 1482, Hematocrit 36.1 L 08/18/24 08:07: POC Glucose 278 H 08/18/24 12:01: POC Glucose 341 H 08/18/24 17:00: POC Glucose 237 H 08/18/24 21:21: POC Glucose 246 H 08/19/24 05:29: Sodium 132 L, Potassium 3.6, Chloride 94 L, Carbon Dioxide 24.6,Anion Gap 13, BUN 50 H, Creatinine 1.05, Estim Creat Clear Calc 109.30, Est GFR (MDRD) Non-Af 84, BUN/Creatinine Ratio 47.4 H, Glucose 240 H, Calcium 8.7 08/19/24 08:07: POC Glucose 213 H Micro: Microbiology 08/17/24 10:40 Sputum, Expectorated/Coughed Gram Stain - Final 08/17/24 08:50 Mucosa - Nose Respiratory Panel (PCR) - Final Human [place] 08/17/24 12:05 Urine, Random Legionella Antigen - Final 08/17/24 12:05 Urine, Random Streptococcus pneumoniae Antigen (M - Final 08/17/24 06:40 Mucosa - Nose SARS-CoV-2, Influenza & RSV (PCR) - Final Radiography Diagnostic Testing: Radiology Impression Chest X-Ray 08/19/24 08:45 IMPRESSION: Cardiomegaly with pulmonary congestion and edema. Superimposed pneumonia cannot be excluded. Reading Location: [facility] Rhythm Strip Rhythm Strip: Sinus Tach Rate: 117 Ectopy: PAC(s) Physical Exam Const alert, oriented x3 and no apparent distress Constitutional Narrative: Pleasant middle-age male, class III obesity, breathing comfortably on 2 L nasal cannula at rest, noconversational dyspnea noted today, sitting up comfortably in bedside chair and conversing normally, in no acute distress. Improving. General Appearance: cooperative and comfortable HEENT normocephalic, head/scalp atraumatic, hearing grossly normal bilaterally, nasal mucous membranes and turbinates normal and moist oral mucous membranes Eyes PERRL, EOMs intact bilaterally and conjunctivae normal Neck full ROM Chest inspection of chest normal Resp normal respiratory effort and no use of accessory muscles Resp Narrative: Breathing comfortably on 2 L nasal cannula at rest. Mild to moderate crackles noted bilaterally, moderately improved from admission. No wheezing noted. Cardio regular rate, regular rhythm, no murmurs and peripheral pulses 2+ throughout GI normal to inspection, nondistended, normoactive bowel sounds, soft to palpation,non-tender and non-distended Back/Spine normal ROM Extremity Extremity Narrative: Trace lower extremity edema noted, much improved from admission. Skin no rashes or lesions noted Psych mental status grossly normal Assessment & Plan Assessment/Plan (1) Acute heart failure with preserved ejection fraction (HFpEF): (2) Human metapneumovirus (hMPV) pneumonia: PLAN: Plan Patient is a 54-year-old male who presented to [facility] ED on 08/17/2024 with worsening shortness of breath. 1. Acute hypoxic respiratory failure secondary to acute HFrEF exacerbation and pneumonia secondary to human metapneumovirus, improving ? Hypoxic to the mid 70s on room air, improved to low 90s on 4 L nasal cannula but then placed on BiPAP for increased work of breathing. Chest x-ray with significant bilateral interstitial infiltrates noted. Positive for human metapneumovirus. BNP 2180 but underestimated in setting of obesity. Lastecho in 2022 showed EF 60%, stage II diastolic dysfunction. Repeat echo showed newlyreduced EF 35%,moderate global LV systolic dysfunction, stage II diastolic dysfunction, no significant valve abnormalities. Suspect reduced EF may be secondary to viral illness. Had very good urine output and improvement in oxygenation status on IV Lasix 40 mg every 8 hours. Initiated on low-dose Coregand lisinopril on 08/18. Repeat chest x-ray on 08/19 with cardiomegaly and pulmonary congestion with edema with possible superimposed pneumonia noted but is moderately improved from admission. Has not had any renal contraction yet but blood pressures running low so IV Lasix discontinued on 08/19. De-escalated to p.o. steroids on 08/18, will continue scheduled DuoNebs for now. Continue to wean supplemental oxygen as able. Tentatively planning for home oxygen testing tomorrow morning in preparation for discharge home tomorrow. No need for inpatient cardiology consult but will need close outpatient follow-up with ca rdiology after discharge. 2. Hyponatremia, improving ? Sodium 124 on admit. Chloride 90. Presume secondary to hypervolemia in setting of heart failure exacerbation. Most recent sodium 132 on 08/19. Continuetreatment as above. Monitor daily sodium level. 3. Elevated troponins ? Troponin trend 167 > 273 > 244. No EKG changes noted. Presume secondary to demand ischemia in setting of heart failure/sedation and respiratory failure. No further workup needed at this time. Chronic medical conditions: ? Class III obesity: BMI 46 on admit. Complicates hospital course, care and prognosis. Encouraged weight loss. ? Type 2 diabetes mellitus: Home regimen of metformin 1000 mg twice daily. A1c 8.3%. Treating with Lantus 15 units daily and Humalog 5 units with meals plus sliding scale insulin while inpatient, adjust as needed. Notably has increased insulin needs while on steroids. Should be okay to resume home regimen on discharge. ? Hypertension: Normotensive to mildly hypotensive on admit. Has now become hypotensive to the 80s to 90 systolic with heavy IV Lasix and low-dose Coreg andlisinopril that was started as noted above.IV Lasix discontinued and holding Coreg and lisinopril for now, will restart as able. Holding home t riamterene?hydrochlorothiazide and will likely discontinue this on discharge. ? Hyperlipidemia: Continue home statin. ? Depression: Continue home escitalopram. DVT prophylaxis: Lovenox twice daily CODE STATUS: Full code, verified Expected disposition: Home, 1 to 2 days Total clinical time spent by myself addressing the patient's medical issues, reviewing all the data, and collaborating with patient's care team: 35 minutes. Charges/Coding Visit Charges Inpatient E&M: 96403 Subs Hosp L2 08/19/24 125 Cosigner Signature (if applicable): CC: ~ Signed [facility]04-04-2025 Radiology Diagnostic study note [facility] Imaging Services [address] [place], [place] [id number] Chest 1 View (Portable) MR#: [id number] Acct: [id number] Name: MARK ANTHONY YE Rep #: [id number] : 1970 M 54 From: Gregoria Steward MD PCP: Dr. Rayne Gonzalez MD Status: ADM IN Study:Chest 1 View (Portable) Date of Exam: 08/19/24 Exam# [id number] Ordering Dr: Elias Castellon DO EXAM: XR Chest, 1 View CLINICAL INDICATION: PERSISTENT HYPOXIA TECHNIQUE: Frontal view of the chest. COMPARISON: No relevant prior studies available. FINDINGS: LUNGS AND PLEURAL SPACES: See below. HEART: Cardiomegaly with pulmonary congestion and edema. Superimposed pneumoniacannot be excluded. MEDIASTINUM: Unremarkable. Normal mediastinal contour. BONES/JOINTS: Unremarkable. No acute fracture. RAD/Chest 1 View (Portable) IMPRESSION: Cardiomegaly with pulmonary congestion and edema. Superimposed pneumonia cannot be excluded. Reading Location: [facility] CC: Dr. Elias Ramires DO; Dr. Rayne Gonzalez MD ~ Jacket Changer: Signed [facility]04-03-2025 Progress note Author Elias Ramires [facility] Note Date/Time August 18, 2024 9:33 am [facility] Medical Records Department [address] [place] [address] Progress Note - Hospitalist 08/18/24 0916 MR#: [id number] Acct: [id number] Name: MARK ANTHONY YE JrMiguel Rep #:[id number] : 1970 54 From: Elias meadows DO PCP: Dr. Rayne Gonzalez MD Status:ADM IN Location: ICU ICU01-1 Reason for Visit Reason for Visit: Diagnoses Acute diastolic (congestive) heart failure (08/17/24) Human metapneumovirus pneumonia (08/17/24) Subjective Subjective Saw patient at bedside this morning. Patient was sitting back in bed and breathing comfortably on nasal cannula at 5 L, in no acute distress. He was eating his breakfast when I saw him. Noted that he had essentially been on the BiPAP all day yesterday and through the night, and nursing had just taken him off prior to his breakfast. He did try going off the BiPAP a few times yesterday but had significant shortness of breath so was placed back on BiPAP. He feels much better this morning than yesterday. Continues to have very mild dyspnea with conversation. Has not gotten out of bed yet but is looking forwardto trying that today. No other new concerns today. Objective Data Objective Data Vital Signs: Vital Signs Temp Pulse Resp BP Pulse Ox O2 Del Method O2 Flow Rate 97.9 F 99 19 H 101/55 L 93 Nasal Cannula 5 08/18/24 08:09 08/18/24 08:09 08/18/24 08:09 08/18/24 08:09 08/18/24 08:09 08/18/24 08:09 08/18/24 08:09 FiO2 40 08/18/24 07:11 Oxygen Flow Rate (L/min) 5 Oxygen Delivery Method Nasal Cannula Weight: 138.6 kg Body Mass Index (BMI) 46.4 Intake & Output: Intake and Output for Last 24 Hours 08/16/24 08/17/24 08/18/24 23:59 23:59 23:59 Intake Total 480 / 720 360 / 360 Output Total 600 / 1000 1000 / 1000 Balance -120 / -280 -640 / -640 Lab / Micro Data 08/18/24 05:20 08/18/24 05:20 Labs: Laboratory Results - last 24 hr 08/17/24 06:45: Hemoglobin A1c 8.3, Iron 20 L, TIBC 204 L, Iron Saturation 9.8, Unsaturated IBC 184 L, Ferritin 541 H, Vitamin B12 375, Procalcitonin 0.15 H 08/17/24 11:06: POC Glucose 209 H 08/17/24 15:14: Troponin T Hi Sens 2 Hr 273 H* 08/17/24 15:48: POC Glucose 190 H 08/17/24 17:35: Troponin T Hi Sens 4Hr 244 H* 08/17/24 22:01: POC Glucose 242 H 08/18/24 05:20: WBC 6.4, RBC 4.24 L, Hgb 12.2 L, Hct 34.8 L, MCV 82.1, MCH 28.8,MCHC 35.1, RDW Std Deviation 40.8, RDW Coeff of Adry 13.7, Plt Count 240, MPV 10.1, Sodium 129 L, Potassium 4.1, Chloride 91 L, Carbon Dioxide 23.5, Anion Gap15, BUN 37 H, Creatinine 1.06, Estim Creat Clear Calc 108.72, Est GFR (MDRD) Non-Af 83, BUN/Creatinine Ratio 35.2 H, Glucose 286 H, Calcium 9.0 Micro: Microbiology 08/17/24 08:50 Mucosa - Nose Respiratory Panel (PCR) - Final Human [place] 08/17/24 12:05 Urine, Random Legionella Antigen - Final 08/17/24 12:05 Urine, Random Streptococcus pneumoniae Antigen (M - Final 08/17/24 06:40 Mucosa - Nose SARS-CoV-2, Influenza & RSV (PCR) - Final Radiography Diagnostic Testing: Radiology Impression Echocardiogram 08/17/24 11:17 Interpretation Summary The left ventricular ejection fraction is 35 %. Normal LV size. Moderate concentric left ventricular hypertrophy. Stage 2 diastolic dysfunction. Ordering Physician: Elias Ramires Referring Physician: RAYNE GONZALEZ Performed By: Sharon Leigh RDCS Rhythm Strip Rhythm Strip: Sinus Tach Rate: 117 Ectopy: PAC(s) Physical Exam Const alert, oriented x3 and no apparent distress Constitutional Narrative: Pleasant middle-age male, class III obesity, breathing comfortably on 5 L nasal cannula at rest but with mild conversational dyspnea noted, otherwise sitting upcomfortably in bed and conversing normally. General Appearance: cooperative and comfortable HEENT normocephalic, head/scalp atraumatic, hearing grossly normal bilaterally, nasal mucous membranes and turbinates normal and moist oral mucous membranes Eyes PERRL, EOMs intact bilaterally and conjunctivae normal Neck full ROM Chest inspection of chest normal Resp normal respiratory effort and no use of accessory muscles Resp Narrative: Breathing comfortably on 5 L nasal cannula at rest. Moderate crackles noted bilaterally throughout, slightly improved from yesterday. No wheezing noted. Cardio no murmurs and peripheral pulses 2+ throughout Cardio Narrative: Tachycardic, regular rhythm. GI normal to inspection, nondistended, normoactive bowel sounds, soft to palpation,non-tender and non-distended Back/Spine normal ROM Extremity Extremity Narrative: +1-2 lower extremity pitting edema noted, improving. Skin no rashes or lesions noted Psych mental status grossly normal Assessment & Plan Assessment/Plan (1) Acute heart failure with preserved ejection fraction (HFpEF): (2) Human metapneumovirus (hMPV) pneumonia: PLAN: Plan Patient is a 54-year-old male who presented to [facility] ED on 08/17/2024 with worsening shortness of breath. 1. Acute hypoxic respiratory failure secondary to acute HFrEF exacerbation and pneumonia secondary to human metapneumovirus, improving ? Hypoxic to the mid 70s on room air, improved to low 90s on 4 L nasal cannula but then placed on BiPAP for increased work of breathing. Chest x-ray with significant bilateral interstitial infiltrates noted. Positive for human metapneumovirus. BNP 2180 but underestimated in setting of obesity. Last echo in 2022 showed EF 60%, stage II diastolic dysfunction. Repeat echo showed newlyreduced EF 35%, moderate global LV systolic dysfunction, stage II diastolic dysfunction, no significant valve abnormalities. Suspect reduced EF may be secondary to viral illness. Will continue to treat with IV Lasix 40 mg every 8 hours for now, monitor BMP and urine output. Will start low-dose Coreg and lisinopril on 08/18. De-escalated to p.o. steroids on 08/18, will continue scheduled DuoNebs for now. Wean supplemental oxygen as able. No need for cardiology consult at this time but will need outpatient follow-up with cardiology after discharge. 2. Hyponatremia, improving ? Sodium 124 on admit. Chloride 90. Presume secondary to hypervolemia in setting of heart failure exacerbation. Most recent sodium 129 on 08/18. Continuetreatment as above. Monitor daily sodium level. 3. Elevated troponins ? Troponin trend 167 > 273 > 244. No EKG changes noted. Presume secondary to demand ischemia in setting of heart failure/sedation and respiratory failure. No further workup needed at this time. Chronic medical conditions: ? Class III obesity: BMI 46 on admit. Complicates hospital course, care and prognosis. Encouraged weight loss. ? Type 2 diabetes mellitus: Home regimen of metformin 1000 mg twice daily. A1c 8.3%. Treating with sliding scale insulin with meals while inpatient, adjust asneeded. ? Hypertension: Normotensive to mildly hypotensive on admit. Treating with IV Lasix as above. Started low-dose Coreg and lisinopril as noted above, continue to hold triamterene?hydrochlorothiazide. ? Hyperlipidemia: Continue home statin. ? Depression: Continue home escitalopram. DVT prophylaxis: Lovenox twice daily CODE STATUS: Full code, verified Expected disposition: Home, TBD Total clinical time spent by myself addressing the patient's medical issues, reviewing all the data, and collaborating with patient's care team: 35 minutes. Charges/Coding Visit Charges Inpatient E&M: 10474 Subs Hosp L2 08/18/2433 <Electronically signed by Elias Ramires DO> Cosigner Signature (if applicable): CC: ~ Signed [facility] Work Phone: 1([phone]) 399-585704-03-2025 Progress note [facility] Medical Records Department [address] [place] [address] Progress Note - Hospitalist 08/18/24915 MR#: [id number] Acct: [id number] Name: MARK ANTHONY YE EDITA Desouza Rep #:[id number] : 1970 54 From: Elias meadows DO PCP: Dr. Rayne Gonzalez MD Status:ADM IN Location: ICU ICU01-1 Reason for Visit Reason for Visit: Diagnoses Acute diastolic (congestive) heart failure (08/17/24) Human metapneumovirus pneumonia (08/17/24) Subjective Subjective Saw patient at bedside this morning. Patient was sitting back in bed and breathing comfortably on nasal cannula at 5 L, in no acute distress. He was eating his breakfast when I saw him. Noted that hehad essentially been on the BiPAP all day yesterday and through the night, and nursing had just taken him off prior to his breakfast. He did try going off the BiPAP a few times yesterday but had significant shortness of breath so was placed back on BiPAP. He feels much better this morning than yesterday. Continues to have very mild dyspnea with conversation. Has not gotten out of bed yet but is looking forwardto trying that today. No other new concerns today. Objective Data Objective Data Vital Signs: Vital Signs Temp Pulse Resp BP Pulse Ox O2 Del Method O2 Flow Rate 97.9 F 99 19 H 101/55 L 93 Nasal Cannula 5 08/18/24 08:09 08/18/24 08:09 08/18/24 08:09 08/18/24 08:09 08/18/24 08:09 08/18/24 08:09 08/18/24 08:09 FiO2 40 08/18/24 07:11 Oxygen Flow Rate (L/min) 5 Oxygen Delivery Method Nasal Cannula Weight: 138.6 kg Body Mass Index (BMI) 46.4 Intake & Output: Intake and Output for Last 24 Hours 08/16/24 08/17/24 08/18/24 23:59 23:59 23:59 Intake Total 480 / 720 360 / 360 Output Total 600 / 1000 1000 / 1000 Balance -120 / -280 -640 / -640 Lab / Micro Data 08/18/24 05:20 08/18/24 05:20 Labs: Laboratory Results - last 24 hr 08/17/24 06:45: Hemoglobin A1c 8.3, Iron 20 L, TIBC 204 L, Iron Saturation 9.8, Unsaturated IBC 184L, Ferritin 541 H, Vitamin B12 375, Procalcitonin 0.15 H 08/17/24 11:06: POC Glucose 209 H 08/17/24 15:14: Troponin T Hi Sens 2 Hr 273 H* 08/17/24 15:48: POC Glucose 190 H 08/17/24 17:35: Troponin T Hi Sens 4Hr 244 H* 08/17/24 22:01: POC Glucose 242 H 08/18/24 05:20: WBC 6.4, RBC 4.24 L, Hgb 12.2 L, Hct 34.8 L, MCV 82.1, MCH 28.8,MCHC 35.1, RDW Std Deviation 40.8, RDW Coeff of Adry 13.7, Plt Count 240, MPV 10.1, Sodium 129 L, Potassium 4.1, Chloride 91 L, Carbon Dioxide 23.5, Anion Gap15, BUN 37 H, Creatinine 1.06, Estim Creat Clear Calc 108.72, Est GFR (MDRD) Non-Af 83, BUN/Creatinine Ratio 35.2 H, Glucose 286 H, Calcium 9.0 Micro: Microbiology 08/17/24 08:50 Mucosa - Nose Respiratory Panel (PCR) - Final Human [place] 08/17/24 12:05 Urine, Random Legionella Antigen - Final 08/17/24 12:05 Urine, Random Streptococcus pneumoniae Antigen (M - Final 08/17/24 06:40 Mucosa - Nose SARS-CoV-2, Influenza & RSV (PCR) - Final Radiography Diagnostic Testing: Radiology Impression Echocardiogram 08/17/24 11:17 Interpretation Summary The left ventricular ejection fraction is 35 %. Normal LV size. Moderate concentric left ventricular hypertrophy. Stage 2 diastolic dysfunction. Ordering Physician: Elias Ramires Referring Physician: RAYNE GONZALEZ Performed By: Sharon Leigh RDCS Rhythm Strip Rhythm Strip: Sinus Tach Rate: 117 Ectopy: PAC(s) Physical Exam Const alert, oriented x3 and no apparent distress Constitutional Narrative: Pleasant middle-age male, class III obesity, breathing comfortably on 5 L nasal cannula at rest butwith mild conversational dyspnea noted, otherwise sitting upcomfortably in bed and conversing normally. General Appearance: cooperative and comfortable HEENT normocephalic, head/scalp atraumatic, hearing grossly normal bilaterally, nasal mucous membranes and turbinates normal and moist oral mucous membranes Eyes PERRL, EOMs intact bilaterally and conjunctivae normal Neck full ROM Chest inspection of chest normal Resp normal respiratory effort and no use of accessory muscles Resp Narrative: Breathing comfortably on 5 L nasal cannula at rest. Moderate crackles noted bilaterally throughout,slightly improved from yesterday. No wheezing noted. Cardio no murmurs and peripheral pulses 2+ throughout Cardio Narrative: Tachycardic, regular rhythm. GI normal to inspection, nondistended, normoactive bowel sounds, soft to palpation,non-tender and non-distended Back/Spine normal ROM Extremity Extremity Narrative: +1-2 lower extremity pitting edema noted, improving. Skin no rashes or lesions noted Psych mental status grossly normal Assessment & Plan Assessment/Plan (1) Acute heart failure with preserved ejection fraction (HFpEF): (2) Human metapneumovirus (hMPV) pneumonia: PLAN: Plan Patient is a 54-year-old male who presented to [facility] ED on 08/17/2024 with worsening shortness of breath. 1. Acute hypoxic respiratory failure secondary to acute HFrEF exacerbation and pneumonia secondary to human metapneumovirus, improving ? Hypoxic to the mid 70s on room air, improved to low 90s on 4 L nasal cannula but then placed on BiPAP for increased work of breathing. Chest x-ray with significant bilateral interstitial infiltrates noted. Positive for human metapneumovirus. BNP 2180 but underestimated in setting of obesity. Lastecho in 2022 showed EF 60%, stage II diastolic dysfunction. Repeat echo showed newlyreduced EF 35%,moderate global LV systolic dysfunction, stage II diastolic dysfunction, no significant valve abnormalities. Suspect reduced EF may be secondary to viral illness. Will continue to treat with IV Lasix40 mg every 8 hours for now, monitor BMP and urine output. Will start low-dose Coreg and lisinoprilon 08/18. De-escalated to p.o. steroids on 08/18, will continue scheduled DuoNebs for now. Wean supplemental oxygen as able. No need for cardiology consult at this time but will need outpatient follow-upwith cardiology after discharge. 2. Hyponatremia, improving ? Sodium 124 on admit. Chloride 90. Presume secondary to hypervolemia in setting of heart failure exacerbation. Most recent sodium 129 on 08/18. Continuetreatment as above. Monitor daily sodium level. 3. Elevated troponins ? Troponin trend 167 > 273 > 244. No EKG changes noted. Presume secondary to demand ischemia in setting of heart failure/sedation and respiratory failure. No further workup needed at this time. Chronic medical conditions: ? Class III obesity: BMI 46 on admit. Complicates hospital course, care and prognosis. Encouraged weight loss. ? Type 2 diabetes mellitus: Home regimen of metformin 1000 mg twice daily. A1c 8.3%. Treating with sliding scale insulin with meals while inpatient, adjust asneeded. ? Hypertension: Normotensive to mildly hypotensive on admit. Treating with IV Lasix as above. Started low-dose Coreg and lisinopril as noted above, continue to hold triamterene?hydrochlorothiazide. ? Hyperlipidemia: Continue home statin. ? Depression: Continue home escitalopram. DVT prophylaxis: Lovenox twice daily CODE STATUS: Full code, verified Expected disposition: Home, TBD Total clinical time spent by myself addressing the patient's medical issues, reviewing all the data, and collaborating with patient's care team: 35 minutes. Charges/Coding Visit Charges Inpatient E&M: 70993 Subs Hosp L2 08/18/24 0933 Cosigner Signature (if applicable): CC: ~ Signed [facility]04-02-2025 History and physical note Author Elias Ramires [facility] Note Date/Time August 17, 2024 3:42 pm [facility] Medical Records Department [address] [place] [address] H&P Exam - Hospitalist 08/17/24 0735 MR#: [id number] Acct: [id number] Name: MARK ANTHONY EY Jr. Rep #:[id number] : 1970 54 From: Elias meadows DO PCP: Dr. Rayne Gonzalez MD Status:ADM IN Location: ICU ICU01-1 HPI - General General Date of Admission: 08/17/24 Date of Service: 08/17/24 Chief Complaint: Worsening shortness of breath HPI Narrative MARK ANTHONY YE, is a 54 M who presented to [facility] ED on 08/17/2024 with worsening shortness of breath. Patient does not wear oxygen at home. He developed URI symptoms about 1 week ago and has had progressive shortness of breath since then. Notes that his works at [employer] had an upper respiratory illness prior to that. He has noticed worsening lower extremity swelling and has not been able to lay flat in bed. Does have history of HFpEF noted. In the ED he was found to be hypoxic to the mid 70s on room air. Required 4 L nasal cannula to maintain oxygen saturations in the low 90s. Chest x-ray showed moderate bilateral patchy airspace opacities most consistent with pulmonary edema but no pleural effusions identified. Was found to be positive for human metapneumovirus. BNP was 2180 but notably patient has BMI of 46 so BMP will be underestimated. Labs otherwise notable for sodium 124,chloride 90, bicarb 18. Initial troponin 167, repeat pending. No EKG changes noted. Given all of these findings, hospitalist was contacted for admission. I saw the patient at bedside in the ED, was present. Patient was sitting up fairly comfortably in bed and breathing comfortably on 4 L nasal cannula at rest. He did have mild conversational dyspnea noted at times. Did have a few dry cough spells noted during our encounter. He was given a dose of IV Lasix aswell as a breathing treatment prior to my encounter with him and stated these were moderately helpful for him. He denied any current fevers or chills. No other acute concerns at this time. [facility] Medical History (Updated 08/17/24 @ 15:[address] Elias Ramires DO) Depression Diabetes Dialysis patient CPAP (continuous positive airway pressure) dependence Sleep apnea Acute bronchitis, unspecified Acute maxillary sinusitis, unspecified Ocular migraine JOANNE (obstructive sleep apnea) Pre-diabetes Cardiac murmur High cholesterol Hypertension Heart failure Bone fracture History of back problems Home Medications ?Medication ?Instructions ?Recorded ?Last Taken ?Type aspirin 81 mg tablet,delayed 81 mg PO DAILY 11/04/22 U nknown History release (Adult Aspirin Regimen) [id number] 150 mcg-vit K1 1 tab PO DAILY 11/04 Unknown History 30 mcg-lycop 300 mcg-lutein tablet (Centrum Minis Men 50 Plus) atorvastatin 20 mg tablet 20 mg PO DAILY #90 tabs 04/17 01/08 Unknown Rx lisinopril 20 mg tablet 20 mg PO DAILY #90 tabs 04/17 01/08 Unknown Rx metformin 1,000 mg tablet 1,000 mg PO BID #180 tabs Unknown Rx triamterene 37.5 1 cap PO DAILY #90 caps 04/17 01/08 Unknown Rx mg-hydrochlorothiazide 25 mg capsule albuterol sulfate 90 mcg/actuation 2 puff inhalation Q 6H PRN 06/02/24 Unknown Rx aerosol inhaler shortness of breath or wheez ing #8.5 grams escitalopram oxalate 10 mg tablet 10 mg PO QDAY #30 ta bs 08/09/24 Unknown Rx (Lexapro) trazodone 50 mg tablet 50 - 100 mg (1 - 2 x 50 mg) PO QHS 08/09/24 Unknown Rx #90 tabs Allergy/AdvReac Type Severity Reaction Status Date / Time No Known Allergies Allergy Verified 08/09/24 13:05 Family History Mother Alcoholism Arthritis Myocardial infarction CVA (cerebral vascular accident) COPD (chronic obstructive pulmonary disease) Father Alcoholism COPD (chronic obstructive pulmonary disease) Prostate cancer Grandmother Arthritis Breast cancer Colon cancer Skin cancer Surgical History History of tonsillectomy History of foot surgery History of hernia repair Social History household members: spouse current occupational status: unemployed Smoking Status: Never smoker Electronic Cigarette Use: not used alcohol intake: current alcohol intake frequency: holidays/special occasions only Alcohol type: beer and wine substance use type: does not use what type of physical activity do you participate in: none do you feel safe at home: Yes ROS Constitutional Constitutional: Reports fatigue and malaise; Denies chills or fever(s) Eyes Eyes: Denies change in vision Cardiovascular Cardiovascular: Reports dyspnea on exertion, edema and orthopnea; Denies chest pain, lightheadedness or palpitations Respiratory/Chest Respiratory/Chest: Reports cough, shortness of breath at rest and shortness of breath with exertion; Denies productive cough or wheezing Gastrointestinal Gastrointestinal: Denies abdominal pain Genitourinary Genitourinary: Denies dysuria Musculoskeletal Musculoskeletal: Denies arthralgias or myalgias Neurologic Neurologic: Denies dizziness or headache(s) Vital Signs Vital Signs Vital Signs: 08/17/24 06:32 08/17/24 06:34 08/17/24 06:35 Temperature 99.8 F H Temperature Source Oral Pulse Rate 123 H 121 H Respiratory Rate 30 H 24 H Respiratory Effort Respiratory Pattern Blood Pressure 128/67 H Blood Pressure Mean 87 Pulse Ox 79 84 87 Oxygen Delivery Method Room Air Nasal Cannula Nasal Cannula Oxygen Flow Rate (L/min) 2 4 08/17/24 06:36 08/17/24 06:52 Temperature Temperature Source Pulse Rate 113 H Respiratory Rate 30 H Respiratory Effort Short of Breath Labored Accessory Muscle Use Respiratory Pattern Tachypnea Blood Pressure Blood Pressure Mean Pulse Ox Oxygen Delivery Method Oxygen Flow Rate (L/min) Weight Weight: 143.3 kg Body Mass Index (BMI) 48.0 Physical Exam Const alert, oriented x3 and no apparent distress Constitutional Narrative: Pleasant middle-age male, class III obesity, breathing comfortably on 4 L nasal cannula at rest but with mild conversational dyspnea noted, otherwise sitting upcomfortably in bed and conversing normally. General Appearance: cooperative and comfortable HEENT normocephalic, head/scalp atraumatic, hearing grossly normal bilaterally, nasal mucous membranes and turbinates normal and moist oral mucous membranes Eyes PERRL, EOMs intact bilaterally and conjunctivae normal Neck full ROM Chest inspection of chest normal Resp normal respiratory effort and no use of accessory muscles Resp Narrative: Breathing comfortably on 4 L nasal cannula at rest. Significant crackles noted bilaterally throughout with mild upper airway wheezing noted. Cardio no murmurs and peripheral pulses 2+ throughout Cardio Narrative: Tachycardic, regular rhythm. GI normal to inspection, nondistended, normoactive bowel sounds, soft to palpation,non-tender and non-distended Back/Spine normal ROM Extremity Extremity Narrative: +2-3 lower extremity pitting edema noted up to the knees. Skin no rashes or lesions noted Psych mental status grossly normal Results Lab / Micro Data 08/17/24 06:45 08/17/24 06:45 Labs: Laboratory Results - last 24 hr 08/17/24 06:45: WBC 11.4 H, RBC 4.32 L, Hgb 12.6 L, Hct 35.5 L, MCV 82.2, MCH 29.2, MCHC 35.5, RDW Std Deviation 41.1, RDW Coeff of Adry 13.8, Plt Count 262, MPV 10.2, Immature Gran % (Auto) 0.600, Neut % (Auto) 87.1 H, Lymph % (Auto) 6.2L, Throckmorton % (Auto) 5.8, Eos % (Auto) 0.0, Baso % (Auto) 0.3, Absolute Neuts (auto)9.9 H, Absolute Lymphs (auto) 0.71 L, Nucleated RBC % 0, Sodium 124 L, Potassium4.5, Chloride 90 L, Carbon Dioxide 18.0 L, Anion Gap 17 H, BUN 31 H, Creatinine 1.05, Estim Creat Clear Calc 111.89, Est GFR (MDRD) Non-Af 84, BUN/Creatinine Ratio 29.8 H, Glucose 249 H, Calcium 9.2, Troponin T High Sens 167 H*, NT pro BNP II 2180 H Rhythm Strip Rhythm Strip: Sinus Tach Rate: 117 Ectopy: PAC(s) Imaging Radiology Impression Chest X-Ray 08/17/24 06:33 IMPRESSION: AP upright portable view. Large appearing body habitus. Moderate bilateral perihilar lower zone predominant ill-defined patchy airspace opacities may represent pulmonary edema, clinically correlate. No definite pleural effusion identified. The cardiac silhouette is at the upper limits for size. The upper mediastinum again appears prominent. Reading Location: [id number] Assessment & Plan Assessment/Plan (1) Acute heart failure with preserved ejection fraction (HFpEF): (2) Human metapneumovirus (hMPV) pneumonia: PLAN: Plan Patient is a 54-year-old male who presented to [facility] ED on 08/17/2024 with worsening shortness of breath. 1. Acute hypoxic respiratory failure secondary to suspected HFpEF exacerbation and pneumonia secondary to human metapneumovirus ? Admit under inpatient status to PCU. Hypoxic to the mid 70s on room air, improved to low 90s on 4 L nasal cannula but then placed on BiPAP for some increased work of breathing. Chest x-ray with significant bilateral interstitial infiltrates noted. Positive for human metapneumovirus. BNP 2180 but underestimated in setting of obesity. Last echo in 2022 showed EF 60%, stage II diastolic dysfunction. Repeat echo ordered. Will treat with IV Lasix 40 mg every 8 hours for now, monitor BMP and urine output. Will also treat withIV steroids and scheduled DuoNebs for now. Wean supplemental oxygen as able. 2. Hyponatremia ? Sodium 124 on admit. Chloride 90. Suspect secondary to hypervolemia in setting of HFpEF exacerbation, treating as above. No mental status change noted. Monitor daily sodium level. 3. Elevated troponin ? Initial troponin 167, repeat pending. No EKG changes noted. Suspect demand ischemia in setting of HFpEF exacerbation and respiratory failure. Echo orderedas above. Chronic medical conditions: ? Class III obesity: BMI 46 on admit. Complicates hospital course, care and prognosis. Encouraged weight loss. ? Type 2 diabetes mellitus: Home regimen of metformin 1000 mg twice daily. A1c 8.3%. Will treat with sliding scale insulin with meals while inpatient, adjust as needed. ? Hypertension: Normotensive to mildly hypotensive on admit. Treating with IV Lasix as above. Will hold home lisinopril and triamterene?hydrochlorothiazide for now. ? Hyperlipidemia: Continue home statin. ? Depression: Continue home escitalopram. DVT prophylaxis: Lovenox twice daily CODE STATUS: Full code, verified Expected disposition: Home, TBD Total clinical time spent by myself addressing the patient's medical issues, reviewing all the data, and collaborating with patient's care team: 75 minutes. Charges/Coding Visit Charges Inpatient E&M: 85052 Init Hosp L3 08/17/24 1542 <Electronically signed by Elias Ramires DO> Cosigner Signature (if applicable): CC: Dr. Elias Ramires DO; Dr. Rayne Gonzalez MD~ Signed [facility] Work Phone: [phone]) 657-494404-02-2025 History and physical note [facility] Medical Records Department [address] [place] [address] H&P Exam - Hospitalist 08/17/24 0735 MR#: [id number] Acct: [id number] Name: MARK ANTHONY YE Jr. Rep #:[id number] : 1970 54 From: Elias meadows DO PCP: Dr. Rayne Gonzalez MD Status:ADM IN Location: ICU ICU01-1 HPI - General General Date of Admission: 08/17/24 Date of Service: 08/17/24 Chief Complaint: Worsening shortness of breath HPI Narrative MARK ANTHONY YE, is a 54 M who presented to [facility] ED on 08/17/2024 with worsening shortness of breath. Patient does not wear oxygen at home. He developed URI symptoms about 1 week agoand has had progressive shortness of breath since then. Notes that his works at [employer] had an upper respiratory illness prior to that. He has noticed worsening lower extremity swelling and has not been able to lay flat in bed. Does have history of HFpEF noted. In the ED he was found to be hypoxic to the mid 70s on room air. Required 4 L nasal cannula to maintain oxygen saturations in the low 90s. Chest x-ray showed moderate bilateral patchy airspace opacities most consistentwith pulmonary edema but no pleural effusions identified. Was found to be positive for human metapneumovirus. BNP was 2180 but notably patient has BMI of 46 so BMP will be underestimated. Labs otherwise notable for sodium 124,chloride 90, bicarb 18. Initial troponin 167, repeat pending. No EKG changes noted. Given all of these findings, hospitalist was contacted for admission. I saw the patient at bedside in the ED, was present. Patient was sitting up fairly comfortablyin bed and breathing comfortably on 4 L nasal cannula at rest. He did have mild conversational dyspnea noted at times. Did have a few dry cough spells noted during our encounter. He was given a dose of IV Lasix aswell as a breathing treatment prior to my encounter with him and stated these were mode rately helpful for him. He denied any current fevers or chills. No other acute concerns at this time. [facility] Medical History (Updated 08/17/24 @ 15:[address] Elias Ramires, ) Depression Diabetes Dialysis patient CPAP (continuous positive airway pressure) dependence Sleep apnea Acute bronchitis, unspecified Acute maxillary sinusitis, unspecified Ocular migraine JOANNE (obstructive sleep apnea) Pre-diabetes Cardiac murmur High cholesterol Hypertension Heart failure Bone fracture History of back problems Home Medications ?Medication ?Instructions ?Recorded ?Last Taken ?Type aspirin 81 mg tablet,delayed 81 mg PO DAILY 11/04/22 U nknown History release (Adult Aspirin Regimen) [id number] 150 mcg-vit K1 1 tab PO DAILY 11/04 Unknown History 30 mcg-lycop 300 mcg-lutein tablet (Centrum Minis Men 50 Plus) atorvastatin 20 mg tablet 20 mg PO DAILY #90 tabs 04/17 01/08 Unknown Rx lisinopril 20 mg tablet 20 mg PO DAILY #90 tabs 04/17 01/08 Unknown Rx metformin 1,000 mg tablet 1,000 mg PO BID #180 tabs Unknown Rx triamterene 37.5 1 cap PO DAILY #90 caps 04/17 01/08 Unknown Rx mg-hydrochlorothiazide 25 mg capsule albuterol sulfate 90 mcg/actuation 2 puff inhalation Q 6H PRN 06/02/24 Unknown Rx aerosol inhaler shortness of breath or wheez ing #8.5 grams escitalopram oxalate 10 mg tablet 10 mg PO QDAY #30 ta bs 08/09/24 Unknown Rx (Lexapro) trazodone 50 mg tablet 50 - 100 mg (1 - 2 x 50 mg) PO QHS 08/09/24 Unknown Rx #90 tabs Allergy/AdvReac Type Severity Reaction Status Date / Time No Known Allergies Allergy Verified 08/09/24 13:05 Family History Mother Alcoholism Arthritis Myocardial infarction CVA (cerebral vascular accident) COPD (chronic obstructive pulmonary disease) Father Alcoholism COPD (chronic obstructive pulmonary disease) Prostate cancer Grandmother Arthritis Breast cancer Colon cancer Skin cancer Surgical History History of tonsillectomy History of foot surgery History of hernia repair Social History household members: spouse current occupational status: unemployed Smoking Status: Never smoker Electronic Cigarette Use: not used alcohol intake: current alcohol intake frequency: holidays/special occasions only Alcohol type: beer and wine substance use type: does not use what type of physical activity do you participate in: none do you feel safe at home: Yes ROS Constitutional Constitutional: Reports fatigue and malaise; Denies chills or fever(s) Eyes Eyes: Denies change in vision Cardiovascular Cardiovascular: Reports dyspnea on exertion, edema and orthopnea; Denies chest pain, lightheadedness or palpitations Respiratory/Chest Respiratory/Chest: Reports cough, shortness of breath at rest and shortness of breath with exertion; Denies productive cough or wheezing Gastrointestinal Gastrointestinal: Denies abdominal pain Genitourinary Genitourinary: Denies dysuria Musculoskeletal Musculoskeletal: Denies arthralgias or myalgias Neurologic Neurologic: Denies dizziness or headache(s) Vital Signs Vital Signs Vital Signs: 08/17/24 06:32 08/17/24 06:34 08/17/24 06:35 Temperature 99.8 F H Temperature Source Oral Pulse Rate 123 H 121 H Respiratory Rate 30 H 24 H Respiratory Effort Respiratory Pattern Blood Pressure 128/67 H Blood Pressure Mean 87 Pulse Ox 79 84 87 Oxygen Delivery Method Room Air Nasal Cannula Nasal Cannula Oxygen Flow Rate (L/min) 2 4 08/17/24 06:36 08/17/24 06:52 Temperature Temperature Source Pulse Rate 113 H Respiratory Rate 30 H Respiratory Effort Short of Breath Labored Accessory Muscle Use Respiratory Pattern Tachypnea Blood Pressure Blood Pressure Mean Pulse Ox Oxygen Delivery Method Oxygen Flow Rate (L/min) Weight Weight: 143.3 kg Body Mass Index (BMI) 48.0 Physical Exam Const alert, oriented x3 and no apparent distress Constitutional Narrative: Pleasant middle-age male, class III obesity, breathing comfortably on 4 L nasal cannula at rest butwith mild conversational dyspnea noted, otherwise sitting upcomfortably in bed and conversing normally. General Appearance: cooperative and comfortable HEENT normocephalic, head/scalp atraumatic, hearing grossly normal bilaterally, nasal mucous membranes and turbinates normal and moist oral mucous membranes Eyes PERRL, EOMs intact bilaterally and conjunctivae normal Neck full ROM Chest inspection of chest normal Resp normal respiratory effort and no use of accessory muscles Resp Narrative: Breathing comfortably on 4 L nasal cannula at rest. Significant crackles noted bilaterally throughout with mild upper airway wheezing noted. Cardio no murmurs and peripheral pulses 2+ throughout Cardio Narrative: Tachycardic, regular rhythm. GI normal to inspection, nondistended, normoactive bowel sounds, soft to palpation,non-tender and non-distended Back/Spine normal ROM Extremity Extremity Narrative: +2-3 lower extremity pitting edema noted up to the knees. Skin no rashes or lesions noted Psych mental status grossly normal Results Lab / Micro Data 08/17/24 06:45 08/17/24 06:45 Labs: Laboratory Results - last 24 hr 08/17/24 06:45: WBC 11.4 H, RBC 4.32 L, Hgb 12.6 L, Hct 35.5 L, MCV 82.2, MCH 29.2, MCHC 35.5, RDW Std Deviation 41.1, RDW Coeff of Adry 13.8, Plt Count 262, MPV 10.2, Immature Gran % (Auto) 0.600, Neut % (Auto) 87.1 H, Lymph % (Auto) 6.2L, Throckmorton % (Auto) 5.8, Eos % (Auto) 0.0, Baso % (Auto) 0.3, Absolute Neuts (auto)9.9 H, Absolute Lymphs (auto) 0.71 L, Nucleated RBC % 0, Sodium 124 L, Potassium4.5, Chloride 90 L, Carbon Dioxide 18.0 L, Anion Gap 17 H, BUN 31 H, Creatinine 1.05, Estim Creat Clear Calc 111.89, Est GFR (MDRD) Non-Af 84, BUN/Creatinine Ratio 29.8 H, Glucose 249 H, Calcium 9.2, Troponin T High Sens 167 H*, NT pro BNP II 2180 H Rhythm Strip Rhythm Strip: Sinus Tach Rate: 117 Ectopy: PAC(s) Imaging Radiology Impression Chest X-Ray 08/17/24 06:33 IMPRESSION: AP upright portable view. Large appearing body habitus. Moderate bilateral perihilar lower zone predominant ill-defined patchy airspace opacities may represent pulmonary edema, clinically correlate. No definite pleural effusion identified. The cardiac silhouette is at the upper limits for size. The upper mediastinum again appears prominent. Reading Location: [id number] Assessment & Plan Assessment/Plan (1) Acute heart failure with preserved ejection fraction (HFpEF): (2) Human metapneumovirus (hMPV) pneumonia: PLAN: Plan Patient is a 54-year-old male who presented to [facility] ED on 08/17/2024 with worsening shortness of breath. 1. Acute hypoxic respiratory failure secondary to suspected HFpEF exacerbation and pneumonia secondary to human metapneumovirus ? Admit under inpatient status to PCU. Hypoxic to the mid 70s on room air, improved to low 90s on 4L nasal cannula but then placed on BiPAP for some increased work of breathing. Chest x-ray with significant bilateral interstitial infiltrates noted. Positive for human metapneumovirus. BNP 2180 but u nderestimated in setting of obesity. Last echo in 2022 showed EF 60%, stage II diastolic dysfunction. Repeat echo ordered. Will treat with IV Lasix 40 mg every 8 hours for now, monitor BMP and urine output. Will also treat withIV steroids and scheduled DuoNebs for now. Wean supplemental oxygen as able. 2. Hyponatremia ? Sodium 124 on admit. Chloride 90. Suspect secondary to hypervolemia in setting of HFpEF exacerbation, treating as above. No mental status change noted. Monitor daily sodium level. 3. Elevated troponin ? Initial troponin 167, repeat pending. No EKG changes noted. Suspect demand ischemia in setting ofHFpEF exacerbation and respiratory failure. Echo orderedas above. Chronic medical conditions: ? Class III obesity: BMI 46 on admit. Complicates hospital course, care and prognosis. Encouraged weight loss. ? Type 2 diabetes mellitus: Home regimen of metformin 1000 mg twice daily. A1c 8.3%. Will treat with sliding scale insulin with meals while inpatient, adjust as needed. ? Hypertension: Normotensive to mildly hypotensive on admit. Treating with IV Lasix as above. Will hold home lisinopril and triamterene?hydrochlorothiazide for now. ? Hyperlipidemia: Continue home statin. ? Depression: Continue home escitalopram. DVT prophylaxis: Lovenox twice daily CODE STATUS: Full code, verified Expected disposition: Home, TBD Total clinical time spent by myself addressing the patient's medical issues, reviewing all the data, and collaborating with patient's care team: 75 minutes. Charges/Coding Visit Charges Inpatient E&M: 90391 Init Hosp L3 08/17/24 1542 Cosigner Signature (if applicable): CC: Dr. Elias Ramires DO; Dr. Rayne Gonzalez MD~ Signed [facility]04-02-2025 Discharge summary Author Joesph Auguste [facility] Note Date/Time August 17, 2024 7:39 am [facility] Medical Records Department [address] [place] [address] Emergency Department Summary 08/17/24 MR#: [id number] Acct: [id number] Name: MARK ANTHONY YE Jr. Rep #:[id number] : 1970 54 From: Joesph Auguste MD PCP: Dr. Rayne Gonzalez MD Status:REG ER Location: ED HPI History of Present Illness Chief Complaint: Chest Pain Detail of Chief Complaint: Shortness of breath for a week. Informant: patient and spouse/S.O. Onset/Context/Timing Onset: Days (Approximately 1 week last Thursday.) Context: gradual Timing: Continuous Quality: Positive for Orthopnea and Wheezing Current Severity: Moderate Maximum Severity: Moderate Worsened by: Lying flat and Coughing Relieved by: Oxygen Associated Symptoms cough Chest Pain: Positive for None Narrative Narrative: 54-year-old male history of hypertension, CHF and diabetes. No prior [place]. States he been short of breath with a productive cough of rust colored sputum for about a week. Denies fever. Denies vomiting. Really no significant chest pain. He does have CHF he does get swelling in his legs and his legs are more swollen than normal. recently had URI symptoms. PE Risk Factors: Negative for Cancer, OCP + Smoking + > 35, Prior DVT or PE, Recent immobilization, Recent surgery or Recent travel Prior similar symptoms: Yes Recent Illness/Hospitalization: No PFSH PFSH Medical History Acute bronchitis, unspecified Acute maxillary sinusitis, unspecified Ocular migraine JOANNE (obstructive sleep apnea) Pre-diabetes Cardiac murmur High cholesterol Hypertension Heart failure Bone fracture History of back problems Home Medications ?Medication ?Instructions ?Recorded ?Last Taken ?Type aspirin 81 mg tablet,delayed 81 mg PO DAILY 11/04/22 U nknown History release (Adult Aspirin Regimen) [id number] 150 mcg-vit K1 1 tab PO DAILY 11/04 Unknown History 30 mcg-lycop 300 mcg-lutein tablet (Centrum Minis Men 50 Plus) flash glucose scanning reader #1 ea 05/20/23 Unknown R x (FreeStyle Vance 2 [place]) flash glucose sensor (FreeStyle #1 ea 05/20/23 Unknown Rx Vance 2 Sensor kit) atorvastatin 20 mg tablet 20 mg PO DAILY #90 tabs 04/17 01/08 Unknown Rx lisinopril 20 mg tablet 20 mg PO DAILY #90 tabs 04/17 01/08 Unknown Rx metformin 1,000 mg tablet 1,000 mg PO BID #180 tabs Unknown Rx triamterene 37.5 1 cap PO DAILY #90 caps 04/17 01/08 Unknown Rx mg-hydrochlorothiazide 25 mg capsule albuterol sulfate 90 mcg/actuation 2 puff inhalation Q 6H PRN 06/02/24 Unknown Rx aerosol inhaler shortness of breath or wheez ing #8.5 grams escitalopram oxalate 10 mg tablet 10 mg PO QDAY #30 ta bs 08/09/24 Unknown Rx (Lexapro) trazodone 50 mg tablet 50 - 100 mg (1 - 2 x 50 mg) PO QHS 08/09/24 Unknown Rx #90 tabs Allergy/AdvReac Type Severity Reaction Status Date / Time No Known Allergies Allergy Verified 08/09/24 13:05 Family History Mother Alcoholism Arthritis Myocardial infarction CVA (cerebral vascular accident) COPD (chronic obstructive pulmonary disease) Father Alcoholism COPD (chronic obstructive pulmonary disease) Prostate cancer Grandmother Arthritis Breast cancer Colon cancer Skin cancer Surgical History History of tonsillectomy History of foot surgery History of hernia repair Social History household members: spouse current occupational status: unemployed Smoking Status: Never smoker Electronic Cigarette Use: not used alcohol intake: current alcohol intake frequency: holidays/special occasions only Alcohol type: beer and wine substance use type: does not use what type of physical activity do you participate in: none do you feel safe at home: Yes ROS ROS ED ROS Narrative Cough. Shortness of breath. Wheezing. Constitutional Constitutional ED: Denies chills or fever(s) Eyes Eyes: Denies blurry vision ENT ENT ED: Denies ear pain Cardiovascular Cardiovascular: Reports orthopnea; Denies chest pain or palpitations Respiratory/Chest Respiratory/Chest: Reports cough, dyspnea, dyspnea on exertion, orthopnea and sputum Gastrointestinal Gastrointestinal: Denies abdominal pain, diarrhea, nausea or vomiting Genitourinary Genitourinary ED: Denies dysuria or hematuria Musculoskeletal Musculoskeletal: Denies arthralgias or back pain Integumentary Denies abscess Neurologic Neurologic: Denies headache(s) Psychiatric Psychiatric: Denies anxiety Endocrine Endocrinology: Denies cold intolerance Hematologic/Lymphatic Hematologic/Lymphatic: Denies easy bleeding, easy bruising or lymphadenopathy Allergic/Immunologic Allergic/Immunologic ED: Denies mouth swelling, tongue swelling or urticaria EXAM Physical Exam Narrative Exam Narrative: 54-year-old male vital signs stable except his pulse ox was 79% on room air whenhe came in. On 2 L he went up to 84% of 4 L 87%. at bedside. H EENT exampupils round react light. Moist with members. Neck nontender. No JVD. Lungs coarse breath sounds. Scattered wheezes. Heart tachycardic 120 no murmur. Chest wall ribs nontender. Abdomen soft nontender. Moving all 4 extremities. 2+ pitting edema both lower extremities. Calves are nontender without cords. Normal motor strength. Back nontender. Neurologically is awake alert. Answering questions following commands. He is in mild respiratory distress. Const Vital Signs: 08/17/24 06:32 08/17/24 06:34 08/17/24 06:35 Temperature 99.8 F H Temperature Source Oral Pulse Rate 123 H 121 H Respiratory Rate 30 H 24 H Respiratory Effort Respiratory Pattern Blood Pressure 128/67 H Blood Pressure Mean 87 Pulse Ox 79 84 87 Oxygen Delivery Method Room Air Nasal Cannula Nasal Cannula Oxygen Flow Rate (L/min) 2 4 08/17/24 06:36 08/17/24 06:52 Temperature Temperature Source Pulse Rate 113 H Respiratory Rate 30 H Respiratory Effort Short of Breath Labored Accessory Muscle Use Respiratory Pattern Tachypnea Blood Pressure Blood Pressure Mean Pulse Ox Oxygen Delivery Method Oxygen Flow Rate (L/min) Positive well nourished and well developed; Negative for cachectic or contractures General Appearance ED: well developed; Negative for cachectic, contractures, NADor pallor Nutritional Appearance: Negative for cachectic HEENT Reports moist mucous membranes Negative for atraumatic, trauma or tenderness Eyes PERRL and EOMs intact bilaterally General Eye ED: Negative for pale conjunctiva or scleral icterus Neck no lymphadenopathy, supple, no meningeal signs and no JVD Lymph Lymphatic: Negative for other Chest Wall Chest: Negative for other Resp No normal respiratory effort and No clear to auscultation bilaterally Auscultation: wheezes Cardio regular rhythm, S1 normal heart sound and no murmurs; Negative for regular rate Rate: tachycardic GI non-tender, non-distended and no masses Auscultation: normoactive bowel sounds Palpation: soft; Negative for tender, guarding or rebound tenderness present Back/Spine no CVA tenderness and normal to inspection Extremity Negative for normal to inspection Extremity Narrative: 2+ pitting edema both lower extremities. General Extremety ED: Yes edema; Negative for tenderness General Extremity: edema Neuro oriented x3 and CN's II-XII intact bilaterally Sensorium / Orientation: alert, oriented to person, oriented to place and oriented to time; Negative for orientation impaired or confused Motor Exam: strength 5/5 throughout Psych mental status grossly normal Attitude: No agitated Mood & Affect: Negative for depressed or anxious Thought Process: normal thought process Skin no wounds and skin turgor normal General Skin Exam: Negative for jaundice or pallor Lesions: No no lesions Rashes: no rashes MDM MDM MDM Narrative Medical decision making narrative: 54-year-old male short of breath for a week differential would include CHF versus other cardiac etiology versus pneumonia versus viral URI versus other etiologies. Undergo cardiac workup. COVID and flu. DuoNeb aerosol for his wheezing. Screening labs and EKG. Patient will need to be admitted to the hospital due to his hypoxia pulse ox 79%. Repeat exam patient had some improvement with a DuoNeb aerosol. Chest x-ray however looks more like CHF than pneumonia. Looks like pulmonary edema. I havewritten for the patient to receive IV Lasix. History & Record Review Discussion w/independent historian: Patient and Family Lab Data Attestation: I reviewed the patient's lab results. Lab results narrative: CBC shows white 11.4. H&H 12.6 and 35.5. Platelets 262. Chemistry shows sodium 124. Gap of 17. BUN 31 creatinine of 1. Glucose 249. Troponin elevated 167. Not a surprise due to his CHF and hypoxia. BNP elevatedat 2,180. Labs: Laboratory Results - last 24 hr 08/17/24 06:45 WBC 11.4 H RBC 4.32 L Hgb 12.6 L Hct 35.5 L MCV 82.2 MCH 29.2 MCHC 35.5 RDW Std Deviation 41.1 RDW Coeff of Adry 13.8 Plt Count 262 MPV 10.2 Immature Gran % (Auto) 0.600 Neut % (Auto) 87.1 H Lymph % (Auto) 6.2 L Throckmorton % (Auto) 5.8 Eos % (Auto) 0.0 Baso % (Auto) 0.3 Absolute Neuts (auto) 9.9 H Absolute Lymphs (auto) 0.71 L Nucleated RBC % 0 Sodium 124 L Potassium 4.5 Chloride 90 L Carbon Dioxide 18.0 L Anion Gap 17 H BUN 31 H Creatinine 1.05 Estim Creat Clear Calc 111.89 Est GFR (MDRD) Non-Af 84 BUN/Creatinine Ratio 29.8 H Glucose 249 H Calcium 9.2 Troponin T High Sens 167 H* NT pro BNP II 2180 H Radiography Chest X-Ray - ED: 1 View, Read by ED Physician, Cardiomegaly and CHF Diagnostic Testing: Clinical Impression(s) from Imaging Studies Chest X-Ray 08/17/24 06:33 IMPRESSION: AP upright portable view. Large appearing body habitus. Moderate bilateral perihilar lower zone predominant ill-defined patchy airspace opacities may represent pulmonary edema, clinically correlate. No definite pleural effusion identified. The cardiac silhouette is at the upper limits for size. The upper mediastinum again appears prominent. Reading Location: [facility] Chest x-ray, portable, single view, interpreted by myself shows cardiomegaly. Bilateral fluffy density consistent with CHF. Cannot rule out pneumonia. Rhythm Strip Rhythm Strip: Sinus Tach Rate: 117 Ectopy: PAC(s) EKG Initial EKG: Attestation: I personally reviewed and interpreted this EKG as follows: Interpretation: No Acute Injury Pattern and Sinus Tachycardia Comments: Sinus tachycardia rate 117. PACs. LVH. He does have some inverted T waves and ST depression in V3 through V6. Also in lead I. No ST elevation. Critical Care Time Critical Care Time: Yes Critical care time (excluding procedures): 30-74 minutes, Including time spent:,Discussing w/Patient &/or Family/Load Checker, Discussing w/Consultants, ArrangingAdmission or Transfer, Performing Direct Patient Care at Bedside and - (37 minutes.) Discharge Plan Dx/Rx/DC Orders Clinical Impression: Hypoxia, Congestive heart failure, History of diabetes mellitus, Acute hyponatremia, Elevated troponin Disposition Disposition: Acute Care Hospital [facility] What to do if you have Problems For any increased pain, shortness of breath, bleeding, nausea or vomiting, chestpain, or any unexpected problems, contact your Primary Care Provider. Call [facility] ([phone]) or report to the closest Emergency Room. Call 911 if necessary. 08/17/24 0735 <Electronically signed by Joesph Auguste MD> Cosigner Signature (if applicable): CC: Dr. Rayne Gonzalez MD ~ Signed ADDENDUM by Dr. Joesph Auguste MD on 08/17/24 at 0739 Repeat exam patient doing well at 7:38 PM. Hospitalist is downgoing admitting to the PCU. Given his CHF and his chest x-ray we are going to trial the patienton BiPAP to see if it improves his respiratory status. Currently he is stable. Patient be turned over to the morning physician and the hospitalist. 08/17/24 0739<Electronically signed by Joesph Auguste MD> Cosigner Signature (if applicable): cc: Dr. Rayne Gonzalez MD ~* Signed [facility] Work Phone: 1(211) 534-394704-02-2025 Discharge summary [facility] Medical Records Department [address] [place] [address] Emergency Department Summary 08/17/24 MR#: [id number] Acct: [id number] Name: MARK ANTHONY YE Jr. Rep #:[id number] : 1970 54 From: Joesph Auguste MD PCP: Dr. Rayne Gonzalez MD Status:REG ER Location: ED HPI History of Present Illness Chief Complaint: Chest Pain Detail of Chief Complaint: Shortness of breath for a week. Informant: patient and spouse/S.O. Onset/Context/Timing Onset: Days (Approximately 1 week last Thursday.) Context: gradual Timing: Continuous Quality: Positive for Orthopnea and Wheezing Current Severity: Moderate Maximum Severity: Moderate Worsened by: Lying flat and Coughing Relieved by: Oxygen Associated Symptoms cough Chest Pain: Positive for None Narrative Narrative: 54-year-old male history of hypertension, CHF and diabetes. No prior [place]. States he been short of breath with a productive cough of rust colored sputum for about a week. Denies fever. Denies vomiting.Really no significant chest pain. He does have CHF he does get swelling in his legs and his legs are more swollen than normal. recently had URI symptoms. PE Risk Factors: Negative for Cancer, OCP + Smoking + > 35, Prior DVT or PE, Recent immobilization, Recent surgery or Recent travel Prior similar symptoms: Yes Recent Illness/Hospitalization: No PFSH PFSH Medical History Acute bronchitis, unspecified Acute maxillary sinusitis, unspecified Ocular migraine JOANNE (obstructive sleep apnea) Pre-diabetes Cardiac murmur High cholesterol Hypertension Heart failure Bone fracture History of back problems Home Medications ?Medication ?Instructions ?Recorded ?Last Taken ?Type aspirin 81 mg tablet,delayed 81 mg PO DAILY 11/04/22 U nknown History release (Adult Aspirin Regimen) lnadzlav-jdw-volte 150 mcg-vit K1 1 tab PO DAILY 11/04 Unknown History 30 mcg-lycop 300 mcg-lutein tablet (Centrum Minis Men 50 Plus) flash glucose scanning reader #1 ea 05/20/23 Unknown R x (FreeStyle Vance 2 [place]) flash glucose sensor (FreeStyle #1 ea 05/20/23 Unknown Rx Vance 2 Sensor kit) atorvastatin 20 mg tablet 20 mg PO DAILY #90 tabs 04/17 01/08 Unknown Rx lisinopril 20 mg tablet 20 mg PO DAILY #90 tabs 04/17 01/08 Unknown Rx metformin 1,000 mg tablet 1,000 mg PO BID #180 tabs Unknown Rx triamterene 37.5 1 cap PO DAILY #90 caps 04/17 01/08 Unknown Rx mg-hydrochlorothiazide 25 mg capsule albuterol sulfate 90 mcg/actuation 2 puff inhalation Q 6H PRN 06/02/24 Unknown Rx aerosol inhaler shortness of breath or wheez ing #8.5 grams escitalopram oxalate 10 mg tablet 10 mg PO QDAY #30 ta bs 08/09/24 Unknown Rx (Lexapro) trazodone 50 mg tablet 50 - 100 mg (1 - 2 x 50 mg) PO QHS 08/09/24 Unknown Rx #90 tabs Allergy/AdvReac Type Severity Reaction Status Date / Time No Known Allergies Allergy Verified 08/09/24 13:05 Family History Mother Alcoholism Arthritis Myocardial infarction CVA (cerebral vascular accident) COPD (chronic obstructive pulmonary disease) Father Alcoholism COPD (chronic obstructive pulmonary disease) Prostate cancer Grandmother Arthritis Breast cancer Colon cancer Skin cancer Surgical History History of tonsillectomy History of foot surgery History of hernia repair Social History household members: spouse current occupational status: unemployed Smoking Status: Never smoker Electronic Cigarette Use: not used alcohol intake: current alcohol intake frequency: holidays/special occasions only Alcohol type: beer and wine substance use type: does not use what type of physical activity do you participate in: none do you feel safe at home: Yes ROS ROS ED ROS Narrative Cough. Shortness of breath. Wheezing. Constitutional Constitutional ED: Denies chills or fever(s) Eyes Eyes: Denies blurry vision ENT ENT ED: Denies ear pain Cardiovascular Cardiovascular: Reports orthopnea; Denies chest pain or palpitations Respiratory/Chest Respiratory/Chest: Reports cough, dyspnea, dyspnea on exertion, orthopnea and sputum Gastrointestinal Gastrointestinal: Denies abdominal pain, diarrhea, nausea or vomiting Genitourinary Genitourinary ED: Denies dysuria or hematuria Musculoskeletal Musculoskeletal: Denies arthralgias or back pain Integumentary Denies abscess Neurologic Neurologic: Denies headache(s) Psychiatric Psychiatric: Denies anxiety Endocrine Endocrinology: Denies cold intolerance Hematologic/Lymphatic Hematologic/Lymphatic: Denies easy bleeding, easy bruising or lymphadenopathy Allergic/Immunologic Allergic/Immunologic ED: Denies mouth swelling, tongue swelling or urticaria EXAM Physical Exam Narrative Exam Narrative: 54-year-old male vital signs stable except his pulse ox was 79% on room air whenhe came in. On 2 L he went up to 84% of 4 L 87%. at bedside. H EENT exampupils round react light. Moist with members. Neck nontender. No JVD. Lungs coarse breath sounds. Scattered wheezes. Heart tachycardic 120 no murmur. Chest wall ribs nontender. Abdomen soft nontender. Moving all 4 extremities. 2+ pitting edema both lower extremities. Calves are nontender without cords. Normal motor strength. Back nontender.Neurologically is awake alert. Answering questions following commands. He is in mild respiratory distress. Const Vital Signs: 08/17/24 06:32 08/17/24 06:34 08/17/24 06:35 Temperature 99.8 F H Temperature Source Oral Pulse Rate 123 H 121 H Respiratory Rate 30 H 24 H Respiratory Effort Respiratory Pattern Blood Pressure 128/67 H Blood Pressure Mean 87 Pulse Ox 79 84 87 Oxygen Delivery Method Room Air Nasal Cannula Nasal Cannula Oxygen Flow Rate (L/min) 2 4 08/17/24 06:36 08/17/24 06:52 Temperature Temperature Source Pulse Rate 113 H Respiratory Rate 30 H Respiratory Effort Short of Breath Labored Accessory Muscle Use Respiratory Pattern Tachypnea Blood Pressure Blood Pressure Mean Pulse Ox Oxygen Delivery Method Oxygen Flow Rate (L/min) Positive well nourished and well developed; Negative for cachectic or contractures General Appearance ED: well developed; Negative for cachectic, contractures, NADor pallor Nutritional Appearance: Negative for cachectic HEENT Reports moist mucous membranes Negative for atraumatic, trauma or tenderness Eyes PERRL and EOMs intact bilaterally General Eye ED: Negative for pale conjunctiva or scleral icterus Neck no lymphadenopathy, supple, no meningeal signs and no JVD Lymph Lymphatic: Negative for other Chest Wall Chest: Negative for other Resp No normal respiratory effort and No clear to auscultation bilaterally Auscultation: wheezes Cardio regular rhythm, S1 normal heart sound and no murmurs; Negative for regular rate Rate: tachycardic GI non-tender, non-distended and no masses Auscultation: normoactive bowel sounds Palpation: soft; Negative for tender, guarding or rebound tenderness present Back/Spine no CVA tenderness and normal to inspection Extremity Negative for normal to inspection Extremity Narrative: 2+ pitting edema both lower extremities. General Extremety ED: Yes edema; Negative for tenderness General Extremity: edema Neuro oriented x3 and CN's II-XII intact bilaterally Sensorium / Orientation: alert, oriented to person, oriented to place and oriented to time; Negative for orientation impaired or confused Motor Exam: strength 5/5 throughout Psych mental status grossly normal Attitude: No agitated Mood & Affect: Negative for depressed or anxious Thought Process: normal thought process Skin no wounds and skin turgor normal General Skin Exam: Negative for jaundice or pallor Lesions: No no lesions Rashes: no rashes MDM MDM MDM Narrative Medical decision making narrative: 54-year-old male short of breath for a week differential would include CHF versus other cardiac etiology versus pneumonia versus viral URI versus other etiologies. Undergo cardiac workup. COVID and flu. DuoNeb aerosol for his wheezing. Screening labs and EKG. Patient will need to be admitted to the hospital due to his hypoxia pulse ox 79%. Repeat exam patient had some improvement with a DuoNeb aerosol. Chest x-ray however looks more likeCHF than pneumonia. Looks like pulmonary edema. I havewritten for the patient to receive IV Lasix. History & Record Review Discussion w/independent historian: Patient and Family Lab Data Attestation: I reviewed the patient's lab results. Lab results narrative: CBC shows white 11.4. H&H 12.6 and 35.5. Platelets 262. Chemistry shows sodium 124. Gap of 17. BUN 31 creatinine of 1. Glucose 249. Troponin elevated 167. Not a surprise due to his CHF and hypoxia. BNP elevatedat 2,180. Labs: Laboratory Results - last 24 hr 08/17/24 06:45 WBC 11.4 H RBC 4.32 L Hgb 12.6 L Hct 35.5 L MCV 82.2 MCH 29.2 MCHC 35.5 RDW Std Deviation 41.1 RDW Coeff of Adry 13.8 Plt Count 262 MPV 10.2 Immature Gran % (Auto) 0.600 Neut % (Auto) 87.1 H Lymph % (Auto) 6.2 L Throckmorton % (Auto) 5.8 Eos % (Auto) 0.0 Baso % (Auto) 0.3 Absolute Neuts (auto) 9.9 H Absolute Lymphs (auto) 0.71 L Nucleated RBC % 0 Sodium 124 L Potassium 4.5 Chloride 90 L Carbon Dioxide 18.0 L Anion Gap 17 H BUN 31 H Creatinine 1.05 Estim Creat Clear Calc 111.89 Est GFR (MDRD) Non-Af 84 BUN/Creatinine Ratio 29.8 H Glucose 249 H Calcium 9.2 Troponin T High Sens 167 H* NT pro BNP II 2180 H Radiography Chest X-Ray - ED: 1 View, Read by ED Physician, Cardiomegaly and CHF Diagnostic Testing: Clinical Impression(s) from Imaging Studies Chest X-Ray 08/17/24 06:33 IMPRESSION: AP upright portable view. Large appearing body habitus. Moderate bilateral perihilar lower zone predominant ill-defined patchy airspace opacities may represent pulmonary edema, clinically correlate. No definite pleural effusion identified. The cardiac silhouette is at the upper limits for size. The upper mediastinum again appears prominent. Reading Location: [facility] Chest x-ray, portable, single view, interpreted by myself shows cardiomegaly. Bilateral fluffy density consistent with CHF. Cannot rule out pneumonia. Rhythm Strip Rhythm Strip: Sinus Tach Rate: 117 Ectopy: PAC(s) EKG Initial EKG: Attestation: I personally reviewed and interpreted this EKG as follows: Interpretation: No Acute Injury Pattern and Sinus Tachycardia Comments: Sinus tachycardia rate 117. PACs. LVH. He does have some inverted T waves and ST depression in V3 through V6. Also in lead I. No ST elevation. Critical Care Time Critical Care Time: Yes Critical care time (excluding procedures): 30-74 minutes, Including time spent:,Discussing w/Patient &/or Family/Load Checker, Discussing w/Consultants, ArrangingAdmission or Transfer, Performing Direct Patient Care at Bedside and - (37 minutes.) Discharge Plan Dx/Rx/DC Orders Clinical Impression: Hypoxia, Congestive heart failure, History of diabetes mellitus, Acute hyponatremia, Elevated troponin Disposition Disposition: Acute Care Hospital [facility] What to do if you have Problems For any increased pain, shortness of breath, bleeding, nausea or vomiting, chestpain, or any unexpected problems, contact your Primary Care Provider. Call [facility] ([phone]) or report tothe closest Emergency Room. Call 911 if necessary. 08/17/24 0735 Cosigner Signature (if applicable): CC: Dr. Rayne Gonzalez MD ~ Signed ADDENDUM by Dr. Joesph Auguste MD on 08/17/24 at 0739 Repeat exam patient doing well at 7:38 PM. Hospitalist is downgoing admitting to the PCU. Given hisCHF and his chest x-ray we are going to trial the patienton BiPAP to see if it improves his respiratory status. Currently he is stable. Patient be turned over to the morning physician and the hospitalist. 08/17/24 0739 Cosigner Signature (if applicable): cc: Dr. Rayne Gonzalez MD ~* Signed [facility]04-02-2025 Radiology Diagnostic study note [facility] Imaging Services [address] [place] [id number] Chest 1 View (Portable) MR#: [id number] Acct: [id number] Name: CASSIMARK ANTHONY EDITA Desouza Rep #: [id number] : 1970 M 54 From: Loyd Harkins MD PCP: Dr. Rayne Gonzalez MD Status: REG ER Study:Chest 1 View (Portable) Date of Exam: 08/17/24 Exam# [id number] Ordering Dr: Emily Auguste MD PROCEDURE: CHEST 1 VIEW (PORTABLE) 08/17/2024 REASON FOR EXAM: CHEST PAIN TECHNIQUE: Frontal view of the chest. COMPARISON: 06/02/2024 FINDINGS: AP upright portable view. Large appearing body habitus. Moderate bilateral perihilar lower zone predominant ill-defined patchy airspace opacities may represent pulmonary edema, clinically correlate. No definite pleural effusion identified. The cardiac silhouette is at the upper limits for size. The upper mediastinum again appearsprominent. RAD/Chest 1 View (Portable) IMPRESSION: AP upright portable view. Large appearing body habitus. Moderate bilateral perihilar lower zone predominant ill-defined patchy airspace opacities may represent pulmonary edema, clinically correlate. No definite pleural effusion identified. The cardiac silhouette is at the upper limits for size. The upper mediastinum again appears prominent. Reading Location: [facility] CC: Dr. Rayne Gonzalez MD; Dr. Joesph Auguste MD ~ Jacket Changer: Signed [facility]03-25-2025 Evaluation note* Diagnosis Onset Date Resolution Status Admit Date Essential hypertension acute [facility] 2024 12:55pm JOANNE (obstructive sleep apnea) acute August 09, 2024 12:55pm Cough present for greater th an 3 weeks noneactive August 09, 2024 12:55pm Grief at loss of child noneactive [facility] 2024 12:55pm Human metapneumovirus (hMPV) pneumonia acute August 17, 2024 7:45am Acute heart failure with preserved ejection fraction (HFpEF) resolved August 17, 2024 7:45am Acute hyponatremia resolved August 17, 2024 7:45am Congestive heart failure acute September 20, 2024 9:00am Essential hypertension acute [facility] 2024 9:00am Human metapneumovirus (hMPV) pneumonia acute September 20, 2024 9: 00am JOANNE (obstructive sleep apnea) acute September 20, 2024 9:00am Acute hypoxic respiratory failure noneactive September 20, 2024 9: 00am Grief at loss of child noneactive [place] [facility] 2024 9:00am Hospital discharge follow-up noneact [facility] September 20, 2024 9:00am Aortic valve disease acute October 05, 2024 1:18pm Congestive heart failure acute October 05, 2024 1:18pm Essential hypertension acute [facility] 2024 1:18pm [facility] Work Phone: 1(783) 333-239212-18-2024 Evaluation note* Diagnosis Onset Date Resolution Status Admit Date Essential hypertension acute De [email or web address] 10:12am JOANNE (obstructive sleep apnea) acute May 04, 2 024 10:12am URI, acute noneactive May 04, 2024 10:12am Grief at loss of child noneactive [email or web address] 10:12am Acute bronchitis, unspecified resolved May 23 11:58am Essential hypertension acute [facility] 2024 12:54pm JOANNE (obstructive sleep apnea) acute June 02 12:54pm Cough present for greater than 3 weeks noneactive June 02 12:54pm Grief at loss of child noneactive [facility] 2024 12:54pm Essential hypertension acute [facility] 2024 12:55pm JOANNE (obstructive sleep apnea) acute August 09, 2024 12:55pm Cough present for greater than 3 weeks noneactive August 09, 2024 12:55pm Grief at loss of child noneactive [facility] 2024 12:55pm Acute hyponatremia acute August 17, 2024 7:45am [facility] Work Phone: 1(196) 906-359512-18-2024 Evaluation note* Diagnosis Onset Date Resolution Status Admit Date Essential hypertension acute 2023 10:12am JOANNE (obstructive sleep apnea) acute May 04, 2024 10:12am URI, acute noneactive May 04, 2024 10:12am Grief at loss of child noneactive 2023 10:12am Acute bronchitis, unspecified resolv ed May 23, 2024 11:58am Essential hypertension acute [facility] 2024 12:54pm JOANNE (obstructive sleep apnea) acute June 02, 2024 12:54pm Cough present for greater th an 3 weeks noneactive June 02 12:54pm Grief at loss of child noneactive [facility] 2024 12:54pm Essential hypertension acute [facility] 2024 12:55pm JOANNE (obstructive sleep apnea) acute August 09, 2024 12:55pm Cough present for greater th an 3 weeks noneactive August 09, 2024 12:55pm Grief at loss of child noneactive [facility] 2024 12:55pm Acute heart failure with preserved ejection fraction (HFpEF) acute August 17, 2024 7:45am Acute hyponatremia acute August 17, 2024 7:45am Human metapneumovirus (hMPV) pneumonia acute August 17, 2024 7:45am [facility] Work Phone: Evaluation note* Diagnosis Onset Date Resolution Status Essential hypertension acute JOANNE (obstructive sleep apnea) acute Pre-diabetes acute Sleep concern noneactive Immunization due noneactive Establishing care with new doctor, encounter for noneactive Congestive heart failure non eactive Morbid obesity with BMI of 50.0-59.9, adult noneactive [facility] Work Phone: Evaluation note* Diagnosis Onset Date Resolution Status Immunization due noneactive Acute right flank pain acute [facility] Work Phone: Reason for referral (narrative)No reason for referral [facility] Work [facility]: Chief Complaint and Reason for Visit Chief Complaint EST CARE CHF Reason for Visit Essential hypertensi on JOANNE (obstructive sleep apnea) Pre-diabetes Sleep concern Immunization due Establishing care with new doctor, encounter for Congestive heart failure Morbid obesity with BMI of 50.0-59.9, adult Chief Complaint 2nd shingles shot SORE THROAT/COUGH/SINUS CONCERN Urinary tract infection RIGHT FLANK PAIN Reason for Visit Immunization due Acute right flank pain Chief Complaint Admit Date FOLLOW UP May 04, 2024 10:12am Cough May 23, 2024 11 :58am 1 M FU June 02, 2024 1 2:54pm E-ORDER June 02, 2024 2 :33pm 2 m fu August 09, 2024 12: 55pm CHF EXACERBATION W/ HYPOXIA August 17 7:45am Reason for Visit Admit Date Essential hypertension May 04 10:12am JOANNE (obstructive sleep apnea) April 172023 10:12am URI, acute May 04, 2024 10:12am Grief at loss of child May 04 10:12am Acute bronchitis, unspecified May 11:58am Essential hypertension June 02 12:54pm JOANNE (obstructive sleep apnea) June 022024 12:54pm Cough present for greater than 3 weeks J anuary 2024 12:54pm Grief at loss of child June 02 12:54pm Essential hypertension August 09, 2024 12:55pm JOANNE (obstructive sleep apnea) July 12:55pm Cough present for greater than 3 weeks [facility] 2024 12:55pm Grief at loss of child August 09, 2024 12:55pm Acute hyponatremia August 17, 2024 7:45 am Chief Complaint Admit Date FOLLOW UP May 04, 2024 10:12am Cough May 23, 2024 11 :58am 1 M FU June 02, 2024 1 2:54pm E-ORDER June 02, 2024 2 :33pm 2 m fu August 09, 2024 12: 55pm CHF EXACERBATION W/ HYPOXIA August 17, 025 7:45am CHF EXACERBATION W/ HYPOXIA August 18, 025 9:16am CHF EXACERBATION W/ HYPOXIA August 19, 025 10:36am Reason for Visit Admit Date Essential hypertension May 04 10:12am JOANNE (obstructive sleep apnea) April 172023 10:12am URI, acute May 04, 2024 10:12am Grief at loss of child May 04 10:12am Acute bronchitis, unspecified May 11:58am Essential hypertension June 02 12:54pm JOANNE (obstructive sleep apnea) June 022024 12:54pm Cough present for greater than 3 weeks J anuary 2024 12:54pm Grief at loss of child June 02 12:54pm Essential hypertension August 09, 2024 12:55pm JOANNE (obstructive sleep apnea) July 12:55pm Cough present for greater than 3 weeks [facility] 2024 12:55pm Grief at loss of child August 09, 2024 12:55pm Acute heart failure with pre served ejection fraction (HFpEF) August 17, 2024 7:45am Acute hyponatremia August 17, 2024 7:45 am Human metapneumovirus (hMPV) pneumonia A pril 2024 7:45am Chief Complaint Admit Date 2 m fu August 09, 2024 12: 55pm CHF EXACERBATION W/ HYPOXIA August 17, 025 7:45am CHF EXACERBATION W/ HYPOXIA August 18, 025 9:16am CHF EXACERBATION W/ HYPOXIA August 19, 025 10:36am CHF EXACERBATION W/ HYPOXIA August 20, 025 9:34am Other specified cough September 09, 2024 1 0:13am 6 wk FU September 20, 2024 9:00am [facility]P [facility] 08/17October 05, 2024 1:18p m Reason for Visit Admit Date Essential hypertension August 09, 2024 12:55pm JOANNE (obstructive sleep apnea) July 12:55pm Cough present for greater than 3 weeks M arch 2024 12:55pm Grief at loss of child August 09, 2024 12:55pm Human metapneumovirus (hMPV) pneumonia A pril 2024 7:45am Acute heart failure with preserved eject ion fraction (HFpEF) August 17, 2024 7:45am Acute hyponatremia August 17, 2024 7:45 am Congestive heart failure September 20, 2024 9 :00am Essential hypertension September 20, 2024 9:0 0am Human metapneumovirus (hMPV) pneumonia M ay 2024 9:00am JOANNE (obstructive sleep apnea) September 20 9:00am Acute hypoxic respiratory failure September 9:00am Grief at loss of child September 20, 2024 9:0 0am Hospital discharge follow-up September 20 9:00am Aortic valve disease October 05, 2024 1:18 pm Congestive heart failure October 05, 2024 1:18pm Essential hypertension October 05, 2024 1: 18pm Family History No Family History Records Found Relationship Condition Age at Onset Recorded Date/T berenice mother Alcoholism Unknown Arthritis Unknown Myocardial infarction Unknown Cerebrovascular accident (CVA) Unknown Chronic obstructive pulmonary disease Unk nown father Alcoholism Unknown Malignant neoplasm of prostate Unknown grandmother Arthritis Unknown Malignant neoplasm of breast Unknown Malignant neoplasm of colon Unknown Malignant neoplasm of skin Unknown Advance Directives No Advanced Directives Records Found Advance Directive Response Recorded Date/ Time Living Will No May 15, 023 2:04pm Power of Cereal Chemist No May 15, 2023 2:04pm Advance Directive Response Recorded Date/ Time Living Will No August 17, 2024 6:36am Do you have a Healthcare Power of Cereal Chemist? No August 17, 2024 6:36am Advance Directive Response Recorded Date/ Time Living Will No August 17, 2024 10:32am Do you have a Healthcare Power of Cereal Chemist? No August 17, 2024 10:32am Summary Purpose Additional Source Comments Care Teams (unrecognized sec tion and content) Team Status: Active Member Role Status Dates Dr. Rayne Gonzalez MD Primary Care Provider Active Team Status: Inactive Member Role Status Dates Dr. Rayne Gonzalez MD Attending Provider Active Team Status: Active Member Role Status Dates Dr. Rayne Gonzalez MD Primary Care Provider Active Dr. Silvana Ramires MD Attending Provider Active Team Status: Inactive Member Role Status Dates Dr. Rayne Gonzalez MD Primary Care Pro vider, Attending Provider, Referring Provider Active Team Status: Inactive Member Role Status Dates Dr. Rayne Gonzalez MD Primary Care Provider, Referri ng Provider Active Ryan Suarez PA, PA Attending Provider Active Team Status: Inactive Member Role Status Dates Dr. Rayne Gonzalez MD Primary Care Provider, Referri ng Provider Active Vincent HURST, PA Attending Provider Active Team Status: Inactive Member Role Status Dates Dr. Rayne Gonzalez MD Primary Care Provider Active Dr. Joseph Roper DO Referring Provider, Emergency P rovider Active Team Status: Inactive Member Role Status Dates Dr. Rayne Gonzalez MD Primary Care Provider Active Start: May 04, 2024 End: May 04, 2024 Dr. Rayne Gonzalez MD Attending Provider Active Start: May 04, 2024 End: May 04, 2024 Dr. Rayne Gonzalez MD Referring Provider Active Start: May 04, 2024 End: May 04, 2024 Team Status: Inactive Member Role Status Dates Dr. Rayne Gonzalez MD Primary Care Provider Active Start: May 23, 2024 End: May 23, 2024 Dr. Rayne Gonzalez MD Referring Provider Active Start: May 23, 2024 End: May 23, 2024 Ryan Suarez PA, PA Attending Provider Active Start: May 23, 2024 End: May 23, 2024 Team Status: Inactive Member Role Status Dates Dr. Rayne Gonzalez MD Primary Care Provider Active Start: May 30, 2024 End: May 30, 2024 Dr. Rayne Gonzalez MD Attending Provider Active Start: May 30, 2024 End: May 30, 2024 Dr. Rayne Gonzalez MD Referring Provider Active Start: May 30, 2024 End: May 30, 2024 Team Status: Inactive Member Role Status Dates Dr. Rayne Gonzalez MD Primary Care Provider Active Start: June 02, 2024 End: June 02, 2024 Dr. Rayne Gonzalez MD Attending Provider Active Start: June 02, 2024 End: June 02, 2024 Dr. Rayne Gonzalez MD Referring Provider Active Start: June 02, 2024 End: June 02, 2024 Team Status: Inactive Member Role Status Dates Dr. Rayne Gonzalez MD Primary Care Provider Active Start: August 09, 2024 End: August 09, 2024 Dr. Rayne Gonzalez MD Attending Provider Active Start: August 09, 2024 End: August 09, 2024 Dr. Rayne Gonzalez MD Referring Provider Active Start: August 09, 2024 End: August 09, 2024 Team Status: Active Member Role Status Dates Dr. Rayne Gonzalez MD Primary Care Provider Active Start: August 17, 2024 Dr. Joesph Auguste MD Emergency Provider Active S tart: August 17, 2024 Dr. Elias Ramires DO Admit Provider Active Start: August 17, 2024 Dr. Elias Ramires DO Attending Provider Active Start: August 17, 2024 Team Status: Inactive Member Role Status Dates Dr. Rayne Gonzalez MD Primary Care Provider Active Start: August 17, 2024 End: August 20, 2024 Dr. Joesph Auguste MD Emergency Provider Active S tart: August 17, 2024 End: August 20, 2024 Dr. Elias Ramires DO Admit Provider Active Start: August 17, 2024 End: August 20, 2024 Dr. Elias Ramires DO Attending Provider Active Start: August 17, 2024 End: August 20, 2024 Dr. Elias Ramires DO Other Provider Active Start: August 17, 2024 Team Status: Active Member Role Status Dates Dr. Rayne Gonzalez MD Primary Care Provider Active Start: August 17, 2024 Dr. Abel Greenfield MD Attending Provider Active S tart: August 17, 2024 Team Status: Active Member Role Status Dates Dr. Rayne Gonzalez MD Primary Care Provider Active Start: August 18, 2024 Dr. Joesph Auguste MD Emergency Provider Active S tart: August 18, 2024 Dr. Elias Ramires DO Admit Provider Active Start: August 18, 2024 Dr. Elias Ramires DO Attending Provider Active Start: August 18, 2024 Dr. Elias Mosteller , DO Other Provider Active Start: August 18, 2024 Team Status: Active Member Role Status Dates Dr. Rayne Gonzalez MD Primary Care Provider Active Start: August 19, 2024 Dr. Joesph Auguste MD Emergency Provider Active S tart: August 19, 2024 Dr. Elias Ramires , DO Admit Provider Active Start: August 19, 2024 Dr. Elias Ramires , DO Attending Provider Active Start: August 19, 2024 Dr. Elias Ramires , DO Other Provider Active Start: August 19, 2024 Team Status: Active Member Role Status Dates Dr. Rayne Gonzalez MD Primary Care Provider Active Start: August 20, 2024 Dr. Joesph Auguste MD Emergency Provider Active S tart: August 20, 2024 Dr. Elias Ramires , DO Admit Provider Active Start: August 20, 2024 Dr. Elias Ramires DO Attending Provider Active Start: August 20, 2024 Dr. Elias Ramires , DO Other Provider Active Start: August 20, 2024 Team Status: Inactive Member Role Status Dates Dr. Rayne Gonzalez MD Primary Care Provider Active Start: September 09, 2024 End: September 09, 2024 Dr. Rayne Gonzalez MD Attending Provider Active Start: September 09, 2024 End: September 09, 2024 Dr. Rayne Gonzalez MD Referring Provider Active Start: September 09, 2024 End: September 09, 2024 Team Status: Inactive Member Role Status Dates Dr. Rayne Gonzalez MD Primary Care Provider Active Start: September 20, 2024 End: September 20, 2024 Dr. Rayne Gonzalez MD Attending Provider Active Start: September 20, 2024 End: September 20, 2024 Dr. Rayne Gonzalez MD Referring Provider Active Start: September 20, 2024 End: September 20, 2024 Team Status: Inactive Member Role Status Dates Dr. Rayne Gonzalez MD Primary Care Provider Active Start: October 05, 2024 End: October 05, 2024 Dr. Rayne Gonzalez MD Referring Provider Active Start: October 05, 2024 End: October 05, 2024 Dr. Abel Greenfield MD Attending Provider Active S tart: October 05, 2024 End: October 05, 2024 Goals (unrecognized section and content) Goals may be documented in a n alternate sectionGoals may be documented in an alternate sectionGoals may be documented in an alternate section (unrecognized sect ion and content) No Status Records Found INFORMATION SOURCE (unrecogn ized section and content) DATE CREATED AUTHOR 11/07/2024 [facility] FOR RECORDS PERTAINING TO PATIENTS WHO ARE OR HAVE BEEN ENROLLED IN A CHEMICAL DEPENDENCY/SUBSTANCEABUSE PROGRAM, SOME INFORMATION MAY BE OMITTED. This clinical summary was aggregated from multiple sources. Caution should be exercised in using it in the provision of clinical care. This summary normalizes information from multiple sources, and as a consequence, information in this document may materially change the coding, format and clinical context of patient data. In addition, data may be omitted in some cases. CLINICAL DECISIONS SHOULD BE BASED ON THE PRIMARY CLINICAL RECORDS. [employer] provides no warranty or guarantee of the accuracy or completeness of information in this document.
--- NOTE | 2024-12-26 09:45 | CL.D_ITS ---
Patient Name: MARK ANTHONY YE Study Date: 11/07/2024 Performing: Abel Greenfield MD Ht: 68 inches 172.72 cm : 1970 Wt: 298 lbs 135.17 kg Age: 54 Gender: male BSA: 2.42 PROCEDURE(S) PERFORMED DC02-([id number])LHC/COR DC11-([id number])AO ROOT ANGIO WITH HEART CATH CLINICAL PROFILE AND INDICATIONS Indications: Cardiomyopathy, Suspected CAD Heart Failure: None Stress/Imaging Stress/Image Study Performed: No CAD Presentations: Symptom unlikely to be ischemic. CONCLUSIONS Non obstructive coronary arteries Aortic Valve Stenosis- Severe Aortic Root dilated RECOMMENDATIONS Recommend scheduling transesophageal echocardiogram as well as a CT scan of his chest with a view to excluding a bicuspid aortic valve. He will likely need the valve replaced and his aortic root repaired. DESCRIPTION OF PROCEDURE The patient arrived to the procedure lab. The risks and benefits of the procedure as well as a full description of our services here and current unavailability of surgical backup were fully explained to the patient and/or their significant other prior to the catheterization. The Timeout was completed, verifying the correct patient and procedure. The patient's procedural site was prepped and draped in the usual fashion. Local anesthetic was given subcutaneously to right radial region with Lidocaine 2%. Using a modified Seldinger technique, arterial access was obtained via the right radial artery, a 6Fr sheath was inserted. Left Coronary Artery selective angiography was performed in multiple views using a 5 Fr. 4.0 [place] catheter. Right Coronary Artery selective angiography was then performed in multiple views using a 5 Fr. JR 5 catheter. Ascending (root) aorta selective angiography was then performed in single view. Ascending (root) aorta selective angiography was then performed in single view.The arterial sheath was pulled and a TR Band was applied for hemostasis 11 ml of air CORONARY ANGIOGRAPHY DOMINANCE: Right Dominant LEFT HEART ASSESSMENT Left Ventricular Ejection Fraction: by Echo 35 % Depressed Left Ventricular systolic function LEFT MAIN: Angiographically normal LEFT ANTERIOR DESCENDING ARTERY: Mild luminal irregularities CIRCUMFLEX ARTERY: Mild luminal irregularities RIGHT CORONARY ARTERY: Mild luminal irregularities COMPLICATIONS No Complications PROCEDURE MEDICATIONS Fentanyl 50 mcg IV Versed 1 mg IV Versed 1 mg IV Oxygen: 2 L/min via nasal cannula Heparin given IA 11/07/2024 11:33:03 Verapamil 2.5mg, Ntg 100mcgs, 3000 units of Heparin given IA 11/07/2024 11:33:03 SUMMARY OF HEMODYNAMIC DATA Time AIR REST ECG 09:59:50 AO 104/73 (88) SA 11:36:33 LV 101/51, 53 11:40:02 Signed By Abel Greenfield MD On 11/07/2024 13:09:19 Abel Greenfield MD
== END 2024-11-07 11:49 | disposition home or self-care (01) ==
PROVIDERS: PCP Internal Medicine; Referring Provider Internal Medicine Cardiovascular Disease; Visit Provider Internal Medicine Cardiovascular Disease
DX: I35.0 Nonrheumatic aortic (valve) stenosis (principal); E11.9 Type 2 diabetes mellitus without complications; R06.02 Shortness of breath; Z99.89 Dependence on other enabling machines and devices; G47.33 Obstructive sleep apnea (adult) (pediatric); Z99.2 Dependence on renal dialysis; R42 Dizziness and giddiness; R00.2 Palpitations; R53.83 Other fatigue; I77.819 Aortic ectasia, unspecified site; E78.5 Hyperlipidemia, unspecified; I10 Essential (primary) hypertension; Z82.49 Family history of ischemic heart disease and other diseases of the circulatory system
CPT/HCPCS: 36415; 80048; 85025; 93454; 99152; 99153; Q9967; C1769; C1894

== ENCOUNTER → 2024-12-01 | Outpatient (CLI) | payer OTHER, SELFPAY ==
--- NOTE | 2024-12-01 07:58 | CT_ITS ---
PROCEDURE: CTA CHEST W/WO CONTRAST 12/01/2024 REASON FOR EXAM: AORTIC STENOSIS TECHNIQUE: One or more dose reduction techniques were used (e.g., Automated exposure control, adjustment of the mA and/or kV according to patient size, use of iterative reconstruction technique). CTA CHEST W/WO CONTRAST Multiplanar Sagittal and Coronal images were obtained. 3D post processing was performed CONTRAST: Isovue 370 VOLUME: 100 mL RADIATION DOSE SUMMARY: CTDlvol: 17.5 mGy DLP: 773.33 mGycm COMPARISON: None FINDINGS: Hardware: None Lymph nodes: Small benign-appearing mediastinal lymph nodes. Heart: Coronary artery calcification. Calcification in the region of the aortic valve. Thoracic Aorta: No thoracic aortic aneurysm or dissection. Pulmonary Vessels: No evidence of pulmonary embolism. Lungs and Airways: Small bilateral pleural effusions with bibasilar dependent atelectasis more prominent at the right lung base. Upper Abdomen: Unremarkable Bones: Degenerative changes of the thoracic spine. CT/CTA Chest W/WO Contrast IMPRESSION: Coronary artery calcification. Calcification in the region of the aortic valve . Small bilateral pleural effusions right greater than left with bibasilar atelec tasis worse on the right side. Reading Location: [place] [address]
== END | disposition home or self-care (01) ==
LOC: CT 07:56
PROVIDERS: PCP Internal Medicine; Referring Provider Internal Medicine Cardiovascular Disease; Visit Provider Internal Medicine Cardiovascular Disease
DX: I35.9 Nonrheumatic aortic valve disorder, unspecified (principal); I50.42 Chronic combined systolic (congestive) and diastolic (congestive) heart failure
CPT/HCPCS: 71275; Q9967

== ENCOUNTER → 2024-12-09 | Outpatient (CLI) | payer OTHER, SELFPAY ==
--- NOTE | 2024-12-09 12:43 | CDU_ITS ---
Reason For Study Reason For Study: Bruit Rt. Velocities/BP Lt. Velocities/BP Prox CCA 67.4/17.3 cm/sec. Prox CCA 99.2/27.9 cm/sec. Mid CCA 70.2/18.2 cm/sec. Mid CCA 70.0/17.0 cm/sec. Dist CCA 60.7/19.2 cm/sec. Dist CCA 64.5/18.8 cm/sec. Prox ICA 60.8/25.6 cm/sec. Prox ICA 52.5/18.4 cm/sec. Mid ICA 53.1/17.9 cm/sec. Mid ICA 71.8/21.2 cm/sec. Dist ICA 45.0/18.8 cm/sec. Dist ICA 42.2/14.2 cm/sec. Rt. ICA/CCA = 0.9. Lt. ICA/CCA = 1.0. Prox ECA 91.6/16.8 cm/sec. Prox ECA 73.0/17.3 cm/sec. Rt. Vert. 37.1/9.7 cm/sec. Lt. Vert. 42.1/12.6 cm/sec. Right Extracranial There is intimal thickening but no significant atherosclerotic plaque noted in the right common carotid artery. There is heterogeneous, irregular atherosclerotic plaque noted in the right internal carotid artery. The distal right internal carotid artery is not well visualized. There is intimal thickening but no significant atherosclerotic plaque noted in the right external carotid artery. Antegrade flow is noted in the right vertebral artery. Left Extracranial There is homogeneous, smooth atherosclerotic plaque noted in the left common carotid artery. There is intimal thickening but no significant atherosclerotic plaque noted in the left internal carotid artery. The distal left internal carotid artery is not well visualized. There is intimal thickening but no significant atherosclerotic plaque noted in the left external carotid artery. Antegrade flow is noted in the left vertebral artery. Procedure Carotid Duplex [id number]. This is a Carotid Duplex examination using B-mode, color flow and specral Doppler. Exam performed in department. VL/Carotid Duplex Ultrasound Interpretation Summary Mild (<50%) stenosis right extracranial internal carotid. Normal left extracranial internal carotid. Patent and antegrade vertebrals bilaterally. Ordering Physician: Ana Gonzalez Referring Physician: Ana Gonzalez Performed By: Melissa Iyer RVT
== END | disposition home or self-care (01) ==
LOC: CVS 12:40
PROVIDERS: PCP Internal Medicine; Referring Provider Internal Medicine; Visit Provider Internal Medicine
DX: R09.89 Other specified symptoms and signs involving the circulatory and respiratory systems (principal)
CPT/HCPCS: 93880

== ENCOUNTER → 2024-12-13 | Outpatient (CLI) | payer OTHER, SELFPAY ==
--- NOTE | 2024-12-13 08:57 | ECHOTEE_ITS ---
Reason For Study Reason For Study: Medication NATHALIE probe 6VT-D (SN [id number]) passed without difficulty. No complications were noted. Cetacaine Topical Artemus given X3 orally. Versed 2 mg given slow IVP. Fentanyl 50 mcg given slow IVP. Performed a rapid injection of agitated mix of 9 cc saline and 1cc air to assess for atrial septal defect. Left Ventricle Normal LV size. The estimated ejection fraction is 45 %. No regional wall motion abnormalities noted. Right Ventricle Normal RV size. Normal systolic function. Atria Bubble contrast study negative for right to left interatrial shunt. Normal left atrium. There is mild sponatenous contrast in the left atrium. No thrombus is detected in the left atrial appendage. Normal right atrium. Mitral Valve Normal mitral valve. Mild (1+) eccentric mitral valve insufficiency. Tricuspid Valve Normal tricuspid valve. Mild tricuspid valve insufficiency. Aortic Valve Bicuspid aortic valve. Severe focal aortic valve calcification. Peak aortic valve gradient 47 mmHg. Mean aortic valve gradient 33 mmHg. Mild (1+) aortic valve insufficiency. Pulmonic Valve Normal pulmonic valve. Vessels Normal aortic root. Normal arch. The pulmonary artery is normal size. Pericardium No pericardial effusion. MMode/2D Measurements & Calculations LVOT diam: 2.1 cm LVOT area: 3.6 cm2 Doppler Measurements & Calculations Ao V2 max: 344.5 cm/sec LV V1 max: 116.8 cm/sec SV(LVOT): 100.0 ml Ao max P.5 mmHg LV V1 max P.5 mmHg Ao V2 mean: 281.6 cm/sec LV V1 mean P.5 mmHg Ao mean P.1 mmHg LV V1 mean: 89.6 cm/sec Ao V2 VTI: 84.5 cm LV V1 VTI: 27.7 cm AV (velocity ratio): 0.33 YONY(I,D): 1.2 cm2 YONY(V,D): 1.2 cm2 ECHO/Echo Transesophageal (NATHALIE) Interpretation Summary Normal LV size. The estimated ejection fraction is 45 %. No regional wall motion abnormalities noted. Bicuspid aortic valve. Severe focal aortic valve calcification. Peak aortic valve gradient 47 mmHg. Mean aortic valve gradient 33 mmHg. Ordering Physician: Abel Greenfield Referring Physician: Ana Gonzalez Performed By: Dilcia Powers, GLENYS, RVT
== END | disposition home or self-care (01) ==
LOC: CVS 08:56
PROVIDERS: PCP Internal Medicine; Referring Provider Internal Medicine Cardiovascular Disease; Visit Provider Internal Medicine Cardiovascular Disease
DX: I35.9 Nonrheumatic aortic valve disorder, unspecified (principal)
CPT/HCPCS: 93312; 93320; 93325; A4216